=== PATIENT | female | born 1965 | race American Indian/Alaskan Native ===

== ENCOUNTER 2017-05-09 07:09 | Day surgery (SDC) | payer BC ==
[2017-05-09] MEDS ORDERED: NACL 0.9% 500 ML 500 ML IV SCH ×2 (08:00→09:35)
[2017-05-09 08:09] LABS: Basophils % (Auto) 0.5 % (0.0-1.8); Eosinophils % (Auto) 2.5 % (0.0-4.3); Hemoglobin 10.3 gm/dl (10.1-14.3); Mean Corpuscular HGB Conc 32 % (30-34); Mean Corpuscular Volume 77 fl (79-97); Platelet Count 270 K/mm3 (140-440); Red Blood Count 4.19 M/mm3 (3.65-5.03); Red Cell Distribution Width 14.5 % (13.2-15.2); White Blood Count 6.7 K/mm3 (4.5-11.0)
[2017-05-09 08:12] LABS: Mean Corpuscular Hemoglobin 25 pg (28-32)
[2017-05-09 08:19] LABS: INR 0.96 (0.87-1.13)
[2017-05-09 08:23] LABS: BUN/Creatinine Ratio 17.39; Calcium 8.7 mg/dL (8.4-10.2); Chloride 101.5 mmol/L (98-107); Potassium 4.1 mmol/L (3.6-5.0)
[2017-05-09] MEDS ORDERED: HEPARIN/NS 5000 UNIT/500ML(CATH LAB) 1,000 ML IR ONE (12:44)
[2017-05-09] MEDS ORDERED: VERSED ONE (12:45)
[2017-05-09] MEDS ORDERED: NITROGLYCERIN SYRINGE 0 ML ONE (12:45)
[2017-05-09] MEDS ORDERED: XYLOCAINE 2% INFILTRATI ONE (12:45)
[2017-05-09] MEDS ORDERED: HEPARIN 10,000 UNITS/10 ML ONE (12:45)
[2017-05-09] MEDS ORDERED: SUBLIMAZE ONE (12:45)
--- NOTE | 2017-05-09 13:55 | Discharge Summary ---
Short Stay Discharge Plan Activity: advance as tolerated Weight Bearing Status: Partial Weight Bearing Diet: low fat, low cholesterol, low salt, diabetic Wound: keep clean and dry Special Instructions: no heavy lifting (3 days) Follow up with: SVEN MONTOYA MD [Primary Care Provider] - 7 Days FELIPE CRUZ MD [Staff Physician] - 7 Days
[2017-05-09] MEDS ORDERED: NACL 0.9% 1000 ML 1,000 ML IV SCH (14:00)
[2017-05-09] MEDS ORDERED: ULTRAM PO PRN (14:08)
--- NOTE | 2017-05-09 14:49 | Cardiac Catherization Report ---
REASON FOR PROCEDURE: The patient is a 51-year-old woman with hypertension and diabetes who presented for preoperative cardiac assessment for routine colonoscopy. Further evaluation demonstrated a deterioration in the left ventricular systolic function with a dilated cardiomyopathy, ejection fraction 20-25%. A Persantine thallium stress test was abnormal with a partially transient lateral wall defect consistent with moderate ischemia in that territory. A cardiac catheterization was recommended. Prior to the cardiac catheterization, additional risk assessment, the patient has chronic kidney disease with a creatinine of 1.9-2.3 at baseline, and consented to the cardiac catheterization procedure after being fully informed of a high risk of contrast nephropathy. Plan for the procedure is to use Visipaque, and minimal contrast load just for defining the coronary anatomy. DESCRIPTION OF PROCEDURE: The patient was prepped and draped in a sterile fashion after informed consent. The right femoral artery was entered using the Seldinger technique followed by placement of a 6-Yoruba sheath. Selective left and right coronary angiography was performed using #4 right and left Courtney catheters. Following coronary angiography, the catheters were removed, sheath removed, and hemostasis achieved using an Angio-Seal device. The patient was returned to the postprocedure unit in stable condition. There were no complications. Total contrast used for the procedure was 20-24 mL. CORONARY ANGIOGRAPHY: The left main coronary artery was free of significant disease. The left anterior descending artery contained an eccentric, 75-80% stenosis of its mid segment, before a large mid diagonal branch. This mid LAD stenosis was best seen in the OTERO caudal projection. The circumflex system was a large system that contained a long segment of diffuse atherosclerosis in its proximal segment, beginning near its ostium. There was an up to 75-80% stenosis within this diseased segment. The right coronary artery was dominant. This vessel contained two sequential 75-80% stenoses of the mid segment. Left ventricular angiography was not performed, as reported above, she has a severe dilated cardiomyopathy with ejection fraction of 20-25% on recent echocardiogram. Total contrast used for the procedure was 20-24 mL. CONCLUSIONS: 1. Severe 3-vessel coronary artery disease. 2. Dilated cardiomyopathy, ejection fraction 20-25% was reported on echocardiogram. RECOMMENDATIONS: Multivessel disease, underlying cardiomyopathy, in a diabetic patient, the patient will benefit from multivessel revascularization with coronary artery bypass. JOB# [id number] CARMEN/NTS
[2017-05-09] MEDS ORDERED: APRESOLINE PO ONE (15:55)
[2017-05-09 19:39] VITALS: BP 167/89
== END 2017-05-09 19:50 | disposition home or self-care (01) ==
LOC: OPU 07:09
PROVIDERS: ATTEND Internal Medicine Cardiovascular Disease
DX: I25.10 Atherosclerotic heart disease of native coronary artery without angina pectoris (principal); E11.9 Type 2 diabetes mellitus without complications; I11.0 Hypertensive heart disease with heart failure; I50.9 Heart failure, unspecified; E78.5 Hyperlipidemia, unspecified; Z79.899 Other long term (current) drug therapy; Z98.890 Other specified postprocedural states; Z79.01 Long term (current) use of anticoagulants; Z79.4 Long term (current) use of insulin; Z96.41 Presence of insulin pump (external) (internal); Z82.49 Family history of ischemic heart disease and other diseases of the circulatory system; Z86.73 Personal history of transient ischemic attack (TIA), and cerebral infarction without residual deficits; Z83.49 Family history of other endocrine, nutritional and metabolic diseases; Z83.3 Family history of diabetes mellitus
CPT/HCPCS: 36415; 80048; 82962; 85025; 85610; 85730; 93005; 93010; 93458; C1760; C1894; J1644; J2250; J3010; J7040; Q9967

== ENCOUNTER 2017-10-05 06:36 | Day surgery (SDC) | payer BC ==
[~2017-10-05 06:36] MED LIST: ANCEF/STERILE WATER 2 GM/20 ML 2 GM/20 ML SYRINGE IV NR; NACL 0.9% 1000 ML 1,000 ML IV SCH
--- NOTE | 2017-10-05 07:42 | Anesthesia Consultation ---
Anesthesia Consult and Med Hx Date of service: 10/05/17 - Airway Anesthetic Teeth Evaluation: Good ROM Head & Neck: Adequate Mental/Hyoid Distance: Adequate Mallampati Class: Class II Intubation Access Assessment: Probably Good - Pulmonary Exam CTA: Yes - Cardiac Exam Cardiac Exam: RRR - Pre-Operative Health Status ASA Pre-Surgery Classification: ASA4 Proposed Anesthetic Plan: General - Pulmonary Hx Asthma: No COPD: No Hx Pneumonia: No - Cardiovascular System Hx Hypertension: Yes Hx Coronary Artery Disease: Yes (4 vessel CABG may 2017) Hx Heart Attack/AMI: Yes (2014) Hx Angina: Yes - Central Nervous System CVA: Yes (2007) Hx Psychiatric Problems: No - Endocrine Hx End Stage Renal Disease: No Hx Hypothyroidism: Yes - Other Systems Hx Cancer: No
--- NOTE | 2017-10-05 07:42 | Anesthesia Day of Surgery ---
Anesthesia Day of Surgery - Day of Surgery Patient Examined: Yes Patient H&P Reviewed: Yes Patient is NPO: Yes Beta Blockers: Yes
[2017-10-05] MEDS ORDERED: XYLOCAINE MPF 2% ONE (07:44)
[2017-10-05] MEDS ORDERED: DIPRIVAN 10 MG/ML IV ONE ×2 (07:44)
[2017-10-05] MEDS ORDERED: SUBLIMAZE ONE (07:44)
[2017-10-05] MEDS ORDERED: DILAUDID ONE (07:45)
[2017-10-05] MEDS ORDERED: AMIDATE IV ONE (07:45)
[2017-10-05 07:53] LABS: Calcium 8.6 mg/dL (8.4-10.2); Chloride 103.4 mmol/L (98-107); INR 0.97 (0.87-1.13); Potassium 3.8 mmol/L (3.6-5.0)
[2017-10-05 07:57] LABS: Basophils % (Auto) 0.9 % (0.0-1.8); Eosinophils % (Auto) 1.9 % (0.0-4.3); Hematocrit 28.8 % (30.3-42.9); Hemoglobin 9.2 gm/dl (10.1-14.3); Mean Corpuscular HGB Conc 32 % (30-34); Mean Corpuscular Hemoglobin 25 pg (28-32); Mean Corpuscular Volume 78 fl (79-97); Platelet Count 313 K/mm3 (140-440); Red Blood Count 3.72 M/mm3 (3.65-5.03); Red Cell Distribution Width 15.8 % (13.2-15.2); White Blood Count 6.5 K/mm3 (4.5-11.0)
[2017-10-05] MEDS ORDERED: HEPARIN/NS 5000 UNIT/500ML(CATH LAB) 1,000 ML IR ONE (08:18)
[2017-10-05] MEDS ORDERED: XYLOCAINE 2% INFILTRATI ONE (08:18)
[2017-10-05] MEDS ORDERED: ANCEF/STERILE WATER 2 GM/20 ML 2 GM/20 ML SYRINGE IV ONE (08:18)
[2017-10-05] MEDS ORDERED: NACL 0.9% 1000 ML 1,000 ML IV SCH (09:00)
[2017-10-05] MEDS: HEPARIN 10,000 UNITS/10 ML ONE ×3 (09:47→11:15)
[2017-10-05] MEDS ORDERED: NACL 0.9% 100 ML ONE (09:58)
[2017-10-05] MEDS ORDERED: ZOFRAN ONE ×2 (10:00→16:25)
[2017-10-05] MEDS ORDERED: NEO SYNEPHRINE/NS Syringe(OR USE) IV ONE (10:00)
[2017-10-05] MEDS ORDERED: DECADRON ONE (10:00)
[2017-10-05] MEDS ORDERED: NACL 0.9% 1000 ML 1,000 ML ONE (10:08)
[2017-10-05] MEDS ORDERED: HEPARIN/NS 5000 UNIT/500ML(CATH LAB) 500 ML IR ONE (11:34)
[2017-10-05] MEDS ORDERED: NORMODYNE IV ONE ×2 (12:02→14:00)
--- NOTE | 2017-10-05 12:28 | Post Anesthesia Evaluation ---
- Post Anesthesia Evaluation Patient Participated: Yes Airway Patent: Yes Stable Respiratory Function: Yes Nausea/Vomiting: No Temp > 96.8F: Yes Pain Manageable: Yes Adequeate Hydration: Yes Anesthesia Complications: No Block Receding Appropriately: Not Applicable Patient on Ventilator: No
[2017-10-05] MEDS: APRESOLINE IV PRN ×2 (12:31→13:00)
[2017-10-05] MEDS: DILAUDID IV PRN ×4 (12:40→13:45)
--- NOTE | 2017-10-05 12:55 | Short Stay Summary ---
Short Stay Documentation Date of service: 10/05/17 Narrative H&P: 52-year-old female with past medical history of coronary artery disease status post recent coronary artery bypass grafting for three-vessel disease in a patient with severe diabetes who presents with critical limb ischemia of the right leg with a nonhealing plantar ulcer and an LUCIA of 0.3. She also has very short distance left lower extremity claudication of the left lower extremity with LUCIA of 0.5. - History Principal diagnosis: critical limb ischemia H&P: obtained from office - Allergies and Medications Current Medications: Allergies glyburide [From Micronase] Allergy (Severe, Verified 05/09/17 08:11) Swelling of tongue,face Home Medications Medication Instructions Recorded Confirmed Last Taken Type Clopidogrel Bisulfate [Plavix] 75 mg PO DAILY 08/15/15 10/05/17 10/05/17 History Levothyroxine [Synthroid] 300 mcg PO QAM 08/15/15 10/05/17 10/04/17 History Carvedilol [Coreg] 25 mg PO BID #60 tablet 08/20/15 10/05/17 10/04/17 Rx Simvastatin [Zocor TAB] 40 mg PO QHS #30 tablet 08/20/15 10/05/17 10/04/17 Rx Aspirin EC [Aspirin Enteric Coated 4 mg PO QDAY 05/09/17 10/05/17 10/04/17 History TAB] Hydralazine HCl [Apresoline TAB] 50 mg PO Q8HR 08/30/17 10/05/17 10/05/17 History Furosemide [Lasix TAB] 80 mg PO BID 10/05/17 10/05/17 10/04/17 History Active Medications Hydralazine HCl (Apresoline) 10 mg IV Q30MIN PRN PRN Reason: Hypertension Stop: 10/05/17 23:59 Last Admin: 10/05/17 12:31 Dose: 10 mg Hydromorphone HCl (Dilaudid) 0.5 mg IV Q10MIN PRN PRN Reason: Pain , Severe (7-10) Stop: 10/05/17 16:00 Last Admin: 10/05/17 12:40 Dose: 0.5 mg Cefazolin Sodium (Ancef/Sterile Water 2 Gm/20 Ml) 2 gm in 20 mls @ 80 mls/hr IV PREOP NR PRN Reason: Protocol Stop: 10/05/17 21:00 Last Admin: 10/05/17 09:10 Dose: 20 mls Sodium Chloride (Nacl 0.9% 1000 Ml) 1,000 mls @ 42 mls/hr IV DIRECT PARISH Last Admin: 10/05/17 08:31 Dose: 42 mls/hr Sodium Chloride (Nacl 0.9% 1000 Ml) 1,000 mls @ 100 mls/hr IV DIRECT PARISH - Physical exam General appearance: no acute distress Lungs: Normal air movement Gastrointestinal: normal Extremities: normal temperature, normal color, abnormal (nonhealing ulcer of the right plantar midfoot) - Brief post op/procedure progress note Date of procedure: 10/05/17 Pre-op diagnosis: Right critical limb ischemia Post-op diagnosis: same Procedure: Revascularization of the right lower extremity Anesthesia: MAC Surgeon: NEIL BOWENS Estimated blood loss: minimal Condition: stable - Hospital course Hospital course: Patient tolerated the procedure well. No immediate postprocedure complication. - Disposition Condition at discharge: Stable Disposition: [id number]-01 TO HOME OR SELFCARE - Discharge Diagnoses (1) Critical ischemia of lower extremity Status: Acute Short Stay Discharge Plan Activity: advance as tolerated Weight Bearing Status: Weight Bear as Tolerated Diet: renal Wound: keep clean and dry, other (followup with Dr. Bowens and wound care) Follow up with: SVEN MONTOYA MD [Primary Care Provider] - 7 Days
--- NOTE | 2017-10-05 13:14 | Operative Report ---
Operative Report Operative Report: EXAM: 1. Ultrasound-guided access of the left common femoral artery 2. CO2 angiography of the left lower extremity (no clinical change for angiography , already performed 1 week prior) 3. Selection of the abdominal aorta with CO2 angiography of the abdominal aorta (no clinical change for angiography, already performed 1 week prior) 4. Selection of the right external iliac artery with CO2 angiography of the right lower extremity (no clinical change for angiography, already performed 1 week prior) 5. Selection of the right popliteal artery with CO2 angiography of the right lower extremity (no clinical change for angiography, already performed 1 week prior) 6. Jet stream 2.4-3.4 atherectomy of the right superficial femoral artery, and popliteal artery 7. Angioplasty of the right popliteal artery and superficial femoral artery with a 3.5-4 mm angioplasty balloon 8. Angioplasty of the right popliteal artery with a 4 mm x 100 mm LUTONIX drug coated balloon 9. Angioplasty of the right superficial femoral artery with 5 mm x 100 mm LUTONIX drug coated balloon (x 3) and 6 mm x 100 mm LUTONIX drug coated balloon 10. Selection of the anterior tibial artery with angiography (third order selection) (no clinical change for angiography, already performed 1 week prior) 11. Closure of the left common femoral artery with a 6 Bahamian Pro-glide device DATE: 10/05/17 FOOD AND BEVERAGE MANAGER: NEIL BOWENS MD INDICATION: Critical limb ischemia of the right lower extremity with nonhealing plantar ulcer and LUCIA of 0.3 MEDICATIONS: Please see nursing report for full details. DEVICES: Jet stream 2.4-3.4 atherectomy device 3.5-4 mm x 210 mm nanocross angioplasty balloon 4 mm x 100 mm LUTONIX drug coated balloon (pass through CPT code required) 5 mm x 100 mm LUTONIX drug coated balloon (x 3) (pass through CPT code required) 6 mm x 100 mm LUTONIX drug coated balloon (pass through CPT code required) CONTRAST: 12 mL of nonionic contrast ; CO2 contrast PROCEDURE: The risks, benefits, and alternatives were discussed with the patient; written informed consent was obtained. The patient was brought to the room and an LMA was placed by anesthesia the patient was anesthetized by anesthesia. The groins were prepped and draped in a sterile fashion. The left common femoral artery was evaluated under ultrasound and was patent. Under direct ultrasound guidance, the left common femoral artery was accessed with a 21-gauge micro-puncture needle. 0.018 inch wire was passed into the aorta. Needle was exchanged for transitional dilator. Wire was exchanged for 0.035 inch Martinez wire. Transitional dilator was exchanged for a 5 Bahamian sheath. CO2 angiography was performed demonstrating an appropriate puncture, above the bifurcation and below the inferior epigastric artery. The left common femoral artery, external iliac artery, proximal superficial femoral artery, and profunda femoral artery are patent. The abdominal aorta was selected with the Omni flush catheter and CO2 injection was performed. The infrarenal abdominal aorta was patent. The common iliac arteries had 20% narrowing bilaterally. The right external iliac artery was patent. The bilateral internal iliac arteries were patent. The right external iliac artery was selected and CO2 injection is performed. The right common femoral artery, profunda femoral artery, and proximalmost superficial femoral artery were patent. After the first few centimeters of the superficial femoral artery, the superficial femoral artery became severely atherosclerotic with multifocal areas of 99% narrowing throughout the superficial femoral artery. The popliteal artery, [id number], had a 99% narrowing. There is a 99% narrowing at the midportion of the popliteal artery. There is a 99% narrowing in the below-knee popliteal artery. There is no direct arterial outflow into the foot with occlusion of the anterior tibial artery throughout its course, posterior tibial artery throughout its course, and tibial peroneal trunk. The proximal peroneal artery was occluded. The midportion of the peroneal artery had severe atherosclerotic disease within it, but was visible with CO2. Sheath was exchanged for a 6 Bahamian 45 cm sheath positioned in the right common femoral artery. Catheter was used to cross the superficial femoral artery lesion to the above-knee popliteal artery. 2 mm contrast injection was performed which demonstrated that the 99% narrowing in the above-knee popliteal artery appeared to have an associated small thrombus associated with it. I then exchanges sheath for a 7 Bahamian 45 cm sheath positioned in the right superficial femoral artery. Angled catheter was used to engage the distal popliteal stump. V 18 wires were used to probe the stump, but I could not cannulate the tibioperoneal trunk. I was able to cannulate the anterior tibial artery. I was able to cross the anterior tibial artery occlusion and past wire into the dorsalis pedis. Unfortunately, I could not pass a catheter over the wire. This was attempted with the Jyoti and with the Navicross catheter. I could only pass a catheter to the midportion of the anterior tibial artery. I then removed Katheryn wire and used a Throughway wire. I then use the 2.4 3.4 jet stream device and performed atherectomy and slow pace throughout the superficial femoral artery multiple times, and then repeatedly performed atherectomy at the area with associated thrombus. I then performed atherectomy down to the mid popliteal artery. 3.5 x 4 mm angioplasty balloon was then used to perform angioplasty from the mid popliteal artery to the SFA origin. Afterwards, 4 mm drug coated balloon was used to perform angioplasty of the popliteal artery, 5 mm drug coated balloon was used to perform angioplasty of part of proximal, and the entire mid and distal superficial femoral artery, and 6 mm drug coated balloon was used to perform angioplasty of the proximal superficial femoral artery. Three-minute inflations were performed. I then used a few injections with 2 mL of contrast to evaluate the results which demonstrated no residual narrowing of the superficial femoral artery, a [id number] mild dissection at the start of the popliteal artery at Jose's canal, no residual narrowing at the midportion of the popliteal artery, but a 99% narrowing of the below-knee popliteal artery which was missed with angioplasty. 3.5-4 mm angioplasty was then used to perform angioplasty of the below-knee popliteal artery for 3 minutes. Digital subtraction angiography demonstrated prompt flow through the entirety of the popliteal artery. I then attempted to cross the anterior tibial artery with the 0.014 inch Trailblazer catheter but was unsuccessful. Gentle angiography was performed confirming position within the anterior tibial artery. Given that I are very used 12 mL of contrast in this patient with chronic renal insufficiency, and that further intervention would require me exchanging sheaths for a 90 cm [place] destination which would result in loss of wire access, and I decided to end the procedure at this time. I would reevaluate the patient in clinic in 1 week, and likely reintervene and open her anterior tibial artery at that time. She now had an abundance of collaterals at the popliteal artery and distal superficial femoral artery which provided flow into her foot without narrowing of the underlying [place] popliteal artery and superficial femoral artery. There is still no direct tibial outflow. All wires catheters and sheaths were retracted into the left external iliac artery. Martinez wire was passed into the abdominal aorta. Sheath was removed and exchanged for 6 Bahamian Pro-glide which was deployed achieving excellent hemostasis. Surgical glue applied to the dermatomy. Patient tolerated the procedure well. No immediate post procedural complication. The patient was transported to PACU without further issue. Evaluated patient in PACU, and her right foot rest pain had resolved. FINDINGS: Please see procedure note above IMPRESSION: 1. Successful atherectomy and angioplasty of the right superficial femoral artery with good technical result. 2. Successful selection (third order) of the right anterior tibial artery, but I was unable to pass a catheter over the wire due to sheath position. 3. Successful closure of the left common femoral artery arteriotomy with a Pro- glide device.
[2017-10-05] MEDS ORDERED: CATAPRES PO ONE ×2 (14:28→15:00)
[2017-10-05] MEDS ORDERED: CATAPRES ONE (14:30)
[2017-10-05] MEDS ORDERED: APRESOLINE ONE (15:35)
[2017-10-05] MEDS ORDERED: APRESOLINE IV ONE (16:00)
[2017-10-05 16:59] VITALS: BP 181/86
[2017-10-05] MEDS ORDERED: ZOFRAN IV ONE (17:00)
--- NOTE | 2017-10-06 07:23 | Vascular Lab Report ---
MISCELLANEOUS VESSEL IDENTIFICATION: COMMENTS ON THE SCAN: The left common femoral artery was identified and under real-time ultrasound guidance was cannulated. IMPRESSION: Successful ultrasound guided arterial cannulation.
== END 2017-10-05 16:55 | disposition home or self-care (01) ==
LOC: CATHLABREC 06:36
PROVIDERS: ATTEND Radiology Diagnostic Radiology
DX: I70.291 Other atherosclerosis of native arteries of extremities, right leg (principal); I99.8 Other disorder of circulatory system; L97.519 Non-pressure chronic ulcer of other part of right foot with unspecified severity; E11.22 Type 2 diabetes mellitus with diabetic chronic kidney disease; I12.0 Hypertensive chronic kidney disease with stage 5 chronic kidney disease or end stage renal disease; N18.9 Chronic kidney disease, unspecified; I25.10 Atherosclerotic heart disease of native coronary artery without angina pectoris; E78.5 Hyperlipidemia, unspecified; E03.9 Hypothyroidism, unspecified; I25.2 Old myocardial infarction; E66.9 Obesity, unspecified; Z68.34 Body mass index [BMI] 34.0-34.9, adult; Z88.8 Allergy status to other drugs, medicaments and biological substances; Z79.899 Other long term (current) drug therapy; Z86.73 Personal history of transient ischemic attack (TIA), and cerebral infarction without residual deficits; Z95.1 Presence of aortocoronary bypass graft
CPT/HCPCS: 36415; 37224; 37225; 76937; 80048; 82962; 85025; 85610; 85730; 96374; 96375; C1724; C1725; C1760; C1769; C1887; C2623; J0360; J0690; J1100; J1170; J1644; J2370; J2405; J2704; J3010; J7030; Q9967

== ENCOUNTER 2017-11-23 06:32 | Day surgery (SDC) | payer BC ==
[2017-11-23 07:22] LABS: Basophils # (Auto) 0.1 K/mm3 (0.0-0.1); Basophils % (Auto) 0.9 % (0.0-1.8); Eosinophils # (Auto) 0.5 K/mm3 (0.0-0.4); Eosinophils % (Auto) 7.2 % (0.0-4.3); Hematocrit 31.4 % (30.3-42.9); Hemoglobin 9.7 gm/dl (10.1-14.3); Lymphocytes # (Auto) 2.3 K/mm3 (1.2-5.4); Lymphocytes % (Auto) 31.9 % (13.4-35.0); Mean Corpuscular HGB Conc 31 % (30-34); Mean Corpuscular Volume 78 fl (79-97); Monocytes # (Auto) 0.8 K/mm3 (0.0-0.8); Monocytes % (Auto) 11.4 % (0.0-7.3); Platelet Count 355 K/mm3 (140-440); Red Blood Count 4.04 M/mm3 (3.65-5.03)
[2017-11-23 07:27] LABS: Mean Corpuscular Hemoglobin 24 pg (28-32)
[2017-11-23 07:32] LABS: INR 0.93 (0.87-1.13)
[2017-11-23 07:33] LABS: Partial Thromboplastin Time 32.4 Sec. (24.2-36.6)
[2017-11-23 07:47] LABS: Calcium 8.9 mg/dL (8.4-10.2)
[2017-11-23] MEDS ORDERED: D50W (25GM) Syringe IV ONE (08:08)
[2017-11-23] MEDS ORDERED: D50W (25GM) Syringe IV PRN (08:09)
[2017-11-23] MEDS ORDERED: HEPARIN/NS 5000 UNIT/500ML(CATH LAB) 1,000 ML IR ONE (09:09)
[2017-11-23] MEDS ORDERED: XYLOCAINE 2% INFILTRATI ONE (09:10)
[2017-11-23] MEDS: VERSED ONE ×8 (09:17→11:48)
[2017-11-23] MEDS: SUBLIMAZE ONE ×8 (09:17→11:48)
[2017-11-23] MEDS: APRESOLINE ONE ×2 (09:26→09:34)
[2017-11-23] MEDS ORDERED: VERSED ONE (09:32)
[2017-11-23] MEDS ORDERED: SUBLIMAZE ONE (09:33)
[2017-11-23] MEDS: HEPARIN 10,000 UNITS/10 ML ONE ×3 (09:34→11:00)
[2017-11-23] MEDS ORDERED: APRESOLINE ONE (09:45)
[2017-11-23] MEDS ORDERED: LOPRESSOR IV ONE ×5 (09:46→11:50)
[2017-11-23] MEDS ORDERED: TRIDIL DRIP 50MG/250ML 50 MG/250 ML BOTTLE ONE (10:02)
[2017-11-23] MEDS ORDERED: CALAN ONE (10:02)
[2017-11-23] MEDS ORDERED: NACL 0.9% 1000 ML 1,000 ML ONE (10:03)
[2017-11-23] MEDS ORDERED: HEPARIN/NS 5000 UNIT/500ML(CATH LAB) 500 ML IR ONE (11:46)
--- NOTE | 2017-11-23 12:22 | Short Stay Summary ---
Short Stay Documentation Date of service: 11/23/17 Narrative H&P: 52-year-old female with coronary artery disease status post coronary artery bypass grafting 6 months ago, and recent laparoscopic cholecystectomy with significant peripheral vascular disease and right lower extremity rest pain who presents for revascularization. - History H&P: obtained from office - Allergies and Medications Current Medications: Allergies glyburide [From Micronase] Allergy (Severe, Verified 10/10/17 13:17) Swelling of tongue,face Home Medications Medication Instructions Recorded Confirmed Last Taken Type Clopidogrel Bisulfate [Plavix] 75 mg PO DAILY 08/15/15 11/23/17 11/22/17 History Carvedilol [Coreg] 25 mg PO BID #60 tablet 08/20/15 11/23/17 11/23/17 05:00 Rx Aspirin EC [Aspirin Enteric Coated 4 tab PO DAILY 05/09/17 11/23/17 11/22/17 History TAB] Hydralazine HCl [Apresoline TAB] 50 mg PO QID 08/30/17 11/23/17 11/23/17 05:00 History Ferrous Gluconate 324 mg PO DAILY 10/05/17 11/23/17 11/20/17 History Furosemide [Lasix TAB] 80 mg PO QDAY 10/05/17 11/23/17 11/21/17 History HYDROcodone/APAP 7.5-325 [[place] 1 each PO Q6HR PRN 10/10/17 11/23/17 11/22/17 History 7.5-325 mg TAB] Levothyroxine Sodium [Synthroid] 300 mcg PO 5XW 10/10/17 11/23/17 11/22/17 History Simvastatin [Zocor] 10 mg PO HS 10/10/17 11/23/17 11/22/17 History Active Medications Dextrose (D50w (25gm) Syringe) 50 ml IV PRN PRN PRN Reason: Hypoglycemia Last Admin: 11/23/17 08:10 Dose: 25 ml Cefazolin Sodium (Ancef/Sterile Water 2 Gm/20 Ml) 2 gm in 20 mls @ 80 mls/hr IV PREOP NR PRN Reason: Protocol Stop: 11/23/17 23:59 Last Admin: 11/23/17 09:29 Dose: 20 mls Sodium Chloride (Nacl 0.9% 1000 Ml) 1,000 mls @ 42 mls/hr IV DIRECT PARISH Last Admin: 11/23/17 07:30 Dose: 42 mls/hr - Physical exam General appearance: mild distress (right foot pain and calf pain) Lungs: Normal air movement Gastrointestinal: normal Extremities: normal temperature, normal color, abnormal (decreased pulses) - Brief post op/procedure progress note Date of procedure: 11/23/17 Pre-op diagnosis: Right lower extremity rest pain Post-op diagnosis: same Procedure: 1. Ultrasound-guided access of the left common femoral artery 2. Selection of the abdominal aorta with CO2 aortography 3. Selection of the right external iliac artery with CO2 angiography 4. Selection of the right superficial femoral artery and popliteal artery with CO2 angiography 5. Selection of the popliteal artery with angiography 6. Selection of the anterior tibial artery with angiography 7. 1.25 solid CSI atherectomy of the right popliteal artery and anterior tibial artery 8. Angioplasty of the right anterior tibial artery with a 3 mm angioplasty balloon 9. Angioplasty of the proximal anterior tibial artery and distal popliteal artery with a 3.5 mm angioplasty below 10. Angioplasty of the mid popliteal artery to the mid superficial femoral artery with a 5 mm angioplasty balloon 11. Angioplasty of the distal popliteal artery with a 4 mm drug-coated LUTONIX angioplasty balloon 12. Angioplasty of the mid popliteal artery and distal superficial femoral artery with a 5 mm drug-coated LUTONIX angioplasty balloon 13. Angioplasty of the mid and proximal superficial femoral artery with a 6 mm drug-coated LUTONIX angioplasty balloon (x 2) 14. Repeat angioplasty of the anterior tibial artery and popliteal artery with a 3 mm angioplasty balloon and 3.5 mm angioplasty balloon 15. Angiography of the left lower extremity 16. Closure of the left common femoral artery with a 6 Bhutanese Proglide Anesthesia: local (w/ conscious sedation) Findings: 18 mL contrast used Surgeon: NEIL BOWENS Estimated blood loss: minimal Condition: stable - Hospital course Hospital course: Will be ready for discharge in 2 hrs. - Disposition Condition at discharge: Stable Disposition: DC-01 TO HOME OR SELFCARE - Discharge Diagnoses (1) Rest pain of right lower extremity concurrent with and due to atherosclerosis of bypass graft Status: Acute (2) PAD (peripheral artery disease) Status: Chronic Short Stay Discharge Plan Activity: advance as tolerated Weight Bearing Status: Weight Bear as Tolerated Diet: other (cardiac) Wound: keep clean and dry Follow up with: SVEN MONTOYA MD [Primary Care Provider] - 7 Days
--- NOTE | 2017-11-23 12:23 | Operative Report ---
Operative Report Operative Report: EXAM: 1. Ultrasound-guided access of the left common femoral artery 2. Selection of the abdominal aorta with CO2 aortography 3. Selection of the right external iliac artery with CO2 angiography 4. Selection of the right superficial femoral artery and popliteal artery with CO2 angiography 5. Selection of the popliteal artery with angiography 6. Selection of the anterior tibial artery with angiography 7. 1.25 solid CSI atherectomy of the right popliteal artery and anterior tibial artery 8. Angioplasty of the right anterior tibial artery with a 3 mm angioplasty balloon 9. Angioplasty of the proximal anterior tibial artery and distal popliteal artery with a 3.5 mm angioplasty below 10. Angioplasty of the mid popliteal artery to the mid superficial femoral artery with a 5 mm angioplasty balloon 11. Angioplasty of the distal popliteal artery with a 4 mm drug-coated LUTONIX angioplasty balloon 12. Angioplasty of the mid popliteal artery and distal superficial femoral artery with a 5 mm drug-coated LUTONIX angioplasty balloon 13. Angioplasty of the mid and proximal superficial femoral artery with a 6 mm drug-coated LUTONIX angioplasty balloon (x 2) 14. Repeat angioplasty of the anterior tibial artery and popliteal artery with a 3 mm angioplasty balloon and 3.5 mm angioplasty balloon 15. Angiography of the left lower extremity 16. Closure of the left common femoral artery with a 6 [place] Proglide DATE: 11/23/17 TRUST ADVISOR: NEIL BOWENS MD INDICATION: Critical limb ischemia of the right lower extremity with rest pain and a nonhealing ulcer. MEDICATIONS: Please see nursing report for full details. DEVICES: 3 mm angioplasty balloon 3.5 mm angioplasty balloon 5 mm angioplasty balloon 4 mm drug-coated LUTONIX balloon (pass through code required) 5 mm drug-coated LUTONIX balloon (pass through code required) 6 mm drug-coated LUTONIX balloon (x2) (pass through code required) 1.25 solid CSI atherectomy device CONTRAST: 18 mL of nonionic contrast. PROCEDURE: The risks, benefits, and alternatives were discussed with the patient; written informed consent was obtained. The patient was prepped and draped in sterile fashion and her groins were prepped and draped in a sterile fashion. The left common femoral artery was evaluated under ultrasound was patent. Under direct ultrasound guidance, a 21-gauge micropuncture needle was used to access the left common femoral artery. 0.018 inch wire was passed into the aorta. Needle was exchanged for transitional dilator. Wire was exchanged for a 0.035 inch wire. Transitional dilator was exchanged for 5 [place] sheath. Catheters used to select the abdominal aorta and CO2 angiography was performed demonstrating no significant abdominal aortic narrowing with patency of the common iliac arteries and external iliac arteries. The internal iliac arteries were also patent. The right external iliac artery was selected and CO2 angiography was performed and ensuring patency of the right common femoral artery, proximal superficial femoral artery, and profunda femoral artery. The right superficial femoral artery was selected. CO2 angiography demonstrated 20% residual narrowing within the midportion of the superficial femoral artery. The distal superficial femoral artery was selected. There is diffuse 20-30% narrowing of the distal superficial femoral artery. There was a non-hemodynamic limiting dissection in the above-knee popliteal artery. The midportion of the popliteal artery had 70-80% narrowing, which extended into the distal popliteal artery. The distal popliteal artery was selected and digital subtraction angiography was performed demonstrating numerous collaterals extending into the infrapopliteal vasculature, but the only reconstituted vessels that could be seen was the peroneal artery was reconstituted approximately 10 cm below the popliteal artery. The posterior tibial and anterior tibial artery were not visualized. 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 Runoff could not be visualized because I did not want to waste my contrast trying to evaluate the distal runoff as the patient had an elevated creatinine and I wanted to minimize contrast usage. Patient was heparinized. Sheath was exchanged for a 6 [place] 65 cm [place] destination positioned in the right distal superficial femoral artery. Using a V 18 and angled catheter, the anterior tibial artery chronic total occlusion was crossed. 0.018 inch Trailblazer was passed into the dorsalis pedis. Digital subtraction angiography confirmed position within the foot. Wire was exchanged for a Viper Wire. 1.25 solid CSI atherectomy device was then advanced over the wire and use to perform atherectomy of the popliteal artery, and anterior tibial artery throughout its course. Afterwards, 3 mm angioplasty balloon was used to perform angioplasty along the anterior tibial artery throughout its course. The proximal anterior tibial artery extending into the popliteal artery was then dilated with a 3.5 mm angioplasty balloon. The popliteal artery at its midportion to the distal to mid superficial femoral artery was dilated with a 5 mm angioplasty balloon. Afterwards, a 4 mm drug-coated angioplasty balloon was used to perform angioplasty of the popliteal artery. Then a 5 mm drug-coated angioplasty balloon was used to perform angioplasty from the mid popliteal artery to the proximal superficial femoral artery. Then 2 drug coated 6 mm angioplasty balloons were used to perform angioplasty in the distal to mid superficial femoral artery. Digital subtraction angiography was performed demonstrating no residual narrowing of the mid and distal superficial femoral artery. The small nonflow limiting dissection in the [id number] popliteal artery was much less prominent, and not flow-limiting. There is a nonflow limiting dissection in the proximal anterior tibial artery. There were small nonflow limiting dissections within the midportion of the anterior tibial artery and within the distal anterior tibial artery. 3.5 mm angioplasty balloon was used to perform angioplasty for 5 minutes at the proximal anterior tibial artery extending into the popliteal artery. 3 mm angioplasty balloon was then used to perform angioplasty at 4-5 minute durations from the distal anterior tibial artery throughout its course into the popliteal artery. Digital subtraction angiography was performed demonstrating only minimal residual dissections of the proximal anterior tibial artery, and distal anterior tibial artery after prolonged angioplasty. There is now prompt flow into the foot. All wires, sheaths, and catheters were retracted into the left external iliac artery. 6 [place] Perclose device was used to close the arteriotomy achieving near immediate hemostasis. The patient had a palpable right dorsalis pedis pulse at the conclusion of the procedure and was out of rest pain. Patient tolerated the procedure well. No immediate postprocedural complication. FINDINGS: Please see procedure note above. IMPRESSION: 1. Successful atherectomy and angioplasty of the right popliteal artery. 2. Successful angioplasty of the right mid and distal superficial femoral artery. 3. Successful atherectomy and angioplasty of the right anterior tibial artery.
[2017-11-23] MEDS ORDERED: APRESOLINE IV PRN (12:24)
[2017-11-23] MEDS ORDERED: LOPRESSOR IV PRN (12:24)
[2017-11-23 14:49] VITALS: BP 190/72
== END 2017-11-23 14:30 | disposition home or self-care (01) ==
LOC: CATHLABREC 06:32
PROVIDERS: ATTEND Radiology Diagnostic Radiology
DX: I70.235 Atherosclerosis of native arteries of right leg with ulceration of other part of foot (principal); I70.213 Atherosclerosis of native arteries of extremities with intermittent claudication, bilateral legs; I25.10 Atherosclerotic heart disease of native coronary artery without angina pectoris; E11.51 Type 2 diabetes mellitus with diabetic peripheral angiopathy without gangrene; E03.9 Hypothyroidism, unspecified; E78.5 Hyperlipidemia, unspecified; E66.9 Obesity, unspecified; Z68.34 Body mass index [BMI] 34.0-34.9, adult; Z95.1 Presence of aortocoronary bypass graft; Z90.49 Acquired absence of other specified parts of digestive tract; Z79.82 Long term (current) use of aspirin; Z79.899 Other long term (current) drug therapy; Z79.01 Long term (current) use of anticoagulants
CPT/HCPCS: 36415; 37225; 37229; 75625; 75716; 76937; 80048; 82962; 85025; 85610; 85730; 96374; 99156; 99157; C1724; C1725; C1760; C1769; C1887; C1894; C2623; J0360; J1644; J2250; J3010; J7030; Q9967

== ENCOUNTER 2017-12-28 06:49 | Day surgery (SDC) | payer BC ==
[2017-12-28 08:25] LABS: Basophils % (Auto) 0.6 % (0.0-1.8); Eosinophils # (Auto) 0.2 K/mm3 (0.0-0.4); Eosinophils % (Auto) 4.3 % (0.0-4.3); Hematocrit 31.5 % (30.3-42.9); Hemoglobin 10.2 gm/dl (10.1-14.3); Lymphocytes # (Auto) 2.1 K/mm3 (1.2-5.4); Lymphocytes % (Auto) 41.5 % (13.4-35.0); Mean Corpuscular HGB Conc 33 % (30-34); Mean Corpuscular Volume 78 fl (79-97); Monocytes # (Auto) 0.5 K/mm3 (0.0-0.8); Monocytes % (Auto) 10.9 % (0.0-7.3); Platelet Count 250 K/mm3 (140-440); Red Blood Count 4.04 M/mm3 (3.65-5.03); Red Cell Distribution Width 15.2 % (13.2-15.2)
[2017-12-28 08:27] LABS: Mean Corpuscular Hemoglobin 25 pg (28-32)
[2017-12-28 08:35] LABS: INR 0.97 (0.87-1.13)
[2017-12-28 08:36] LABS: Partial Thromboplastin Time 28.7 Sec. (24.2-36.6)
[2017-12-28 08:43] LABS: Alanine Aminotransferase 12 units/L (7-56); Albumin 3.6 g/dL (3.9-5); BUN/Creatinine Ratio 14; Blood Urea Nitrogen 33 mg/dL (7-17); Calcium 8.5 mg/dL (8.4-10.2); Hemolysis Index 3
[2017-12-28 08:46] LABS: Bilirubin,Direct < 0.2 mg/dL (0-0.2)
[2017-12-28] MEDS ORDERED: ECOTRIN PO NR (08:54)
[2017-12-28] MEDS ORDERED: HEPARIN/NS 5000 UNIT/500ML(CATH LAB) 1,000 ML IR ONE (09:49)
[2017-12-28] MEDS ORDERED: XYLOCAINE 2% INFILTRATI ONE (09:50)
[2017-12-28] MEDS ORDERED: PLAVIX PO SCH (10:00)
[2017-12-28] MEDS ORDERED: ANCEF/STERILE WATER 2 GM/20 ML 2 GM/20 ML SYRINGE IV ONE (10:12)
[2017-12-28] MEDS: VERSED ONE ×8 (10:16→11:56)
[2017-12-28] MEDS: SUBLIMAZE ONE ×8 (10:16→11:56)
[2017-12-28] MEDS ORDERED: APRESOLINE ONE (10:23)
[2017-12-28] MEDS ORDERED: TRIDIL DRIP 50MG/250ML 50 MG/250 ML BOTTLE ONE (11:01)
[2017-12-28] MEDS ORDERED: NACL 0.9% 1000 ML 1,000 ML ONE (11:01)
[2017-12-28] MEDS ORDERED: CALAN ONE (11:02)
[2017-12-28] MEDS: HEPARIN 10,000 UNITS/10 ML ONE ×3 (11:15→12:00)
[2017-12-28] MEDS ORDERED: VERSED ONE (12:05)
[2017-12-28] MEDS ORDERED: SUBLIMAZE ONE (12:06)
--- NOTE | 2017-12-28 12:53 | Short Stay Summary ---
Short Stay Documentation Date of service: 12/28/17 Narrative H&P: 52 year old with right CLI status post revasc with healed ulcer and palpable pulse with left CLI (rest pain). - History Principal diagnosis: Critical limb ischemia H&P: obtained from office - Allergies and Medications Current Medications: Allergies glyburide [From Micronase] Allergy (Severe, Verified 10/10/17 13:17) Swelling of tongue,face VEGA Inhibitors Allergy (Verified 12/28/17 08:24) Shortness of Breath nifedipine Allergy (Verified 12/28/17 08:23) Vomiting Home Medications Medication Instructions Recorded Confirmed Last Taken Type Clopidogrel Bisulfate [Plavix] 75 mg PO DAILY 08/15/15 12/28/17 12/27/17 19:00 History Carvedilol [Coreg] 25 mg PO BID #60 tablet 08/20/15 12/28/17 12/28/17 06:00 Rx 25mg Aspirin EC [Aspirin Enteric Coated 4 tab PO DAILY 05/09/17 12/28/17 12/27/17 19: 00 History TAB] Hydralazine HCl [Apresoline TAB] 50 mg PO QID 08/30/17 12/28/17 12/28/17 06:00 History 50mg Ferrous Gluconate 324 mg PO DAILY 10/05/17 12/28/17 12/26/17 History 324mg Furosemide [Lasix TAB] 80 mg PO QDAY 10/05/17 12/28/17 12/27/17 History 80mg Levothyroxine Sodium [Synthroid] 300 mcg PO 5XW 10/10/17 12/28/17 12/28/17 06: 00 History 300mcg Simvastatin [Zocor] 10 mg PO HS 10/10/17 12/28/17 12/27/17 History 10mg Insulin Lispro [Humalog] 1.1 units SQ Q60MIN 12/28/17 12/28/17 12/28/17 06:00 History Vit D3-Vit K/Berberine/Hops 1 tab PO QWEEK 12/28/17 12/28/17 12/23/17 History [Ostera Tablet] 1 tab oxyCODONE /ACETAMINOPHEN [Percocet 1 tab PO Q6H PRN 12/28/17 12/28/17 12/26/17 History 5/325 mg] 1 tab Active Medications Clopidogrel Bisulfate (Plavix) 75 mg PO QDAY COUNT INCLUDES THE [facility] Last Admin: 12/28/17 09:03 Dose: 75 mg Cefazolin Sodium (Ancef/Sterile Water 2 Gm/20 Ml) 2 gm in 20 mls @ 80 mls/hr IV PREOP NR PRN Reason: Protocol Stop: 12/28/17 23:59 Sodium Chloride (Nacl 0.9% 1000 Ml) 1,000 mls @ 42 mls/hr IV DIRECT COUNT INCLUDES THE [facility] Last Admin: 12/28/17 09:05 Dose: 42 mls/hr - Physical exam General appearance: no acute distress Lungs: Normal air movement - Brief post op/procedure progress note Date of procedure: 12/28/17 Pre-op diagnosis: Left CLI Post-op diagnosis: same Procedure: Revasc the LLE Anesthesia: local (w/ conscious sedation) Surgeon: NEIL BOWENS Estimated blood loss: minimal Condition: stable - Hospital course Hospital course: Tolerated procedure well. Ready for discharge in 3 hrs. - Disposition Condition at discharge: Stable Disposition: [id number] TO HOME OR SELFCARE Short Stay Discharge Plan Activity: advance as tolerated Weight Bearing Status: Weight Bear as Tolerated Diet: diabetic Follow up with: SVEN MONTOYA MD [Primary Care Provider] - 7 Days
--- NOTE | 2017-12-28 13:03 | Operative Report ---
Operative Report Operative Report: EXAM: 1. Ultrasound-guided access of the right common femoral artery 2. Carbon dioxide angiography of the right lower extremity 3. Carbon dioxide angiography of the abdominal aorta with selection of the abdominal aorta 4. Carbon dioxide angiography of the left lower extremity (clinical change, rest pain from severe claudication) with selection of the left external iliac artery 5. Carbon dioxide angiography of the left lower extremity with selection of the left superficial femoral artery and popliteal artery 6. Contrast angiography left lower extremity with selection of the tibioperoneal trunk and posterior tibial artery 7. 1.5 solids CSI atherectomy of the left superficial femoral artery, popliteal artery, tibioperoneal trunk, and posterior tibial artery 8. Angioplasty of the left posterior tibial artery and tibioperoneal trunk with a 2-2.5 mm x 210 mm angioplasty balloon 9. Angioplasty of the popliteal artery and superficial femoral artery with a 5 mm x 250 mm angioplasty balloon 10. Angioplasty of the left popliteal artery with a 5 mm x 150 mm INPACT DRUG COATED BALLOON 11. Angioplasty of the left superficial femoral artery with a 6 mm x 150 mm x 2 INPACT DRUG COATED BALLOON 11. Angioplasty of the left superficial femoral artery with a 6 mm x 120 mm INPACT DRUG COATED BALLOON 12. Repeat angioplasty of the left posterior tibial artery and tibioperoneal trunk with a 2-2.5 mm x 210 mm angioplasty balloon DATE: 12/28/17 CONSULTING SALES EXECUTIVE: NEIL BOWENS MD INDICATION: Critical limb ischemia of the left lower extremity with rest pain ; patient has no veins available for bypass secondary to harvesting for coronary artery bypass grafting MEDICATIONS: Please see nursing report for full details. DEVICES: 1.5 CSI atherectomy device 2-2.5 mm x 210 mm hansel cross angioplasty balloon 5 mm x 250 mm [place] extreme angioplastic 5 mm x 150 mm INPACT drug-coated angioplasty balloon 6 mm x 150 mm INPACT drug-coated angioplasty balloon (x 2) 6 mm x 120 mm INPACT drug-coated angioplasty balloon CONTRAST: 20 mL nonionic contrast PROCEDURE: The risks, benefits, and alternatives were discussed with the patient; written informed consent was obtained. The right common femoral artery was assessed with ultrasound and was patent. Under direct ultrasound guidance, the right common femoral artery was accessed with a 21-gauge micropuncture needle. 0.018 inch wire was passed into the aorta. Needle was exchanged for transitional dilator. Wire was exchanged for 0.035 inch wire. Transitional dilator was exchanged for a 5 [place] sheath. CO2 angiography was performed to the right sheath demonstrating an appropriate puncture, above the bifurcation and below the inferior epigastric artery. The right external iliac artery, common femoral artery, proximal superficial femoral artery, and proximal profunda femoral artery were patent. The abdominal aorta was selected and CO2 angiography was performed. The abdominal aorta, bilateral common iliac arteries, bilateral external iliac arteries, and bilateral internal iliac arteries were patent. The left external iliac artery was selected and CO2 angiography was performed. Left external iliac artery, common femoral artery, and profunda femoral artery were patent. There is an ostial 50% narrowing of the left superficial femoral artery. The left superficial femoral artery was selected and CO2 angiography was performed. The left proximal superficial femoral artery had a moderate length 60% narrowing, with superimposed tandem 99% narrowings. The mid superficial femoral artery had multifocal 50% narrowings. The junction between the popliteal artery and distal superficial femoral artery had a 99% narrowing. The [id number] and mid knee popliteal artery had 2 focal occlusions with reconstitution immediately afterwards. Most of the flow to the lower extremity extended through the mid popliteal artery into a robust set of collaterals. The below the knee popliteal artery was 30-40% narrowed and the tibioperoneal trunk was essentially occluded. The anterior tibial artery is occluded from ostium to the ankle where there is reconstitution of the dorsalis pedis. The peroneal artery was occluded from ostium to ankle. The posterior tibial artery was occluded from ostium to mid calf. At mid calf, the posterior tibial artery communicated through the communicating arteries to the dorsalis pedis. The plantar arteries were occluded. The patient was heparinized. Sheath was exchanged for a 7 [place] 45 cm [place] destination positioned in the left superficial femoral artery. Using a series of catheters and wires, posterior tibial artery was selected. Angiography was performed confirming position and demonstrating communication through the communicating arteries to the dorsalis pedis. Viper wire was passed to the posterior tibial artery. 1.5 mm solid CSI atherectomy device was then used to perform atherectomy from the superficial femoral artery, through the popliteal artery, the tibioperoneal trunk, and into the posterior tibial artery. 2-2.5 mm angioplasty balloon was used to perform angioplasty from the posterior tibial artery through the tibioperoneal trunk. 5 mm angioplasty balloon is used perform angioplasty through the popliteal artery and superficial femoral artery. 5 mm x 150 mm drug-coated balloon was then used to perform angioplasty to the popliteal artery. 6 mm x 150 mm drug-coated balloons 2 and 6 mm x 120 mm drug- coated balloons were used to perform angioplasty throughout the entire extent of the superficial femoral artery. Digital subtraction angiography demonstrated no residual narrowing within the superficial femoral artery. There is a focal 30% narrowing in the mid popliteal artery. The rest of the above the above the knee popliteal artery was patent. The below the knee popliteal artery was essentially unchanged. Most of the flow to the lower extremity extended through the mid popliteal artery into a robust set of collaterals. There is sluggish flow through the tibioperoneal trunk and the posterior tibial artery. Vertebral catheter with [employer]Kuldip device was used to perform angiography demonstrating that the mid posterior tibial artery had not been completely treated and there was a occlusion there. 2-2.5 mm angioplasty balloon was used perform angioplasty from the posterior tibial artery through the tibioperoneal trunk. Repeat angiography demonstrated runoff through the posterior tibial artery which then communicated through the communicating arteries at the ankle to the dorsalis pedis. There is some [id number] mild dissections proximally. The tibioperoneal trunk had a mild 30-40% narrowing proximally. After reviewing the images, I determined the intervention was complete. All wires, catheters, and sheaths were retracted to the right external iliac artery. Sheath was exchanged for a 7 [place] standard sheath. Mynx device was then deployed achieving near immediate hemostasis. Patient tolerated the procedure well. No immediate postprocedure complication. FINDINGS: Please see procedure note above IMPRESSION: 1. Successful atherectomy and angioplasty of the left posterior tibial artery and tibioperoneal trunk. 2. Successful atherectomy and angioplasty of the left superficial femoral artery and popliteal artery. 3. Successful angiography of the bilateral lower extremities and abdominal aorta in a patient with clinical change (left lower extremity critical limb ischemia from severe claudication).
[2017-12-28] MEDS ORDERED: PERCOCET 5/325 PO ONE (16:00)
[2017-12-28 18:10] VITALS: BP 150/70
== END 2017-12-28 18:59 | disposition home or self-care (01) ==
LOC: CATHLABREC 06:49
PROVIDERS: ATTEND Radiology Diagnostic Radiology
DX: I70.223 Atherosclerosis of native arteries of extremities with rest pain, bilateral legs (principal); M62.269 Nontraumatic ischemic infarction of muscle, unspecified lower leg; I87.2 Venous insufficiency (chronic) (peripheral); E03.9 Hypothyroidism, unspecified; E78.5 Hyperlipidemia, unspecified; E66.9 Obesity, unspecified; I10 Essential (primary) hypertension; Z88.8 Allergy status to other drugs, medicaments and biological substances; Z98.890 Other specified postprocedural states; Z79.4 Long term (current) use of insulin; Z79.82 Long term (current) use of aspirin; Z68.34 Body mass index [BMI] 34.0-34.9, adult
CPT/HCPCS: 36415; 37225; 37229; 75625; 75716; 80048; 80074; 82962; 85025; 85610; 85730; 99156; 99157; C1724; C1725; C1750; C1760; C1769; C1887; C2623; J0360; J0690; J1644; J2250; J3010; J7030; Q9967

== ENCOUNTER 2019-08-30 11:11 | Inpatient (IN) | payer BC, MEDICAID ==
--- NOTE | 2019-08-30 11:21 | Event Note ---
ED Screening Note ED Screening Note: cough x 2 weeks no fever chest tightness hurts to breathe hypertensive in triage PMHx HTN- carvideolol, hydralazine, amlodipine dilated cardiomyopathy This initial assessment/diagnostic orders/clinical plan/treatment(s) is/are subject to change based on patients health status, clinical progression and re- assessment by fellow clinical providers in the ED. Further treatment and workup at subsequent clinical providers discretion. Patient/guardian urged not to elope from the ED as their condition may be serious if not clinically assessed and managed. Initial orders include: CP protocol
[2019-08-30] MEDS ORDERED: ADENOSINE 6 MG/2 ML INJ ONE (11:27)
[2019-08-30 12:23] LABS: Basophils # (Auto) 0.1 K/mm3 (0.0-0.1); Basophils % (Auto) 0.8 % (0.0-1.8); Eosinophils # (Auto) 0.5 K/mm3 (0.0-0.4); Eosinophils % (Auto) 6.6 % (0.0-4.3); Hematocrit 34.7 % (30.3-42.9); Hemoglobin 11.2 gm/dl (10.1-14.3); Lymphocytes # (Auto) 2.1 K/mm3 (1.2-5.4); Lymphocytes % (Auto) 28.9 % (13.4-35.0); Mean Corpuscular HGB Conc 32 % (30-34); Mean Corpuscular Volume 79 fl (79-97); Monocytes # (Auto) 0.8 K/mm3 (0.0-0.8); Monocytes % (Auto) 10.9 % (0.0-7.3); Platelet Count 343 K/mm3 (140-440); Red Blood Count 4.39 M/mm3 (3.65-5.03); Red Cell Distribution Width 14.2 % (13.2-15.2)
--- NOTE | 2019-08-30 12:28 | XRay Report ---
. CHEST 2 VIEWS INDICATION: cough. COMPARISON: FINDINGS: Support devices: None. Heart: Previous CABG changes are noted. Heart size is at the upper limits of normal. Single lead pace maker device is in position. Lungs/pleura: No acute air space or interstitial disease. No pneumothorax. Additional findings: None. IMPRESSION: No acute findings. Signer Name: Elmo Shi Jr, MD Signed: 08/30/2019 12:24 PM Workstation Name: [id number]
--- NOTE | 2019-08-30 12:39 | Emergency Department Report ---
ED Chest Pain HPI - General Chief Complaint: Chest Pain Stated Complaint: CHESTPAIN/COUGH/DR ALTHEA HADDAD Time Seen by Provider: 08/30/19 11:19 Source: patient Mode of arrival: Wheelchair Limitations: No Limitations - History of Present Illness Initial Comments: 54-year-old obese -[place] female with past medical history insulin- dependent diabetes, end-stage renal disease with a reported 16% function, hypothyroidism, CABG on 06/15/2017, CHF with ejection fraction of 25% confirmed on cardiac cath on May 2017, CVA, hypertension, myocardial infarction 2015 is currently under the care of Dr. Batres presents to the emergency department complaining of a two-week history of cough and chest congestion with mucus. Duction and development coryza. She went to her primary care provider this morning and Dr. Althea Haddad in efforts to have a cough and chest discomfort evaluated. Her physician and instructed her to come to the emergency department to be further evaluated for her shortness of breath. Pain Location: substernal, left chest Pain Radiation: none Severity: mild, moderate Consistency: constant Improves With: nothing Worsens With: nothing Other Symptoms: cough Treatments Prior to Arrival: none - Related Data Home Medications Medication Instructions Recorded Confirmed Last Taken Clopidogrel Bisulfate [Plavix] 75 mg PO DAILY 08/15/15 09/10/19 3 Days Ago ~08/29/19 Hydralazine HCl [Apresoline TAB] 50 mg PO QID 08/30/17 09/10/19 3 Days Ago ~08/29/19 Ferrous Gluconate [Ferrous 324 mg PO DAILY 10/05/17 09/10/19 3 Days Ago Gluconate 324 MG] ~08/29/19 Furosemide [Lasix TAB] 80 mg PO QDAY 10/05/17 09/10/19 3 Days Ago ~08/29/19 Levothyroxine Sodium [Synthroid] 300 mcg PO 5XW 10/10/17 09/10/19 3 Days Ago ~08/29/19 Simvastatin [Zocor] 10 mg PO HS 10/10/17 09/10/19 3 Days Ago ~08/29/19 Lispro Insulin [HumaLOG] 1.1 units SQ Q60MIN 12/28/17 09/10/19 3 Days Ago ~08/29/19 Vit D3-Vit K/Berberine/Hops 1 tab PO QWEEK 12/28/17 09/10/19 3 Days Ago [Ostera Tablet] ~08/29/19 Previous Rx's Medication Instructions Recorded Last Taken Type Carvedilol [Coreg] 25 mg PO BID #60 tablet 08/20/15 3 Days Ago Rx ~08/29/19 Aspirin 325 mg PO QDAY #30 tablet 09/06/19 Unknown Rx Polyethylene Glycol 3350 [Miralax 17 gm PO BID #30 packet 09/06/19 Unknown Rx 3350] oxyCODONE /ACETAMINOPHEN [Percocet 1 tab PO Q6H PRN #10 09/06/19 Unknown Rx 5/325 mg] Pantoprazole [Protonix TAB] 40 mg PO QDAY #30 tablet 09/14/19 Unknown Rx Allergies Allergy/AdvReac Type Severity Reaction Status Date / Time glyburide [From Micronase] Allergy Severe Swelling Verified 10/10/17 13:17 of tongue,face VEGA Inhibitors Allergy Shortness Verified 12/28/17 08:24 of Breath nifedipine Allergy Vomiting Verified 12/28/17 08:23 Heart Score - HEART Score History: Moderately suspicious EKG: Non-specific Age: 45-65 Risk factors: > 3 risk factors or hx of atherosclerotic disease Troponin: < normal limit HEART Score: 5 ED Review of Systems ROS: Stated complaint: CHESTPAIN/COUGH/DR ALTHEA HADDAD Other details as noted in HPI Comment: All other systems reviewed and negative ED Past Medical Hx - Past Medical History Previous Medical History?: Yes Hx Hypertension: Yes Hx CVA: Yes (2007) Hx Heart Attack/AMI: Yes (2014) Hx Congestive Heart Failure: Yes (EF 20-25% on cardiac cath May 2017) Hx Diabetes: Yes (IDDM, Insulin pump) Hx GERD: Yes Hx Renal Disease: Yes Hx Asthma: No Hx COPD: No Additional medical history: neuropathy. hypothyroid - Surgical History Past Surgical History?: Yes Hx Open Heart Surgery: Yes (CABG 06/15/2017) Hx Cholecystectomy: Yes (10/16/2017) Additional Surgical History: x1. vascular surgery - Social History Smoking Status: Never Smoker Substance Use Type: None - Medications Home Medications: Home Medications Medication Instructions Recorded Confirmed Last Taken Type Clopidogrel Bisulfate [Plavix] 75 mg PO DAILY 08/15/15 09/10/19 3 Days Ago History ~08/29/19 Carvedilol [Coreg] 25 mg PO BID #60 tablet 08/20/15 09/10/19 3 Days Ago Rx ~08/29/19 Hydralazine HCl [Apresoline TAB] 50 mg PO QID 08/30/17 09/10/19 3 Days Ago History ~08/29/19 Ferrous Gluconate [Ferrous 324 mg PO DAILY 10/05/17 09/10/19 3 Days Ago History Gluconate 324 MG] ~08/29/19 Furosemide [Lasix TAB] 80 mg PO QDAY 10/05/17 09/10/19 3 Days Ago History ~08/29/19 Levothyroxine Sodium [Synthroid] 300 mcg PO 5XW 10/10/17 09/10/19 3 Days Ago History ~08/29/19 Simvastatin [Zocor] 10 mg PO HS 10/10/17 09/10/19 3 Days Ago History ~08/29/19 Lispro Insulin [HumaLOG] 1.1 units SQ Q60MIN 12/28/17 09/10/19 3 Days Ago History ~08/29/19 Vit D3-Vit K/Berberine/Hops 1 tab PO QWEEK 12/28/17 09/10/19 3 Days Ago History [Ostera Tablet] ~08/29/19 Aspirin 325 mg PO QDAY #30 tablet 09/06/19 09/10/19 Unknown Rx Polyethylene Glycol 3350 [Miralax 17 gm PO BID #30 packet 09/06/19 09/10/19 Unknown Rx 3350] oxyCODONE /ACETAMINOPHEN [Percocet 1 tab PO Q6H PRN #10 09/06/19 09/10/19 Unknown Rx 5/325 mg] Pantoprazole [Protonix TAB] 40 mg PO QDAY #30 tablet 09/14/19 Unknown Rx ED Physical Exam - General Limitations: No Limitations General appearance: alert, in no apparent distress - Head Head exam: Present: atraumatic, normocephalic - Eye Eye exam: Present: normal appearance, PERRL, EOMI Pupils: Present: normal accommodation - ENT ENT exam: Present: mucous membranes moist, TM's normal bilaterally - Neck Neck exam: Present: normal inspection, full ROM - Respiratory Respiratory exam: Present: normal lung sounds bilaterally. Absent: respiratory distress, wheezes, rales, rhonchi, chest wall tenderness, accessory muscle use - Cardiovascular Cardiovascular Exam: Present: regular rate, normal rhythm. Absent: systolic murmur, diastolic murmur, rubs, gallop - GI/Abdominal GI/Abdominal exam: Present: soft, normal bowel sounds - Extremities Exam Extremities exam: Present: normal inspection, pedal edema (nonpitting edema. There is an erythematous maculopapular splotchy rash to her lower extremities as well.) - Back Exam Back exam: Present: normal inspection - Neurological Exam Neurological exam: Present: alert, oriented X3, CN II-XII intact, normal gait - Psychiatric Psychiatric exam: Present: normal affect, normal mood - Skin Skin exam: Present: warm, dry, intact, normal color. Absent: rash ED Course Vital Signs 08/30/19 08/30/19 08/30/19 11:19 11:55 12:00 Temperature 98.5 F Pulse Rate 83 81 75 Respiratory 16 15 17 Rate Blood Pressure 233/114 Blood Pressure [Right] O2 Sat by Pulse 100 96 Oximetry 08/30/19 08/30/19 08/30/19 12:06 12:10 12:20 Temperature Pulse Rate 65 74 71 Respiratory 18 10 L 12 Rate Blood Pressure 197/93 197/93 Blood Pressure 197/93 [Right] O2 Sat by Pulse 99 97 97 Oximetry 08/30/19 08/30/19 08/30/19 12:30 12:40 12:50 Temperature Pulse Rate 72 71 70 Respiratory 21 19 17 Rate Blood Pressure 197/93 197/93 197/93 Blood Pressure [Right] O2 Sat by Pulse 99 99 97 Oximetry 08/30/19 08/30/19 08/30/19 13:00 13:05 13:06 Temperature Pulse Rate 69 80 Respiratory 15 17 Rate Blood Pressure 197/93 192/70 Blood Pressure [Right] O2 Sat by Pulse 98 100 Oximetry 08/30/19 08/30/19 08/30/19 13:10 13:20 13:30 Temperature Pulse Rate 69 70 70 Respiratory 14 16 18 Rate Blood Pressure 192/93 192/93 192/93 Blood Pressure [Right] O2 Sat by Pulse 98 97 96 Oximetry 08/30/19 08/30/19 08/30/19 13:40 13:50 13:52 Temperature Pulse Rate 71 72 68 Respiratory 20 13 17 Rate Blood Pressure 192/93 192/93 Blood Pressure 192/93 [Right] O2 Sat by Pulse 100 98 100 Oximetry 08/30/19 08/30/19 08/30/19 14:00 14:02 14:10 Temperature Pulse Rate 67 70 73 Respiratory 19 17 10 L Rate Blood Pressure 192/93 184/94 Blood Pressure 184/94 [Right] O2 Sat by Pulse 98 100 100 Oximetry 08/30/19 08/30/19 08/30/19 14:20 14:30 14:40 Temperature Pulse Rate 68 67 67 Respiratory 16 15 17 Rate Blood Pressure 184/94 184/94 184/94 Blood Pressure [Right] O2 Sat by Pulse 97 98 98 Oximetry 08/30/19 08/30/19 08/30/19 14:50 15:00 15:10 Temperature Pulse Rate 67 68 66 Respiratory 17 15 21 Rate Blood Pressure 184/94 184/94 169/83 Blood Pressure [Right] O2 Sat by Pulse 94 100 99 Oximetry 08/30/19 08/30/19 08/30/19 15:20 15:30 15:40 Temperature Pulse Rate 65 65 68 Respiratory 10 L 16 14 Rate Blood Pressure 169/83 169/83 169/83 Blood Pressure [Right] O2 Sat by Pulse 100 98 95 Oximetry 08/30/19 08/30/19 15:50 16:00 Temperature Pulse Rate 66 65 Respiratory 18 14 Rate Blood Pressure 169/83 169/83 Blood Pressure [Right] O2 Sat by Pulse 96 97 Oximetry ED Medical Decision Making - Lab Data Result diagrams: 09/02/19 07:54 09/06/19 08:54 - EKG Data When compared to previous EKG there are: no significant change (no changes when compared to 10/10/2017) Interpretation: normal EKG, nonspecific ST-T wave nel Critical care attestation.: If time is entered above; I have spent that time in minutes in the direct care of this critically ill patient, excluding procedure time. ED Disposition Clinical Impression: Chest pain, ESRD (end stage renal disease) on dialysis Disposition: OP ADMIT IP TO THIS HOSP Is pt being admited?: Yes Does the pt Need Aspirin: No Condition: Stable
[2019-08-30 12:52] LABS: Albumin 4.1 g/dL (3.9-5); Calcium 9.2 mg/dL (8.4-10.2)
[2019-08-30] MEDS ORDERED: cloNIDine 0.2 MG TAB PO STA (12:53)
[2019-08-30 13:25] LABS: Chol/HDL Ratio 4.86 %
[2019-08-30] MEDS ORDERED: NITROGLYCERIN 0.4 MG TAB SUBL SL PRN (14:40)
[2019-08-30] MEDS ORDERED: ALBUTEROL 2.5 MG/3 ML NEBU IH PRN (14:40)
[2019-08-30] MEDS ORDERED: ACETAMINOPHEN 325 MG TAB PO PRN (14:40)
[2019-08-30] MEDS ORDERED: ASPIRIN 81 MG TAB CHEW PO STA (14:42)
[2019-08-30] MEDS ORDERED: HYDROcodone/HOMATROPINE 5-1.5MG /5 ML ORAL LIQD UNIT DOSE PO PRN (14:45)
[2019-08-30] MEDS ORDERED: DEXTROSE 50% IN WATER (25GM) 50 ML SYRINGE IV PRN (14:45)
[2019-08-30] MEDS ORDERED: LEVOTHYROXINE SODIUM 300 MCG PO SCH (14:45)
--- NOTE | 2019-08-30 14:46 | History and Physical Report ---
History of Present Illness Chief complaint: My chest hurts, and im coughing History of present illness: 54 YO Female with Obesity Hypoventilation, CAD S/P CABG on DAPT, Hypthyroidism, Systolic CHF(EF 20%), CVA, [place], GERD, DM complicated by Neuropathy, PVD. Pt states that she has experienced nasal congestion and nonproductive cough over the past 2 weeks, Pt also reports pain in her chest over the past 2 days with persistent symptoms over the same time frame. Pt states that her pain is 6-7/10, Substernal, localized to the left chest, nonradiating, not worsened with exertion, not relieved with rest. Pt acknowledges shortness of breath, decreased exercise tolerance. Pt was seen and evaluated by her PCP and instructed to seek further care. Pt transported to [facility] via private vehicle. Pt seen and evaluated in ED and found to have symptoms consistent with stable angina as well as CHF Decompensation, DUANE. Pt admitted to telemetry and initiated on CHF protocol. Cardiology consulted in ED, Nephrology consulted in ED. Pt denies fever, chills, palpitations, NVD, Trauma, Falls, Prolonged travel, unilateral leg swelling, calf pain, hemoptysis, Individual/Family history of DVT/PE/Bleeding/Blood Clotting disorders. Prior admission on 10/10/17 reviewed. All listed medication reconciled at time of admission. Past History Past Medical History: acute [place], CAD, diabetes, GERD, heart failure, hypertension, PVD Past Surgical History: cholecystectomy, CABG, , Other (vascular surgery) Social history: single. denies: smoking, alcohol abuse, prescription drug abuse Family history: diabetes, hypertension Medications and Allergies Allergies Allergy/AdvReac Type Severity Reaction Status Date / Time glyburide [From Micronase] Allergy Severe Swelling Verified 10/10/17 13:17 of tongue,face VEGA Inhibitors Allergy Shortness Verified 12/28/17 08:24 of Breath nifedipine Allergy Vomiting Verified 12/28/17 08:23 Home Medications Medication Instructions Recorded Confirmed Last Taken Type Clopidogrel Bisulfate [Plavix] 75 mg PO DAILY 08/15/15 12/28/17 12/27/17 19:00 History Carvedilol [Coreg] 25 mg PO BID #60 tablet 08/20/15 12/28/17 12/28/17 06:00 Rx 25 mg Aspirin EC [Halfprin EC] 4 tab PO DAILY 05/09/17 12/28/17 12/27/17 19:00 History Hydralazine HCl [Apresoline TAB] 50 mg PO QID 08/30/17 12/28/17 12/28/17 06:00 History 50 mg Ferrous Gluconate [Ferrous 324 mg PO DAILY 10/05/17 12/28/17 12/26/17 History Gluconate 324 MG] 324 mg Furosemide [Lasix TAB] 80 mg PO QDAY 10/05/17 12/28/17 12/27/17 History 80 mg Levothyroxine Sodium [Synthroid] 300 mcg PO 5XW 10/10/17 12/28/17 12/28/17 06:00 History 300 mcg Simvastatin [Zocor] 10 mg PO HS 10/10/17 12/28/17 12/27/17 History 10 mg Lispro Insulin [Humalog] 1.1 units SQ Q60MIN 12/28/17 12/28/17 12/28/17 06:00 History Oxycodone HCl/Acetaminophen 1 each PO Q6HR PRN #30 tablet 12/28/17 Unknown Rx [Percocet 7.5/325 mg] Vit D3-Vit K/Berberine/Hops 1 tab PO QWEEK 12/28/17 12/28/17 12/23/17 History [Ostera Tablet] 1 tab oxyCODONE /ACETAMINOPHEN [Percocet 1 tab PO Q6H PRN 12/28/17 12/28/17 12/26/17 History 5/325 mg] 1 tab Active Meds: Active Medications Acetaminophen (Tylenol) 650 mg PO Q4H PRN PRN Reason: Pain MILD(1-3)/Fever >100.5/VIGIL Albuterol (Proventil) 2.5 mg IH Q4HRT PRN PRN Reason: Shortness Of Breath Aspirin (Baby Aspirin) 324 mg PO ONCE STA Stop: 08/30/19 14:43 Aspirin (Halfprin Ec) mg PO DAILY [facility] Carvedilol (Coreg) 25 mg PO BID [facility] Clopidogrel Bisulfate (Plavix) 75 mg PO DAILY [facility] Dextrose (D50w (25gm) Syringe) 50 ml IV PRN PRN PRN Reason: Hypoglycemia Famotidine (Pepcid) 10 mg PO BID [facility] Ferrous Gluconate (Fergon) 324 mg PO DAILY [facility] Hydrocodone Bit/Homatropine Methylb (Hydromet) 10 ml PO Q6H PRN PRN Reason: Cough Insulin Human Lispro (Humalog) 0 unit SUB-Q Q6HR [facility]; Protocol Miscellaneous Medication (Hydralazine Hcl [Apresoline Tab]) 50 mg PO QID [facility] Miscellaneous Medication (Levothyroxine Sodium [Synthroid]) 300 mcg PO 5XW [facility] Miscellaneous Medication (Simvastatin [Zocor]) 10 mg PO HS [facility] Miscellaneous Medication (Vit D3-Vit K/Berberine/Hops [Ostera Tablet]) 1 tab PO QWEEK [facility] Morphine Sulfate (Morphine) 2 mg IV Q4H PRN PRN Reason: Pain, Moderate (4-6) Nitroglycerin (Nitrostat) 0.4 mg SL .Q5MIN PRN PRN Reason: Chest Pain Ondansetron HCl (Zofran) 4 mg IV Q8H PRN PRN Reason: Nausea And Vomiting Oxycodone/Acetaminophen (Percocet 5/325) 1 tab PO Q6H PRN PRN Reason: PAIN Sodium Chloride (Sodium Chloride Flush Syringe 10 Ml) 10 ml IV BID [facility] Sodium Chloride (Sodium Chloride Flush Syringe 10 Ml) 10 ml IV PRN PRN PRN Reason: LINE FLUSH Sodium Chloride (Sodium Chloride Flush Syringe 10 Ml) 10 ml IV PRN PRN PRN Reason: LINE FLUSH Review of Systems Constitutional: no weight loss, no weight gain, no fever, no chills Ears, nose, mouth and throat: no ear pain, no ear discharge, no decreased hearing, no nose pain Breasts: no change in shape, no swelling, no mass Cardiovascular: chest pain, shortness of breath, decreased exercise tolerance, no orthopnea, no palpitations, no rapid/irregular heart beat, no edema, no syncope Respiratory: cough, cough with sputum, shortness of breath, congestion, no hemoptysis, no pain on inspiration Gastrointestinal: no abdominal pain, no nausea, no vomiting, no diarrhea, no constipation Genitourinary Female: no pelvic pain, no flank pain, no menorrhagia, no dysuria, no urinary frequency, no urgency Rectal: no pain, no incontinence, no bleeding Musculoskeletal: no neck pain, no shooting arm pain, no arm numbness/tingling, no low back pain, no shooting leg pain Integumentary: no rash, no pruritis, no redness, no sores, no wounds Neurological: no head injury, no transient paralysis, no paralysis, no weakness, no parathesias, no numbness, no seizures, no syncope Psychiatric: no anxiety, no memory loss, no change in sleep habits, no sleep disturbances, no insomnia, no hypersomnia, no change in appetite, no change in libido Endocrine: no cold intolerance, no heat intolerance, no excessive thirst, no polydipsia Hematologic/Lymphatic: no easy bruising, no easy bleeding, no lymphadenopathy, no lymphedema Allergic/Immunologic: no urticaria, no allergic rhinitis, no wheezing Exam - Constitutional Vitals: Temp Pulse Resp BP Pulse Ox 98.5 F 70 17 184/94 100 08/30/19 11:19 08/30/19 14:02 08/30/19 14:02 08/30/19 14:02 08/30/19 14:02 General appearance: Present: mild distress, obese - EENT Eyes: Present: PERRL ENT: hearing intact, clear oral mucosa - Neck Neck: Present: supple, normal ROM - Respiratory Respiratory effort: normal Respiratory: bilateral: CTA - Cardiovascular Heart Sounds: Present: S1 & S2. Absent: rub, click - Extremities Extremities: pulses symmetrical, No edema Peripheral Pulses: within normal limits - Abdominal General gastrointestinal: Present: soft, non-tender, non-distended, normal bowel sounds Female genitourinary: Present: normal - Integumentary Integumentary: Present: clear, warm, dry - Musculoskeletal Musculoskeletal: gait normal, strength equal bilaterally - Psychiatric Psychiatric: appropriate mood/affect, intact judgment & insight - Neurologic Neurologic: CNII-XII intact, moves all extremities Results - Labs CBC & Chem 7: 08/30/19 11:55 08/30/19 11:55 Labs: Abnormal lab results 08/30/19 08/30/19 Range/Units 11:55 11:55 MCH 25 L (28-32) pg Jack % (Auto) 10.9 H (0.0-7.3) % Eos % (Auto) 6.6 H (0.0-4.3) % Eos # 0.5 H (0.0-0.4) K/mm3 BUN 39 H (7-17) mg/dL Creatinine 3.0 H (0.7-1.2) mg/dL Glucose 190 H (65-100) mg/dL Troponin T 0.034 H (0.00-0.029) ng/mL NT-Pro-B Natriuret Pep 3288 H (0-900) pg/mL Triglycerides 185 H (2-149) mg/dL Cholesterol 282 H (50-199) mg/dL LDL Cholesterol Direct 208 H (50-130) mg/dL Assessment and Plan - Patient Problems (1) CHF (congestive heart failure) Current Visit: No Status: Acute Qualifiers: Qualified Code(s): I50.23 - Acute on chronic systolic (congestive) heart failure Plan to address problem: Admit to telemetry, thyroid panel, magnesium level, strict I/O, daily weight, bnp, supplemental oxygen, echo, cardiology consulted in ED. (2) Angina at rest Current Visit: Yes Status: Acute Plan to address problem: Admit to telemetry, serial cardiac enzymes, ekg, telemetry, supportive care, cardiology consulted in ED. (3) CAD (coronary artery disease) Current Visit: Yes Status: Acute Qualifiers: Associated angina: with stable angina Plan to address problem: Statin therapy, risk factor reduction, lipid panel, (4) Obesity hypoventilation syndrome Current Visit: Yes Status: Acute Plan to address problem: supplemental oxygen, nebulizer therapy, NIPPV as clinically indicated, pulse oximetry (5) HLD (hyperlipidemia) Current Visit: Yes Status: Acute Qualifiers: Hyperlipidemia type: mixed hyperlipidemia Qualified Code(s): E78.2 - Mixed hyperlipidemia Plan to address problem: statin therapy, lipid panel (6) Acute kidney injury (nontraumatic) Current Visit: No Status: Acute Plan to address problem: Nephrology consulted in ED, IVF resuscitation therapy as tolerated. (7) Hypothyroidism (acquired) Current Visit: No Status: Chronic Plan to address problem: Supportive care, thyroid panel, synthroid therapy (8) DVT prophylaxis Current Visit: Yes Status: Acute Plan to address problem: SCD to BLE while in bed, prophylactic heparin
[2019-08-30] MEDS ORDERED: MORPHINE 2 MG/1 ML INJ ONE (15:20)
[2019-08-30] MEDS ORDERED: ONDANSETRON 4 MG/2 ML INJ ONE (15:20)
[2019-08-30] MEDS: MORPHINE 2 MG/1 ML INJ IV PRN ×2 (15:48→19:17)
[2019-08-30] MEDS: ONDANSETRON 4 MG/2 ML INJ IV PRN (15:49)
[2019-08-30 16:37] LABS: Free T4 (Free Thyroxine) 1.23 ng/dL (0.76-1.46)
[2019-08-30] MEDS ORDERED: ASPIRIN 325 MG TAB ONE (17:54)
[2019-08-30] MEDS ORDERED: HYDRALAZINE HCL 50 MG PO SCH (18:00)
[2019-08-30] MEDS: hydrALAZINE 25 MG TAB PO SCH ×2 (19:17→21:59)
[2019-08-30] MEDS: FUROSEMIDE 40 MG/4 ML INJ IV SCH (19:18)
[2019-08-30] MEDS: INSULIN LISPRO 100 UNIT/ML SUB-Q SCH ×2 (19:19→23:51)
[2019-08-30] MEDS: PRAVASTATIN 20 MG TAB PO SCH (21:59)
[2019-08-30] MEDS: FAMOTIDINE 10 MG TAB PO SCH (21:59)
[2019-08-30] MEDS ORDERED: SIMVASTATIN 10 MG PO SCH (22:00)
[2019-08-30] MEDS: carvediloL 25 MG TAB PO SCH (22:00)
[2019-08-30] MEDS: HEPARIN 5,000 UNIT/1 ML VIAL SUB-Q SCH (22:00)
[2019-08-30] MEDS: oxyCODONE /ACETAMINOPHEN 5-325MG TAB PO PRN (23:51)
[2019-08-31] MEDS: LEVOTHYROXINE 150 MCG TAB PO SCH (07:00)
[2019-08-31] MEDS: FUROSEMIDE 40 MG/4 ML INJ IV SCH (07:01)
[2019-08-31] MEDS: INSULIN LISPRO 100 UNIT/ML SUB-Q SCH ×2 (07:05→21:28)
[2019-08-31] MEDS: MORPHINE 2 MG/1 ML INJ IV PRN ×3 (08:02→21:40)
--- NOTE | 2019-08-31 09:34 | Progress Note ---
Assessment and Plan Assessment and plan: Acute on chronic systolic heart failure exacerbation. Cardiology consultation pending. Follow-up echocardiogram. Continue diuresis with IV Lasix and afterload reduction with hydralazine. Coronary artery disease. Ischemic evaluation per cardiology. Continue Coreg, aspirin and Plavix. OHS/WERNER. Hyperlipidemia. Continue statin therapy. Acute on CKD. Patient appears to have baseline creatinine approximately 2.3. Nephrology consulted. Hypothyroidism. Continue Synthroid. History Interval history: No new issues overnight. Hospitalist Physical - Constitutional Vitals: Temp Pulse Resp BP Pulse Ox 98.2 F 68 20 168/90 97 08/31/19 08:24 08/31/19 09:05 08/31/19 08:24 08/31/19 08:24 08/31/19 08:24 General appearance: Present: no acute distress, obese - EENT Eyes: Present: PERRL, EOM intact ENT: hearing intact, clear oral mucosa, dentition normal - Neck Neck: Present: supple, normal ROM - Respiratory Respiratory effort: normal Respiratory: bilateral: CTA - Cardiovascular Rhythm: regular Heart Sounds: Present: S1 & S2. Absent: gallop, rub - Extremities Extremities: no ischemia, No edema, Full ROM - Abdominal General gastrointestinal: soft, non-tender, non-distended, normal bowel sounds - Integumentary Integumentary: Present: clear, warm, dry - Neurologic Neurologic: CNII-XII intact, moves all extremities Results - Labs CBC & Chem 7: 08/30/19 11:55 08/30/19 11:55 Labs: Laboratory Last Values WBC 7.4 K/mm3 (4.5-11.0) 08/30/19 11:55 RBC 4.39 M/mm3 (3.65-5.03) 08/30/19 11:55 Hgb 11.2 gm/dl (10.1-14.3) 08/30/19 11:55 Hct 34.7 % (30.3-42.9) 08/30/19 11:55 MCV 79 fl (79-97) 08/30/19 11:55 MCH 25 pg (28-32) L 08/30/19 11:55 MCHC 32 % (30-34) 08/30/19 11:55 RDW 14.2 % (13.2-15.2) 08/30/19 11:55 Plt Count 343 K/mm3 (140-440) 08/30/19 11:55 Lymph % (Auto) 28.9 % (13.4-35.0) 08/30/19 11:55 [place] % (Auto) 10.9 % (0.0-7.3) H 08/30/19 11:55 Eos % (Auto) 6.6 % (0.0-4.3) H 08/30/19 11:55 Baso % (Auto) 0.8 % (0.0-1.8) 08/30/19 11:55 Lymph # 2.1 K/mm3 (1.2-5.4) 08/30/19 11:55 [place] # 0.8 K/mm3 (0.0-0.8) 08/30/19 11:55 Eos # 0.5 K/mm3 (0.0-0.4) H 08/30/19 11:55 Baso # 0.1 K/mm3 (0.0-0.1) 08/30/19 11:55 Seg Neutrophils % 52.8 % (40.0-70.0) 08/30/19 11:55 Seg Neutrophils # 3.9 K/mm3 (1.8-7.7) 08/30/19 11:55 Sodium 141 mmol/L (137-145) 08/30/19 11:55 Potassium 4.3 mmol/L (3.6-5.0) 08/30/19 11:55 Chloride 102.4 mmol/L (98-107) 08/30/19 11:55 Carbon Dioxide 22 mmol/L (22-30) 08/30/19 11:55 Anion Gap 21 mmol/L 08/30/19 11:55 BUN 39 mg/dL (7-17) H 08/30/19 11:55 Creatinine 3.0 mg/dL (0.7-1.2) H 08/30/19 11:55 Estimated GFR 20 ml/min 08/30/19 11:55 BUN/Creatinine Ratio 13 % 08/30/19 11:55 Glucose 190 mg/dL (65-100) H 08/30/19 11:55 POC Glucose 181 (70-105) H 08/31/19 07:12 Calcium 9.2 mg/dL (8.4-10.2) 08/30/19 11:55 Magnesium 1.90 mg/dL (1.7-2.3) 08/30/19 15:43 Total Bilirubin 0.20 mg/dL (0.1-1.2) 08/30/19 11:55 AST 10 units/L (5-40) 08/30/19 11:55 ALT 8 units/L (7-56) 08/30/19 11:55 Alkaline Phosphatase 74 units/L (35-129) 08/30/19 11:55 Troponin T 0.034 ng/mL (0.00-0.029) H 08/30/19 20:17 NT-Pro-B Natriuret Pep 3288 pg/mL (0-900) H 08/30/19 11:55 Total Protein 8.1 g/dL (6.3-8.2) 08/30/19 11:55 Albumin 4.1 g/dL (3.9-5) 08/30/19 11:55 Albumin/Globulin Ratio 1.0 % 08/30/19 11:55 Triglycerides 185 mg/dL (2-149) H 08/30/19 11:55 Cholesterol 282 mg/dL (50-199) H 08/30/19 11:55 LDL Cholesterol Direct 208 mg/dL (50-130) H 08/30/19 11:55 HDL Cholesterol 58 mg/dL (40-59) 08/30/19 11:55 Cholesterol/HDL Ratio 4.86 % 08/30/19 11:55 TSH 8.890 mlU/mL (0.270-4.200) H 08/30/19 15:43 Free T4 1.23 ng/dL (0.76-1.46) 08/30/19 15:43 Active Medications - Current Medications Current Medications: Generic Name Dose Route Start Last Admin Trade Name Freq PRN Reason Stop Dose Admin Acetaminophen 650 mg 08/30/19 14:40 Tylenol PO Q4H PRN Pain MILD(1-3)/Fever >100.5/VIGIL Albuterol 2.5 mg 08/30/19 14:40 Proventil IH Q4HRT PRN Shortness Of Breath Aspirin 81 mg 08/31/19 10:00 Halfprin Ec PO DAILY [facility] Carvedilol 25 mg 08/30/19 22:00 08/30/19 22:00 Coreg PO 25 mg BID [facility] Administration Clopidogrel Bisulfate 75 mg 08/31/19 10:00 Plavix PO DAILY [facility] Dextrose 50 ml 08/30/19 14:45 D50w (25gm) Syringe IV PRN PRN Hypoglycemia Famotidine 10 mg 08/30/19 22:00 08/30/19 21:59 Pepcid PO 10 mg BID [facility] Administration Ferrous Gluconate 324 mg 08/31/19 10:00 Fergon PO DAILY [facility] Furosemide 40 mg 08/30/19 18:00 08/31/19 07:01 Lasix IV 40 mg 0600,1800 [facility] Administration Heparin Sodium (Porcine) 5,000 unit 08/30/19 22:00 08/30/19 22:00 Heparin SUB-Q 5,000 unit Q12HR [facility] Administration Hydralazine HCl 25 mg 08/30/19 18:00 08/30/19 21:59 Apresoline PO 25 mg QID [facility] Administration Hydrocodone Bit/Homatropine Methylb 5 ml 08/30/19 14:45 08/30/19 19:18 Hydromet PO 5 ml Q6H PRN Administration Cough Insulin Human Lispro 0 unit 08/30/19 18:00 08/31/19 07:05 Humalog SUB-Q Not Given Q6HR [facility] Protocol Levothyroxine Sodium 300 mcg 08/31/19 06:00 08/31/19 07:00 Synthroid PO 300 mcg DAILY@0600 [facility] Administration Miscellaneous Medication 1 tab 09/06/19 10:00 Vit D3-Vit K/Berberine/Hops [Ostera Tablet] PO QWEEK [facility] Morphine Sulfate 2 mg 08/30/19 14:40 08/31/19 08:02 Morphine IV 2 mg Q4H PRN Administration Pain, Moderate (4-6) Nitroglycerin 0.4 mg 08/30/19 14:40 Nitrostat SL .Q5MIN PRN Chest Pain Ondansetron HCl 4 mg 08/30/19 14:40 08/30/19 15:49 Zofran IV 4 mg Q8H PRN Administration Nausea And Vomiting Oxycodone/Acetaminophen 1 tab 08/30/19 14:43 08/30/19 23:51 Percocet 5/325 PO 1 tab Q6H PRN Administration PAIN Pneumococcal Polyvalent Vaccine 0.5 ml 09/03/19 12:00 Pneumovax 23 IM 09/03/19 12:01 .ONCE ONE Pravastatin Sodium 20 mg 08/30/19 22:00 08/30/19 21:59 Pravachol PO 20 mg QHS [facility] Administration Sodium Chloride 10 ml 08/30/19 22:00 08/30/19 22:00 Sodium Chloride Flush Syringe 10 Ml IV 10 ml BID [facility] Administration Sodium Chloride 10 ml 08/30/19 14:40 Sodium Chloride Flush Syringe 10 Ml IV PRN PRN LINE FLUSH Sodium Chloride 10 ml 08/30/19 14:42 Sodium Chloride Flush Syringe 10 Ml IV PRN PRN LINE FLUSH
--- NOTE | 2019-08-31 10:30 | Consultation ---
History of Present Illness - Reason for Consult Consult date: 08/31/19 acute renal failure, chronic renal failure - History of Present Illness This is a 54 y/o F with PMH of CAD s/p CABG on DAPT, systolic CHF (EF 20%), MA, CKD Stage 4, CVA, DM Type 2 with neuropathy, hypothyroidism, and obesity hypoventilation syndrome who presented to [facility] with c/o chest pain, shortness of breath, nonproductive cough, fatigue, nausea, and generalized weakness. Cardiology consulted. This pt is followed by our nephrology practice as an outpatient. Pt states she last saw us in the office last month and most recent GFR was 19, had lasix adjusted to 40 mg po every other day. On admission, SCr level was 3.0. CXR showed no acute findings. Pt started on IV lasix. We were consulted to evaluate this pt who has abnormal renal function. Pt seen in bed, no acute distress, family at bedside Past History Past Medical History: acute MA, CAD, diabetes, GERD, heart failure, hypertension, PVD Past Surgical History: cholecystectomy, CABG, , Other (vascular surgery) Social history: single. denies: smoking, alcohol abuse, prescription drug abuse Family history: diabetes, hypertension Medications and Allergies Allergies Allergy/AdvReac Type Severity Reaction Status Date / Time glyburide [From Micronase] Allergy Severe Swelling Verified 10/10/17 13:17 of tongue,face VEGA Inhibitors Allergy Shortness Verified 12/28/17 08:24 of Breath nifedipine Allergy Vomiting Verified 12/28/17 08:23 Home Medications Medication Instructions Recorded Confirmed Last Taken Type Clopidogrel Bisulfate [Plavix] 75 mg PO DAILY 08/15/15 12/28/17 12/27/17 19:00 History Carvedilol [Coreg] 25 mg PO BID #60 tablet 08/20/15 12/28/17 12/28/17 06:00 Rx 25 mg Aspirin EC [Halfprin EC] 4 tab PO DAILY 05/09/17 12/28/17 12/27/17 19:00 History Hydralazine HCl [Apresoline TAB] 50 mg PO QID 08/30/17 12/28/17 12/28/17 06:00 History 50 mg Ferrous Gluconate [Ferrous 324 mg PO DAILY 10/05/17 12/28/17 12/26/17 History Gluconate 324 MG] 324 mg Furosemide [Lasix TAB] 80 mg PO QDAY 10/05/17 12/28/17 12/27/17 History 80 mg Levothyroxine Sodium [Synthroid] 300 mcg PO 5XW 10/10/17 12/28/17 12/28/17 06:00 History 300 mcg Simvastatin [Zocor] 10 mg PO HS 10/10/17 12/28/17 12/27/17 History 10 mg Lispro Insulin [Humalog] 1.1 units SQ Q60MIN 12/28/17 12/28/17 12/28/17 06:00 History Oxycodone HCl/Acetaminophen 1 each PO Q6HR PRN #30 tablet 12/28/17 Unknown Rx [Percocet 7.5/325 mg] Vit D3-Vit K/Berberine/Hops 1 tab PO QWEEK 12/28/17 12/28/17 12/23/17 History [Ostera Tablet] 1 tab oxyCODONE /ACETAMINOPHEN [Percocet 1 tab PO Q6H PRN 12/28/17 12/28/17 12/26/17 History 5/325 mg] 1 tab Active Meds: Active Medications Acetaminophen (Tylenol) 650 mg PO Q4H PRN PRN Reason: Pain MILD(1-3)/Fever >100.5/VIGIL Albuterol (Proventil) 2.5 mg IH Q4HRT PRN PRN Reason: Shortness Of Breath Aspirin (Halfprin Ec) 81 mg PO DAILY [facility] Carvedilol (Coreg) 25 mg PO BID [facility] Last Admin: 08/30/19 22:00 Dose: 25 mg Documented by: Clopidogrel Bisulfate (Plavix) 75 mg PO DAILY [facility] Dextrose (D50w (25gm) Syringe) 50 ml IV PRN PRN PRN Reason: Hypoglycemia Famotidine (Pepcid) 10 mg PO BID [facility] Last Admin: 08/30/19 21:59 Dose: 10 mg Documented by: Ferrous Gluconate (Fergon) 324 mg PO DAILY [facility] Furosemide (Lasix) 40 mg IV 0600,1800 [facility] Last Admin: 08/31/19 07:01 Dose: 40 mg Documented by: Heparin Sodium (Porcine) (Heparin) 5,000 unit SUB-Q Q12HR [facility] Last Admin: 08/30/19 22:00 Dose: 5,000 unit Documented by: Hydralazine HCl (Apresoline) 25 mg PO QID [facility] Last Admin: 08/30/19 21:59 Dose: 25 mg Documented by: Hydrocodone Bit/Homatropine Methylb (Hydromet) 5 ml PO Q6H PRN PRN Reason: Cough Last Admin: 08/30/19 19:18 Dose: 5 ml Documented by: Insulin Human Lispro (Humalog) 0 unit SUB-Q Q6HR [facility]; Protocol Last Admin: 08/31/19 07:05 Dose: Not Given Documented by: Levothyroxine Sodium (Synthroid) 300 mcg PO DAILY@0600 [facility] Last Admin: 08/31/19 07:00 Dose: 300 mcg Documented by: Miscellaneous Medication (Vit D3-Vit K/Berberine/Hops [Ostera Tablet]) 1 tab PO QWEEK [facility] Morphine Sulfate (Morphine) 2 mg IV Q4H PRN PRN Reason: Pain, Moderate (4-6) Last Admin: 08/31/19 08:02 Dose: 2 mg Documented by: Nitroglycerin (Nitrostat) 0.4 mg SL .Q5MIN PRN PRN Reason: Chest Pain Ondansetron HCl (Zofran) 4 mg IV Q8H PRN PRN Reason: Nausea And Vomiting Last Admin: 08/30/19 15:49 Dose: 4 mg Documented by: Oxycodone/Acetaminophen (Percocet 5/325) 1 tab PO Q6H PRN PRN Reason: PAIN Last Admin: 08/30/19 23:51 Dose: 1 tab Documented by: Pneumococcal Polyvalent Vaccine (Pneumovax 23) 0.5 ml IM .ONCE ONE Stop: 09/03/19 12:01 Pravastatin Sodium (Pravachol) 20 mg PO QHS [facility] Last Admin: 08/30/19 21:59 Dose: 20 mg Documented by: Sodium Chloride (Sodium Chloride Flush Syringe 10 Ml) 10 ml IV BID [facility] Last Admin: 08/30/19 22:00 Dose: 10 ml Documented by: Sodium Chloride (Sodium Chloride Flush Syringe 10 Ml) 10 ml IV PRN PRN PRN Reason: LINE FLUSH Sodium Chloride (Sodium Chloride Flush Syringe 10 Ml) 10 ml IV PRN PRN PRN Reason: LINE FLUSH Review of Systems Constitutional: fatigue, weakness, no fever Ears, nose, mouth and throat: nasal congestion Cardiovascular: chest pain, shortness of breath, dyspnea on exertion Respiratory: cough, shortness of breath, dyspnea on exertion, congestion Gastrointestinal: no abdominal pain, no vomiting, no diarrhea, no constipation, no melena Integumentary: no wounds Neurological: weakness Exam - Vital Signs Vital signs: Vital Signs Temp Pulse Resp BP Pulse Ox 98.5 F 83 16 233/114 100 08/30/19 11:19 08/30/19 11:19 08/30/19 11:19 08/30/19 11:19 08/30/19 11:19 - General Appearance General appearance: other (awake) EENT: ATNC Neck: Present: neck supple Respiratory: Decreased Breath Sounds Heart: regular, S1S2 (left upper chest pacemaker noted) Gastrointestinal: Present: normoactive bowel sounds. Absent: tenderness Integumentary: warm and dry Neurologic: alert and oriented x3 Musculoskeletal: Present: other (trace edema to BLE) Psychiatric: mood/affect appropriate, cooperative Results - Lab Results 08/30/19 11:55 08/30/19 11:55 Most recent lab results Calcium 9.2 mg/dL (8.4-10.2) 08/30/19 11:55 Magnesium 1.90 mg/dL (1.7-2.3) 08/30/19 15:43 Assessment and Plan Chronic Kidney Disease Stage 4, possibly DUANE on CKD, r/o obstruction Acute on chronic systolic CHF Chest Pain Obesity hypoventilation syndrome DM Type 2 on insulin Essential HTN GERD CAD s/p CABG Plan: - Labs pending today - Pt reports being seen in our nephrology office last month and her most recent GFR was 19. On admission, SCr level was 3.0 with GFR 20, possibly around baseline renal function - Currently on lasix 40 mg IV BID - Obtain urine lytes/protein - Obtain Renal US - CXR showed no acute findings - Renally dose meds - Strict intake and output - He Catheter: No - Renal plan d/w Dr Nelson
[2019-08-31 11:46] LABS: Hematocrit 34.4 % (30.3-42.9); Hemoglobin 11.1 gm/dl (10.1-14.3); Mean Corpuscular HGB Conc 32 % (30-34); Mean Corpuscular Volume 80 fl (79-97); Platelet Count 358 K/mm3 (140-440); Red Blood Count 4.33 M/mm3 (3.65-5.03); Red Cell Distribution Width 14.4 % (13.2-15.2)
[2019-08-31] MEDS: ONDANSETRON 4 MG/2 ML INJ IV PRN (11:47)
[2019-08-31 11:58] LABS: Calcium 9.3 mg/dL (8.4-10.2)
--- NOTE | 2019-08-31 11:58 | Consultation ---
History of Present Illness Consult date: 08/31/19 Consult reason: congestive heart failure History of present illness: Impression Pt admitted with symptoms of volume overload h/o CABG, ischemic CMP EF 20% AICD CKD stage 4 by renal Type 2 DM Obesity/Hypoventaltion syndrome HTN Plan diuresis per renal recommendation nonspecific trop elevation, doubt ACS, observe for now cont medical therapy will follow, no acute intervention at this time. Past History Past Medical History: acute [place], CAD, diabetes, GERD, heart failure, hypert ension, PVD Past Surgical History: cholecystectomy, CABG, , Other (vascular surgery) Social history: single. denies: smoking, alcohol abuse, prescription drug abuse Family history: diabetes, hypertension Medications and Allergies Allergies Allergy/AdvReac Type Severity Reaction Status Date / Time glyburide [From Micronase] Allergy Severe Swelling Verified 10/10/17 13:17 of tongue,face VEGA Inhibitors Allergy Shortness Verified 12/28/17 08:24 of Breath nifedipine Allergy Vomiting Verified 12/28/17 08:23 Home Medications Medication Instructions Recorded Confirmed Last Taken Type Clopidogrel Bisulfate [Plavix] 75 mg PO DAILY 08/15/15 12/28/17 12/27/17 19:00 History Carvedilol [Coreg] 25 mg PO BID #60 tablet 08/20/15 12/28/17 12/28/17 06:00 Rx 25 mg Aspirin EC [Halfprin EC] 4 tab PO DAILY 05/09/17 12/28/17 12/27/17 19:00 History Hydralazine HCl [Apresoline TAB] 50 mg PO QID 08/30/17 12/28/17 12/28/17 06:00 History 50 mg Ferrous Gluconate [Ferrous 324 mg PO DAILY 10/05/17 12/28/17 12/26/17 History Gluconate 324 MG] 324 mg Furosemide [Lasix TAB] 80 mg PO QDAY 10/05/17 12/28/17 12/27/17 History 80 mg Levothyroxine Sodium [Synthroid] 300 mcg PO 5XW 10/10/17 12/28/17 12/28/17 06:00 History 300 mcg Simvastatin [Zocor] 10 mg PO HS 10/10/17 12/28/17 12/27/17 History 10 mg Lispro Insulin [Humalog] 1.1 units SQ Q60MIN 0212/28/17 12/28/17 06:00 History Oxycodone HCl/Acetaminophen 1 each PO Q6HR PRN #30 tablet 12/28/17 Unknown Rx [Percocet 7.5/325 mg] Vit D3-Vit K/Berberine/Hops 1 tab PO QWEEK 12/28/17 12/28/17 12/23/17 History [Ostera Tablet] 1 tab oxyCODONE /ACETAMINOPHEN [Percocet 1 tab PO Q6H PRN 12/28/17 12/28/17 12/26/17 History 5/325 mg] 1 tab Active Meds: Active Medications Acetaminophen (Tylenol) 650 mg PO Q4H PRN PRN Reason: Pain MILD(1-3)/Fever >100.5/VIGIL Albuterol (Proventil) 2.5 mg IH Q4HRT PRN PRN Reason: Shortness Of Breath Aspirin (Halfprin Ec) 81 mg PO DAILY [facility] Carvedilol (Coreg) 25 mg PO BID [facility] Last Admin: 08/30/19 22:00 Dose: 25 mg Documented by: Clopidogrel Bisulfate (Plavix) 75 mg PO DAILY [facility] Dextrose (D50w (25gm) Syringe) 50 ml IV PRN PRN PRN Reason: Hypoglycemia Famotidine (Pepcid) 10 mg PO BID [facility] Last Admin: 08/30/19 21:59 Dose: 10 mg Documented by: Ferrous Gluconate (Fergon) 324 mg PO DAILY [facility] Furosemide (Lasix) 40 mg IV 0600,1800 [facility] Last Admin: 08/31/19 07:01 Dose: 40 mg Documented by: Heparin Sodium (Porcine) (Heparin) 5,000 unit SUB-Q Q12HR [facility] Last Admin: 08/30/19 22:00 Dose: 5,000 unit Documented by: Hydralazine HCl (Apresoline) 25 mg PO QID [facility] Last Admin: 08/30/19 21:59 Dose: 25 mg Documented by: Hydrocodone Bit/Homatropine Methylb (Hydromet) 5 ml PO Q6H PRN PRN Reason: Cough Last Admin: 08/30/19 19:18 Dose: 5 ml Documented by: Insulin Human Lispro (Humalog) 0 unit SUB-Q Q6HR [facility]; Protocol Last Admin: 08/31/19 07:05 Dose: Not Given Documented by: Levothyroxine Sodium (Synthroid) 300 mcg PO DAILY@0600 [facility] Last Admin: 08/31/19 07:00 Dose: 300 mcg Documented by: Miscellaneous Medication (Vit D3-Vit K/Berberine/Hops [Ostera Tablet]) 1 tab PO QWEEK [facility] Morphine Sulfate (Morphine) 2 mg IV Q4H PRN PRN Reason: Pain, Moderate (4-6) Last Admin: 08/31/19 11:48 Dose: 2 mg Documented by: Nitroglycerin (Nitrostat) 0.4 mg SL .Q5MIN PRN PRN Reason: Chest Pain Ondansetron HCl (Zofran) 4 mg IV Q8H PRN PRN Reason: Nausea And Vomiting Last Admin: 08/31/19 11:47 Dose: 4 mg Documented by: Oxycodone/Acetaminophen (Percocet 5/325) 1 tab PO Q6H PRN PRN Reason: PAIN Last Admin: 08/30/19 23:51 Dose: 1 tab Documented by: Pneumococcal Polyvalent Vaccine (Pneumovax 23) 0.5 ml IM .ONCE ONE Stop: 09/03/19 12:01 Pravastatin Sodium (Pravachol) 20 mg PO QHS [facility] Last Admin: 08/30/19 21:59 Dose: 20 mg Documented by: Sodium Chloride (Sodium Chloride Flush Syringe 10 Ml) 10 ml IV BID [facility] Last Admin: 08/30/19 22:00 Dose: 10 ml Documented by: Sodium Chloride (Sodium Chloride Flush Syringe 10 Ml) 10 ml IV PRN PRN PRN Reason: LINE FLUSH Sodium Chloride (Sodium Chloride Flush Syringe 10 Ml) 10 ml IV PRN PRN PRN Reason: LINE FLUSH Physical Examination Vital Signs Temp Pulse Resp BP Pulse Ox 98.5 F 83 16 233/114 100 08/30/19 11:19 08/30/19 11:19 08/30/19 11:19 08/30/19 11:19 08/30/19 11:19 General appearance: no acute distress HEENT: Positive: PERRL, EOMI Neck: Positive: neck supple Cardiac: Positive: Reg Rate and Rhythm, S1/S2 Lungs: Positive: clear to auscultation Neuro: Positive: Grossly Intact Abdomen: Positive: Soft Results 08/31/19 11:21 08/30/19 11:55 Cardiac Enzymes 08/30/19 Range/Units 11:55 AST 10 (5-40) units/L Lipids 08/30/19 Range/Units 11:55 Triglycerides 185 H (2-149) mg/dL Cholesterol 282 H (50-199) mg/dL HDL Cholesterol 58 (40-59) mg/dL Cholesterol/HDL Ratio 4.86 % CBC 08/30/19 08/31/19 Range/Units 11:55 11:21 WBC 7.4 7.0 (4.5-11.0) K/mm3 RBC 4.39 4.33 (3.65-5.03) M/mm3 Hgb 11.2 11.1 (10.1-14.3) gm/dl Hct 34.7 34.4 (30.3-42.9) % Plt Count 343 358 (140-440) K/mm3 Lymph # 2.1 (1.2-5.4) K/mm3 Trigg # 0.8 (0.0-0.8) K/mm3 Eos # 0.5 H (0.0-0.4) K/mm3 Baso # 0.1 (0.0-0.1) K/mm3 Comprehensive Metabolic Panel 08/30/19 Range/Units 11:55 Sodium 141 (137-145) mmol/L Potassium 4.3 (3.6-5.0) mmol/L Chloride 102.4 (98-107) mmol/L Carbon Dioxide 22 (22-30) mmol/L BUN 39 H (7-17) mg/dL Creatinine 3.0 H (0.7-1.2) mg/dL Glucose 190 H (65-100) mg/dL Calcium 9.2 (8.4-10.2) mg/dL AST 10 (5-40) units/L ALT 8 (7-56) units/L Alkaline Phosphatase 74 (35-129) units/L Total Protein 8.1 (6.3-8.2) g/dL Albumin 4.1 (3.9-5) g/dL
[2019-08-31] MEDS: HEPARIN 5,000 UNIT/1 ML VIAL SUB-Q SCH ×2 (15:20→21:16)
--- NOTE | 2019-08-31 19:17 | Ultrasound Report ---
ULTRASOUND RENAL INDICATION: DUANE. COMPARISON: No relevant prior imaging study available. FINDINGS: RIGHT KIDNEY: Size: 8.8 cm. Echogenicity: Normal. Cortical thickness: 1.3 cm. Hydronephrosis: None. Cyst or mass: None. Stones: None. LEFT KIDNEY: Size: 9.4 cm. Echogenicity: Normal. Cortical thickness: 1.2 cm. Hydronephrosis: None. Cyst or mass: None. Stones: None. Urinary Bladder: No significant abnormality. Free Fluid: None. Additional Findings: None. IMPRESSION 1. No acute sonographic abnormality of the kidneys. Signer Name: Talon Carreno MD Signed: 08/31/2019 7:13 PM Workstation Name: [id number]
[2019-08-31] MEDS: hydrALAZINE 25 MG TAB PO SCH (21:16)
[2019-08-31] MEDS: PRAVASTATIN 20 MG TAB PO SCH (21:16)
[2019-08-31] MEDS: carvediloL 25 MG TAB PO SCH (21:16)
[2019-08-31] MEDS: FAMOTIDINE 10 MG TAB PO SCH (21:17)
[2019-08-31] MEDS: FERROUS GLUCONATE 324 MG TAB PO SCH (21:17)
[2019-08-31] MEDS: CLOPIDOGREL 75 MG TAB PO SCH (21:18)
[2019-08-31] MEDS: ASPIRIN EC 81 MG TAB PO SCH (21:18)
[2019-09-01 05:03] LABS: Chloride, Urine 68.9 mmolL (110-250); Mucus,Urine FEW /HPF
[2019-09-01 05:27] LABS: Creatinine,Urine 140.4 mg/dL (0.1-20.0)
[2019-09-01] MEDS: FUROSEMIDE 40 MG/4 ML INJ IV SCH ×3 (05:57→18:07)
[2019-09-01] MEDS: MORPHINE 2 MG/1 ML INJ IV PRN (05:57)
[2019-09-01] MEDS: LEVOTHYROXINE 150 MCG TAB PO SCH (05:57)
[2019-09-01] MEDS: hydrALAZINE 25 MG TAB PO SCH ×6 (07:03→22:08)
[2019-09-01] MEDS: FAMOTIDINE 10 MG TAB PO SCH ×3 (07:03→22:08)
[2019-09-01] MEDS: carvediloL 25 MG TAB PO SCH ×3 (07:04→22:09)
[2019-09-01 07:52] LABS: Basophils % (Auto) 0.6 % (0.0-1.8); Eosinophils # (Auto) 0.4 K/mm3 (0.0-0.4); Eosinophils % (Auto) 6.3 % (0.0-4.3); Hematocrit 32.5 % (30.3-42.9); Hemoglobin 10.5 gm/dl (10.1-14.3); Lymphocytes # (Auto) 2.2 K/mm3 (1.2-5.4); Lymphocytes % (Auto) 32.6 % (13.4-35.0); Mean Corpuscular HGB Conc 32 % (30-34); Mean Corpuscular Volume 79 fl (79-97); Monocytes # (Auto) 0.7 K/mm3 (0.0-0.8); Monocytes % (Auto) 9.9 % (0.0-7.3); Platelet Count 321 K/mm3 (140-440); Red Blood Count 4.11 M/mm3 (3.65-5.03); Red Cell Distribution Width 14.3 % (13.2-15.2)
[2019-09-01] MEDS: INSULIN LISPRO 100 UNIT/ML SUB-Q SCH ×5 (08:30→22:09)
[2019-09-01] MEDS: CLOPIDOGREL 75 MG TAB PO SCH (09:49)
[2019-09-01] MEDS: ASPIRIN EC 81 MG TAB PO SCH (09:50)
[2019-09-01] MEDS: HEPARIN 5,000 UNIT/1 ML VIAL SUB-Q SCH ×2 (09:50→22:09)
--- NOTE | 2019-09-01 10:10 | Progress Note ---
Assessment and Plan Assessment and plan: Acute on chronic systolic heart failure exacerbation. Continue diuresis per nephrology recommendation. Patient with ischemic cardiomyopathy EF 20%. Coronary artery disease. Cardiology recommends conservative management and continued medical therapy. No acute intervention at this time. Continue Coreg, aspirin and Plavix. Hypertension. Continue antihypertensive medications. Diabetes mellitus type 2. Continue Accu-Cheks and sliding scale insulin. OHS/WERNER. Hyperlipidemia. Continue statin therapy. Acute on CKD IV. Patient appears to have baseline creatinine approximately 2.3. Nephrology following. Follow-up urine electrolytes/protein and renal ultrasound. Strict I&O's. Hypothyroidism. Continue Synthroid. History Interval history: No new issues overnight. Hospitalist Physical - Constitutional Vitals: Temp Pulse Resp BP Pulse Ox 98.6 F 69 18 150/78 100 09/01/19 08:01 09/01/19 08:01 09/01/19 08:01 09/01/19 08:01 09/01/19 08:01 General appearance: Present: no acute distress - EENT Eyes: Present: PERRL, EOM intact ENT: hearing intact, clear oral mucosa, dentition normal - Neck Neck: Present: supple, normal ROM - Respiratory Respiratory effort: normal Respiratory: bilateral: CTA - Cardiovascular Rhythm: regular Heart Sounds: Present: S1 & S2. Absent: gallop, rub - Extremities Extremities: no ischemia, No edema, Full ROM - Abdominal General gastrointestinal: soft, non-tender, non-distended, normal bowel sounds - Integumentary Integumentary: Present: clear, warm, dry - Neurologic Neurologic: CNII-XII intact, moves all extremities Results - Labs CBC & Chem 7: 09/01/19 07:42 09/01/19 07:42 Labs: Laboratory Last Values WBC 6.8 K/mm3 (4.5-11.0) 09/01/19 07:42 RBC 4.11 M/mm3 (3.65-5.03) 09/01/19 07:42 Hgb 10.5 gm/dl (10.1-14.3) 09/01/19 07:42 Hct 32.5 % (30.3-42.9) 09/01/19 07:42 MCV 79 fl (79-97) 09/01/19 07:42 MCH 25 pg (28-32) L 09/01/19 07:42 MCHC 32 % (30-34) 09/01/19 07:42 RDW 14.3 % (13.2-15.2) 09/01/19 07:42 Plt Count 321 K/mm3 (140-440) 09/01/19 07:42 Lymph % (Auto) 32.6 % (13.4-35.0) 09/01/19 07:42 [place] % (Auto) 9.9 % (0.0-7.3) H 09/01/19 07:42 Eos % (Auto) 6.3 % (0.0-4.3) H 09/01/19 07:42 Baso % (Auto) 0.6 % (0.0-1.8) 09/01/19 07:42 Lymph # 2.2 K/mm3 (1.2-5.4) 09/01/19 07:42 [place] # 0.7 K/mm3 (0.0-0.8) 09/01/19 07:42 Eos # 0.4 K/mm3 (0.0-0.4) 09/01/19 07:42 Baso # 0.0 K/mm3 (0.0-0.1) 09/01/19 07:42 Seg Neutrophils % 50.6 % (40.0-70.0) 09/01/19 07:42 Seg Neutrophils # 3.4 K/mm3 (1.8-7.7) 09/01/19 07:42 Sodium 139 mmol/L (137-145) 09/01/19 07:42 Potassium 4.8 mmol/L (3.6-5.0) 09/01/19 07:42 Chloride 100.7 mmol/L (98-107) 09/01/19 07:42 Carbon Dioxide 23 mmol/L (22-30) 09/01/19 07:42 Anion Gap 20 mmol/L 09/01/19 07:42 BUN 45 mg/dL (7-17) H 09/01/19 07:42 Creatinine 3.7 mg/dL (0.7-1.2) H 09/01/19 07:42 Estimated GFR 16 ml/min 09/01/19 07:42 BUN/Creatinine Ratio 12 % 09/01/19 07:42 Glucose 160 mg/dL (65-100) H 09/01/19 07:42 POC Glucose 156 (70-105) H 09/01/19 08:07 Calcium 9.0 mg/dL (8.4-10.2) 09/01/19 07:42 Magnesium 1.90 mg/dL (1.7-2.3) 08/30/19 15:43 Total Bilirubin 0.20 mg/dL (0.1-1.2) 08/30/19 11:55 AST 10 units/L (5-40) 08/30/19 11:55 ALT 8 units/L (7-56) 08/30/19 11:55 Alkaline Phosphatase 74 units/L (35-129) 08/30/19 11:55 Troponin T 0.034 ng/mL (0.00-0.029) H 08/30/19 20:17 NT-Pro-B Natriuret Pep 3288 pg/mL (0-900) H 08/30/19 11:55 Total Protein 8.1 g/dL (6.3-8.2) 08/30/19 11:55 Albumin 4.1 g/dL (3.9-5) 08/30/19 11:55 Albumin/Globulin Ratio 1.0 % 08/30/19 11:55 Triglycerides 185 mg/dL (2-149) H 08/30/19 11:55 Cholesterol 282 mg/dL (50-199) H 08/30/19 11:55 LDL Cholesterol Direct 208 mg/dL (50-130) H 08/30/19 11:55 HDL Cholesterol 58 mg/dL (40-59) 08/30/19 11:55 Cholesterol/HDL Ratio 4.86 % 08/30/19 11:55 TSH 8.890 mlU/mL (0.270-4.200) H 08/30/19 15:43 Free T4 1.23 ng/dL (0.76-1.46) 08/30/19 15:43 Urine WBC (Auto) 2.0 /HPF (0.0-6.0) 08/31/19 04:00 Urine RBC (Auto) 3.0 /HPF (0.0-6.0) 08/31/19 04:00 U Epithel Cells (Auto) 1.0 /HPF (0-13.0) 08/31/19 04:00 Urine Mucus Few /HPF 08/31/19 04:00 Urine Creatinine 140.4 mg/dL (0.1-20.0) H 08/31/19 04:00 Urine Microalbumin 115.7 mg/dL (0.1-34.0) H 08/31/19 04:00 Microalb/Creat Ratio 824.0 ug/mg 08/31/19 04:00 Urine Sodium 71 mmol/L 08/31/19 04:00 Urine Chloride 68.9 mmolL (110-250) L 08/31/19 04:00 Urine Urea Nitrogen 472 08/31/19 04:00 Urine Total Protein 172 mg/dL (5-11.8) H 08/31/19 04:00 Active Medications - Current Medications Current Medications: Generic Name Dose Route Start Last Admin Trade Name Freq PRN Reason Stop Dose Admin Acetaminophen 650 mg 08/30/19 14:40 Tylenol PO Q4H PRN Pain MILD(1-3)/Fever >100.5/VIGIL Albuterol 2.5 mg 08/30/19 14:40 Proventil IH Q4HRT PRN Shortness Of Breath Aspirin 81 mg 08/31/19 10:00 09/01/19 09:50 Halfprin Ec PO 81 mg DAILY [facility] Administration Carvedilol 25 mg 08/30/19 22:00 09/01/19 09:50 Coreg PO 25 mg BID [facility] Administration Clopidogrel Bisulfate 75 mg 08/31/19 10:00 09/01/19 09:49 Plavix PO 75 mg DAILY [facility] Administration Dextrose 50 ml 08/30/19 14:45 D50w (25gm) Syringe IV PRN PRN Hypoglycemia Famotidine 10 mg 08/30/19 22:00 09/01/19 09:49 Pepcid PO 10 mg BID [facility] Administration Ferrous Gluconate 324 mg 08/31/19 10:00 08/31/19 21:17 Fergon PO 324 mg DAILY [facility] Administration Furosemide 40 mg 08/30/19 18:00 09/01/19 07:03 Lasix IV Not Given 0600,1800 [facility] Heparin Sodium (Porcine) 5,000 unit 08/30/19 22:00 09/01/19 09:50 Heparin SUB-Q 5,000 unit Q12HR [facility] Administration Hydralazine HCl 25 mg 08/30/19 18:00 09/01/19 09:50 Apresoline PO 25 mg QID [facility] Administration Hydrocodone Bit/Homatropine Methylb 5 ml 08/30/19 14:45 08/30/19 19:18 Hydromet PO 5 ml Q6H PRN Administration Cough Insulin Human Lispro 0 unit 08/31/19 22:00 09/01/19 08:30 Humalog SUB-Q 2 unit ACHS [facility] Administration Protocol Levothyroxine Sodium 300 mcg 08/31/19 06:00 09/01/19 05:57 Synthroid PO 300 mcg DAILY@0600 [facility] Administration Miscellaneous Medication 1 tab 09/06/19 10:00 Vit D3-Vit K/Berberine/Hops [Ostera Tablet] PO QWEEK [facility] Morphine Sulfate 2 mg 08/30/19 14:40 09/01/19 05:57 Morphine IV 2 mg Q4H PRN Administration Pain, Moderate (4-6) Nitroglycerin 0.4 mg 08/30/19 14:40 Nitrostat SL .Q5MIN PRN Chest Pain Ondansetron HCl 4 mg 08/30/19 14:40 08/31/19 11:47 Zofran IV 4 mg Q8H PRN Administration Nausea And Vomiting Oxycodone/Acetaminophen 1 tab 08/30/19 14:43 08/30/19 23:51 Percocet 5/325 PO 1 tab Q6H PRN Administration PAIN Pneumococcal Polyvalent Vaccine 0.5 ml 09/03/19 12:00 Pneumovax 23 IM 09/03/19 12:01 .ONCE ONE Pravastatin Sodium 20 mg 08/30/19 22:00 08/31/19 21:16 Pravachol PO 20 mg QHS [facility] Administration Sodium Chloride 10 ml 08/30/19 22:00 09/01/19 07:03 Sodium Chloride Flush Syringe 10 Ml IV Not Given BID [facility] Sodium Chloride 10 ml 08/30/19 14:40 Sodium Chloride Flush Syringe 10 Ml IV PRN PRN LINE FLUSH Sodium Chloride 10 ml 08/30/19 14:42 Sodium Chloride Flush Syringe 10 Ml IV PRN PRN LINE FLUSH
[2019-09-01] MEDS: FERROUS GLUCONATE 324 MG TAB PO SCH (10:23)
--- NOTE | 2019-09-01 14:23 | Progress Note ---
Assessment and Plan DUANE possibly prerenal, cardiorenal syndrome, on underlying CKD Stage 4, no obstruction Acute on chronic systolic CHF (EF 20%) Chest Pain Obesity hypoventilation syndrome DM Type 2 on insulin Essential HTN GERD CAD s/p CABG Plan: - Renal function reviewed, SCr level increased to 3.7 today, yesterday's SCr level was 3.2 - Pt reports being seen in our nephrology office last month and her most recent GFR was 19. On admission, SCr level was 3.0 with GFR 20 - Worsening renal function possibly due to IV Lasix, may need to adjust lasix tomorrow if renal function continues to worsen - Currently on lasix 40 mg IV BID - Renal US showed no hydronephrosis - CXR showed no acute findings - Cardiology on board, EF 20%, f/u recs - Renally dose meds - Strict intake and output - He Catheter: No - Intake= 1240 ml Output= 400 ml ( Net= 840 ml) -> Pt states she urinated twice yesterday before getting toilet hat to measure urine so yesterday's UOP was higher than recorded 400 ml - Discussed with pt about continuing to save urine for staff to measure - Renal plan d/w Dr Nelson Subjective Date of service: 09/01/19 Interval history: Pt seen in bed, states she still has chest pain and shortness of breath, but both are less compared to yesterday, no acute distress, no family at bedside Objective - Vital Signs Vital signs: Vital Signs - 12hr 09/01/19 09/01/19 09/01/19 03:49 07:38 08:01 Temperature 98.2 F 98.6 F Pulse Rate 72 69 Respiratory 18 24 18 Rate Blood Pressure 176/94 150/78 O2 Sat by Pulse 99 100 Oximetry 09/01/19 09/01/19 09/01/19 10:00 11:26 11:34 Temperature 98.0 F Pulse Rate 71 72 Respiratory 18 Rate Blood Pressure 165/92 O2 Sat by Pulse 100 100 Oximetry - General Appearance General appearance: other (awake) EENT: ATNC Neck: no JVD Respiratory: Present: Decreased Breath Sounds Cardiology: regular, S1S2 Gastrointestinal: normoactive bowel sounds, no tenderness Integumentary: warm and dry Neurologic: alert and oriented x3 Musculoskeletal: other (trace edema to BLE) Psychiatric: mood/affect appropriate, cooperative - Lab 09/01/19 07:42 09/01/19 07:42 Most recent lab results Calcium 9.0 mg/dL (8.4-10.2) 09/01/19 07:42 Magnesium 1.90 mg/dL (1.7-2.3) 08/30/19 15:43 Urine Creatinine 140.4 mg/dL (0.1-20.0) H 08/31/19 04:00 Urine Sodium 71 mmol/L 08/31/19 04:00 Urine Total Protein 172 mg/dL (5-11.8) H 08/31/19 04:00 Medications & Allergies - Medications Allergies/Adverse Reactions: Allergies glyburide [From Micronase] Allergy (Severe, Verified 10/10/17 13:17) Swelling of tongue,face VEGA Inhibitors Allergy (Verified 12/28/17 08:24) Shortness of Breath nifedipine Allergy (Verified 12/28/17 08:23) Vomiting Home Medications: Home Medications Medication Instructions Recorded Confirmed Last Taken Type Clopidogrel Bisulfate [Plavix] 75 mg PO DAILY 08/15/15 09/01/19 3 Days Ago History ~08/29/19 Carvedilol [Coreg] 25 mg PO BID #60 tablet 08/20/15 09/01/19 3 Days Ago Rx ~08/29/19 Aspirin EC [Halfprin EC] 4 tab PO DAILY 05/09/17 09/01/19 3 Days Ago History ~08/29/19 Hydralazine HCl [Apresoline TAB] 50 mg PO QID 08/30/17 09/01/19 3 Days Ago History ~08/29/19 Ferrous Gluconate [Ferrous 324 mg PO DAILY 10/05/17 09/01/19 3 Days Ago History Gluconate 324 MG] ~08/29/19 Furosemide [Lasix TAB] 80 mg PO QDAY 10/05/17 09/01/19 3 Days Ago History ~08/29/19 Levothyroxine Sodium [Synthroid] 300 mcg PO 5XW 10/10/17 09/01/19 3 Days Ago History ~08/29/19 Simvastatin [Zocor] 10 mg PO HS 10/10/17 09/01/19 3 Days Ago History ~08/29/19 Lispro Insulin [Humalog] 1.1 units SQ Q60MIN 12/28/17 09/01/19 3 Days Ago History ~08/29/19 Oxycodone HCl/Acetaminophen 1 each PO Q6HR PRN #30 tablet 12/28/17 09/01/19 3 Days Ago Rx [Percocet 7.5/325 mg] ~08/29/19 Vit D3-Vit K/Berberine/Hops 1 tab PO QWEEK 12/28/17 09/01/19 3 Days Ago History [Ostera Tablet] ~08/29/19 oxyCODONE /ACETAMINOPHEN [Percocet 1 tab PO Q6H PRN 12/28/17 09/01/19 3 Days Ago History 5/325 mg] ~08/29/19 Active Medications: Generic Name Dose Route Start Last Admin Trade Name Freq PRN Reason Stop Dose Admin Acetaminophen 650 mg 08/30/19 14:40 Tylenol PO Q4H PRN Pain MILD(1-3)/Fever >100.5/VIGIL Albuterol 2.5 mg 08/30/19 14:40 Proventil IH Q4HRT PRN Shortness Of Breath Aspirin 81 mg 08/31/19 10:00 09/01/19 09:50 Halfprin Ec PO 81 mg DAILY [facility] Administration Carvedilol 25 mg 08/30/19 22:00 09/01/19 09:50 Coreg PO 25 mg BID [facility] Administration Clopidogrel Bisulfate 75 mg 08/31/19 10:00 09/01/19 09:49 Plavix PO 75 mg DAILY [facility] Administration Dextrose 50 ml 08/30/19 14:45 D50w (25gm) Syringe IV PRN PRN Hypoglycemia Famotidine 10 mg 08/30/19 22:00 09/01/19 09:49 Pepcid PO 10 mg BID [facility] Administration Ferrous Gluconate 324 mg 08/31/19 10:00 09/01/19 10:23 Fergon PO Not Given DAILY [facility] Furosemide 40 mg 08/30/19 18:00 09/01/19 07:03 Lasix IV Not Given 0600,1800 [facility] Heparin Sodium (Porcine) 5,000 unit 08/30/19 22:00 09/01/19 09:50 Heparin SUB-Q 5,000 unit Q12HR [facility] Administration Hydralazine HCl 25 mg 08/30/19 18:00 09/01/19 13:16 Apresoline PO 25 mg QID [facility] Administration Hydrocodone Bit/Homatropine Methylb 5 ml 08/30/19 14:45 08/30/19 19:18 Hydromet PO 5 ml Q6H PRN Administration Cough Insulin Human Lispro 0 unit 08/31/19 22:00 09/01/19 12:50 Humalog SUB-Q Not Given ACHS [facility] Protocol Levothyroxine Sodium 300 mcg 08/31/19 06:00 09/01/19 05:57 Synthroid PO 300 mcg DAILY@0600 [facility] Administration Miscellaneous Medication 1 tab 09/06/19 10:00 Vit D3-Vit K/Berberine/Hops [Ostera Tablet] PO QWEEK [facility] Morphine Sulfate 2 mg 08/30/19 14:40 09/01/19 05:57 Morphine IV 2 mg Q4H PRN Administration Pain, Moderate (4-6) Nitroglycerin 0.4 mg 08/30/19 14:40 Nitrostat SL .Q5MIN PRN Chest Pain Ondansetron HCl 4 mg 08/30/19 14:40 08/31/19 11:47 Zofran IV 4 mg Q8H PRN Administration Nausea And Vomiting Oxycodone/Acetaminophen 1 tab 08/30/19 14:43 08/30/19 23:51 Percocet 5/325 PO 1 tab Q6H PRN Administration PAIN Pneumococcal Polyvalent Vaccine 0.5 ml 09/03/19 12:00 Pneumovax 23 IM 09/03/19 12:01 .ONCE ONE Pravastatin Sodium 20 mg 08/30/19 22:00 08/31/19 21:16 Pravachol PO 20 mg QHS [facility] Administration Sodium Chloride 10 ml 08/30/19 22:00 09/01/19 10:23 Sodium Chloride Flush Syringe 10 Ml IV Not Given BID [facility] Sodium Chloride 10 ml 08/30/19 14:40 Sodium Chloride Flush Syringe 10 Ml IV PRN PRN LINE FLUSH Sodium Chloride 10 ml 08/30/19 14:42 Sodium Chloride Flush Syringe 10 Ml IV PRN PRN LINE FLUSH
--- NOTE | 2019-09-01 15:39 | Progress Note ---
Subjective Date of service: 09/01/19 Interval history: Impression CV stable, volume overload symptoms better h/o CABG, ischemic CMP EF 20% AICD CKD stage 4 by renal Type 2 DM Obesity/Hypoventaltion syndrome HTN Plan diuresis per renal recommendation nonspecific trop elevation, doubt ACS, observe for now cont medical therapy will follow, no acute intervention at this time. Objective Vital Signs Temp Pulse Resp BP Pulse Ox 09/01/19 11:34 98.0 F 72 18 165/92 100 09/01/19 11:26 71 09/01/19 10:00 100 09/01/19 08:01 98.6 F 69 18 150/78 100 09/01/19 07:38 24 09/01/19 03:49 98.2 F 72 18 176/94 99 09/01/19 00:17 98.3 F 09/01/19 00:10 70 20 154/81 100 08/31/19 21:28 100 08/31/19 21:16 71 154/91 08/31/19 20:19 70 08/31/19 19:52 98.1 F 08/31/19 19:51 71 18 154/91 100 08/31/19 17:13 98.2 F 72 20 170/87 100 - Physical Examination General: No Apparent Distress HEENT: Positive: PERRL, EOMI Neck: Positive: neck supple Cardiac: Positive: Reg Rate and Rhythm, S1/S2 Lungs: Positive: clear to auscultation Neuro: Positive: Grossly Intact Abdomen: Positive: Soft - Labs and Meds CBC 09/01/19 Range/Units 07:42 WBC 6.8 (4.5-11.0) K/mm3 RBC 4.11 (3.65-5.03) M/mm3 Hgb 10.5 (10.1-14.3) gm/dl Hct 32.5 (30.3-42.9) % Plt Count 321 (140-440) K/mm3 Lymph # 2.2 (1.2-5.4) K/mm3 [place] # 0.7 (0.0-0.8) K/mm3 Eos # 0.4 (0.0-0.4) K/mm3 Baso # 0.0 (0.0-0.1) K/mm3 Comprehensive Metabolic Panel 09/01/19 Range/Units 07:42 Sodium 139 (137-145) mmol/L Potassium 4.8 (3.6-5.0) mmol/L Chloride 100.7 (98-107) mmol/L Carbon Dioxide 23 (22-30) mmol/L BUN 45 H (7-17) mg/dL Creatinine 3.7 H (0.7-1.2) mg/dL Glucose 160 H (65-100) mg/dL Calcium 9.0 (8.4-10.2) mg/dL
[2019-09-01] MEDS: oxyCODONE /ACETAMINOPHEN 5-325MG TAB PO PRN ×2 (16:09→22:08)
[2019-09-01] MEDS: ONDANSETRON 4 MG/2 ML INJ IV PRN (22:02)
[2019-09-01] MEDS: PRAVASTATIN 20 MG TAB PO SCH (22:08)
[2019-09-01] MEDS: DOCUSATE SODIUM 100 MG CAP PO SCH (22:08)
[2019-09-02] MEDS: LEVOTHYROXINE 150 MCG TAB PO SCH (06:38)
[2019-09-02] MEDS: FUROSEMIDE 40 MG/4 ML INJ IV SCH (06:38)
[2019-09-02] MEDS: MORPHINE 2 MG/1 ML INJ IV PRN ×2 (06:44→15:48)
[2019-09-02] MEDS: INSULIN LISPRO 100 UNIT/ML SUB-Q SCH ×3 (08:25→18:15)
[2019-09-02 08:31] LABS: Basophils % (Auto) 0.5 % (0.0-1.8); Eosinophils # (Auto) 0.4 K/mm3 (0.0-0.4); Eosinophils % (Auto) 6.1 % (0.0-4.3); Hematocrit 34.5 % (30.3-42.9); Hemoglobin 11.1 gm/dl (10.1-14.3); Lymphocytes # (Auto) 1.8 K/mm3 (1.2-5.4); Lymphocytes % (Auto) 29.6 % (13.4-35.0); Mean Corpuscular HGB Conc 32 % (30-34); Mean Corpuscular Volume 79 fl (79-97); Monocytes # (Auto) 0.6 K/mm3 (0.0-0.8); Monocytes % (Auto) 10.4 % (0.0-7.3); Platelet Count 337 K/mm3 (140-440); Red Blood Count 4.36 M/mm3 (3.65-5.03); Red Cell Distribution Width 14.3 % (13.2-15.2)
--- NOTE | 2019-09-02 08:56 | Progress Note ---
Assessment and Plan DUANE possibly prerenal, cardiorenal syndrome, on underlying CKD Stage 4, no obstruction Acute on chronic systolic CHF (EF 20%) Chest Pain Obesity hypoventilation syndrome DM Type 2 on insulin Essential HTN GERD CAD s/p CABG Plan: - Cr contt o rise, will decrease lasix to 40 mg ocne a day - will check 24 hours creatinine clearance - may needs to be started on HD in the near future - Renal US showed no hydronephrosis - CXR showed no acute findings - Cardiology on board, EF 20%, f/u recs - Renally dose meds - Strict intake and output - He Catheter: No - Discussed with pt about continuing to save urine for staff to measure Jayden Villafana MD [phone] Subjective Date of service: 09/02/19 Principal diagnosis: chronic kidney disease Interval history: cont to have some SOB Objective - Vital Signs Vital signs: Vital Signs - 12hr 09/01/19 09/01/19 09/01/19 22:08 22:09 22:16 Temperature Pulse Rate 71 71 Respiratory 18 Rate Respiratory 18 Rate [Bilateral Leg] Blood Pressure 177/77 177/77 O2 Sat by Pulse Oximetry 09/01/19 09/01/19 09/01/19 23:08 23:39 23:40 Temperature 98.5 F 98.4 F Pulse Rate 74 73 Respiratory 18 18 18 Rate Respiratory Rate [Bilateral Leg] Blood Pressure 180/84 175/86 O2 Sat by Pulse 98 98 Oximetry 09/02/19 09/02/19 09/02/19 03:41 06:44 07:14 Temperature 98.5 F Pulse Rate 78 Respiratory 18 18 18 Rate Respiratory Rate [Bilateral Leg] Blood Pressure 154/95 O2 Sat by Pulse 100 Oximetry 09/02/19 09/02/19 08:03 08:15 Temperature 98.5 F Pulse Rate 69 Respiratory 20 Rate Respiratory Rate [Bilateral Leg] Blood Pressure 150/72 O2 Sat by Pulse 96 100 Oximetry - General Appearance General appearance: well-developed, well-nourished EENT: ATNC, PERRL, mucous membranes moist Neck: no JVD, no carotid bruit Respiratory: Present: Clear to Ascultation Cardiology: regular, S1S2 Gastrointestinal: normoactive bowel sounds, no tenderness, no distended Integumentary: no rash, warm and dry Neurologic: no focal deficit, no asterixis, alert and oriented x3 Musculoskeletal: other (no edema in BLE) Psychiatric: mood/affect appropriate, cooperative - Lab 09/02/19 07:54 09/02/19 07:54 Most recent lab results Calcium 9.0 mg/dL (8.4-10.2) 09/01/19 07:42 Magnesium 1.90 mg/dL (1.7-2.3) 08/30/19 15:43 Urine Creatinine 140.4 mg/dL (0.1-20.0) H 08/31/19 04:00 Urine Sodium 71 mmol/L 08/31/19 04:00 Urine Total Protein 172 mg/dL (5-11.8) H 08/31/19 04:00 Medications & Allergies - Medications Allergies/Adverse Reactions: Allergies glyburide [From Micronase] Allergy (Severe, Verified 10/10/17 13:17) Swelling of tongue,face VEGA Inhibitors Allergy (Verified 12/28/17 08:24) Shortness of Breath nifedipine Allergy (Verified 12/28/17 08:23) Vomiting Home Medications: Home Medications Medication Instructions Recorded Confirmed Last Taken Type Clopidogrel Bisulfate [Plavix] 75 mg PO DAILY 08/15/15 09/01/19 3 Days Ago History ~08/29/19 Carvedilol [Coreg] 25 mg PO BID #60 tablet 08/20/15 09/01/19 3 Days Ago Rx ~08/29/19 Aspirin EC [Halfprin EC] 4 tab PO DAILY 05/09/17 09/01/19 3 Days Ago History ~08/29/19 Hydralazine HCl [Apresoline TAB] 50 mg PO QID 08/30/17 09/01/19 3 Days Ago History ~08/29/19 Ferrous Gluconate [Ferrous 324 mg PO DAILY 10/05/17 09/01/19 3 Days Ago History Gluconate 324 MG] ~08/29/19 Furosemide [Lasix TAB] 80 mg PO QDAY 10/05/17 09/01/19 3 Days Ago History ~08/29/19 Levothyroxine Sodium [Synthroid] 300 mcg PO 5XW 10/10/17 09/01/19 3 Days Ago History ~08/29/19 Simvastatin [Zocor] 10 mg PO HS 10/10/17 09/01/19 3 Days Ago History ~08/29/19 Lispro Insulin [Humalog] 1.1 units SQ Q60MIN 12/28/17 09/01/19 3 Days Ago History ~08/29/19 Oxycodone HCl/Acetaminophen 1 each PO Q6HR PRN #30 tablet 12/28/17 09/01/19 3 Days Ago Rx [Percocet 7.5/325 mg] ~08/29/19 Vit D3-Vit K/Berberine/Hops 1 tab PO QWEEK 12/28/17 09/01/19 3 Days Ago History [Ostera Tablet] ~08/29/19 oxyCODONE /ACETAMINOPHEN [Percocet 1 tab PO Q6H PRN 12/28/17 09/01/19 3 Days Ago History 5/325 mg] ~08/29/19 Active Medications: Generic Name Dose Route Start Last Admin Trade Name Freq PRN Reason Stop Dose Admin Acetaminophen 650 mg 08/30/19 14:40 Tylenol PO Q4H PRN Pain MILD(1-3)/Fever >100.5/VIGIL Albuterol 2.5 mg 08/30/19 14:40 Proventil IH Q4HRT PRN Shortness Of Breath Aspirin 81 mg 08/31/19 10:00 09/01/19 09:50 Halfprin Ec PO 81 mg DAILY [facility] Administration Carvedilol 25 mg 08/30/19 22:00 09/01/19 22:09 Coreg PO 25 mg BID [facility] Administration Clopidogrel Bisulfate 75 mg 08/31/19 10:00 09/01/19 09:49 Plavix PO 75 mg DAILY [facility] Administration Dextrose 50 ml 08/30/19 14:45 D50w (25gm) Syringe IV PRN PRN Hypoglycemia Docusate Sodium 100 mg 09/01/19 22:00 09/01/19 22:08 Colace PO 100 mg BID [facility] Administration Famotidine 10 mg 08/30/19 22:00 09/01/19 22:08 Pepcid PO 10 mg BID [facility] Administration Ferrous Gluconate 324 mg 08/31/19 10:00 09/01/19 10:23 Fergon PO Not Given DAILY [facility] Furosemide 40 mg 08/30/19 18:00 09/02/19 06:38 Lasix IV 40 mg 0600,1800 [facility] Administration Heparin Sodium (Porcine) 5,000 unit 08/30/19 22:00 09/01/19 22:09 Heparin SUB-Q 5,000 unit Q12HR [facility] Administration Hydralazine HCl 25 mg 08/30/19 18:00 09/01/19 22:08 Apresoline PO 25 mg QID [facility] Administration Hydrocodone Bit/Homatropine Methylb 5 ml 08/30/19 14:45 08/30/19 19:18 Hydromet PO 5 ml Q6H PRN Administration Cough Insulin Human Lispro 0 unit 08/31/19 22:00 09/02/19 08:25 Humalog SUB-Q 2 unit ACHS [facility] Administration Protocol Levothyroxine Sodium 300 mcg 08/31/19 06:00 09/02/19 06:38 Synthroid PO 300 mcg DAILY@0600 [facility] Administration Miscellaneous Medication 1 tab 09/06/19 10:00 Vit D3-Vit K/Berberine/Hops [Ostera Tablet] PO QWEEK [facility] Morphine Sulfate 2 mg 08/30/19 14:40 09/02/19 06:44 Morphine IV 2 mg Q4H PRN Administration Pain, Moderate (4-6) Nitroglycerin 0.4 mg 08/30/19 14:40 Nitrostat SL .Q5MIN PRN Chest Pain Ondansetron HCl 4 mg 08/30/19 14:40 09/01/19 22:02 Zofran IV 4 mg Q8H PRN Administration Nausea And Vomiting Oxycodone/Acetaminophen 1 tab 08/30/19 14:43 09/01/19 22:08 Percocet 5/325 PO 1 tab Q6H PRN Administration PAIN Pneumococcal Polyvalent Vaccine 0.5 ml 09/03/19 12:00 Pneumovax 23 IM 09/03/19 12:01 .ONCE ONE Pravastatin Sodium 20 mg 08/30/19 22:00 09/01/19 22:08 Pravachol PO 20 mg QHS [facility] Administration Sodium Chloride 10 ml 08/30/19 22:00 09/01/19 22:05 Sodium Chloride Flush Syringe 10 Ml IV 10 ml BID [facility] Administration Sodium Chloride 10 ml 08/30/19 14:40 Sodium Chloride Flush Syringe 10 Ml IV PRN PRN LINE FLUSH Sodium Chloride 10 ml 08/30/19 14:42 Sodium Chloride Flush Syringe 10 Ml IV PRN PRN LINE FLUSH
[2019-09-02 10:22] LABS: Calcium 8.9 mg/dL (8.4-10.2)
[2019-09-02] MEDS: CLOPIDOGREL 75 MG TAB PO SCH (10:58)
[2019-09-02] MEDS: hydrALAZINE 25 MG TAB PO SCH ×3 (10:59→21:41)
[2019-09-02] MEDS: FERROUS GLUCONATE 324 MG TAB PO SCH (10:59)
[2019-09-02] MEDS: DOCUSATE SODIUM 100 MG CAP PO SCH ×2 (11:00→21:40)
[2019-09-02] MEDS: carvediloL 25 MG TAB PO SCH ×2 (11:00→21:41)
[2019-09-02] MEDS: ASPIRIN EC 81 MG TAB PO SCH (11:01)
[2019-09-02] MEDS: FAMOTIDINE 10 MG TAB PO SCH ×2 (11:01→21:40)
[2019-09-02] MEDS: HEPARIN 5,000 UNIT/1 ML VIAL SUB-Q SCH ×2 (11:04→21:43)
[2019-09-02] MEDS: oxyCODONE /ACETAMINOPHEN 5-325MG TAB PO PRN ×2 (11:05→18:14)
--- NOTE | 2019-09-02 11:57 | Progress Note ---
Assessment and Plan Assessment and plan: Acute on chronic systolic heart failure exacerbation. Continue diuresis per nephrology recommendation. Patient with ischemic cardiomyopathy EF 20%. Coronary artery disease. Cardiology recommends conservative management and continued medical therapy. No acute intervention at this time. Continue Coreg, aspirin and Plavix. Hypertension. Continue antihypertensive medications. Diabetes mellitus type 2. Continue Accu-Cheks and sliding scale insulin. OHS/WERNER. Hyperlipidemia. Continue statin therapy. Acute on CKD IV. Patient appears to have baseline creatinine approximately 2.3. Nephrology following. Follow-up urine electrolytes/protein and renal ultrasound. Strict I&O's. Hypothyroidism. Continue Synthroid. History Interval history: No new issues overnight. Hospitalist Physical - Constitutional Vitals: Temp Pulse Resp BP Pulse Ox 98.5 F 69 16 150/72 100 09/02/19 08:15 09/02/19 11:00 09/02/19 11:05 09/02/19 11:00 09/02/19 08:15 General appearance: Present: no acute distress - EENT Eyes: Present: PERRL, EOM intact ENT: hearing intact, clear oral mucosa, dentition normal - Neck Neck: Present: supple, normal ROM - Respiratory Respiratory effort: normal Respiratory: bilateral: CTA - Cardiovascular Rhythm: regular Heart Sounds: Present: S1 & S2. Absent: gallop, rub - Extremities Extremities: no ischemia, No edema, Full ROM - Abdominal General gastrointestinal: soft, non-tender, non-distended, normal bowel sounds - Integumentary Integumentary: Present: clear, warm, dry - Neurologic Neurologic: CNII-XII intact, moves all extremities Results - Labs CBC & Chem 7: 09/02/19 07:54 09/02/19 07:54 Labs: Laboratory Last Values WBC 6.0 K/mm3 (4.5-11.0) 09/02/19 07:54 RBC 4.36 M/mm3 (3.65-5.03) 09/02/19 07:54 Hgb 11.1 gm/dl (10.1-14.3) 09/02/19 07:54 Hct 34.5 % (30.3-42.9) 09/02/19 07:54 MCV 79 fl (79-97) 09/02/19 07:54 MCH 25 pg (28-32) L 09/02/19 07:54 MCHC 32 % (30-34) 09/02/19 07:54 RDW 14.3 % (13.2-15.2) 09/02/19 07:54 Plt Count 337 K/mm3 (140-440) 09/02/19 07:54 Lymph % (Auto) 29.6 % (13.4-35.0) 09/02/19 07:54 Josephine % (Auto) 10.4 % (0.0-7.3) H 09/02/19 07:54 Eos % (Auto) 6.1 % (0.0-4.3) H 09/02/19 07:54 Baso % (Auto) 0.5 % (0.0-1.8) 09/02/19 07:54 Lymph # 1.8 K/mm3 (1.2-5.4) 09/02/19 07:54 Josephine # 0.6 K/mm3 (0.0-0.8) 09/02/19 07:54 Eos # 0.4 K/mm3 (0.0-0.4) 09/02/19 07:54 Baso # 0.0 K/mm3 (0.0-0.1) 09/02/19 07:54 Seg Neutrophils % 53.4 % (40.0-70.0) 09/02/19 07:54 Seg Neutrophils # 3.2 K/mm3 (1.8-7.7) 09/02/19 07:54 Sodium 139 mmol/L (137-145) 09/02/19 07:54 Potassium 5.1 mmol/L (3.6-5.0) H 09/02/19 07:54 Chloride 99.7 mmol/L (98-107) 09/02/19 07:54 Carbon Dioxide 23 mmol/L (22-30) 09/02/19 07:54 Anion Gap 21 mmol/L 09/02/19 07:54 BUN 49 mg/dL (7-17) H 09/02/19 07:54 Creatinine 4.0 mg/dL (0.7-1.2) H 09/02/19 07:54 Estimated GFR 14 ml/min 09/02/19 07:54 BUN/Creatinine Ratio 12 % 09/02/19 07:54 Glucose 182 mg/dL (65-100) H 09/02/19 07:54 POC Glucose 193 (70-105) H 09/02/19 08:19 Calcium 8.9 mg/dL (8.4-10.2) 09/02/19 07:54 Magnesium 1.90 mg/dL (1.7-2.3) 08/30/19 15:43 Total Bilirubin 0.20 mg/dL (0.1-1.2) 08/30/19 11:55 AST 10 units/L (5-40) 08/30/19 11:55 ALT 8 units/L (7-56) 08/30/19 11:55 Alkaline Phosphatase 74 units/L (35-129) 08/30/19 11:55 Troponin T 0.034 ng/mL (0.00-0.029) H 08/30/19 20:17 NT-Pro-B Natriuret Pep 3288 pg/mL (0-900) H 08/30/19 11:55 Total Protein 8.1 g/dL (6.3-8.2) 08/30/19 11:55 Albumin 4.1 g/dL (3.9-5) 08/30/19 11:55 Albumin/Globulin Ratio 1.0 % 08/30/19 11:55 Triglycerides 185 mg/dL (2-149) H 08/30/19 11:55 Cholesterol 282 mg/dL (50-199) H 08/30/19 11:55 LDL Cholesterol Direct 208 mg/dL (50-130) H 08/30/19 11:55 HDL Cholesterol 58 mg/dL (40-59) 08/30/19 11:55 Cholesterol/HDL Ratio 4.86 % 08/30/19 11:55 TSH 8.890 mlU/mL (0.270-4.200) H 08/30/19 15:43 Free T4 1.23 ng/dL (0.76-1.46) 08/30/19 15:43 Urine WBC (Auto) 2.0 /HPF (0.0-6.0) 08/31/19 04:00 Urine RBC (Auto) 3.0 /HPF (0.0-6.0) 08/31/19 04:00 U Epithel Cells (Auto) 1.0 /HPF (0-13.0) 08/31/19 04:00 Urine Mucus Few /HPF 08/31/19 04:00 Urine Creatinine 140.4 mg/dL (0.1-20.0) H 08/31/19 04:00 Urine Microalbumin 115.7 mg/dL (0.1-34.0) H 08/31/19 04:00 Microalb/Creat Ratio 824.0 ug/mg 08/31/19 04:00 Urine Sodium 71 mmol/L 08/31/19 04:00 Urine Chloride 68.9 mmolL (110-250) L 08/31/19 04:00 Urine Urea Nitrogen 472 08/31/19 04:00 Urine Total Protein 172 mg/dL (5-11.8) H 08/31/19 04:00 Active Medications - Current Medications Current Medications: Generic Name Dose Route Start Last Admin Trade Name Freq PRN Reason Stop Dose Admin Acetaminophen 650 mg 08/30/19 14:40 Tylenol PO Q4H PRN Pain MILD(1-3)/Fever >100.5/VIGIL Albuterol 2.5 mg 08/30/19 14:40 Proventil IH Q4HRT PRN Shortness Of Breath Aspirin 81 mg 08/31/19 10:00 09/02/19 11:01 Halfprin Ec PO 81 mg DAILY [facility] Administration Carvedilol 25 mg 08/30/19 22:00 09/02/19 11:00 Coreg PO 25 mg BID [facility] Administration Clopidogrel Bisulfate 75 mg 08/31/19 10:00 09/02/19 10:58 Plavix PO 75 mg DAILY [facility] Administration Dextrose 50 ml 08/30/19 14:45 D50w (25gm) Syringe IV PRN PRN Hypoglycemia Docusate Sodium 100 mg 09/01/19 22:00 09/02/19 11:00 Colace PO 100 mg BID [facility] Administration Famotidine 10 mg 08/30/19 22:00 09/02/19 11:01 Pepcid PO 10 mg BID [facility] Administration Ferrous Gluconate 324 mg 08/31/19 10:00 09/02/19 10:59 Fergon PO 324 mg DAILY [facility] Administration Furosemide 40 mg 08/30/19 18:00 09/02/19 06:38 Lasix IV 40 mg 0600,1800 [facility] Administration Heparin Sodium (Porcine) 5,000 unit 08/30/19 22:00 09/02/19 11:04 Heparin SUB-Q 5,000 unit Q12HR [facility] Administration Hydralazine HCl 25 mg 08/30/19 18:00 09/02/19 10:59 Apresoline PO 25 mg QID [facility] Administration Hydrocodone Bit/Homatropine Methylb 5 ml 08/30/19 14:45 08/30/19 19:18 Hydromet PO 5 ml Q6H PRN Administration Cough Insulin Human Lispro 0 unit 08/31/19 22:00 09/02/19 08:25 Humalog SUB-Q 2 unit ACHS [facility] Administration Protocol Levothyroxine Sodium 300 mcg 08/31/19 06:00 09/02/19 06:38 Synthroid PO 300 mcg DAILY@0600 [facility] Administration Miscellaneous Medication 1 tab 09/06/19 10:00 Vit D3-Vit K/Berberine/Hops [Ostera Tablet] PO QWEEK [facility] Morphine Sulfate 2 mg 08/30/19 14:40 09/02/19 06:44 Morphine IV 2 mg Q4H PRN Administration Pain, Moderate (4-6) Nitroglycerin 0.4 mg 08/30/19 14:40 Nitrostat SL .Q5MIN PRN Chest Pain Ondansetron HCl 4 mg 08/30/19 14:40 09/01/19 22:02 Zofran IV 4 mg Q8H PRN Administration Nausea And Vomiting Oxycodone/Acetaminophen 1 tab 08/30/19 14:43 09/02/19 11:05 Percocet 5/325 PO 1 tab Q6H PRN Administration PAIN Pneumococcal Polyvalent Vaccine 0.5 ml 09/03/19 12:00 Pneumovax 23 IM 09/03/19 12:01 .ONCE ONE Pravastatin Sodium 20 mg 08/30/19 22:00 09/01/19 22:08 Pravachol PO 20 mg QHS [facility] Administration Sodium Chloride 10 ml 08/30/19 22:00 09/01/19 22:05 Sodium Chloride Flush Syringe 10 Ml IV 10 ml BID [facility] Administration Sodium Chloride 10 ml 08/30/19 14:40 Sodium Chloride Flush Syringe 10 Ml IV PRN PRN LINE FLUSH Sodium Chloride 10 ml 08/30/19 14:42 Sodium Chloride Flush Syringe 10 Ml IV PRN PRN LINE FLUSH
--- NOTE | 2019-09-02 17:05 | Progress Note ---
Assessment and Plan - Patient Problems (1) Ischemic dilated cardiomyopathy Current Visit: Yes Status: Acute Plan to address problem: Medical therapy for dilated cardiomyopathy and chronic systolic left ventricular dysfunction. Cardiac status is asymptomatic. Subjective Date of service: 09/02/19 Principal diagnosis: chronic kidney disease Interval history: Patient is comfortable, looks and feels better, no new cardiac complaints. Objective Vital Signs Temp Pulse Resp Resp BP Pulse Ox 09/02/19 16:06 98.2 F 75 18 185/96 100 09/02/19 15:48 16 09/02/19 12:14 99.4 F 76 18 169/86 99 09/02/19 11:05 16 09/02/19 11:00 69 150/72 09/02/19 10:00 74 99 09/02/19 08:15 98.5 F 69 20 150/72 100 09/02/19 08:03 96 09/02/19 07:14 18 09/02/19 06:44 18 09/02/19 03:41 98.5 F 78 18 154/95 100 09/01/19 23:40 98.4 F 73 18 175/86 98 09/01/19 23:39 98.5 F 74 18 180/84 98 09/01/19 23:08 18 09/01/19 22:16 18 09/01/19 22:09 71 177/77 09/01/19 22:08 71 18 177/77 09/01/19 20:49 98.7 F 71 18 171/77 98 09/01/19 20:17 18 98 09/01/19 19:58 100 09/01/19 19:32 76 - Physical Examination General: No Apparent Distress HEENT: Positive: PERRL, EOMI Neck: Positive: neck supple Cardiac: Positive: Reg Rate and Rhythm Lungs: Positive: Decreased Breath Sounds Neuro: Positive: Grossly Intact Abdomen: Positive: Soft Skin: Positive: Clear Extremities: Absent: edema - Labs and Meds CBC 09/02/19 Range/Units 07:54 WBC 6.0 (4.5-11.0) K/mm3 RBC 4.36 (3.65-5.03) M/mm3 Hgb 11.1 (10.1-14.3) gm/dl Hct 34.5 (30.3-42.9) % Plt Count 337 (140-440) K/mm3 Lymph # 1.8 (1.2-5.4) K/mm3 Giles # 0.6 (0.0-0.8) K/mm3 Eos # 0.4 (0.0-0.4) K/mm3 Baso # 0.0 (0.0-0.1) K/mm3 Comprehensive Metabolic Panel 09/02/19 Range/Units 07:54 Sodium 139 (137-145) mmol/L Potassium 5.1 H (3.6-5.0) mmol/L Chloride 99.7 (98-107) mmol/L Carbon Dioxide 23 (22-30) mmol/L BUN 49 H (7-17) mg/dL Creatinine 4.0 H (0.7-1.2) mg/dL Glucose 182 H (65-100) mg/dL Calcium 8.9 (8.4-10.2) mg/dL
[2019-09-02] MEDS: PRAVASTATIN 20 MG TAB PO SCH (21:40)
[2019-09-03] MEDS: hydrALAZINE 25 MG TAB PO SCH ×5 (01:27→21:37)
[2019-09-03] MEDS: INSULIN LISPRO 100 UNIT/ML SUB-Q SCH ×5 (01:27→21:39)
[2019-09-03] MEDS: FUROSEMIDE 40 MG/4 ML INJ IV SCH (05:06)
[2019-09-03] MEDS: LEVOTHYROXINE 150 MCG TAB PO SCH (05:06)
[2019-09-03] MEDS: DOCUSATE SODIUM 100 MG CAP PO SCH ×2 (09:29→21:37)
[2019-09-03] MEDS: HEPARIN 5,000 UNIT/1 ML VIAL SUB-Q SCH ×2 (09:29→21:39)
[2019-09-03] MEDS: FERROUS GLUCONATE 324 MG TAB PO SCH (09:29)
[2019-09-03] MEDS: carvediloL 25 MG TAB PO SCH ×2 (09:30→21:36)
[2019-09-03] MEDS: CLOPIDOGREL 75 MG TAB PO SCH (09:30)
[2019-09-03] MEDS: FAMOTIDINE 10 MG TAB PO SCH ×2 (09:31→21:36)
[2019-09-03] MEDS: ASPIRIN EC 81 MG TAB PO SCH (09:33)
[2019-09-03] MEDS: oxyCODONE /ACETAMINOPHEN 5-325MG TAB PO PRN ×2 (09:33→17:41)
--- NOTE | 2019-09-03 10:11 | Progress Note ---
Assessment and Plan DUANE possibly prerenal, cardiorenal syndrome, on underlying CKD Stage 4, no obstruction Acute on chronic systolic CHF (EF 20%) Chest Pain Obesity hypoventilation syndrome DM Type 2 on insulin Essential HTN GERD CAD s/p CABG Plan: - Cr cont to rise - 24 hours creatinine clearance is pending, may needs to be started on HD during this hospitalization - Renal US showed no hydronephrosis - CXR showed no acute findings - Cardiology on board, EF 20%, f/u recs - Renally dose meds - Strict intake and output - He Catheter: No - Discussed with pt about continuing to save urine for staff to measure Jayden Villafana MD [phone] Subjective Date of service: 09/03/19 Principal diagnosis: chronic kidney disease Interval history: remains to feel with some nausea this AM Objective - Vital Signs Vital signs: Vital Signs - 12hr 09/02/19 09/03/19 09/03/19 23:58 00:10 04:27 Temperature 98.6 F 98.6 F Pulse Rate 70 77 77 Respiratory 20 18 Rate Blood Pressure 163/88 165/88 O2 Sat by Pulse 99 99 Oximetry 09/03/19 09/03/19 09/03/19 05:35 06:15 08:06 Temperature 98.2 F Pulse Rate 70 67 Respiratory 19 Rate Blood Pressure 139/63 O2 Sat by Pulse 96 100 Oximetry 09/03/19 09/03/19 09:30 09:36 Temperature Pulse Rate 67 Respiratory Rate Blood Pressure 139/63 O2 Sat by Pulse 100 Oximetry - General Appearance General appearance: well-developed, well-nourished, appears stated age EENT: ATNC, PERRL, mucous membranes moist Neck: no JVD, no carotid bruit Respiratory: Present: Clear to Ascultation Cardiology: regular, S1S2 Gastrointestinal: normoactive bowel sounds, no tenderness, no distended Integumentary: no rash, warm and dry Neurologic: no focal deficit, no asterixis, alert and oriented x3 Musculoskeletal: other (no edema in BLE) Psychiatric: cooperative - Lab 09/02/19 07:54 09/03/19 05:19 Most recent lab results Calcium 9.0 mg/dL (8.4-10.2) 09/03/19 05:19 Phosphorus 5.40 mg/dL (2.5-4.5) H 09/03/19 05:19 Magnesium 1.90 mg/dL (1.7-2.3) 08/30/19 15:43 Urine Creatinine 140.4 mg/dL (0.1-20.0) H 08/31/19 04:00 Urine Sodium 71 mmol/L 08/31/19 04:00 Urine Total Protein 172 mg/dL (5-11.8) H 08/31/19 04:00 Medications & Allergies - Medications Allergies/Adverse Reactions: Allergies glyburide [From Micronase] Allergy (Severe, Verified 10/10/17 13:17) Swelling of tongue,face VEGA Inhibitors Allergy (Verified 12/28/17 08:24) Shortness of Breath nifedipine Allergy (Verified 12/28/17 08:23) Vomiting Home Medications: Home Medications Medication Instructions Recorded Confirmed Last Taken Type Clopidogrel Bisulfate [Plavix] 75 mg PO DAILY 08/15/15 09/01/19 3 Days Ago Histo ry ~08/29/19 Carvedilol [Coreg] 25 mg PO BID #60 tablet 08/20/15 09/01/19 3 Days Ago Rx ~08/29/19 Aspirin EC [Halfprin EC] 4 tab PO DAILY 05/09/17 09/01/19 3 Days Ago History ~08/29/19 Hydralazine HCl [Apresoline TAB] 50 mg PO QID 08/30/17 09/01/19 3 Days Ago History ~08/29/19 Ferrous Gluconate [Ferrous 324 mg PO DAILY 10/05/17 09/01/19 3 Days Ago History Gluconate 324 MG] ~08/29/19 Furosemide [Lasix TAB] 80 mg PO QDAY 10/05/17 09/01/19 3 Days Ago History ~08/29/19 Levothyroxine Sodium [Synthroid] 300 mcg PO 5XW 10/10/17 09/01/19 3 Days Ago History ~08/29/19 Simvastatin [Zocor] 10 mg PO HS 10/10/17 09/01/19 3 Days Ago History ~08/29/19 Lispro Insulin [Humalog] 1.1 units SQ Q60MIN 12/28/17 09/01/19 3 Days Ago History ~08/29/19 Oxycodone HCl/Acetaminophen 1 each PO Q6HR PRN #30 tablet 12/28/17 09/01/19 3 Days Ago Rx [Percocet 7.5/325 mg] ~08/29/19 Vit D3-Vit K/Berberine/Hops 1 tab PO QWEEK 12/28/17 09/01/19 3 Days Ago History [Ostera Tablet] ~08/29/19 oxyCODONE /ACETAMINOPHEN [Percocet 1 tab PO Q6H PRN 12/28/17 09/01/19 3 Days Ago History 5/325 mg] ~08/29/19 Active Medications: Generic Name Dose Route Start Last Admin Trade Name Freq PRN Reason Stop Dose Admin Acetaminophen 650 mg 08/30/19 14:40 Tylenol PO Q4H PRN Pain MILD(1-3)/Fever >100.5/VIGIL Albuterol 2.5 mg 08/30/19 14:40 Proventil IH Q4HRT PRN Shortness Of Breath Aspirin 81 mg 08/31/19 10:00 09/03/19 09:33 Halfprin Ec PO Not Given DAILY [facility] Carvedilol 25 mg 08/30/19 22:00 09/03/19 09:30 Coreg PO 25 mg BID [facility] Administration Clopidogrel Bisulfate 75 mg 08/31/19 10:00 09/03/19 09:30 Plavix PO 75 mg DAILY [facility] Administration Dextrose 50 ml 08/30/19 14:45 D50w (25gm) Syringe IV PRN PRN Hypoglycemia Docusate Sodium 100 mg 09/01/19 22:00 09/03/19 09:29 Colace PO 100 mg BID [facility] Administration Famotidine 10 mg 08/30/19 22:00 09/03/19 09:31 Pepcid PO 10 mg BID [facility] Administration Ferrous Gluconate 324 mg 08/31/19 10:00 09/03/19 09:29 Fergon PO 324 mg DAILY [facility] Administration Furosemide 40 mg 09/03/19 06:00 09/03/19 05:06 Lasix IV 40 mg DAILY@0600 [facility] Administration Heparin Sodium (Porcine) 5,000 unit 08/30/19 22:00 09/03/19 09:29 Heparin SUB-Q 5,000 unit Q12HR [facility] Administration Hydralazine HCl 25 mg 08/30/19 18:00 09/03/19 09:30 Apresoline PO 25 mg QID [facility] Administration Hydrocodone Bit/Homatropine Methylb 5 ml 08/30/19 14:45 08/30/19 19:18 Hydromet PO 5 ml Q6H PRN Administration Cough Insulin Human Lispro 0 unit 08/31/19 22:00 09/03/19 09:29 Humalog SUB-Q 2 unit ACHS [facility] Administration Protocol Levothyroxine Sodium 300 mcg 08/31/19 06:00 09/03/19 05:06 Synthroid PO 300 mcg DAILY@0600 [facility] Administration Miscellaneous Medication 1 tab 09/06/19 10:00 Vit D3-Vit K/Berberine/Hops [Ostera Tablet] PO QWEEK [facility] Morphine Sulfate 2 mg 08/30/19 14:40 09/02/19 15:48 Morphine IV 2 mg Q4H PRN Administration Pain, Moderate (4-6) Nitroglycerin 0.4 mg 08/30/19 14:40 Nitrostat SL .Q5MIN PRN Chest Pain Ondansetron HCl 4 mg 08/30/19 14:40 09/01/19 22:02 Zofran IV 4 mg Q8H PRN Administration Nausea And Vomiting Oxycodone/Acetaminophen 1 tab 08/30/19 14:43 09/03/19 09:33 Percocet 5/325 PO 1 tab Q6H PRN Administration PAIN Pneumococcal Polyvalent Vaccine 0.5 ml 09/03/19 12:00 Pneumovax 23 IM 09/03/19 12:01 .ONCE ONE Pravastatin Sodium 20 mg 08/30/19 22:00 09/02/19 21:40 Pravachol PO 20 mg QHS [facility] Administration Sodium Chloride 10 ml 08/30/19 22:00 09/03/19 09:31 Sodium Chloride Flush Syringe 10 Ml IV 10 ml BID [facility] Administration Sodium Chloride 10 ml 08/30/19 14:40 Sodium Chloride Flush Syringe 10 Ml IV PRN PRN LINE FLUSH Sodium Chloride 10 ml 08/30/19 14:42 Sodium Chloride Flush Syringe 10 Ml IV PRN PRN LINE FLUSH
[2019-09-03] MEDS ORDERED: PNEUMOCOCCAL 23 Valent 0.5 ML VIAL IM ONE (12:00)
[2019-09-03] MEDS ORDERED: FLU VACC QUAD 2019-20 (3 YR UP)/PF 60 MCG/0.5 ML SYRINGE IM ONE (12:00)
--- NOTE | 2019-09-03 12:01 | Progress Note ---
Assessment and Plan Chronic kidney disease -per nephrology History of CAD with 3v CABG in 2017 History of Ischemic CMP, EF 20% Presence of AICD Type 2 DM Obesity HTN Continue medical therapy for ischemic cardiomyopathy and coronary artery disease. Subjective Date of service: 09/03/19 Principal diagnosis: chronic kidney disease Interval history: Patient is resting in bed comfortably. Objective Vital Signs Temp Pulse Resp BP Pulse Ox 09/03/19 09:36 100 09/03/19 09:30 67 139/63 09/03/19 08:06 98.2 F 67 19 139/63 100 09/03/19 06:15 96 09/03/19 05:35 70 09/03/19 04:27 98.6 F 77 18 165/88 99 09/03/19 00:10 77 09/02/19 23:58 98.6 F 70 20 163/88 99 09/02/19 22:00 68 09/02/19 21:41 164/69 09/02/19 19:55 98.5 F 68 18 164/69 99 09/02/19 18:14 20 09/02/19 16:06 98.2 F 75 18 185/96 100 09/02/19 15:48 16 09/02/19 12:14 99.4 F 76 18 169/86 99 - Physical Examination General: No Apparent Distress HEENT: Positive: PERRL, EOMI Neck: Positive: neck supple Lungs: Positive: Decreased Breath Sounds Neuro: Positive: Grossly Intact Abdomen: Positive: Soft Extremities: Absent: edema - Labs and Meds Comprehensive Metabolic Panel 09/03/19 Range/Units 05:19 Sodium 137 (137-145) mmol/L Potassium 4.3 (3.6-5.0) mmol/L Chloride 99.4 (98-107) mmol/L Carbon Dioxide 25 (22-30) mmol/L BUN 50 H (7-17) mg/dL Creatinine 4.2 H (0.7-1.2) mg/dL Glucose 181 H (65-100) mg/dL Calcium 9.0 (8.4-10.2) mg/dL
[2019-09-03] MEDS: ONDANSETRON 4 MG/2 ML INJ IV PRN ×2 (14:08→21:43)
--- NOTE | 2019-09-03 15:31 | Progress Note ---
Assessment and Plan Assessment and plan: Acute on chronic systolic heart failure exacerbation. Continue diuresis per nephrology recommendation, patient will be started on hemodialysis. Patient with ischemic cardiomyopathy EF 20%. Coronary artery disease. Cardiology recommends conservative management and continued medical therapy. No acute intervention at this time. Continue Coreg, aspirin and Plavix. Hypertension. Continue antihypertensive medications. Diabetes mellitus type 2. Continue Accu-Cheks and sliding scale insulin. OHS/WERNER. Hyperlipidemia. Continue statin therapy. Acute on CKD IV; patient's creatinine is getting worse and nephrology is going to start on HD. Hypothyroidism. Continue Synthroid. DVT prophylaxis.; On heparin History Interval history: Patient was seen and evaluated this morning Patient said she felt nauseated She has some shortness of breath Hospitalist Physical - Physical exam Narrative exam: Not in cardiopulmonary distress. The patient is obese. Vital signs as documented. Head exam is unremarkable. No scleral icterus . Neck is without jugular venous distension, thyromegaly, or carotid bruits. Lungs are clear to auscultation. Cardiac exam reveals regular rate and Rhythm. Abdominal exam reveals normal bowel sounds, no masses, no organomegaly and no aortic enlargement. Extremities are nonedematous and both femoral and pedal pulses are normal. CLINICAL MENTAL HEALTH COUNSELOR: Alert and oriented 3. No focal weakness. - Constitutional Vitals: Temp Pulse Resp BP Pulse Ox 98.5 F 70 18 151/81 100 09/03/19 12:27 09/03/19 14:07 09/03/19 12:27 09/03/19 14:07 09/03/19 12:27 General appearance: Present: no acute distress Results - Labs CBC & Chem 7: 09/02/19 07:54 09/03/19 05:19 Labs: Laboratory Last Values WBC 6.0 K/mm3 (4.5-11.0) 09/02/19 07:54 RBC 4.36 M/mm3 (3.65-5.03) 09/02/19 07:54 Hgb 11.1 gm/dl (10.1-14.3) 09/02/19 07:54 Hct 34.5 % (30.3-42.9) 09/02/19 07:54 MCV 79 fl (79-97) 09/02/19 07:54 MCH 25 pg (28-32) L 09/02/19 07:54 MCHC 32 % (30-34) 09/02/19 07:54 RDW 14.3 % (13.2-15.2) 09/02/19 07:54 Plt Count 337 K/mm3 (140-440) 09/02/19 07:54 Lymph % (Auto) 29.6 % (13.4-35.0) 09/02/19 07:54 Coffee % (Auto) 10.4 % (0.0-7.3) H 09/02/19 07:54 Eos % (Auto) 6.1 % (0.0-4.3) H 09/02/19 07:54 Baso % (Auto) 0.5 % (0.0-1.8) 09/02/19 07:54 Lymph # 1.8 K/mm3 (1.2-5.4) 09/02/19 07:54 Coffee # 0.6 K/mm3 (0.0-0.8) 09/02/19 07:54 Eos # 0.4 K/mm3 (0.0-0.4) 09/02/19 07:54 Baso # 0.0 K/mm3 (0.0-0.1) 09/02/19 07:54 Seg Neutrophils % 53.4 % (40.0-70.0) 09/02/19 07:54 Seg Neutrophils # 3.2 K/mm3 (1.8-7.7) 09/02/19 07:54 Sodium 137 mmol/L (137-145) 09/03/19 05:19 Potassium 4.3 mmol/L (3.6-5.0) 09/03/19 05:19 Chloride 99.4 mmol/L (98-107) 09/03/19 05:19 Carbon Dioxide 25 mmol/L (22-30) 09/03/19 05:19 Anion Gap 17 mmol/L 09/03/19 05:19 BUN 50 mg/dL (7-17) H 09/03/19 05:19 Creatinine 4.2 mg/dL (0.7-1.2) H 09/03/19 05:19 Estimated GFR 13 ml/min 09/03/19 05:19 BUN/Creatinine Ratio 12 % 09/03/19 05:19 Glucose 181 mg/dL (65-100) H 09/03/19 05:19 POC Glucose 188 (70-105) H 09/03/19 11:54 Calcium 9.0 mg/dL (8.4-10.2) 09/03/19 05:19 Phosphorus 5.40 mg/dL (2.5-4.5) H 09/03/19 05:19 Magnesium 1.90 mg/dL (1.7-2.3) 08/30/19 15:43 Total Bilirubin 0.20 mg/dL (0.1-1.2) 08/30/19 11:55 AST 10 units/L (5-40) 08/30/19 11:55 ALT 8 units/L (7-56) 08/30/19 11:55 Alkaline Phosphatase 74 units/L (35-129) 08/30/19 11:55 Troponin T 0.034 ng/mL (0.00-0.029) H 08/30/19 20:17 NT-Pro-B Natriuret Pep 3288 pg/mL (0-900) H 08/30/19 11:55 Total Protein 8.1 g/dL (6.3-8.2) 08/30/19 11:55 Albumin 4.1 g/dL (3.9-5) 08/30/19 11:55 Albumin/Globulin Ratio 1.0 % 08/30/19 11:55 Triglycerides 185 mg/dL (2-149) H 08/30/19 11:55 Cholesterol 282 mg/dL (50-199) H 08/30/19 11:55 LDL Cholesterol Direct 208 mg/dL (50-130) H 08/30/19 11:55 HDL Cholesterol 58 mg/dL (40-59) 08/30/19 11:55 Cholesterol/HDL Ratio 4.86 % 08/30/19 11:55 TSH 8.890 mlU/mL (0.270-4.200) H 08/30/19 15:43 Free T4 1.23 ng/dL (0.76-1.46) 08/30/19 15:43 Urine WBC (Auto) 2.0 /HPF (0.0-6.0) 08/31/19 04:00 Urine RBC (Auto) 3.0 /HPF (0.0-6.0) 08/31/19 04:00 U Epithel Cells (Auto) 1.0 /HPF (0-13.0) 08/31/19 04:00 Urine Mucus Few /HPF 08/31/19 04:00 Urine Creatinine 140.4 mg/dL (0.1-20.0) H 08/31/19 04:00 Urine Microalbumin 115.7 mg/dL (0.1-34.0) H 08/31/19 04:00 Microalb/Creat Ratio 824.0 ug/mg 08/31/19 04:00 Urine Sodium 71 mmol/L 08/31/19 04:00 Urine Chloride 68.9 mmolL (110-250) L 08/31/19 04:00 Urine Urea Nitrogen 472 08/31/19 04:00 Urine Total Protein 172 mg/dL (5-11.8) H 08/31/19 04:00 Active Medications - Current Medications Current Medications: Generic Name Dose Route Start Last Admin Trade Name Freq PRN Reason Stop Dose Admin Acetaminophen 650 mg 08/30/19 14:40 09/03/19 14:08 Tylenol PO 650 mg Q4H PRN Administration Pain MILD(1-3)/Fever >100.5/VIGIL Albuterol 2.5 mg 08/30/19 14:40 Proventil IH Q4HRT PRN Shortness Of Breath Aspirin 81 mg 08/31/19 10:00 09/03/19 09:33 Halfprin Ec PO Not Given DAILY PARSIH Carvedilol 25 mg 08/30/19 22:00 09/03/19 09:30 Coreg PO 25 mg BID PARISH Administration Clopidogrel Bisulfate 75 mg 08/31/19 10:00 09/03/19 09:30 Plavix PO 75 mg DAILY PARISH Administration Dextrose 50 ml 08/30/19 14:45 D50w (25gm) Syringe IV PRN PRN Hypoglycemia Docusate Sodium 100 mg 09/01/19 22:00 09/03/19 09:29 Colace PO 100 mg BID PARISH Administration Famotidine 10 mg 08/30/19 22:00 09/03/19 09:31 Pepcid PO 10 mg BID PARISH Administration Ferrous Gluconate 324 mg 08/31/19 10:00 09/03/19 09:29 Fergon PO 324 mg DAILY PARISH Administration Furosemide 40 mg 09/03/19 06:00 09/03/19 05:06 Lasix IV 40 mg DAILY@0600 PARISH Administration Heparin Sodium (Porcine) 5,000 unit 08/30/19 22:00 09/03/19 09:29 Heparin SUB-Q 5,000 unit Q12HR PARISH Administration Hydralazine HCl 25 mg 08/30/19 18:00 09/03/19 14:07 Apresoline PO 25 mg QID PARISH Administration Hydrocodone Bit/Homatropine Methylb 5 ml 08/30/19 14:45 08/30/19 19:18 Hydromet PO 5 ml Q6H PRN Administration Cough Insulin Human Lispro 0 unit 08/31/19 22:00 09/03/19 13:56 Humalog SUB-Q Not Given ACHS [facility] Protocol Levothyroxine Sodium 300 mcg 08/31/19 06:00 09/03/19 05:06 Synthroid PO 300 mcg DAILY@0600 PARISH Administration Miscellaneous Medication 1 tab 09/06/19 10:00 Vit D3-Vit K/Berberine/Hops [Ostera Tablet] PO QWEEK PARISH Morphine Sulfate 2 mg 08/30/19 14:40 09/02/19 15:48 Morphine IV 2 mg Q4H PRN Administration Pain, Moderate (4-6) Nitroglycerin 0.4 mg 08/30/19 14:40 Nitrostat SL .Q5MIN PRN Chest Pain Ondansetron HCl 4 mg 08/30/19 14:40 09/03/19 14:08 Zofran IV 4 mg Q8H PRN Administration Nausea And Vomiting Oxycodone/Acetaminophen 1 tab 08/30/19 14:43 09/03/19 09:33 Percocet 5/325 PO 1 tab Q6H PRN Administration PAIN Pravastatin Sodium 20 mg 08/30/19 22:00 09/02/19 21:40 Pravachol PO 20 mg QHS PARISH Administration Sodium Chloride 10 ml 08/30/19 22:00 09/03/19 09:31 Sodium Chloride Flush Syringe 10 Ml IV 10 ml BID PARISH Administration Sodium Chloride 10 ml 08/30/19 14:40 Sodium Chloride Flush Syringe 10 Ml IV PRN PRN LINE FLUSH Sodium Chloride 10 ml 08/30/19 14:42 Sodium Chloride Flush Syringe 10 Ml IV PRN PRN LINE FLUSH
[2019-09-03 17:20] LABS: Creatinine,Urine 101.6 mg/dL (0.1-20.0)
[2019-09-03 17:23] LABS: Creatinine 24 Hour,Urine 1.1 (0.8-2.8)
[2019-09-03] MEDS: PRAVASTATIN 20 MG TAB PO SCH (21:36)
[2019-09-04] MEDS: LEVOTHYROXINE 150 MCG TAB PO SCH (05:15)
[2019-09-04] MEDS: FUROSEMIDE 40 MG/4 ML INJ IV SCH (05:15)
[2019-09-04 06:30] LABS: Calcium 8.7 mg/dL (8.4-10.2)
[2019-09-04] MEDS: FERROUS GLUCONATE 324 MG TAB PO SCH (09:37)
[2019-09-04] MEDS: hydrALAZINE 25 MG TAB PO SCH ×4 (09:37→22:25)
[2019-09-04] MEDS: ASPIRIN EC 81 MG TAB PO SCH (09:37)
[2019-09-04] MEDS: CLOPIDOGREL 75 MG TAB PO SCH (09:37)
[2019-09-04] MEDS: FAMOTIDINE 10 MG TAB PO SCH ×2 (09:37→22:24)
[2019-09-04] MEDS: DOCUSATE SODIUM 100 MG CAP PO SCH ×2 (09:37→22:24)
[2019-09-04] MEDS: ONDANSETRON 4 MG/2 ML INJ IV PRN ×2 (09:38→22:24)
[2019-09-04] MEDS: INSULIN LISPRO 100 UNIT/ML SUB-Q SCH ×4 (09:38→22:26)
[2019-09-04] MEDS: carvediloL 25 MG TAB PO SCH ×2 (09:38→22:24)
[2019-09-04] MEDS: HEPARIN 5,000 UNIT/1 ML VIAL SUB-Q SCH ×2 (09:38→22:25)
--- NOTE | 2019-09-04 11:01 | Progress Note ---
<RIMA NICK - Last Filed: 09/04/19 11:02> Assessment and Plan Chronic kidney disease -per nephrology History of CAD with 3v CABG in 2017 History of Ischemic CMP, EF 20% Presence of AICD Type 2 DM Obesity HTN Continue medical therapy for ischemic cardiomyopathy and coronary artery disease. Subjective Date of service: 09/04/19 Principal diagnosis: chronic kidney disease Interval history: Patient is resting in bed comfortably. No distress noted. Creatinine continues to rise, today 4.4. Family member at bedside. Objective Vital Signs Temp Pulse Resp BP BP Pulse Ox 09/04/19 10:00 100 09/04/19 09:38 75 150/82 09/04/19 09:37 75 150/82 09/04/19 08:10 98.5 F 75 18 158/82 99 09/04/19 06:30 99 09/04/19 03:54 98.5 F 78 18 172/90 98 09/04/19 03:00 74 09/03/19 23:19 98.7 F 74 18 164/82 98 09/03/19 20:00 98.3 F 78 18 185/75 99 09/03/19 17:42 151/81 09/03/19 14:07 70 151/81 09/03/19 12:27 98.5 F 70 18 151/81 100 - Physical Examination General: No Apparent Distress HEENT: Positive: PERRL Neck: Positive: neck supple Cardiac: Positive: Reg Rate and Rhythm Lungs: Positive: Decreased Breath Sounds Neuro: Positive: Grossly Intact Abdomen: Positive: Soft Extremities: Absent: edema - Labs and Meds Comprehensive Metabolic Panel 09/04/19 Range/Units 04:30 Sodium 136 L (137-145) mmol/L Potassium 4.1 (3.6-5.0) mmol/L Chloride 99.7 (98-107) mmol/L Carbon Dioxide 22 (22-30) mmol/L BUN 51 H (7-17) mg/dL Creatinine 4.4 H (0.7-1.2) mg/dL Glucose 148 H (65-100) mg/dL Calcium 8.7 (8.4-10.2) mg/dL <NILO GONZALES - Last Filed: 09/04/19 20:45> Assessment and Plan I have seen and evaluated the patient and agree with the assessment and plan. The patient has a history of Chronic kidney disease, CAD with 3v CABG in 2017, Ischemic CMP, EF 20%, AICD, Type 2 DM, and HTN. Recommend continue goal directed medical therapy for treatment of ischemic cardiomyopathy and coronary artery disease. Objective Vital Signs Temp Pulse Pulse Resp BP Pulse Ox 09/04/19 19:50 192/95 09/04/19 19:41 98.8 F 77 18 192/95 98 09/04/19 16:58 99.2 F 77 16 155/65 98 09/04/19 12:15 98.4 F 66 18 140/64 100 09/04/19 10:00 75 100 09/04/19 09:38 75 150/82 09/04/19 09:37 75 150/82 09/04/19 08:10 98.5 F 75 18 158/82 99 09/04/19 06:30 99 09/04/19 03:54 98.5 F 78 18 172/90 98 09/04/19 03:00 74 09/03/19 23:19 98.7 F 74 18 164/82 98 - Labs and Meds Comprehensive Metabolic Panel 09/04/19 Range/Units 04:30 Sodium 136 L (137-145) mmol/L Potassium 4.1 (3.6-5.0) mmol/L Chloride 99.7 (98-107) mmol/L Carbon Dioxide 22 (22-30) mmol/L BUN 51 H (7-17) mg/dL Creatinine 4.4 H (0.7-1.2) mg/dL Glucose 148 H (65-100) mg/dL Calcium 8.7 (8.4-10.2) mg/dL
--- NOTE | 2019-09-04 12:43 | Progress Note ---
Assessment and Plan DUANE possibly prerenal, cardiorenal syndrome, on underlying CKD Stage 4, no obstruction Acute on chronic systolic CHF (EF 20%) Chest Pain Obesity hypoventilation syndrome DM Type 2 on insulin Essential HTN GERD CAD s/p CABG Plan: - Renal labs reviewed. Serum creatinine 4.4 today, yesterday's was 4.2, GFR 13 ml/min - No improvement in renal function. Discussed hemodialysis with patient who is agreeable\ - Will consult vascular for perm-cath placement - Will consult case management for placement to [facility] - 24 hours creatinine clearance is pending - Renal US showed no hydronephrosis - CXR showed no acute findings - Cardiology on board, EF 20% - Renally dose meds - Strict intake and output - He Catheter: No Subjective Date of service: 09/04/19 Principal diagnosis: chronic kidney disease Interval history: Patient seen lying in bed. Daughter at bedside. Objective - Vital Signs Vital signs: Vital Signs - 12hr 09/04/19 09/04/19 09/04/19 03:00 03:54 06:30 Temperature 98.5 F Pulse Rate 74 78 Respiratory 18 Rate Blood Pressure 172/90 O2 Sat by Pulse 98 99 Oximetry 09/04/19 09/04/19 09/04/19 08:10 09:37 09:38 Temperature 98.5 F Pulse Rate 75 75 75 Respiratory 18 Rate Blood Pressure 158/82 150/82 150/82 O2 Sat by Pulse 99 Oximetry 09/04/19 09/04/19 10:00 12:15 Temperature 98.4 F Pulse Rate 66 Respiratory 18 Rate Blood Pressure 140/64 O2 Sat by Pulse 100 100 Oximetry - General Appearance General appearance: well-developed, appears stated age, fatigue EENT: ATNC, PERRL, hearing intact, vision intact Neck: no JVD, supple Respiratory: Present: Decreased Breath Sounds Cardiology: regular, S1S2 Gastrointestinal: normoactive bowel sounds Integumentary: warm and dry Neurologic: alert and oriented x3 Musculoskeletal: other (No edema) - Lab 09/02/19 07:54 09/04/19 04:30 Most recent lab results Calcium 8.7 mg/dL (8.4-10.2) 09/04/19 04:30 Phosphorus 5.50 mg/dL (2.5-4.5) H 09/04/19 04:30 Magnesium 1.90 mg/dL (1.7-2.3) 08/30/19 15:43 Urine Creatinine 101.6 mg/dL (0.1-20.0) H 09/03/19 11:57 Urine Sodium 71 mmol/L 08/31/19 04:00 Urine Total Protein 172 mg/dL (5-11.8) H 08/31/19 04:00 Medications & Allergies - Medications Allergies/Adverse Reactions: Allergies glyburide [From Micronase] Allergy (Severe, Verified 10/10/17 13:17) Swelling of tongue,face VEGA Inhibitors Allergy (Verified 12/28/17 08:24) Shortness of Breath nifedipine Allergy (Verified 12/28/17 08:23) Vomiting Home Medications: Home Medications Medication Instructions Recorded Confirmed Last Taken Type Clopidogrel Bisulfate [Plavix] 75 mg PO DAILY 08/15/15 09/01/19 3 Days Ago Hi story ~08/29/19 Carvedilol [Coreg] 25 mg PO BID #60 tablet 08/20/15 09/01/19 3 Days Ago Rx ~08/29/19 Aspirin EC [Halfprin EC] 4 tab PO DAILY 05/09/17 09/01/19 3 Days Ago History ~08/29/19 Hydralazine HCl [Apresoline TAB] 50 mg PO QID 08/30/17 09/01/19 3 Days Ago History ~08/29/19 Ferrous Gluconate [Ferrous 324 mg PO DAILY 10/05/17 09/01/19 3 Days Ago History Gluconate 324 MG] ~08/29/19 Furosemide [Lasix TAB] 80 mg PO QDAY 10/05/17 09/01/19 3 Days Ago History ~08/29/19 Levothyroxine Sodium [Synthroid] 300 mcg PO 5XW 10/10/17 09/01/19 3 Days Ago His tory ~08/29/19 Simvastatin [Zocor] 10 mg PO HS 10/10/17 09/01/19 3 Days Ago History ~08/29/19 Lispro Insulin [Humalog] 1.1 units SQ Q60MIN 12/28/17 09/01/19 3 Days Ago History ~08/29/19 Oxycodone HCl/Acetaminophen 1 each PO Q6HR PRN #30 tablet 12/28/17 09/01/19 3 Days Ago Rx [Percocet 7.5/325 mg] ~08/29/19 Vit D3-Vit K/Berberine/Hops 1 tab PO QWEEK 12/28/17 09/01/19 3 Days Ago History [Ostera Tablet] ~08/29/19 oxyCODONE /ACETAMINOPHEN [Percocet 1 tab PO Q6H PRN 12/28/17 09/01/19 3 Days Ago History 5/325 mg] ~08/29/19 Active Medications: Generic Name Dose Route Start Last Admin Trade Name Freq PRN Reason Stop Dose Admin Acetaminophen 650 mg 08/30/19 14:40 09/03/19 14:08 Tylenol PO 650 mg Q4H PRN Administration Pain MILD(1-3)/Fever >100.5/VIGIL Albuterol 2.5 mg 08/30/19 14:40 Proventil IH Q4HRT PRN Shortness Of Breath Aspirin 81 mg 08/31/19 10:00 09/04/19 09:37 Halfprin Ec PO 81 mg DAILY [facility] Administration Carvedilol 25 mg 08/30/19 22:00 09/04/19 09:38 Coreg PO 25 mg BID [facility] Administration Clopidogrel Bisulfate 75 mg 08/31/19 10:00 09/04/19 09:37 Plavix PO 75 mg DAILY [facility] Administration Dextrose 50 ml 08/30/19 14:45 D50w (25gm) Syringe IV PRN PRN Hypoglycemia Docusate Sodium 100 mg 09/01/19 22:00 09/04/19 09:37 Colace PO 100 mg BID [facility] Administration Famotidine 10 mg 08/30/19 22:00 09/04/19 09:37 Pepcid PO 10 mg BID [facility] Administration Ferrous Gluconate 324 mg 08/31/19 10:00 09/04/19 09:37 Fergon PO 324 mg DAILY [facility] Administration Furosemide 40 mg 09/03/19 06:00 09/04/19 05:15 Lasix IV 40 mg DAILY@0600 [facility] Administration Heparin Sodium (Porcine) 5,000 unit 08/30/19 22:00 09/04/19 09:38 Heparin SUB-Q 5,000 unit Q12HR [facility] Administration Hydralazine HCl 25 mg 08/30/19 18:00 09/04/19 09:37 Apresoline PO 25 mg QID [facility] Administration Hydrocodone Bit/Homatropine Methylb 5 ml 10/04/19 14:45 08/30/19 19:18 Hydromet PO 5 ml Q6H PRN Administration Cough Insulin Human Lispro 0 unit 08/31/19 22:00 09/04/19 09:38 Humalog SUB-Q 2 unit ACHS [facility] Administration Protocol Levothyroxine Sodium 300 mcg 08/31/19 06:00 09/04/19 05:15 Synthroid PO 300 mcg DAILY@0600 [facility] Administration Miscellaneous Medication 1 tab 09/06/19 10:00 Vit D3-Vit K/Berberine/Hops [Ostera Tablet] PO QWEEK [facility] Morphine Sulfate 2 mg 08/30/19 14:40 09/02/19 15:48 Morphine IV 2 mg Q4H PRN Administration Pain, Moderate (4-6) Nitroglycerin 0.4 mg 08/30/19 14:40 Nitrostat SL .Q5MIN PRN Chest Pain Ondansetron HCl 4 mg 08/30/19 14:40 09/04/19 09:38 Zofran IV 4 mg Q8H PRN Administration Nausea And Vomiting Oxycodone/Acetaminophen 1 tab 08/30/19 14:43 09/03/19 17:41 Percocet 5/325 PO 1 tab Q6H PRN Administration PAIN Pravastatin Sodium 20 mg 08/30/19 22:00 09/03/19 21:36 Pravachol PO 20 mg QHS [facility] Administration Sodium Chloride 10 ml 08/30/19 22:00 09/04/19 09:39 Sodium Chloride Flush Syringe 10 Ml IV 10 ml BID [facility] Administration Sodium Chloride 10 ml 08/30/19 14:40 Sodium Chloride Flush Syringe 10 Ml IV PRN PRN LINE FLUSH
--- NOTE | 2019-09-04 13:09 | Progress Note ---
Assessment and Plan Assessment and plan: Acute on chronic systolic heart failure exacerbation. Continue diuresis per nephrology recommendation, patient will be started on hemodialysis. Patient with ischemic cardiomyopathy EF 20%. Coronary artery disease. Cardiology recommends conservative management and continued medical therapy. No acute intervention at this time. Continue Coreg, aspirin and Plavix. Hypertension. Continue antihypertensive medications. Diabetes mellitus type 2. Continue Accu-Cheks and sliding scale insulin. OHS/WERNER. Hyperlipidemia. Continue statin therapy. Acute on CKD IV; patient's creatinine is getting worse and nephrology is going to start on HD. IR consulted for permcath placement. Hypothyroidism. Continue Synthroid. DVT prophylaxis.; On heparin History Interval history: Patient was seen and evaluated this morning Patient said she felt nauseated She has some shortness of breath Hospitalist Physical - Physical exam Narrative exam: Not in cardiopulmonary distress. The patient is obese. Vital signs as documented. Head exam is unremarkable. No scleral icterus . Neck is without jugular venous distension, thyromegaly, or carotid bruits. Lungs are clear to auscultation. Cardiac exam reveals regular rate and Rhythm. Abdominal exam reveals normal bowel sounds, no masses, no organomegaly and no aortic enlargement. Extremities are nonedematous and both femoral and pedal pulses are normal. 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 No focal weakness. - Constitutional Vitals: Temp Pulse Resp BP Pulse Ox 98.4 F 66 18 140/64 100 09/04/19 12:15 09/04/19 12:15 09/04/19 12:15 09/04/19 12:15 09/04/19 12:15 General appearance: Present: no acute distress Results - Labs CBC & Chem 7: 09/02/19 07:54 09/04/19 04:30 Labs: Laboratory Last Values WBC 6.0 K/mm3 (4.5-11.0) 09/02/19 07:54 RBC 4.36 M/mm3 (3.65-5.03) 09/02/19 07:54 Hgb 11.1 gm/dl (10.1-14.3) 09/02/19 07:54 Hct 34.5 % (30.3-42.9) 09/02/19 07:54 MCV 79 fl (79-97) 09/02/19 07:54 MCH 25 pg (28-32) L 09/02/19 07:54 MCHC 32 % (30-34) 09/02/19 07:54 RDW 14.3 % (13.2-15.2) 09/02/19 07:54 Plt Count 337 K/mm3 (140-440) 09/02/19 07:54 Lymph % (Auto) 29.6 % (13.4-35.0) 09/02/19 07:54 [place] % (Auto) 10.4 % (0.0-7.3) H 09/02/19 07:54 Eos % (Auto) 6.1 % (0.0-4.3) H 09/02/19 07:54 Baso % (Auto) 0.5 % (0.0-1.8) 09/02/19 07:54 Lymph # 1.8 K/mm3 (1.2-5.4) 09/02/19 07:54 [place] # 0.6 K/mm3 (0.0-0.8) 09/02/19 07:54 Eos # 0.4 K/mm3 (0.0-0.4) 09/02/19 07:54 Baso # 0.0 K/mm3 (0.0-0.1) 09/02/19 07:54 Seg Neutrophils % 53.4 % (40.0-70.0) 09/02/19 07:54 Seg Neutrophils # 3.2 K/mm3 (1.8-7.7) 09/02/19 07:54 Sodium 136 mmol/L (137-145) L 09/04/19 04:30 Potassium 4.1 mmol/L (3.6-5.0) 09/04/19 04:30 Chloride 99.7 mmol/L (98-107) 09/04/19 04:30 Carbon Dioxide 22 mmol/L (22-30) 09/04/19 04:30 Anion Gap 18 mmol/L 09/04/19 04:30 BUN 51 mg/dL (7-17) H 09/04/19 04:30 Creatinine 4.4 mg/dL (0.7-1.2) H 09/04/19 04:30 Estimated GFR 13 ml/min 09/04/19 04:30 BUN/Creatinine Ratio 12 % 09/04/19 04:30 Glucose 148 mg/dL (65-100) H 09/04/19 04:30 POC Glucose 114 (70-105) H 09/04/19 12:13 Calcium 8.7 mg/dL (8.4-10.2) 09/04/19 04:30 Phosphorus 5.50 mg/dL (2.5-4.5) H 09/04/19 04:30 Magnesium 1.90 mg/dL (1.7-2.3) 08/30/19 15:43 Total Bilirubin 0.20 mg/dL (0.1-1.2) 08/30/19 11:55 AST 10 units/L (5-40) 08/30/19 11:55 ALT 8 units/L (7-56) 08/30/19 11:55 Alkaline Phosphatase 74 units/L (35-129) 08/30/19 11:55 Troponin T 0.034 ng/mL (0.00-0.029) H 08/30/19 20:17 NT-Pro-B Natriuret Pep 3288 pg/mL (0-900) H 08/30/19 11:55 Total Protein 8.1 g/dL (6.3-8.2) 08/30/19 11:55 Albumin 4.1 g/dL (3.9-5) 08/30/19 11:55 Albumin/Globulin Ratio 1.0 % 08/30/19 11:55 Triglycerides 185 mg/dL (2-149) H 08/30/19 11:55 Cholesterol 282 mg/dL (50-199) H 08/30/19 11:55 LDL Cholesterol Direct 208 mg/dL (50-130) H 08/30/19 11:55 HDL Cholesterol 58 mg/dL (40-59) 08/30/19 11:55 Cholesterol/HDL Ratio 4.86 % 08/30/19 11:55 TSH 8.890 mlU/mL (0.270-4.200) H 08/30/19 15:43 Free T4 1.23 ng/dL (0.76-1.46) 08/30/19 15:43 Urine WBC (Auto) 2.0 /HPF (0.0-6.0) 08/31/19 04:00 Urine RBC (Auto) 3.0 /HPF (0.0-6.0) 08/31/19 04:00 U Epithel Cells (Auto) 1.0 /HPF (0-13.0) 08/31/19 04:00 Urine Mucus Few /HPF 08/31/19 04:00 Urine Total Volume 1040 ml 09/03/19 11:57 Urine Creatinine 101.6 mg/dL (0.1-20.0) H 09/03/19 11:57 Ur Creatinine 24 Hour 1.1 (0.8-2.8) 09/03/19 11:57 Urine Microalbumin 115.7 mg/dL (0.1-34.0) H 08/31/19 04:00 Microalb/Creat Ratio 824.0 ug/mg 08/31/19 04:00 Urine Sodium 71 mmol/L 08/31/19 04:00 Urine Chloride 68.9 mmolL (110-250) L 08/31/19 04:00 Urine Urea Nitrogen 472 08/31/19 04:00 Urine Total Protein 172 mg/dL (5-11.8) H 08/31/19 04:00 Active Medications - Current Medications Current Medications: Generic Name Dose Route Start Last Admin Trade Name Freq PRN Reason Stop Dose Admin Acetaminophen 650 mg 08/30/19 14:40 09/03/19 14:08 Tylenol PO 650 mg Q4H PRN Administration Pain MILD(1-3)/Fever >100.5/VIGIL Albuterol 2.5 mg 08/30/19 14:40 Proventil IH Q4HRT PRN Shortness Of Breath Aspirin 81 mg 08/31/19 10:00 09/04/19 09:37 Halfprin Ec PO 81 mg DAILY [facility] Administration Carvedilol 25 mg 08/30/19 22:00 09/04/19 09:38 Coreg PO 25 mg BID [facility] Administration Clopidogrel Bisulfate 75 mg 08/31/19 10:00 09/04/19 09:37 Plavix PO 75 mg DAILY [facility] Administration Dextrose 50 ml 08/30/19 14:45 D50w (25gm) Syringe IV PRN PRN Hypoglycemia Docusate Sodium 100 mg 09/01/19 22:00 09/04/19 09:37 Colace PO 100 mg BID [facility] Administration Famotidine 10 mg 08/30/19 22:00 09/04/19 09:37 Pepcid PO 10 mg BID [facility] Administration Ferrous Gluconate 324 mg 08/31/19 10:00 09/04/19 09:37 Fergon PO 324 mg DAILY [facility] Administration Furosemide 40 mg 09/03/19 06:00 09/04/19 05:15 Lasix IV 40 mg DAILY@0600 [facility] Administration Heparin Sodium (Porcine) 5,000 unit 08/30/19 22:00 09/04/19 09:38 Heparin SUB-Q 5,000 unit Q12HR [facility] Administration Hydralazine HCl 25 mg 08/30/19 18:00 09/04/19 09:37 Apresoline PO 25 mg QID [facility] Administration Hydrocodone Bit/Homatropine Methylb 5 ml 08/30/19 14:45 08/30/19 19:18 Hydromet PO 5 ml Q6H PRN Administration Cough Insulin Human Lispro 0 unit 08/31/19 22:00 09/04/19 09:38 Humalog SUB-Q 2 unit ACHS [facility] Administration Protocol Levothyroxine Sodium 300 mcg 08/31/19 06:00 09/04/19 05:15 Synthroid PO 300 mcg DAILY@0600 [facility] Administration Miscellaneous Medication 1 tab 09/06/19 10:00 Vit D3-Vit K/Berberine/Hops [Ostera Tablet] PO QWEEK [facility] Morphine Sulfate 2 mg 08/30/19 14:40 09/02/19 15:48 Morphine IV 2 mg Q4H PRN Administration Pain, Moderate (4-6) Nitroglycerin 0.4 mg 08/30/19 14:40 Nitrostat SL .Q5MIN PRN Chest Pain Ondansetron HCl 4 mg 08/30/19 14:40 09/04/19 09:38 Zofran IV 4 mg Q8H PRN Administration Nausea And Vomiting Oxycodone/Acetaminophen 1 tab 08/30/19 14:43 09/03/19 17:41 Percocet 5/325 PO 1 tab Q6H PRN Administration PAIN Pravastatin Sodium 20 mg 08/30/19 22:00 09/03/19 21:36 Pravachol PO 20 mg QHS [facility] Administration Sodium Chloride 10 ml 08/30/19 22:00 09/04/19 09:39 Sodium Chloride Flush Syringe 10 Ml IV 10 ml BID [facility] Administration Sodium Chloride 10 ml 08/30/19 14:40 Sodium Chloride Flush Syringe 10 Ml IV PRN PRN LINE FLUSH
[2019-09-04 16:41] LABS: Hepatitis B Surface Antigen Non-Reactive (Negative); Hepatitis C Virus Antibody Non-Reactive (NonReactive)
--- NOTE | 2019-09-04 17:00 | Consultation ---
Past History Past Medical History: acute [place], CAD, diabetes, GERD, heart failure, hypertension, PVD Past Surgical History: cholecystectomy, CABG, , Other (vascular surgery) Social history: single. denies: smoking, alcohol abuse, prescription drug abuse Family history: diabetes, hypertension Medications and Allergies Allergies Allergy/AdvReac Type Severity Reaction Status Date / Time glyburide [From Micronase] Allergy Severe Swelling Verified 10/10/17 13:17 of tongue,face VEGA Inhibitors Allergy Shortness Verified 12/28/17 08:24 of Breath nifedipine Allergy Vomiting Verified 12/28/17 08:23 Home Medications Medication Instructions Recorded Confirmed Last Taken Type Clopidogrel Bisulfate [Plavix] 75 mg PO DAILY 08/15/15 09/01/19 3 Days Ago History ~08/29/19 Carvedilol [Coreg] 25 mg PO BID #60 tablet 08/20/15 09/01/19 3 Days Ago Rx ~08/29/19 Aspirin EC [Halfprin EC] 4 tab PO DAILY 05/09/17 09/01/19 3 Days Ago History ~08/29/19 Hydralazine HCl [Apresoline TAB] 50 mg PO QID 08/30/17 09/01/19 3 Days Ago History ~08/29/19 Ferrous Gluconate [Ferrous 324 mg PO DAILY 10/05/17 09/01/19 3 Days Ago History Gluconate 324 MG] ~08/29/19 Furosemide [Lasix TAB] 80 mg PO QDAY 10/05/17 09/01/19 3 Days Ago History ~08/29/19 Levothyroxine Sodium [Synthroid] 300 mcg PO 5XW 10/10/17 09/01/19 3 Days Ago History ~08/29/19 Simvastatin [Zocor] 10 mg PO HS 10/10/17 09/01/19 3 Days Ago History ~08/29/19 Lispro Insulin [Humalog] 1.1 units SQ Q60MIN 12/28/17 09/01/19 3 Days Ago History ~08/29/19 Oxycodone HCl/Acetaminophen 1 each PO Q6HR PRN #30 tablet 12/28/17 09/01/19 3 Days Ago Rx [Percocet 7.5/325 mg] ~08/29/19 Vit D3-Vit K/Berberine/Hops 1 tab PO QWEEK 12/28/17 09/01/19 3 Days Ago History [Ostera Tablet] ~08/29/19 oxyCODONE /ACETAMINOPHEN [Percocet 1 tab PO Q6H PRN 12/28/17 09/01/19 3 Days Ago History 5/325 mg] ~08/29/19 Active Meds: Active Medications Acetaminophen (Tylenol) 650 mg PO Q4H PRN PRN Reason: Pain MILD(1-3)/Fever >100.5/VIGIL Last Admin: 09/03/19 14:08 Dose: 650 mg Documented by: Albuterol (Proventil) 2.5 mg IH Q4HRT PRN PRN Reason: Shortness Of Breath Aspirin (Halfprin Ec) 81 mg PO DAILY [facility] Last Admin: 09/04/19 09:37 Dose: 81 mg Documented by: Carvedilol (Coreg) 25 mg PO BID [facility] Last Admin: 09/04/19 09:38 Dose: 25 mg Documented by: Clopidogrel Bisulfate (Plavix) 75 mg PO DAILY [facility] Last Admin: 09/04/19 09:37 Dose: 75 mg Documented by: Dextrose (D50w (25gm) Syringe) 50 ml IV PRN PRN PRN Reason: Hypoglycemia Docusate Sodium (Colace) 100 mg PO BID [facility] Last Admin: 09/04/19 09:37 Dose: 100 mg Documented by: Famotidine (Pepcid) 10 mg PO BID [facility] Last Admin: 09/04/19 09:37 Dose: 10 mg Documented by: Ferrous Gluconate (Fergon) 324 mg PO DAILY [facility] Last Admin: 09/04/19 09:37 Dose: 324 mg Documented by: Furosemide (Lasix) 40 mg IV DAILY@0600 [facility] Last Admin: 09/04/19 05:15 Dose: 40 mg Documented by: Heparin Sodium (Porcine) (Heparin) 5,000 unit SUB-Q Q12HR [facility] Last Admin: 09/04/19 09:38 Dose: 5,000 unit Documented by: Hydralazine HCl (Apresoline) 25 mg PO QID [facility] Last Admin: 09/04/19 16:02 Dose: Not Given Documented by: Hydrocodone Bit/Homatropine Methylb (Hydromet) 5 ml PO Q6H PRN PRN Reason: Cough Last Admin: 08/30/19 19:18 Dose: 5 ml Documented by: Insulin Human Lispro (Humalog) 0 unit SUB-Q ACHS [facility]; Protocol Last Admin: 09/04/19 15:12 Dose: Not Given Documented by: Levothyroxine Sodium (Synthroid) 300 mcg PO DAILY@0600 [facility] Last Admin: 09/04/19 05:15 Dose: 300 mcg Documented by: Miscellaneous Medication (Vit D3-Vit K/Berberine/Hops [Ostera Tablet]) 1 tab PO QWEEK [facility] Morphine Sulfate (Morphine) 2 mg IV Q4H PRN PRN Reason: Pain, Moderate (4-6) Last Admin: 09/02/19 15:48 Dose: 2 mg Documented by: Nitroglycerin (Nitrostat) 0.4 mg SL .Q5MIN PRN PRN Reason: Chest Pain Ondansetron HCl (Zofran) 4 mg IV Q8H PRN PRN Reason: Nausea And Vomiting Last Admin: 09/04/19 09:38 Dose: 4 mg Documented by: Oxycodone/Acetaminophen (Percocet 5/325) 1 tab PO Q6H PRN PRN Reason: PAIN Last Admin: 09/03/19 17:41 Dose: 1 tab Documented by: Pravastatin Sodium (Pravachol) 20 mg PO QHS [facility] Last Admin: 09/03/19 21:36 Dose: 20 mg Documented by: Sodium Chloride (Sodium Chloride Flush Syringe 10 Ml) 10 ml IV BID [facility] Last Admin: 09/04/19 09:39 Dose: 10 ml Documented by: Sodium Chloride (Sodium Chloride Flush Syringe 10 Ml) 10 ml IV PRN PRN PRN Reason: LINE FLUSH Exam - Constitutional Vitals: Temp Pulse Resp BP Pulse Ox 98.4 F 66 18 140/64 100 09/04/19 12:15 09/04/19 12:15 09/04/19 12:15 09/04/19 12:15 09/04/19 12:15 Results - Labs CBC & Chem 7: 09/02/19 07:54 09/04/19 04:30 Labs: Abnormal lab results 09/03/19 09/03/19 09/04/19 Range/Units 11:57 20:39 04:30 Sodium 136 L (137-145) mmol/L BUN 51 H (7-17) mg/dL Creatinine 4.4 H (0.7-1.2) mg/dL Glucose 148 H (65-100) mg/dL POC Glucose 174 H (70-105) Phosphorus 5.50 H (2.5-4.5) mg/dL Urine Creatinine 101.6 H (0.1-20.0) mg/dL 09/04/19 09/04/19 Range/Units 08:13 12:13 Sodium (137-145) mmol/L BUN (7-17) mg/dL Creatinine (0.7-1.2) mg/dL Glucose (65-100) mg/dL POC Glucose 186 H 114 H (70-105) Phosphorus (2.5-4.5) mg/dL Urine Creatinine (0.1-20.0) mg/dL
[2019-09-04] MEDS: PRAVASTATIN 20 MG TAB PO SCH (22:25)
[2019-09-05 06:18] LABS: Calcium 8.8 mg/dL (8.4-10.2)
[2019-09-05] MEDS: LEVOTHYROXINE 150 MCG TAB PO SCH (06:19)
[2019-09-05] MEDS: FUROSEMIDE 40 MG/4 ML INJ IV SCH (06:19)
[2019-09-05] MEDS ORDERED: SODIUM CHLORIDE 0.9% 500 ML 500 ML ONE (08:07)
[2019-09-05] MEDS ORDERED: fentaNYL 100 MCG/2 ML INJ ONE (08:17)
[2019-09-05] MEDS ORDERED: HEPARIN/NS 5000 UNIT/500ML 500 ML IR ONE (08:18)
[2019-09-05] MEDS ORDERED: SODIUM CHLORIDE 0.9% 250ML 0 ML ONE (08:18)
[2019-09-05] MEDS: MIDAZOLAM 2 MG/2 ML INJ ONE ×2 (08:58→09:04)
[2019-09-05] MEDS: LIDOCAINE 1%/EPINEPHRINE 1:100,000 VIAL (20 ML) INFILTRATI ONE ×3 (09:00→09:05)
[2019-09-05] MEDS ORDERED: SODIUM CHLORIDE 0.9% 500 ML 500 ML IV SCH (09:00)
[2019-09-05] MEDS: HEPARIN 10,000 UNITS/10 ML VIAL ONE ×3 (09:06→09:08)
--- NOTE | 2019-09-05 09:19 | Operative Report ---
Operative Report Operative Report: Exam: Ultrasound and fluoroscopic guided placement of tunneled hemodialysis catheter Clinical indication: Patient with a history of end-stage renal disease requiring long-term dialysis access Date: 09/05/2019 Procedure: Following an explanation of the risks, benefits and alternatives; written informed consent was obtained. The patient was brought to the angiographic suite and placed in supine position on the examination table. The patient has an AICD in her left chest wall extending to the venous system on the left. Ultrasound evaluation of her right neck demonstrated an occluded right internal jugular vein. The right external jugular vein is patent. The patient's right neck and chest wall were prepped and draped in usual sterile fashion. 1% lidocaine was used for anesthesia. Under ultrasound guidance, the right external jugular vein was cannulated with a 7 cm 18-gauge needle. A 0.035 guidewire was advanced centrally under fluoroscopy. The needle was removed. A 4 Georgian vertebral catheter was then advanced over the guidewire indicative of the guidewire and catheter advanced into the IVC under fluoroscopy for anchoring and to document intravenous positioning. The vertebral catheter was removed. An appropriate catheter exit site was chosen along the lateral right chest wall. 1% lidocaine was used for anesthesia at the catheter exit site and along the tunnel tract. A 23 cm Glidepath tunneled hemodialysis catheter was then tunneled antegrade from the catheter exit site to the venotomy site. Following serial dilation over the guidewire under fluoroscopy, a 16 Georgian sheath was advanced over the guidewire under fluoroscopy. The guidewire trocar were removed. The catheter was inserted to the peel-away sheath in the peel- away sheath removed. The tip was positioned in the proximal right atrium. Both ports flushed and aspirated easily and more than locked with appropriate volumes of heparin. The venotomy was closed using 3-0 Vicryl suture and Dermabond. 3-0 Vicryl suture and Dermabond were also used to approximate the catheter exit site. Sterile dressings were then applied. The patient tolerated the procedure well. There were no immediate post procedure complications. Conscious sedation was performed under the guidance of radiologic nursing. Continuous cardiopulmonary monitoring was utilized. Impression: Ultrasound and fluoroscopic guided placement of tunneled hemodialysis catheter via the right external jugular vein.
--- NOTE | 2019-09-05 09:55 | Consultation ---
History of Present Illness - Reason for Consult Consult date: 09/05/19 end-stage renal disease - History of Present Illness Patient with a history of end-stage renal disease who has not yet initiated hemodialysis. Patient has previously had a three-vessel CABG and also a left AICD. Past History Past Medical History: acute [place], CAD, diabetes, ESRD, GERD, heart failure, hypertension, PVD Past Surgical History: cholecystectomy, CABG, , Other (vascular surgery) Social history: single. denies: smoking, alcohol abuse, prescription drug abuse Family history: diabetes, hypertension Medications and Allergies Allergies Allergy/AdvReac Type Severity Reaction Status Date / Time glyburide [From Micronase] Allergy Severe Swelling Verified 10/10/17 13:17 of tongue,face VEGA Inhibitors Allergy Shortness Verified 12/28/17 08:24 of Breath nifedipine Allergy Vomiting Verified 12/28/17 08:23 Home Medications Medication Instructions Recorded Confirmed Last Taken Type Clopidogrel Bisulfate [Plavix] 75 mg PO DAILY 08/15/15 09/01/19 3 Days Ago History ~08/29/19 Carvedilol [Coreg] 25 mg PO BID #60 tablet 08/20/15 09/01/19 3 Days Ago Rx ~08/29/19 Aspirin EC [Halfprin EC] 4 tab PO DAILY 05/09/17 09/01/19 3 Days Ago History ~08/29/19 Hydralazine HCl [Apresoline TAB] 50 mg PO QID 08/30/17 09/01/19 3 Days Ago History ~08/29/19 Ferrous Gluconate [Ferrous 324 mg PO DAILY 10/05/17 09/01/19 3 Days Ago History Gluconate 324 MG] ~08/29/19 Furosemide [Lasix TAB] 80 mg PO QDAY 10/05/17 09/01/19 3 Days Ago History ~08/29/19 Levothyroxine Sodium [Synthroid] 300 mcg PO 5XW 10/10/17 09/01/19 3 Days Ago History ~08/29/19 Simvastatin [Zocor] 10 mg PO HS 10/10/17 09/01/19 3 Days Ago History ~08/29/19 Lispro Insulin [Humalog] 1.1 units SQ Q60MIN 12/28/17 09/01/19 3 Days Ago History ~08/29/19 Oxycodone HCl/Acetaminophen 1 each PO Q6HR PRN #30 tablet 12/28/17 09/01/19 3 Days Ago Rx [Percocet 7.5/325 mg] ~08/29/19 Vit D3-Vit K/Berberine/Hops 1 tab PO QWEEK 12/28/17 09/01/19 3 Days Ago History [Ostera Tablet] ~08/29/19 oxyCODONE /ACETAMINOPHEN [Percocet 1 tab PO Q6H PRN 12/28/17 09/01/19 3 Days Ago History 5/325 mg] ~08/29/19 Active Meds: Active Medications Acetaminophen (Tylenol) 650 mg PO Q4H PRN PRN Reason: Pain MILD(1-3)/Fever >100.5/VIGIL Last Admin: 09/03/19 14:08 Dose: 650 mg Documented by: Albuterol (Proventil) 2.5 mg IH Q4HRT PRN PRN Reason: Shortness Of Breath Aspirin (Halfprin Ec) 81 mg PO DAILY [facility] Last Admin: 09/04/19 09:37 Dose: 81 mg Documented by: Carvedilol (Coreg) 25 mg PO BID [facility] Last Admin: 09/04/19 22:24 Dose: 25 mg Documented by: Clopidogrel Bisulfate (Plavix) 75 mg PO DAILY [facility] Last Admin: 09/04/19 09:37 Dose: 75 mg Documented by: Dextrose (D50w (25gm) Syringe) 50 ml IV PRN PRN PRN Reason: Hypoglycemia Docusate Sodium (Colace) 100 mg PO BID [facility] Last Admin: 09/04/19 22:24 Dose: 100 mg Documented by: Famotidine (Pepcid) 10 mg PO BID [facility] Last Admin: 09/04/19 22:24 Dose: 10 mg Documented by: Ferrous Gluconate (Fergon) 324 mg PO DAILY [facility] Last Admin: 09/04/19 09:37 Dose: 324 mg Documented by: Furosemide (Lasix) 40 mg IV DAILY@0600 [facility] Last Admin: 09/05/19 06:19 Dose: 40 mg Documented by: Heparin Sodium (Porcine) (Heparin) 5,000 unit SUB-Q Q12HR [facility] Last Admin: 09/04/19 22:25 Dose: 5,000 unit Documented by: Hydralazine HCl (Apresoline) 25 mg PO QID [facility] Last Admin: 09/04/19 22:25 Dose: 25 mg Documented by: Hydrocodone Bit/Homatropine Methylb (Hydromet) 5 ml PO Q6H PRN PRN Reason: Cough Last Admin: 08/30/19 19:18 Dose: 5 ml Documented by: Sodium Chloride (Nacl 0.9% 500 Ml) 500 mls @ 50 mls/hr IV DIRECT [facility] Insulin Human Lispro (Humalog) 0 unit SUB-Q ACHS [facility]; Protocol Last Admin: 09/04/19 22:26 Dose: Not Given Documented by: Levothyroxine Sodium (Synthroid) 300 mcg PO DAILY@0600 [facility] Last Admin: 09/05/19 06:19 Dose: 300 mcg Documented by: Miscellaneous Medication (Vit D3-Vit K/Berberine/Hops [Ostera Tablet]) 1 tab PO QWEEK [facility] Morphine Sulfate (Morphine) 2 mg IV Q4H PRN PRN Reason: Pain, Moderate (4-6) Last Admin: 09/02/19 15:48 Dose: 2 mg Documented by: Nitroglycerin (Nitrostat) 0.4 mg SL .Q5MIN PRN PRN Reason: Chest Pain Ondansetron HCl (Zofran) 4 mg IV Q8H PRN PRN Reason: Nausea And Vomiting Last Admin: 09/04/19 22:24 Dose: 4 mg Documented by: Oxycodone/Acetaminophen (Percocet 5/325) 1 tab PO Q6H PRN PRN Reason: PAIN Last Admin: 09/03/19 17:41 Dose: 1 tab Documented by: Pravastatin Sodium (Pravachol) 20 mg PO QHS [facility] Last Admin: 09/04/19 22:25 Dose: 20 mg Documented by: Sodium Chloride (Sodium Chloride Flush Syringe 10 Ml) 10 ml IV BID [facility] Last Admin: 09/04/19 22:25 Dose: 10 ml Documented by: Sodium Chloride (Sodium Chloride Flush Syringe 10 Ml) 10 ml IV PRN PRN PRN Reason: LINE FLUSH Review of Systems All systems: negative Exam - Constitutional Vitals: Temp Pulse Resp BP Pulse Ox 98.4 F 83 19 169/89 96 09/05/19 03:41 09/05/19 03:41 09/05/19 03:41 09/05/19 03:41 09/05/19 08:46 General appearance: Present: no acute distress - EENT Eyes: Present: EOM intact ENT: hearing intact - Neck Neck: Present: supple, normal ROM - Respiratory Respiratory effort: normal - Extremities Extremities: no ischemia, Full ROM - Abdominal General gastrointestinal: Present: deferred Female genitourinary: Present: deferred - Rectal Rectal Exam: deferred - Psychiatric Psychiatric: appropriate mood/affect, cooperative Results - Labs CBC & Chem 7: 09/02/19 07:54 09/05/19 04:55 Labs: Abnormal lab results 09/04/19 09/04/19 09/04/19 Range/Units 12:13 17:06 20:48 BUN (7-17) mg/dL Creatinine (0.7-1.2) mg/dL Glucose (65-100) mg/dL POC Glucose 114 H 233 H 150 H (70-105) 09/05/19 09/05/19 Range/Units 04:55 08:18 BUN 52 H (7-17) mg/dL Creatinine 4.5 H (0.7-1.2) mg/dL Glucose 175 H (65-100) mg/dL POC Glucose 184 H (70-105) Assessment and Plan Patient will be brought to the laboratory administrative director today for placement of a tunneled hemodialysis catheter.
[2019-09-05] MEDS ORDERED: SODIUM CHLORIDE*PRIMING MACHINE ONLY FOR DIALYSIS MC ONE (11:22)
--- NOTE | 2019-09-05 13:03 | Progress Note ---
Assessment and Plan Chronic kidney disease -per nephrology History of CAD with 3v CABG in 2017 History of Ischemic CMP, EF 20% Presence of AICD Type 2 DM Obesity HTN Continue medical therapy for ischemic cardiomyopathy and coronary artery disease. Subjective Date of service: 09/05/19 Principal diagnosis: chronic kidney disease Interval history: For perma-cath placement today with plans to initiate dialysis. No cardiac complaints. Objective Vital Signs Temp Pulse Resp BP Pulse Ox 09/05/19 11:00 75 174/95 09/05/19 10:45 77 180/94 09/05/19 10:30 77 176/95 09/05/19 10:15 75 180/86 09/05/19 10:00 93 H 194/98 09/05/19 09:50 98.3 F 76 18 190/97 09/05/19 08:46 96 09/05/19 03:41 98.4 F 83 19 169/89 96 09/04/19 23:25 98.2 F 79 18 136/66 96 09/04/19 22:25 75 167/79 09/04/19 22:24 75 167/79 09/04/19 22:14 70 98 09/04/19 22:00 77 09/04/19 19:50 192/95 09/04/19 19:41 98.8 F 77 18 192/95 98 09/04/19 16:58 99.2 F 77 16 155/65 98 - Physical Examination General: No Apparent Distress HEENT: Positive: PERRL Neck: Positive: neck supple Cardiac: Positive: Reg Rate and Rhythm Lungs: Positive: Decreased Breath Sounds Neuro: Positive: Grossly Intact Abdomen: Positive: Soft Extremities: Absent: edema - Labs and Meds Comprehensive Metabolic Panel 09/05/19 Range/Units 04:55 Sodium 139 (137-145) mmol/L Potassium 4.2 (3.6-5.0) mmol/L Chloride 101.5 (98-107) mmol/L Carbon Dioxide 23 (22-30) mmol/L BUN 52 H (7-17) mg/dL Creatinine 4.5 H (0.7-1.2) mg/dL Glucose 175 H (65-100) mg/dL Calcium 8.8 (8.4-10.2) mg/dL
--- NOTE | 2019-09-05 13:16 | Progress Note ---
Assessment and Plan DUANE possibly prerenal, cardiorenal syndrome, on underlying CKD Stage 4, no obstruction Acute on chronic systolic CHF (EF 20%) Chest Pain Obesity hypoventilation syndrome DM Type 2 on insulin Essential HTN GERD CAD s/p CABG Plan: - s/p permcath placeemnt and first HD today - HD again tomorrow - Will consult case management for placement to [facility] - Renal US showed no hydronephrosis - CXR showed no acute findings - Cardiology on board, EF 20% - Renally dose meds - Strict intake and output - He Catheter: No Jayden Villafana MD [phone] Subjective Date of service: 09/05/19 Principal diagnosis: chronic kidney disease Interval history: s/p catheter placement and dialysis, tolerated well Objective - Vital Signs Vital signs: Vital Signs - 12hr 09/05/19 09/05/19 09/05/19 03:41 08:46 09:50 Temperature 98.4 F 98.3 F Pulse Rate 83 76 Respiratory 19 18 Rate Blood Pressure 169/89 190/97 O2 Sat by Pulse 96 96 Oximetry 09/05/19 09/05/19 09/05/19 10:00 10:15 10:30 Temperature Pulse Rate 93 H 75 77 Respiratory Rate Blood Pressure 194/98 180/86 176/95 O2 Sat by Pulse Oximetry 09/05/19 09/05/19 10:45 11:00 Temperature Pulse Rate 77 75 Respiratory Rate Blood Pressure 180/94 174/95 O2 Sat by Pulse Oximetry - General Appearance General appearance: well-developed, well-nourished EENT: ATNC, PERRL, mucous membranes moist Neck: no JVD, no carotid bruit Respiratory: Present: Clear to Ascultation. Absent: Rales, Ronchi Cardiology: regular, S1S2 Gastrointestinal: normoactive bowel sounds Integumentary: no rash, warm and dry Neurologic: no focal deficit, no asterixis, alert and oriented x3 Musculoskeletal: other (trace pitting edema in BLE) Psychiatric: mood/affect appropriate, cooperative - Lab 09/02/19 07:54 09/05/19 04:55 Most recent lab results Calcium 8.8 mg/dL (8.4-10.2) 09/05/19 04:55 Phosphorus 4.50 mg/dL (2.5-4.5) 09/05/19 04:55 Magnesium 1.90 mg/dL (1.7-2.3) 08/30/19 15:43 Urine Creatinine 101.6 mg/dL (0.1-20.0) H 09/03/19 11:57 Urine Sodium 71 mmol/L 08/31/19 04:00 Urine Total Protein 172 mg/dL (5-11.8) H 08/31/19 04:00 Medications & Allergies - Medications Allergies/Adverse Reactions: Allergies glyburide [From Micronase] Allergy (Severe, Verified 10/10/17 13:17) Swelling of tongue,face VEGA Inhibitors Allergy (Verified 12/28/17 08:24) Shortness of Breath nifedipine Allergy (Verified 12/28/17 08:23) Vomiting Home Medications: Home Medications Medication Instructions Recorded Confirmed Last Taken Type Clopidogrel Bisulfate [Plavix] 75 mg PO DAILY 08/15/15 09/01/19 3 Days Ago History ~08/29/19 Carvedilol [Coreg] 25 mg PO BID #60 tablet 08/20/15 09/01/19 3 Days Ago Rx ~08/29/19 Aspirin EC [Halfprin EC] 4 tab PO DAILY 05/09/17 09/01/19 3 Days Ago History ~08/29/19 Hydralazine HCl [Apresoline TAB] 50 mg PO QID 08/30/17 09/01/19 3 Days Ago History ~08/29/19 Ferrous Gluconate [Ferrous 324 mg PO DAILY 10/05/17 09/01/19 3 Days Ago History Gluconate 324 MG] ~08/29/19 Furosemide [Lasix TAB] 80 mg PO QDAY 10/05/17 09/01/19 3 Days Ago History ~08/29/19 Levothyroxine Sodium [Synthroid] 300 mcg PO 5XW 10/10/17 09/01/19 3 Days Ago History ~08/29/19 Simvastatin [Zocor] 10 mg PO HS 10/10/17 09/01/19 3 Days Ago History ~08/29/19 Lispro Insulin [Humalog] 1.1 units SQ Q60MIN 12/28/17 09/01/19 3 Days Ago History ~08/29/19 Oxycodone HCl/Acetaminophen 1 each PO Q6HR PRN #30 tablet 12/28/17 09/01/19 3 Days Ago Rx [Percocet 7.5/325 mg] ~08/29/19 Vit D3-Vit K/Berberine/Hops 1 tab PO QWEEK 12/28/17 09/01/19 3 Days Ago History [Ostera Tablet] ~08/29/19 oxyCODONE /ACETAMINOPHEN [Percocet 1 tab PO Q6H PRN 12/28/17 09/01/19 3 Days Ago History 5/325 mg] ~08/29/19 Active Medications: Generic Name Dose Route Start Last Admin Trade Name Freq PRN Reason Stop Dose Admin Acetaminophen 650 mg 08/30/19 14:40 09/03/19 14:08 Tylenol PO 650 mg Q4H PRN Administration Pain MILD(1-3)/Fever >100.5/VIGIL Albuterol 2.5 mg 08/30/19 14:40 Proventil IH Q4HRT PRN Shortness Of Breath Aspirin 81 mg 08/31/19 10:00 09/04/19 09:37 Halfprin Ec PO 81 mg DAILY [facility] Administration Carvedilol 25 mg 08/30/19 22:00 09/04/19 22:24 Coreg PO 25 mg BID [facility] Administration Clopidogrel Bisulfate 75 mg 08/31/19 10:00 09/04/19 09:37 Plavix PO 75 mg DAILY [facility] Administration Dextrose 50 ml 08/30/19 14:45 D50w (25gm) Syringe IV PRN PRN Hypoglycemia Docusate Sodium 100 mg 09/01/19 22:00 09/04/19 22:24 Colace PO 100 mg BID [facility] Administration Famotidine 10 mg 08/30/19 22:00 09/04/19 22:24 Pepcid PO 10 mg BID [facility] Administration Ferrous Gluconate 324 mg 08/31/19 10:00 09/04/19 09:37 Fergon PO 324 mg DAILY [facility] Administration Furosemide 40 mg 09/03/19 06:00 09/05/19 06:19 Lasix IV 40 mg DAILY@0600 [facility] Administration Heparin Sodium (Porcine) 5,000 unit 08/30/19 22:00 09/04/19 22:25 Heparin SUB-Q 5,000 unit Q12HR [facility] Administration Hydralazine HCl 25 mg 08/30/19 18:00 09/04/19 22:25 Apresoline PO 25 mg QID [facility] Administration Hydrocodone Bit/Homatropine Methylb 5 ml 08/30/19 14:45 08/30/19 19:18 Hydromet PO 5 ml Q6H PRN Administration Cough Sodium Chloride 500 mls @ 50 mls/hr 09/05/19 09:00 Nacl 0.9% 500 Ml IV DIRECT [facility] Insulin Human Lispro 0 unit 08/31/19 22:00 09/04/19 22:26 Humalog SUB-Q Not Given ACHS [facility] Protocol Levothyroxine Sodium 300 mcg 08/31/19 06:00 09/05/19 06:19 Synthroid PO 300 mcg DAILY@0600 [facility] Administration Morphine Sulfate 2 mg 08/30/19 14:40 09/02/19 15:48 Morphine IV 2 mg Q4H PRN Administration Pain, Moderate (4-6) Nitroglycerin 0.4 mg 08/30/19 14:40 Nitrostat SL .Q5MIN PRN Chest Pain Ondansetron HCl 4 mg 08/30/19 14:40 09/04/19 22:24 Zofran IV 4 mg Q8H PRN Administration Nausea And Vomiting Oxycodone/Acetaminophen 1 tab 08/30/19 14:43 09/03/19 17:41 Percocet 5/325 PO 1 tab Q6H PRN Administration PAIN Pravastatin Sodium 20 mg 08/30/19 22:00 09/04/19 22:25 Pravachol PO 20 mg QHS [facility] Administration Sodium Chloride 10 ml 08/30/19 22:00 09/04/19 22:25 Sodium Chloride Flush Syringe 10 Ml IV 10 ml BID [facility] Administration Sodium Chloride 10 ml 08/30/19 14:40 Sodium Chloride Flush Syringe 10 Ml IV PRN PRN LINE FLUSH
[2019-09-05] MEDS: INSULIN LISPRO 100 UNIT/ML SUB-Q SCH ×3 (13:18→22:46)
[2019-09-05] MEDS: hydrALAZINE 25 MG TAB PO SCH ×4 (13:18→22:38)
[2019-09-05] MEDS: FERROUS GLUCONATE 324 MG TAB PO SCH (13:20)
[2019-09-05] MEDS: DOCUSATE SODIUM 100 MG CAP PO SCH ×2 (13:20→22:40)
[2019-09-05] MEDS: carvediloL 25 MG TAB PO SCH ×2 (13:20→22:40)
[2019-09-05] MEDS: ASPIRIN EC 81 MG TAB PO SCH (13:21)
[2019-09-05] MEDS: HEPARIN 5,000 UNIT/1 ML VIAL SUB-Q SCH ×2 (13:21→22:41)
[2019-09-05] MEDS: CLOPIDOGREL 75 MG TAB PO SCH (13:24)
[2019-09-05] MEDS: FAMOTIDINE 10 MG TAB PO SCH ×2 (13:24→22:38)
--- NOTE | 2019-09-05 14:25 | Progress Note ---
Assessment and Plan Assessment and plan: Acute on chronic systolic heart failure exacerbation; patient started on hemodialysis 09/05/19. Patient with ischemic cardiomyopathy EF 20%. Coronary artery disease. Cardiology recommends conservative management and continued medical therapy. No acute intervention at this time. Continue Coreg, aspirin and Plavix. Hypertension. Continue antihypertensive medications. Diabetes mellitus type 2. Continue Accu-Cheks and sliding scale insulin. OHS/WERNER. Hyperlipidemia. Continue statin therapy. Acute on CKD IV; patient has uncontrolled this morning and get dialysis Hypothyroidism. Continue Synthroid. DVT prophylaxis.; On heparin Disposition; discharge once O/P dialysis is arranged. History Interval history: Patient was seen and evaluated this morning No acute events overnight Hospitalist Physical - Physical exam Narrative exam: Not in cardiopulmonary distress. The patient is obese. Vital signs as documented. Head exam is unremarkable. No scleral icterus . Neck is without jugular venous distension, thyromegaly, or carotid bruits. Lungs are clear to auscultation. Cardiac exam reveals regular rate and Rhythm. Abdominal exam reveals normal bowel sounds, no masses, no organomegaly and no aortic enlargement. Extremities are nonedematous and both femoral and pedal pulses are normal. INSPECTING SUPERVISOR: Alert and oriented 3. No focal weakness. - Constitutional Vitals: Temp Pulse Resp BP Pulse Ox 98.3 F 79 18 178/86 96 09/05/19 09:50 09/05/19 13:20 09/05/19 09:50 09/05/19 13:20 09/05/19 08:46 General appearance: Present: no acute distress Results - Labs CBC & Chem 7: 09/02/19 07:54 09/05/19 04:55 Labs: Laboratory Last Values WBC 6.0 K/mm3 (4.5-11.0) 09/02/19 07:54 RBC 4.36 M/mm3 (3.65-5.03) 09/02/19 07:54 Hgb 11.1 gm/dl (10.1-14.3) 09/02/19 07:54 Hct 34.5 % (30.3-42.9) 09/02/19 07:54 MCV 79 fl (79-97) 09/02/19 07:54 MCH 25 pg (28-32) L 09/02/19 07:54 MCHC 32 % (30-34) 09/02/19 07:54 RDW 14.3 % (13.2-15.2) 09/02/19 07:54 Plt Count 337 K/mm3 (140-440) 09/02/19 07:54 Lymph % (Auto) 29.6 % (13.4-35.0) 09/02/19 07:54 Nye % (Auto) 10.4 % (0.0-7.3) H 09/02/19 07:54 Eos % (Auto) 6.1 % (0.0-4.3) H 09/02/19 07:54 Baso % (Auto) 0.5 % (0.0-1.8) 09/02/19 07:54 Lymph # 1.8 K/mm3 (1.2-5.4) 09/02/19 07:54 Nye # 0.6 K/mm3 (0.0-0.8) 09/02/19 07:54 Eos # 0.4 K/mm3 (0.0-0.4) 09/02/19 07:54 Baso # 0.0 K/mm3 (0.0-0.1) 09/02/19 07:54 Seg Neutrophils % 53.4 % (40.0-70.0) 09/02/19 07:54 Seg Neutrophils # 3.2 K/mm3 (1.8-7.7) 09/02/19 07:54 Sodium 139 mmol/L (137-145) 09/05/19 04:55 Potassium 4.2 mmol/L (3.6-5.0) 09/05/19 04:55 Chloride 101.5 mmol/L (98-107) 09/05/19 04:55 Carbon Dioxide 23 mmol/L (22-30) 09/05/19 04:55 Anion Gap 19 mmol/L 09/05/19 04:55 BUN 52 mg/dL (7-17) H 09/05/19 04:55 Creatinine 4.5 mg/dL (0.7-1.2) H 09/05/19 04:55 Estimated GFR 12 ml/min 09/05/19 04:55 BUN/Creatinine Ratio 12 % 09/05/19 04:55 Glucose 175 mg/dL (65-100) H 09/05/19 04:55 POC Glucose 184 (70-105) H 09/05/19 08:18 Calcium 8.8 mg/dL (8.4-10.2) 09/05/19 04:55 Phosphorus 4.50 mg/dL (2.5-4.5) 09/05/19 04:55 Magnesium 1.90 mg/dL (1.7-2.3) 08/30/19 15:43 Total Bilirubin 0.20 mg/dL (0.1-1.2) 08/30/19 11:55 AST 10 units/L (5-40) 08/30/19 11:55 ALT 8 units/L (7-56) 08/30/19 11:55 Alkaline Phosphatase 74 units/L (35-129) 08/30/19 11:55 Troponin T 0.034 ng/mL (0.00-0.029) H 08/30/19 20:17 NT-Pro-B Natriuret Pep 3288 pg/mL (0-900) H 08/30/19 11:55 Total Protein 8.1 g/dL (6.3-8.2) 08/30/19 11:55 Albumin 4.1 g/dL (3.9-5) 08/30/19 11:55 Albumin/Globulin Ratio 1.0 % 08/30/19 11:55 Triglycerides 185 mg/dL (2-149) H 08/30/19 11:55 Cholesterol 282 mg/dL (50-199) H 08/30/19 11:55 LDL Cholesterol Direct 208 mg/dL (50-130) H 08/30/19 11:55 HDL Cholesterol 58 mg/dL (40-59) 08/30/19 11:55 Cholesterol/HDL Ratio 4.86 % 08/30/19 11:55 TSH 8.890 mlU/mL (0.270-4.200) H 08/30/19 15:43 Free T4 1.23 ng/dL (0.76-1.46) 08/30/19 15:43 Urine WBC (Auto) 2.0 /HPF (0.0-6.0) 08/31/19 04:00 Urine RBC (Auto) 3.0 /HPF (0.0-6.0) 08/31/19 04:00 U Epithel Cells (Auto) 1.0 /HPF (0-13.0) 08/31/19 04:00 Urine Mucus Few /HPF 08/31/19 04:00 Urine Total Volume 1040 ml 09/03/19 11:57 Urine Creatinine 101.6 mg/dL (0.1-20.0) H 09/03/19 11:57 Ur Creatinine 24 Hour 1.1 (0.8-2.8) 09/03/19 11:57 Urine Microalbumin 115.7 mg/dL (0.1-34.0) H 08/31/19 04:00 Microalb/Creat Ratio 824.0 ug/mg 08/31/19 04:00 Urine Sodium 71 mmol/L 08/31/19 04:00 Urine Chloride 68.9 mmolL (110-250) L 08/31/19 04:00 Urine Urea Nitrogen 472 08/31/19 04:00 Urine Total Protein 172 mg/dL (5-11.8) H 08/31/19 04:00 Hepatitis A IgM Ab Non-reactive (NonReactive) 09/04/19 15:51 Hep Bs Antigen Non-reactive (Negative) 09/04/19 15:51 Hep B Core IgM Ab Non-reactive (NonReactive) 09/04/19 15:51 Hepatitis C Antibody Non-reactive (NonReactive) 09/04/19 15:51 Active Medications - Current Medications Current Medications: Generic Name Dose Route Start Last Admin Trade Name Freq PRN Reason Stop Dose Admin Acetaminophen 650 mg 08/30/19 14:40 09/03/19 14:08 Tylenol PO 650 mg Q4H PRN Administration Pain MILD(1-3)/Fever >100.5/VIGIL Albuterol 2.5 mg 08/30/19 14:40 Proventil IH Q4HRT PRN Shortness Of Breath Aspirin 81 mg 08/31/19 10:00 09/05/19 13:21 Halfprin Ec PO Not Given DAILY [facility] Carvedilol 25 mg 08/30/19 22:00 09/05/19 13:20 Coreg PO 25 mg BID [facility] Administration Clopidogrel Bisulfate 75 mg 08/31/19 10:00 09/05/19 13:24 Plavix PO 75 mg DAILY [facility] Administration Dextrose 50 ml 08/30/19 14:45 D50w (25gm) Syringe IV PRN PRN Hypoglycemia Docusate Sodium 100 mg 09/01/19 22:00 09/05/19 13:20 Colace PO 100 mg BID [facility] Administration Famotidine 10 mg 08/30/19 22:00 09/05/19 13:24 Pepcid PO 10 mg BID [facility] Administration Ferrous Gluconate 324 mg 08/31/19 10:00 09/05/19 13:20 Fergon PO 324 mg DAILY [facility] Administration Furosemide 40 mg 09/03/19 06:00 09/05/19 06:19 Lasix IV 40 mg DAILY@0600 [facility] Administration Heparin Sodium (Porcine) 5,000 unit 08/30/19 22:00 09/05/19 13:21 Heparin SUB-Q Not Given Q12HR [facility] Hydralazine HCl 25 mg 08/30/19 18:00 09/05/19 13:20 Apresoline PO 25 mg QID [facility] Administration Hydrocodone Bit/Homatropine Methylb 5 ml 08/30/19 14:45 08/30/19 19:18 Hydromet PO 5 ml Q6H PRN Administration Cough Sodium Chloride 500 mls @ 50 mls/hr 09/05/19 09:00 Nacl 0.9% 500 Ml IV DIRECT [facility] Insulin Human Lispro 0 unit 08/31/19 22:00 09/05/19 13:18 Humalog SUB-Q Not Given ACHS [facility] Protocol Levothyroxine Sodium 300 mcg 08/31/19 06:00 09/05/19 06:19 Synthroid PO 300 mcg DAILY@0600 [facility] Administration Morphine Sulfate 2 mg 08/30/19 14:40 09/02/19 15:48 Morphine IV 2 mg Q4H PRN Administration Pain, Moderate (4-6) Nitroglycerin 0.4 mg 08/30/19 14:40 Nitrostat SL .Q5MIN PRN Chest Pain Ondansetron HCl 4 mg 08/30/19 14:40 09/04/19 22:24 Zofran IV 4 mg Q8H PRN Administration Nausea And Vomiting Oxycodone/Acetaminophen 1 tab 08/30/19 14:43 09/03/19 17:41 Percocet 5/325 PO 1 tab Q6H PRN Administration PAIN Pravastatin Sodium 20 mg 08/30/19 22:00 09/04/19 22:25 Pravachol PO 20 mg QHS [facility] Administration Sodium Chloride 10 ml 08/30/19 22:00 09/05/19 13:22 Sodium Chloride Flush Syringe 10 Ml IV 10 ml BID [place] Administration Sodium Chloride 10 ml 08/30/19 14:40 Sodium Chloride Flush Syringe 10 Ml IV PRN PRN LINE FLUSH
[2019-09-05] MEDS: MORPHINE 2 MG/1 ML INJ IV PRN (15:37)
[2019-09-05] MEDS: PRAVASTATIN 20 MG TAB PO SCH (22:40)
[2019-09-05] MEDS: oxyCODONE /ACETAMINOPHEN 5-325MG TAB PO PRN (22:50)
[2019-09-05] MEDS ORDERED: POLYETHYLENE GLYCOL 3350 17 GM POWDER PO PRN (23:50)
[2019-09-06] MEDS ORDERED: FLEET ENEMA PR ONE (03:02)
[2019-09-06] MEDS: LEVOTHYROXINE 150 MCG TAB PO SCH (05:34)
[2019-09-06] MEDS: FUROSEMIDE 40 MG/4 ML INJ IV SCH (05:35)
[2019-09-06] MEDS: INSULIN LISPRO 100 UNIT/ML SUB-Q SCH ×2 (08:00→12:51)
[2019-09-06 09:38] LABS: Calcium 9.1 mg/dL (8.4-10.2)
--- NOTE | 2019-09-06 09:59 | Progress Note ---
Assessment and Plan Chronic kidney disease -per nephrology initiated on dialysis History of CAD with 3v CABG in 2017 History of Ischemic CMP, EF 20% Presence of AICD Type 2 DM Obesity HTN Continue medical therapy for ischemic cardiomyopathy and coronary artery disease. Subjective Date of service: 09/06/19 Principal diagnosis: chronic kidney disease Interval history: Patient has no cardiac complaints. No events on telemetry. Objective Vital Signs Temp Pulse Pulse Resp Resp BP Pulse Ox 09/06/19 09:04 98 09/06/19 07:28 98.4 F 18 168/91 09/06/19 04:49 98.3 F 79 16 168/80 98 09/06/19 00:11 98.9 F 83 16 146/79 99 09/05/19 22:50 18 09/05/19 22:40 75 154/86 09/05/19 22:38 75 154/86 09/05/19 22:00 18 09/05/19 20:32 98 09/05/19 20:11 98.2 F 75 16 154/86 99 09/05/19 19:51 80 09/05/19 18:22 78 161/78 09/05/19 17:27 98.7 F 76 14 180/87 100 09/05/19 16:07 16 09/05/19 15:42 166/82 09/05/19 15:37 16 09/05/19 13:20 79 178/86 09/05/19 13:19 80 175/86 100 09/05/19 12:15 98.2 F 75 18 180/92 09/05/19 12:00 75 183/92 09/05/19 11:45 76 192/90 09/05/19 11:30 75 159/92 09/05/19 11:15 78 182/98 09/05/19 11:00 75 174/95 09/05/19 10:45 77 180/94 09/05/19 10:30 77 176/95 09/05/19 10:15 75 180/86 09/05/19 10:00 93 H 79 194/98 - Physical Examination General: No Apparent Distress HEENT: Positive: PERRL Neck: Positive: neck supple Cardiac: Positive: Reg Rate and Rhythm Lungs: Positive: Decreased Breath Sounds Neuro: Positive: Grossly Intact Extremities: Absent: edema - Labs and Meds Comprehensive Metabolic Panel 09/06/19 Range/Units 08:54 Sodium 140 (137-145) mmol/L Potassium 4.4 (3.6-5.0) mmol/L Chloride 97.5 L (98-107) mmol/L Carbon Dioxide 25 (22-30) mmol/L BUN 40 H (7-17) mg/dL Creatinine 4.6 H (0.7-1.2) mg/dL Glucose 201 H (65-100) mg/dL Calcium 9.1 (8.4-10.2) mg/dL
[2019-09-06] MEDS: DOCUSATE SODIUM 100 MG CAP PO SCH (10:00)
[2019-09-06] MEDS: FAMOTIDINE 10 MG TAB PO SCH (10:00)
[2019-09-06] MEDS ORDERED: HOPS PO SCH (10:00)
[2019-09-06] MEDS: ASPIRIN EC 81 MG TAB PO SCH (10:00)
[2019-09-06] MEDS: CLOPIDOGREL 75 MG TAB PO SCH (10:00)
[2019-09-06] MEDS ORDERED: BERBERINE PO SCH (10:00)
[2019-09-06] MEDS ORDERED: VIT D3 VIT K PO SCH (10:00)
[2019-09-06] MEDS: FERROUS GLUCONATE 324 MG TAB PO SCH (10:01)
[2019-09-06] MEDS: hydrALAZINE 25 MG TAB PO SCH ×2 (10:05→14:24)
[2019-09-06] MEDS: carvediloL 25 MG TAB PO SCH (10:05)
[2019-09-06] MEDS: HEPARIN 5,000 UNIT/1 ML VIAL SUB-Q SCH (10:06)
[2019-09-06] MEDS: MORPHINE 2 MG/1 ML INJ IV PRN (10:15)
[2019-09-06] MEDS: ONDANSETRON 4 MG/2 ML INJ IV PRN (10:31)
--- NOTE | 2019-09-06 11:15 | Progress Note ---
Assessment and Plan DUANE possibly prerenal, cardiorenal syndrome, on underlying CKD Stage 4, no obstruction Acute on chronic systolic CHF (EF 20%) Chest Pain Obesity hypoventilation syndrome DM Type 2 on insulin Essential HTN GERD CAD s/p CABG Plan: - s/p permcath placeemnt and first HD 09/05/19 - HD again today - Will consult case management for placement to [facility], ok to be discharged from renal standpoint after dialysis placeemnt - Renal US showed no hydronephrosis - CXR showed no acute findings - Cardiology on board, EF 20% - Renally dose meds - Strict intake and output - He Catheter: No Jayden Villafana MD [phone] Subjective Date of service: 09/06/19 Principal diagnosis: chronic kidney disease Interval history: in dialysis this AM Objective - Vital Signs Vital signs: Vital Signs - 12hr 09/06/19 09/06/19 09/06/19 00:11 04:49 07:28 Temperature 98.9 F 98.3 F 98.4 F Pulse Rate 83 79 Respiratory 16 16 18 Rate Blood Pressure 146/79 168/80 168/91 O2 Sat by Pulse 99 98 Oximetry 09/06/19 09/06/19 09/06/19 09:04 10:05 10:15 Temperature Pulse Rate 84 Respiratory 16 Rate Blood Pressure 174/74 O2 Sat by Pulse 98 Oximetry - Lab 09/02/19 07:54 09/06/19 08:54 Most recent lab results Calcium 9.1 mg/dL (8.4-10.2) 09/06/19 08:54 Phosphorus 4.30 mg/dL (2.5-4.5) 09/06/19 08:54 Magnesium 1.90 mg/dL (1.7-2.3) 08/30/19 15:43 Urine Creatinine 101.6 mg/dL (0.1-20.0) H 09/03/19 11:57 Urine Sodium 71 mmol/L 08/31/19 04:00 Urine Total Protein 172 mg/dL (5-11.8) H 08/31/19 04:00 Medications & Allergies - Medications Allergies/Adverse Reactions: Allergies glyburide [From Micronase] Allergy (Severe, Verified 10/10/17 13:17) Swelling of tongue,face VEGA Inhibitors Allergy (Verified 02/01/18 08:24) Shortness of Breath nifedipine Allergy (Verified 12/28/17 08:23) Vomiting Home Medications: Home Medications Medication Instructions Recorded Confirmed Last Taken Type Clopidogrel Bisulfate [Plavix] 75 mg PO DAILY 08/15/15 09/01/19 3 Days Ago History ~08/29/19 Carvedilol [Coreg] 25 mg PO BID #60 tablet 08/20/15 09/01/19 3 Days Ago Rx ~08/29/19 Aspirin EC [Halfprin EC] 4 tab PO DAILY 05/09/17 09/01/19 3 Days Ago History ~08/29/19 Hydralazine HCl [Apresoline TAB] 50 mg PO QID 08/30/17 09/01/19 3 Days Ago History ~08/29/19 Ferrous Gluconate [Ferrous 324 mg PO DAILY 10/05/17 09/01/19 3 Days Ago History Gluconate 324 MG] ~08/29/19 Furosemide [Lasix TAB] 80 mg PO QDAY 10/05/17 09/01/19 3 Days Ago History ~08/29/19 Levothyroxine Sodium [Synthroid] 300 mcg PO 5XW 10/10/17 09/01/19 3 Days Ago History ~08/29/19 Simvastatin [Zocor] 10 mg PO HS 10/10/17 09/01/19 3 Days Ago History ~08/29/19 Lispro Insulin [Humalog] 1.1 units SQ Q60MIN 12/28/17 09/01/19 3 Days Ago History ~08/29/19 Oxycodone HCl/Acetaminophen 1 each PO Q6HR PRN #30 tablet 12/28/17 09/01/19 3 Days Ago Rx [Percocet 7.5/325 mg] ~08/29/19 Vit D3-Vit K/Berberine/Hops 1 tab PO QWEEK 12/28/17 09/01/19 3 Days Ago History [Ostera Tablet] ~08/29/19 oxyCODONE /ACETAMINOPHEN [Percocet 1 tab PO Q6H PRN 12/28/17 09/01/19 3 Days Ago History 5/325 mg] ~08/29/19 Active Medications: Generic Name Dose Route Start Last Admin Trade Name Freq PRN Reason Stop Dose Admin Acetaminophen 650 mg 08/30/19 14:40 09/03/19 14:08 Tylenol PO 650 mg Q4H PRN Administration Pain MILD(1-3)/Fever >100.5/VIGIL Albuterol 2.5 mg 08/30/19 14:40 Proventil IH Q4HRT PRN Shortness Of Breath Aspirin 81 mg 08/31/19 10:00 09/06/19 10:00 Halfprin Ec PO 81 mg DAILY PARISH Administration Bisacodyl 10 mg 09/06/19 10:00 Dulcolax [place] QDAY PARISH Carvedilol 25 mg 08/30/19 22:00 09/06/19 10:05 Coreg PO 25 mg BID PARISH Administration Clopidogrel Bisulfate 75 mg 08/31/19 10:00 09/06/19 10:00 Plavix PO 75 mg DAILY PARISH Administration Dextrose 50 ml 08/30/19 14:45 D50w (25gm) Syringe IV PRN PRN Hypoglycemia Docusate Sodium 100 mg 09/01/19 22:00 09/06/19 10:00 Colace PO 100 mg BID PARISH Administration Famotidine 10 mg 08/30/19 22:00 09/06/19 10:00 Pepcid PO 10 mg BID PARISH Administration Ferrous Gluconate 324 mg 08/31/19 10:00 09/06/19 10:01 Fergon PO 324 mg DAILY PARISH Administration Furosemide 40 mg 09/03/19 06:00 09/06/19 05:35 Lasix IV 40 mg DAILY@0600 PARISH Administration Heparin Sodium (Porcine) 5,000 unit 08/30/19 22:00 09/06/19 10:06 Heparin SUB-Q 5,000 unit Q12HR PARISH Administration Hydralazine HCl 25 mg 08/30/19 18:00 09/06/19 10:05 Apresoline PO 25 mg QID PARISH Administration Hydrocodone Bit/Homatropine Methylb 5 ml 08/30/19 14:45 08/30/19 19:18 Hydromet PO 5 ml Q6H PRN Administration Cough Sodium Chloride 500 mls @ 50 mls/hr 09/05/19 09:00 Nacl 0.9% 500 Ml IV DIRECT PARISH Insulin Human Lispro 0 unit 08/31/19 22:00 09/06/19 08:00 Humalog SUB-Q 3 unit ACHS PARISH Administration Protocol Levothyroxine Sodium 300 mcg 08/31/19 06:00 09/06/19 05:34 Synthroid PO 300 mcg DAILY@0600 PARISH Administration Morphine Sulfate 2 mg 08/30/19 14:40 09/06/19 10:15 Morphine IV 2 mg Q4H PRN Administration Pain, Moderate (4-6) Nitroglycerin 0.4 mg 08/30/19 14:40 Nitrostat SL .Q5MIN PRN Chest Pain Ondansetron HCl 4 mg 08/30/19 14:40 09/06/19 10:31 Zofran IV 4 mg Q8H PRN Administration Nausea And Vomiting Oxycodone/Acetaminophen 1 tab 08/30/19 14:43 09/05/19 22:50 Percocet 5/325 PO 1 tab Q6H PRN Administration PAIN Polyethylene Glycol 17 gm 09/05/19 23:50 09/06/19 00:49 Miralax 3350 PO 17 gm QDAY PRN Administration Constipation Pravastatin Sodium 20 mg 08/30/19 22:00 09/05/19 22:40 Pravachol PO 20 mg QHS PARISH Administration Sodium Chloride 10 ml 08/30/19 22:00 09/06/19 10:06 Sodium Chloride Flush Syringe 10 Ml IV 10 ml BID PARISH Administration Sodium Chloride 10 ml 08/30/19 14:40 Sodium Chloride Flush Syringe 10 Ml IV PRN PRN LINE FLUSH
--- NOTE | 2019-09-06 13:34 | Progress Note ---
Assessment and Plan Assessment and plan: Acute on chronic systolic heart failure exacerbation; patient started on hemodialysis 09/05/19. Patient with ischemic cardiomyopathy EF 20%. Coronary artery disease. Cardiology recommends conservative management and continued medical therapy. No acute intervention at this time. Continue Coreg, aspirin and Plavix. Hypertension. Continue antihypertensive medications. Diabetes mellitus type 2. Continue Accu-Cheks and sliding scale insulin. OHS/WERNER. Hyperlipidemia. Continue statin therapy. Acute on CKD IV; patient has uncontrolled this morning and get dialysis Hypothyroidism. Continue Synthroid. Constipation; patient was on MiraLAX and didn't help, I added Dulcolax suppository. DVT prophylaxis.; On heparin Disposition; discharge once O/P dialysis is arranged. Per nephrology. History Interval history: Patient was seen and evaluated this morning Patient's complaining constipation Hospitalist Physical - Physical exam Narrative exam: Not in cardiopulmonary distress. The patient is obese. Vital signs as documented. Head exam is unremarkable. No scleral icterus . Neck is without jugular venous distension, thyromegaly, or carotid bruits. Lungs are clear to auscultation. Cardiac exam reveals regular rate and Rhythm. Abdominal exam reveals normal bowel sounds, no masses, no organomegaly and no aortic enlargement. Extremities are nonedematous and both femoral and pedal pulses are normal. EDITOR CONTINUITY AND SCRIPT: Alert and oriented 3. No focal weakness. - Constitutional Vitals: Temp Pulse Resp BP Pulse Ox 98.4 F 84 16 174/74 98 09/06/19 07:28 09/06/19 10:05 09/06/19 10:15 09/06/19 10:05 09/06/19 09:04 General appearance: Present: no acute distress Results - Labs CBC & Chem 7: 09/02/19 07:54 09/06/19 08:54 Labs: Laboratory Last Values WBC 6.0 K/mm3 (4.5-11.0) 09/02/19 07:54 RBC 4.36 M/mm3 (3.65-5.03) 09/02/19 07:54 Hgb 11.1 gm/dl (10.1-14.3) 09/02/19 07:54 Hct 34.5 % (30.3-42.9) 09/02/19 07:54 MCV 79 fl (79-97) 09/02/19 07:54 MCH 25 pg (28-32) L 09/02/19 07:54 MCHC 32 % (30-34) 09/02/19 07:54 RDW 14.3 % (13.2-15.2) 09/02/19 07:54 Plt Count 337 K/mm3 (140-440) 09/02/19 07:54 Lymph % (Auto) 29.6 % (13.4-35.0) 09/02/19 07:54 [place] % (Auto) 10.4 % (0.0-7.3) H 09/02/19 07:54 Eos % (Auto) 6.1 % (0.0-4.3) H 09/02/19 07:54 Baso % (Auto) 0.5 % (0.0-1.8) 09/02/19 07:54 Lymph # 1.8 K/mm3 (1.2-5.4) 09/02/19 07:54 [place] # 0.6 K/mm3 (0.0-0.8) 09/02/19 07:54 Eos # 0.4 K/mm3 (0.0-0.4) 09/02/19 07:54 Baso # 0.0 K/mm3 (0.0-0.1) 09/02/19 07:54 Seg Neutrophils % 53.4 % (40.0-70.0) 09/02/19 07:54 Seg Neutrophils # 3.2 K/mm3 (1.8-7.7) 09/02/19 07:54 Sodium 140 mmol/L (137-145) 09/06/19 08:54 Potassium 4.4 mmol/L (3.6-5.0) 09/06/19 08:54 Chloride 97.5 mmol/L (98-107) L 09/06/19 08:54 Carbon Dioxide 25 mmol/L (22-30) 09/06/19 08:54 Anion Gap 22 mmol/L 09/06/19 08:54 BUN 40 mg/dL (7-17) H 09/06/19 08:54 Creatinine 4.6 mg/dL (0.7-1.2) H 09/06/19 08:54 Estimated GFR 12 ml/min 09/06/19 08:54 BUN/Creatinine Ratio 9 % 09/06/19 08:54 Glucose 201 mg/dL (65-100) H 09/06/19 08:54 POC Glucose 223 (70-105) H 09/06/19 07:34 Calcium 9.1 mg/dL (8.4-10.2) 09/06/19 08:54 Phosphorus 4.30 mg/dL (2.5-4.5) 09/06/19 08:54 Magnesium 1.90 mg/dL (1.7-2.3) 08/30/19 15:43 Total Bilirubin 0.20 mg/dL (0.1-1.2) 08/30/19 11:55 AST 10 units/L (5-40) 08/30/19 11:55 ALT 8 units/L (7-56) 08/30/19 11:55 Alkaline Phosphatase 74 units/L (35-129) 08/30/19 11:55 Troponin T 0.034 ng/mL (0.00-0.029) H 08/30/19 20:17 NT-Pro-B Natriuret Pep 3288 pg/mL (0-900) H 08/30/19 11:55 Total Protein 8.1 g/dL (6.3-8.2) 08/30/19 11:55 Albumin 4.1 g/dL (3.9-5) 08/30/19 11:55 Albumin/Globulin Ratio 1.0 % 08/30/19 11:55 Triglycerides 185 mg/dL (2-149) H 08/30/19 11:55 Cholesterol 282 mg/dL (50-199) H 08/30/19 11:55 LDL Cholesterol Direct 208 mg/dL (50-130) H 08/30/19 11:55 HDL Cholesterol 58 mg/dL (40-59) 08/30/19 11:55 Cholesterol/HDL Ratio 4.86 % 08/30/19 11:55 TSH 8.890 mlU/mL (0.270-4.200) H 08/30/19 15:43 Free T4 1.23 ng/dL (0.76-1.46) 08/30/19 15:43 Urine WBC (Auto) 2.0 /HPF (0.0-6.0) 08/31/19 04:00 Urine RBC (Auto) 3.0 /HPF (0.0-6.0) 08/31/19 04:00 U Epithel Cells (Auto) 1.0 /HPF (0-13.0) 08/31/19 04:00 Urine Mucus Few /HPF 08/31/19 04:00 Urine Total Volume 1040 ml 09/03/19 11:57 Urine Creatinine 101.6 mg/dL (0.1-20.0) H 09/03/19 11:57 Ur Creatinine 24 Hour 1.1 (0.8-2.8) 09/03/19 11:57 Urine Microalbumin 115.7 mg/dL (0.1-34.0) H 08/31/19 04:00 Microalb/Creat Ratio 824.0 ug/mg 08/31/19 04:00 Urine Sodium 71 mmol/L 08/31/19 04:00 Urine Chloride 68.9 mmolL (110-250) L 08/31/19 04:00 Urine Urea Nitrogen 472 08/31/19 04:00 Urine Total Protein 172 mg/dL (5-11.8) H 08/31/19 04:00 Hepatitis A IgM Ab Non-reactive (NonReactive) 09/04/19 15:51 Hep Bs Antigen Non-reactive (Negative) 09/04/19 15:51 Hep B Core IgM Ab Non-reactive (NonReactive) 09/04/19 15:51 Hepatitis C Antibody Non-reactive (NonReactive) 09/04/19 15:51 Active Medications - Current Medications Current Medications: Generic Name Dose Route Start Last Admin Trade Name Freq PRN Reason Stop Dose Admin Acetaminophen 650 mg 08/30/19 14:40 09/03/19 14:08 Tylenol PO 650 mg Q4H PRN Administration Pain MILD(1-3)/Fever >100.5/VIGIL Albuterol 2.5 mg 08/30/19 14:40 Proventil IH Q4HRT PRN Shortness Of Breath Aspirin 81 mg 08/31/19 10:00 09/06/19 10:00 Halfprin Ec PO 81 mg DAILY PARISH Administration Bisacodyl 10 mg 09/06/19 10:00 Dulcolax [place] QDAY PARISH Carvedilol 25 mg 08/30/19 22:00 09/06/19 10:05 Coreg PO 25 mg BID PARISH Administration Clopidogrel Bisulfate 75 mg 08/31/19 10:00 09/06/19 10:00 Plavix PO 75 mg DAILY PARISH Administration Dextrose 50 ml 08/30/19 14:45 D50w (25gm) Syringe IV PRN PRN Hypoglycemia Docusate Sodium 100 mg 09/01/19 22:00 09/06/19 10:00 Colace PO 100 mg BID PARISH Administration Famotidine 10 mg 08/30/19 22:00 09/06/19 10:00 Pepcid PO 10 mg BID [facility] Administration Ferrous Gluconate 324 mg 08/31/19 10:00 09/06/19 10:01 Fergon PO 324 mg DAILY PARISH Administration Furosemide 40 mg 09/03/19 06:00 09/06/19 05:35 Lasix IV 40 mg DAILY@0600 [facility] Administration Heparin Sodium (Porcine) 5,000 unit 08/30/19 22:00 09/06/19 10:06 Heparin SUB-Q 5,000 unit Q12HR PARISH Administration Hydralazine HCl 25 mg 08/30/19 18:00 09/06/19 10:05 Apresoline PO 25 mg QID [facility] Administration Hydrocodone Bit/Homatropine Methylb 5 ml 08/30/19 14:45 08/30/19 19:18 Hydromet PO 5 ml Q6H PRN Administration Cough Sodium Chloride 500 mls @ 50 mls/hr 09/05/19 09:00 Nacl 0.9% 500 Ml IV DIRECT [facility] Insulin Human Lispro 0 unit 08/31/19 22:00 09/06/19 12:51 Humalog SUB-Q Not Given ACHS [facility] Protocol Levothyroxine Sodium 300 mcg 08/31/19 06:00 09/06/19 05:34 Synthroid PO 300 mcg DAILY@0600 [facility] Administration Morphine Sulfate 2 mg 08/30/19 14:40 09/06/19 10:15 Morphine IV 2 mg Q4H PRN Administration Pain, Moderate (4-6) Nitroglycerin 0.4 mg 08/30/19 14:40 Nitrostat SL .Q5MIN PRN Chest Pain Ondansetron HCl 4 mg 08/30/19 14:40 09/06/19 10:31 Zofran IV 4 mg Q8H PRN Administration Nausea And Vomiting Oxycodone/Acetaminophen 1 tab 08/30/19 14:43 09/05/19 22:50 Percocet 5/325 PO 1 tab Q6H PRN Administration PAIN Polyethylene Glycol 17 gm 09/05/19 23:50 09/06/19 00:49 Miralax 3350 PO 17 gm QDAY PRN Administration Constipation Pravastatin Sodium 20 mg 08/30/19 22:00 09/05/19 22:40 Pravachol PO 20 mg QHS PARISH Administration Sodium Chloride 10 ml 08/30/19 22:00 09/06/19 10:06 Sodium Chloride Flush Syringe 10 Ml IV 10 ml BID PARISH Administration Sodium Chloride 10 ml 08/30/19 14:40 Sodium Chloride Flush Syringe 10 Ml IV PRN PRN LINE FLUSH Nutrition/Malnutrition Assess - Dietary Evaluation Nutrition/Malnutrition Findings: Nutrition Notes Start: 09/06/19 10:32 Freq: Status: Active Protocol: Document 09/06/19 10:32 AP (Rec: 09/06/19 11:39 AP [id number]) Co-Sign 09/06/19 10:32 LM Nutrition Notes Need for Assessment generated from: LOS,Education Initial or Follow up Assessment Current Diagnosis CKD (stage V CKD),Coronary Artery Disease,Diabetes, Hypertension,Heart Failure Other Pertinent Diagnosis Hypothyroidism, AMI, on HD Current Diet Cardiac/Renal Labs/Tests Bun 52 Creatinine BG Pertinent Medications Dulcolax Colace Miralax Percocet NaCL 0.9% Height 5 ft 7 in Weight 110.4 kg Thompson Body Weight (kg) 61.36 BMI 38.1 Intake Prior to Admission Fair Weight Status Obese Subjective/Other Information Pt was in room with her daughter, Maritza. Pt states she started HD yesterday and asked if I was there to discuss her new renal diet. Explained to pt the RD at her dialysis facility would go more in depth regarding her diet and amounts of K, Phos, Na, CL, fluid she should consume. Focused on sodium, provided CKD tips for stage 5 kidney disease. Showed pt on handout to refrain from adding sodium to food and limit cooking with sodium, to watch her portions when making her plate as a general healthful eating technique, and to limit her sodium to <500mg per meal, encouraged nutrition label reading. Pt exhausted. Encouraged pt to eat her meals instay as they were regulated for her diet needs. Pt refused ONS. Burn Absent Trauma Absent Current % PO Negligible Minimum of two criteria No #2 Nutrition Diagnosis Inadequate oral intake Etiology Chronic illness As Evidenced by Signs and Symptoms Pt states poor PO intakes UTILITY OPERATOR YARN and instay. Pt consumed 0% of bfast tray. #1 Nutrition Diagnosis Food and nutrition-related knowledge deficit Etiology Pt began HD yesterday, unsure of renal diet needs/ restrictions. As Evidenced by Signs and Symptoms Pt needed education on renal diet. Is patient on ventilator? No Is Patient Ambulatory and/or Out of Bed No REE-(Overgaard-St. Jeor-confined to bed) 2093.712 Kcal/Kg value to use for calculation 15 Approximate Energy Requirements Using 1656 kcal/Kg Calculation Used for Recommendations Kcal/kg Additional Notes PRO needs 100-110g/day (1.2g/ kg/AdBW) Fluids: urine output + 1000ml Nutrition Intervention Change Diet Order: Continue Renal/Cardiac diet Teaching Recipient Patient,Family Learning Readiness Fair Teaching Methods Discussion,Handout Response to Teaching Verbalize understanding Education Handouts Provided 5 Tips for HD pt Barriers to Learning No Barriers RD phone number provided Yes Patient aware of follow up options Yes Goal #1 Pt consume >80% of kcal/PRO needs. Goal #2 Pt continue readiness to learn about her new renal diet. Anticipated Discharge Needs: Renal/Cardiac diet Follow-Up By: 09/09/19 Additional Comments F/U for PO intakes, further renal diet education if needed .
--- NOTE | 2019-09-06 14:19 | Discharge Summary ---
Providers - Providers Date of Admission: 08/30/19 14:40 Date of discharge: 09/06/19 Attending physician: ATUL HOUSTON MD 08/30/19 Consult to Cardiac Rehabilitation [CONS] Routine Reason For Exam: Phase I 08/30/19 14:42 Consult to Cardiology [CONS] Routine Consulting Provider: FELIPE CRUZ Reason For Exam: chf 08/30/19 15:13 Consult to Physician [CONS] Routine Comment: Consulting Provider: KEATON PERSON Physician Instructions: Reason For Exam: DUANE 09/04/19 12:48 Consult to Case Management [CONS] Routine Services Needed at Discharge: Other Notified:: Case management Comment:: Outpatient HD placement to [facility] Consult to Physician [CONS] Routine Comment: Consulting Provider: NEIL BOWENS Physician Instructions: Reason For Exam: Perm-cath placement Primary care physician: SVEN MONTOYA Hospitalization Reason for admission: acute on chronic renal failure on dialysis, Acute on chronic systolic CHF Condition: Stable Procedures: Permcath Hospital course: 54 YO Female with Obesity Hypoventilation, CAD S/P CABG on DAPT, CKD stage 4, Hypothyroidism, Systolic CHF(EF 20%), CVA, AL, GERD, DM complicated by Neuropathy, PVD. Pt states that she has experienced nasal congestion and nonproductive cough over the past 2 weeks, Pt also reports pain in her chest over the past 2 days with persistent symptoms over the same time frame. Pt states that her pain is 6-7/10, Substernal, localized to the left chest, nonradiating, not worsened with exertion, not relieved with rest. Pt acknowledges shortness of breath, decreased exercise tolerance. Pt was seen and evaluated by her PCP and instructed to seek further care. Pt transported to [facility] via private vehicle. Pt seen and evaluated in ED and found to have symptoms consistent with stable angina as well as CHF Decompensation, DUANE. Pt admitted to telemetry and initiated on CHF protocol. Cardiology consulted in ED, Nephrology consulted in ED. Pt denies fever, chills, palpitations, NVD, Trauma, Falls, Prolonged travel, unilateral leg swelling, calf pain, hemoptysis, Individual/Family history of DVT/PE/Bleeding/Blood Clotting disorders. Prior admission on 10/10/17 reviewed. All listed medication reconciled at time of admission. Patient was admitted to the floor and she was started treatment for acute on chronic systolic CHD, acute on chronic renal failure. Cardiology evaluated the patient and said no further w/u needed at this time, diuresis per nephrology. Nephrology was consulted and her CKD worsened and patient started on HD, atient's symptoms get better and discharged home. O/P HD chair arranged. Patient was hemodynamically stable at the time of discharge. Patient's questions and concerns were addressed at the bedside. Disposition: DC-01 TO HOME OR SELFCARE Time spent for discharge: 32 minutes - Discharge Diagnoses (1) ESRD (end stage renal disease) on dialysis Status: Acute (2) HLD (hyperlipidemia) Status: Acute Qualifiers: Hyperlipidemia type: mixed hyperlipidemia Qualified Code(s): E78.2 - Mixed hyperlipidemia (3) Ischemic dilated cardiomyopathy Status: Acute (4) Obesity hypoventilation syndrome Status: Acute (5) Abdominal pain Status: Acute Core Measure Documentation - Palliative Care Palliative Care/ Comfort Measures: Not Applicable - Core Measures Any of the following diagnoses?: none Exam - Physical Exam Narrative exam: Not in cardiopulmonary distress. The patient is obese. Vital signs as documented. Head exam is unremarkable. No scleral icterus . Neck is without jugular venous distension, thyromegaly, or carotid bruits. Lungs are clear to auscultation. Cardiac exam reveals regular rate and Rhythm. Abdominal exam reveals normal bowel sounds, no masses, no organomegaly and no aortic enlargement. Extremities are nonedematous and both femoral and pedal pulses are normal. BAR FINISH OPERATOR: Alert and oriented 3. No focal weakness. - Constitutional Vitals: Temp Pulse Resp BP Pulse Ox 98.4 F 84 14 174/74 98 09/06/19 07:28 09/06/19 10:05 09/06/19 10:45 09/06/19 10:05 09/06/19 09:04 Plan Activity: no restrictions Weight Bearing Status: Full Weight Bearing Diet: low salt, renal Follow up with: PRIMARY CARE, [Referring] - 3-5 Days TOMÁS MANLEY MD [Staff Physician] - 14 Days (If no established PCP) Prescriptions: Aspirin 325 mg PO QDAY #30 tablet Bisacodyl [Dulcolax suppos] 10 mg [place] QDAY PRN #20 supp.rect PRN Reason: Constipation Polyethylene Glycol 3350 [Miralax 3350] 17 gm PO BID #30 packet oxyCODONE /ACETAMINOPHEN [Percocet 5/325 mg] 1 tab PO Q6H PRN #10 PRN Reason: Pain
[2019-09-06 14:25] VITALS: BP 119/54
== END 2019-09-06 18:01 | disposition home or self-care (01) | DRG 673 ==
LOC: ED 11:11 → 4A 14:40
PROVIDERS: ADMIT Internal Medicine; ATTEND Internal Medicine
PROC: 3E0234Z Introduction of Serum, Toxoid and Vaccine into Muscle, Percutaneous Approach (ICD-10-PCS; 2019-09-03)
PROC: 0JH63XZ Insertion of Tunneled Vascular Access Device into Chest Subcutaneous Tissue and Fascia, Percutaneous Approach (ICD-10-PCS; principal; 2019-09-05)
PROC: 02H633Z Insertion of Infusion Device into Right Atrium, Percutaneous Approach (ICD-10-PCS; 2019-09-05)
PROC: B5181ZA Fluoroscopy of Superior Vena Cava using Low Osmolar Contrast, Guidance (ICD-10-PCS; 2019-09-05)
PROC: B548ZZA Ultrasonography of Superior Vena Cava, Guidance (ICD-10-PCS; 2019-09-05)
PROC: 5A1D70Z Performance of Urinary Filtration, Intermittent, Less than 6 Hours Per Day (ICD-10-PCS; 2019-09-05)
PROC: 5A1D70Z Performance of Urinary Filtration, Intermittent, Less than 6 Hours Per Day (ICD-10-PCS; 2019-09-06)
DX: N17.0 Acute kidney failure with tubular necrosis (principal); I50.23 Acute on chronic systolic (congestive) heart failure; I13.2 Hypertensive heart and chronic kidney disease with heart failure and with stage 5 chronic kidney disease, or end stage renal disease; N18.6 End stage renal disease; I25.118 Atherosclerotic heart disease of native coronary artery with other forms of angina pectoris; I50.84 End stage heart failure; K21.9 Gastro-esophageal reflux disease without esophagitis; E11.22 Type 2 diabetes mellitus with diabetic chronic kidney disease; E78.2 Mixed hyperlipidemia; E11.40 Type 2 diabetes mellitus with diabetic neuropathy, unspecified; E03.9 Hypothyroidism, unspecified; I25.5 Ischemic cardiomyopathy; E66.2 Morbid (severe) obesity with alveolar hypoventilation; I50.22 Chronic systolic (congestive) heart failure; Z23 Encounter for immunization; Z95.810 Presence of automatic (implantable) cardiac defibrillator; Z95.1 Presence of aortocoronary bypass graft; Z86.73 Personal history of transient ischemic attack (TIA), and cerebral infarction without residual deficits; I25.2 Old myocardial infarction; Z82.49 Family history of ischemic heart disease and other diseases of the circulatory system; Z83.3 Family history of diabetes mellitus; Z90.49 Acquired absence of other specified parts of digestive tract; Z88.6 Allergy status to analgesic agent; Z88.8 Allergy status to other drugs, medicaments and biological substances; Z79.82 Long term (current) use of aspirin; Z79.899 Other long term (current) drug therapy; Z68.38 Body mass index [BMI] 38.0-38.9, adult; Z79.4 Long term (current) use of insulin
CPT/HCPCS: 36415; 36558; 71046; 76770; 77001; 80048; 80053; 80061; 80074; 81015; 82043; 82436; 82570; 82962; 83735; 83880; 84100; 84156; 84300; 84439; 84443; 84484; 84520; 85025; 85027; 90686; 90732; 93005; 93010; 93306; 94760; 96374; 96375; G0378; A9270-GY; C1750; C1769; J0153; J1644; J1815; J1940; J2250; J2270; J2405; J3010; J7030; J7040; J7050

== ENCOUNTER 2019-09-10 19:12 | Observation (INO) | payer MEDICAID ==
--- NOTE | 2019-09-10 19:37 | Emergency Department Report ---
Chief Complaint: Dyspnea/Respdistress Stated Complaint: SHIRA - HPI History of Present Illness: 54yo BF states that she has chest discomfort after having a dialysis treatment earlier today. - Exam Vital Signs: Vital Signs 09/10/19 19:29 Temperature 98.3 F Pulse Rate 86 Respiratory 18 Rate Blood Pressure 158/73 O2 Sat by Pulse 95 Oximetry MSE screening note: Focused history and physical exam performed. Due to findings the following was ordered: ED Disposition for MSE Condition: Stable
[2019-09-10 20:33] LABS: Basophils # (Auto) 0.1 K/mm3 (0.0-0.1); Basophils % (Auto) 0.8 % (0.0-1.8); Eosinophils # (Auto) 0.4 K/mm3 (0.0-0.4); Eosinophils % (Auto) 4.9 % (0.0-4.3); Hematocrit 31.9 % (30.3-42.9); Hemoglobin 10.2 gm/dl (10.1-14.3); Lymphocytes # (Auto) 1.9 K/mm3 (1.2-5.4); Mean Corpuscular HGB Conc 32 % (30-34); Mean Corpuscular Volume 80 fl (79-97); Monocytes % (Auto) 11.9 % (0.0-7.3); Platelet Count 243 K/mm3 (140-440); Red Cell Distribution Width 14.2 % (13.2-15.2)
[2019-09-10 20:48] LABS: Albumin 4.2 g/dL (3.9-5); Calcium 9.3 mg/dL (8.4-10.2)
[2019-09-10] MEDS ORDERED: MORPHINE 4 MG/1 ML INJ IV ONE (21:01)
[2019-09-10] MEDS ORDERED: ONDANSETRON 4 MG/2 ML INJ IV ONE (21:01)
--- NOTE | 2019-09-10 21:22 | XRay Report ---
CHEST 1 VIEW 09/10/2019 8:55 PM INDICATION / CLINICAL INFORMATION: sob, cp. COMPARISON: Chest x-ray 08/30/2019 FINDINGS: SUPPORT DEVICES: New right internal jugular dialysis catheter has tip in SVC. Left subclavian ICD laisha d again projects over right ventricle. HEART / MEDIASTINUM: Sternotomy, CABG and borderline cardiomegaly, unchanged. LUNGS / PLEURA: No significant pulmonary or pleural abnormality. No pneumothorax. ADDITIONAL FINDINGS: No significant additional findings. IMPRESSION: 1. No acute findings. Signer Name: Talon Carreno MD Signed: 09/10/2019 9:17 PM Workstation Name: [id number]
--- NOTE | 2019-09-10 21:49 | Emergency Department Report ---
ED Chest Pain HPI - General Chief Complaint: Dyspnea/Respdistress Stated Complaint: SHIRA Time Seen by Provider: 09/10/19 20:28 Source: patient, family Mode of arrival: Wheelchair Limitations: No Limitations - History of Present Illness Initial Comments: 54-year-old female with past medical history of CABG x 3, AICD, CHF with ischemic cardiomyopathy EF at 20-25%, diabetes, GERD, and recent initiation of dialysis presents to the hospital complaining of chest pain and shortness of breath that started after dialysis. Patient states she felt a little funny during dialysis with mild elevation of blood pressure to systolic in the 190s. Patient states afterwards she developed pressure to her head, chest, and shortness of breath that continued despite trying to rest and lay down at home. Patient states she also felt lightheaded like she was going to pass out although a little confused. Patient is primarily wheelchair bound with chronic generalized weakness which she states is unchanged. Patient recently admitted here August 30 until September 06. It is noted that she also has obesity hypoventilation. She also had chest pain during that admission was a bite would've by cardiology. She had worsening in renal function and had dialysis catheter placement and received 2 dialysis sessions prior to discharge. Severity scale (0 -10): 10 - Related Data Home Medications Medication Instructions Recorded Confirmed Last Taken Clopidogrel Bisulfate [Plavix] 75 mg PO DAILY 08/15/15 09/10/19 3 Days Ago ~08/29/19 Hydralazine HCl [Apresoline TAB] 50 mg PO QID 08/30/17 09/10/19 3 Days Ago ~08/29/19 Ferrous Gluconate [Ferrous 324 mg PO DAILY 10/05/17 09/10/19 3 Days Ago Gluconate 324 MG] ~08/29/19 Furosemide [Lasix TAB] 80 mg PO QDAY 10/05/17 09/10/19 3 Days Ago ~08/29/19 Levothyroxine Sodium [Synthroid] 300 mcg PO 5XW 10/10/17 09/10/19 3 Days Ago ~08/29/19 Simvastatin [Zocor] 10 mg PO HS 10/10/17 09/10/19 3 Days Ago ~08/29/19 Lispro Insulin [HumaLOG] 1.1 units SQ Q60MIN 12/28/17 09/10/19 3 Days Ago ~08/29/19 Vit D3-Vit K/Berberine/Hops 1 tab PO QWEEK 12/28/17 09/10/19 3 Days Ago [Ostera Tablet] ~08/29/19 Previous Rx's Medication Instructions Recorded Last Taken Type Carvedilol [Coreg] 25 mg PO BID #60 tablet 08/20/15 3 Days Ago Rx ~08/29/19 Aspirin 325 mg PO QDAY #30 tablet 09/06/19 Unknown Rx Polyethylene Glycol 3350 [Miralax 17 gm PO BID #30 packet 09/06/19 Unknown Rx 3350] oxyCODONE /ACETAMINOPHEN [Percocet 1 tab PO Q6H PRN #10 09/06/19 Unknown Rx 5/325 mg] Allergies Allergy/AdvReac Type Severity Reaction Status Date / Time glyburide [From Micronase] Allergy Severe Swelling Verified 10/10/17 13:17 of tongue,face VEGA Inhibitors Allergy Shortness Verified 12/28/17 08:24 of Breath nifedipine Allergy Vomiting Verified 12/28/17 08:23 Heart Score - HEART Score History: Slightly suspicious EKG: Non-specific Age: 45-65 Risk factors: > 3 risk factors or hx of atherosclerotic disease Troponin: 1-3x normal limit (chronic elevation, stable) HEART Score: 5 ED Review of Systems ROS: Stated complaint: SHIRA Other details as noted in HPI Comment: All other systems reviewed and negative ED Past Medical Hx - Past Medical History Hx Hypertension: Yes Hx CVA: Yes (2007) Hx Heart Attack/AMI: Yes (2014) Hx Congestive Heart Failure: Yes (EF 20-25% on cardiac cath May 2017) Hx Diabetes: Yes (IDDM, Insulin pump) Hx GERD: Yes Hx Renal Disease: Yes Hx Asthma: No Hx COPD: No Additional medical history: neuropathy. hypothyroid - Surgical History Past Surgical History?: Yes Hx Open Heart Surgery: Yes (CABG 06/15/2017) Hx Cholecystectomy: Yes (10/16/2017) Additional Surgical History: x1. vascular surgery - Social History Smoking Status: Never Smoker Substance Use Type: None - Medications Home Medications: Home Medications Medication Instructions Recorded Confirmed Last Taken Type Clopidogrel Bisulfate [Plavix] 75 mg PO DAILY 08/15/15 09/10/19 3 Days Ago History ~08/29/19 Carvedilol [Coreg] 25 mg PO BID #60 tablet 08/20/15 09/10/19 3 Days Ago Rx ~08/29/19 Hydralazine HCl [Apresoline TAB] 50 mg PO QID 08/30/17 09/10/19 3 Days Ago History ~08/29/19 Ferrous Gluconate [Ferrous 324 mg PO DAILY 10/05/17 09/10/19 3 Days Ago History Gluconate 324 MG] ~08/29/19 Furosemide [Lasix TAB] 80 mg PO QDAY 10/05/17 09/10/19 3 Days Ago History ~08/29/19 Levothyroxine Sodium [Synthroid] 300 mcg PO 5XW 10/10/17 09/10/19 3 Days Ago History ~08/29/19 Simvastatin [Zocor] 10 mg PO HS 10/10/17 09/10/19 3 Days Ago History ~08/29/19 Lispro Insulin [HumaLOG] 1.1 units SQ Q60MIN 12/28/17 09/10/19 3 Days Ago History ~08/29/19 Vit D3-Vit K/Berberine/Hops 1 tab PO QWEEK 12/28/17 09/10/19 3 Days Ago History [Ostera Tablet] ~08/29/19 Aspirin 325 mg PO QDAY #30 tablet 09/06/19 09/10/19 Unknown Rx Polyethylene Glycol 3350 [Miralax 17 gm PO BID #30 packet 09/06/19 09/10/19 Unknown Rx 3350] oxyCODONE /ACETAMINOPHEN [Percocet 1 tab PO Q6H PRN #10 09/06/19 09/10/19 Unknown Rx 5/325 mg] ED Physical Exam - General Limitations: No Limitations - Other Other exam information: Gen.: No acute distress Head: Atraumatic Eyes: Normal appearance ENT: Moist mucous membranes Neck: Normal appearance, no posterior midline tenderness, no meningismus Chest: Clear to auscultation bilaterally, reproducible sternal chest wall tenderness, sternotomy scar noted Cardiovascular: Regular rate and rhythm Abdomen: Normal appearance, soft, nontender, no rebound or guarding, normal bowel sounds Back: Normal appearance, nontender Extremity: Full range of motion, normal appearance Neuro: Alert oriented 3, speech clear, bilateral week handgrip and foot d orsiflexion which is chronic as per patient. Psychiatric: Appropriate Skin: No rash ED Course Vital Signs 10/15/19 10/15/19 10/15/19 19:27 19:29 20:12 Temperature 98.3 F 98.3 F Pulse Rate 85 86 83 Respiratory 18 18 13 Rate Blood Pressure 158/73 158/73 Blood Pressure 161/73 [Left] O2 Sat by Pulse 95 95 98 Oximetry 09/10/19 09/10/19 09/10/19 21:11 21:16 22:00 Temperature Pulse Rate 78 77 Respiratory 16 9 L 10 L Rate Blood Pressure 179/75 156/71 Blood Pressure [Left] O2 Sat by Pulse 95 94 Oximetry 09/10/19 09/10/19 09/10/19 22:16 22:30 22:46 Temperature Pulse Rate 75 76 76 Respiratory 12 15 14 Rate Blood Pressure 179/75 179/75 156/71 Blood Pressure [Left] O2 Sat by Pulse 91 98 97 Oximetry 09/10/19 09/11/19 23:50 03:19 Temperature 98.5 F Pulse Rate 77 76 Respiratory 16 11 L Rate Blood Pressure 156/71 Blood Pressure 170/90 [Left] O2 Sat by Pulse 96 97 Oximetry - Reevaluation(s) Reevaluation #1: 09/10/19 23:51 morphine has helped with some of the pain - Consultations Consultation #1: 09/10/19 21:57 case d/w dr Tripp will admit for eval after ed workup complete. ROD score - Rod Score Age > 65: (0) No Aspirin use within the Past 7 Days: (1) Yes 3 or more CAD Risk Factors: (1) Yes 2 or more Angina events in past 24 hrs: (1) Yes Known CAD with more than 50% Stenosis: (0) No Elevated Cardiac Markers: (1) Yes ST Deviation Greater than 0.5mm: (0) No RDO Score: 4 ED Medical Decision Making - Lab Data Result diagrams: 09/11/19 03:41 09/11/19 03:41 Lab Results 09/10/19 09/10/19 09/10/19 Range/Units 20:17 20:19 20:19 WBC 8.7 (4.5-11.0) K/mm3 RBC 4.00 (3.65-5.03) M/mm3 Hgb 10.2 (10.1-14.3) gm/dl Hct 31.9 (30.3-42.9) % MCV 80 (79-97) fl MCH 25 L (28-32) pg MCHC 32 (30-34) % RDW 14.2 (13.2-15.2) % Plt Count 243 (140-440) K/mm3 Lymph % (Auto) 22.0 (13.4-35.0) % [place] % (Auto) 11.9 H (0.0-7.3) % Eos % (Auto) 4.9 H (0.0-4.3) % Baso % (Auto) 0.8 (0.0-1.8) % Lymph # 1.9 (1.2-5.4) K/mm3 [place] # 1.0 H (0.0-0.8) K/mm3 Eos # 0.4 (0.0-0.4) K/mm3 Baso # 0.1 (0.0-0.1) K/mm3 Seg Neutrophils % 60.4 (40.0-70.0) % Seg Neutrophils # 5.3 (1.8-7.7) K/mm3 PT (12.2-14.9) Sec. INR (0.87-1.13) D-Dimer > 81170 H (0-234) ng/mlDDU Sodium 142 (137-145) mmol/L Potassium 3.5 L D (3.6-5.0) mmol/L Chloride 91.9 L (98-107) mmol/L Carbon Dioxide 36 H D (22-30) mmol/L Anion Gap 18 mmol/L BUN 23 H (7-17) mg/dL Creatinine 3.1 H (0.7-1.2) mg/dL Estimated GFR 19 ml/min BUN/Creatinine Ratio 7 % Glucose 268 H (65-100) mg/dL POC Glucose (70-105) Calcium 9.3 (8.4-10.2) mg/dL Total Bilirubin 0.40 (0.1-1.2) mg/dL AST 11 (5-40) units/L ALT 8 (7-56) units/L Alkaline Phosphatase 66 (35-129) units/L Troponin T (0.00-0.029) ng/mL NT-Pro-B Natriuret Pep (0-900) pg/mL Total Protein 8.3 H (6.3-8.2) g/dL Albumin 4.2 (3.9-5) g/dL Albumin/Globulin Ratio 1.0 % 09/10/19 09/10/19 09/10/19 Range/Units 20:40 20:40 20:40 WBC (4.5-11.0) K/mm3 RBC (3.65-5.03) M/mm3 Hgb (10.1-14.3) gm/dl Hct (30.3-42.9) % MCV (79-97) fl MCH (28-32) pg MCHC (30-34) % RDW (13.2-15.2) % Plt Count (140-440) K/mm3 Lymph % (Auto) (13.4-35.0) % [place] % (Auto) (0.0-7.3) % Eos % (Auto) (0.0-4.3) % Baso % (Auto) (0.0-1.8) % Lymph # (1.2-5.4) K/mm3 [place] # (0.0-0.8) K/mm3 Eos # (0.0-0.4) K/mm3 Baso # (0.0-0.1) K/mm3 Seg Neutrophils % (40.0-70.0) % Seg Neutrophils # (1.8-7.7) K/mm3 PT 12.9 (12.2-14.9) Sec. INR 1.00 (0.87-1.13) D-Dimer (0-234) ng/mlDDU Sodium (137-145) mmol/L Potassium (3.6-5.0) mmol/L Chloride (98-107) mmol/L Carbon Dioxide (22-30) mmol/L Anion Gap mmol/L BUN (7-17) mg/dL Creatinine (0.7-1.2) mg/dL Estimated GFR ml/min BUN/Creatinine Ratio % Glucose (65-100) mg/dL POC Glucose 281 H (70-105) Calcium (8.4-10.2) mg/dL Total Bilirubin (0.1-1.2) mg/dL AST (5-40) units/L ALT (7-56) units/L Alkaline Phosphatase (35-129) units/L Troponin T 0.071 H (0.00-0.029) ng/mL NT-Pro-B Natriuret Pep 2743 H (0-900) pg/mL Total Protein (6.3-8.2) g/dL Albumin (3.9-5) g/dL Albumin/Globulin Ratio % - EKG Data -: EKG Interpreted by Me EKG shows normal: sinus rhythm, ST-T waves (lvh, repol) Rate: normal - EKG Data When compared to previous EKG there are: no significant change - Radiology Data Radiology results: report reviewed CHEST 1 VIEW 09/10/2019 8:55 PM INDICATION / CLINICAL INFORMATION: sob, cp. COMPARISON: Chest x-ray 08/30/2019 FINDINGS: SUPPORT DEVICES: New right internal jugular dialysis catheter has tip in SVC. Left subclavian ICD lead again projects over right ventricle. HEART / MEDIASTINUM: Sternotomy, CABG and borderline cardiomegaly, unchanged. LUNGS / PLEURA: No significant pulmonary or pleural abnormality. No pneumothorax. ADDITIONAL FINDINGS: No significant additional findings. IMPRESSION: 1. No acute findings. - Medical Decision Making pt clinically reproducible chest wall pain signifcant risk factors elevated ddimer vq pending s/o to Dr Muniz to call hospitalist when result back Dr Haddad aware of pending admission after completion of ed workup - Differential Diagnosis pe, mi, unstable angina, msk pain Critical Care Time: No Critical care attestation.: If time is entered above; I have spent that time in minutes in the direct care of this critically ill patient, excluding procedure time. ED Disposition Clinical Impression: Chest pain, Elevated troponin, ESRD on dialysis, Elevated d-dimer Disposition: OP ADMIT IP TO THIS HOSP Is pt being admited?: Yes Condition: Stable Time of Disposition: 01:20
--- NOTE | 2019-09-11 01:06 | Nuclear Medicine Report ---
NM lung scan perf/vent INDICATION / CLINICAL INFORMATION: elevated dimer, cp, sob. TECHNIQUE: Dose / Agent / Route: 19.7mCi xenon-133 inhaled. 5.7mCi technetium 99m MAA IV COMPARISON: AP chest 09/10/2019 FINDINGS: There are no segmental or subsegmental perfusion defects. Ventilation imaging is normal. IMPRESSION: 1. Low probability for pulmonary embolism. Signer Name: Angelo Hamilton MD Signed: 09/11/2019 1:02 AM Workstation Name: [id number]
[2019-09-11] MEDS ORDERED: ACETAMINOPHEN 325 MG TAB PO PRN (01:25)
[2019-09-11] MEDS ORDERED: DEXTROSE 50% IN WATER (25GM) 50 ML SYRINGE IV PRN (01:25)
--- NOTE | 2019-09-11 01:30 | History and Physical Report ---
History of Present Illness Date of examination: 09/11/19 History of present illness: 54-year-old woman with a history of hypertension, diabetes complicated by neuropathy, CVA, coronary artery disease, peripheral vascular disease, hypothyroidism, CHF, GERD, end-stage renal disease, started on dialysis 6 days ago comes to the emergency room with complaints of shortness of chest pain started yesterday. Located in the epigastric area which she describes as a pressure, constant, intensity 6/10, and identify exacerbating factors.. Admits to nausea, vomiting, shortness of breath, palpitation no diaphoresis Review Of Systems: Constitutional: no weight loss, fever, chills Ears, eyes, nose, mouth and throat: no nasal congestion, no nasal discharge, no sinus pressure, blurry vision, diplopia Neck: No neck pain or rigidity. Cardiovascular: + palpitations, chest pain Respiratory: No cough Gastrointestinal: No hematochezia, abdominal pain Genitourinary : no dysuria, frequency , hematuria Musculoskeletal: no muscle ache , joint pain Integumentary: no rash, no pruritis Neurological: no parathesias, focal weakness Endocrine: no cold or heat intolerance, no polyuria or polydipsia Hematologic/Lymphatic: no easy bruising, no easy bleeding, no gland swelling Allergic/Immunologic: no urticaria, no angioedema. PAST MEDICAL HISTORY: hypertension, diabetes complicated by neuropathy, CVA, coronary artery disease, peripheral vascular disease, hypothyroidism, CHF, GERD, end-stage renal disease PAST SURGICAL HISTORY: CABG, cholecystectomy FAMILY HISTORY:hypertension, diabetes SOCIAL HISTORY: Denies tobacco, drugs, alcohol P Medications and Allergies Allergies Allergy/AdvReac Type Severity Reaction Status Date / Time glyburide [From Micronase] Allergy Severe Swelling Verified 10/10/17 13:17 of tongue,face VEGA Inhibitors Allergy Shortness Verified 12/28/17 08:24 of Breath nifedipine Allergy Vomiting Verified 12/28/17 08:23 Home Medications Medication Instructions Recorded Confirmed Last Taken Type Clopidogrel Bisulfate [Plavix] 75 mg PO DAILY 08/15/15 09/10/19 3 Days Ago History ~08/29/19 Carvedilol [Coreg] 25 mg PO BID #60 tablet 08/20/15 09/10/19 3 Days Ago Rx ~08/29/19 Hydralazine HCl [Apresoline TAB] 50 mg PO QID 08/30/17 09/10/19 3 Days Ago History ~08/29/19 Ferrous Gluconate [Ferrous 324 mg PO DAILY 10/05/17 09/10/19 3 Days Ago History Gluconate 324 MG] ~08/29/19 Furosemide [Lasix TAB] 80 mg PO QDAY 10/05/17 09/10/19 3 Days Ago History ~08/29/19 Levothyroxine Sodium [Synthroid] 300 mcg PO 5XW 10/10/17 09/10/19 3 Days Ago History ~08/29/19 Simvastatin [Zocor] 10 mg PO HS 10/10/17 09/10/19 3 Days Ago History ~08/29/19 Lispro Insulin [HumaLOG] 1.1 units SQ Q60MIN 12/28/17 09/10/19 3 Days Ago History ~08/29/19 Vit D3-Vit K/Berberine/Hops 1 tab PO QWEEK 12/28/17 09/10/19 3 Days Ago History [Ostera Tablet] ~08/29/19 Aspirin 325 mg PO QDAY #30 tablet 09/06/19 09/10/19 Unknown Rx Polyethylene Glycol 3350 [Miralax 17 gm PO BID #30 packet 09/06/19 09/10/19 Unknown Rx 3350] oxyCODONE /ACETAMINOPHEN [Percocet 1 tab PO Q6H PRN #10 09/06/19 09/10/19 Unknown Rx 5/325 mg] Pantoprazole [Protonix TAB] 40 mg PO QDAY #30 tablet 09/14/19 Unknown Rx Active Meds: Active Medications Acetaminophen (Tylenol) 650 mg PO Q4H PRN PRN Reason: Pain MILD(1-3)/Fever >100.5/VIGIL Dextrose (D50w (25gm) Syringe) 50 ml IV PRN PRN PRN Reason: Hypoglycemia Enoxaparin Sodium (Lovenox) 30 mg SUB-Q QDAY [place] Insulin Human Lispro (Humalog) 0 unit SUB-Q ACHS [place]; Protocol Morphine Sulfate (Morphine) 2 mg IV Q4H PRN PRN Reason: Pain, Moderate (4-6) Ondansetron HCl (Zofran) 4 mg IV Q8H PRN PRN Reason: Nausea And Vomiting Sodium Chloride (Sodium Chloride Flush Syringe 10 Ml) 10 ml IV BID [place] Sodium Chloride (Sodium Chloride Flush Syringe 10 Ml) 10 ml IV PRN PRN PRN Reason: LINE FLUSH Exam - Constitutional Vitals: Temp Pulse Resp BP Pulse Ox 98.3 F 76 14 156/71 97 09/10/19 19:29 09/10/19 22:46 09/10/19 22:46 09/10/19 22:46 09/10/19 22:46 Results - Labs CBC & Chem 7: 09/11/19 03:41 09/12/19 05:42 Labs: Abnormal lab results 09/10/19 09/10/19 09/10/19 Range/Units 20:17 20:19 20:19 MCH 25 L (28-32) pg [place] % (Auto) 11.9 H (0.0-7.3) % Eos % (Auto) 4.9 H (0.0-4.3) % [place] # 1.0 H (0.0-0.8) K/mm3 D-Dimer > 21069 H (0-234) ng/mlDDU Potassium 3.5 L D (3.6-5.0) mmol/L Chloride 91.9 L (98-107) mmol/L Carbon Dioxide 36 H D (22-30) mmol/L BUN 23 H (7-17) mg/dL Creatinine 3.1 H (0.7-1.2) mg/dL Glucose 268 H (65-100) mg/dL POC Glucose (70-105) Troponin T (0.00-0.029) ng/mL NT-Pro-B Natriuret Pep (0-900) pg/mL Total Protein 8.3 H (6.3-8.2) g/dL 09/10/19 09/10/19 09/11/19 Range/Units 20:40 20:40 00:28 MCH (28-32) pg [place] % (Auto) (0.0-7.3) % Eos % (Auto) (0.0-4.3) % [place] # (0.0-0.8) K/mm3 D-Dimer (0-234) ng/mlDDU Potassium (3.6-5.0) mmol/L Chloride (98-107) mmol/L Carbon Dioxide (22-30) mmol/L BUN (7-17) mg/dL Creatinine (0.7-1.2) mg/dL Glucose (65-100) mg/dL POC Glucose 281 H (70-105) Troponin T 0.071 H 0.076 H (0.00-0.029) ng/mL NT-Pro-B Natriuret Pep 2743 H (0-900) pg/mL Total Protein (6.3-8.2) g/dL Assessment and Plan Asessment Chest pain Coronary artery disease Hypertension Diabetes ESRD vascular disease Hypothyroidism History of CHF, stable GERD Plan Admit to medicine Check cardiac enzymes, consult cardiology Check fingersticks, start sliding scale DVT prophalaxis, IV morphine Continue appropriate outpatient medications Consult renal for dialysis
[2019-09-11] MEDS: ONDANSETRON 4 MG/2 ML INJ IV PRN ×3 (02:57→18:04)
[2019-09-11] MEDS: MORPHINE 2 MG/1 ML INJ IV PRN ×3 (03:07→18:04)
[2019-09-11 04:24] LABS: Basophils % (Auto) 0.7 % (0.0-1.8); Eosinophils # (Auto) 0.4 K/mm3 (0.0-0.4); Eosinophils % (Auto) 5.6 % (0.0-4.3); Hematocrit 29.5 % (30.3-42.9); Hemoglobin 9.3 gm/dl (10.1-14.3); Lymphocytes # (Auto) 2.3 K/mm3 (1.2-5.4); Lymphocytes % (Auto) 30.3 % (13.4-35.0); Mean Corpuscular HGB Conc 32 % (30-34); Mean Corpuscular Volume 80 fl (79-97); Monocytes % (Auto) 13.2 % (0.0-7.3); Platelet Count 230 K/mm3 (140-440); Red Cell Distribution Width 14.3 % (13.2-15.2)
[2019-09-11 04:26] LABS: Calcium 8.9 mg/dL (8.4-10.2); Creatine Kinase MB 1.3 ng/mL (0.0-4.0)
[2019-09-11 06:13] LABS: Chol/HDL Ratio 4.05 %
[2019-09-11 08:21] LABS: Creatine Kinase MB 1.3 ng/mL (0.0-4.0)
[2019-09-11] MEDS: INSULIN LISPRO 100 UNIT/ML SUB-Q SCH ×5 (08:50→22:57)
[2019-09-11] MEDS ORDERED: hydrALAZINE 20 MG/1 ML INJ IV PRN (09:00)
[2019-09-11] MEDS: ENOXAPARIN 30 MG/0.3 ML INJ SUB-Q SCH (09:17)
--- NOTE | 2019-09-11 11:29 | Consultation ---
History of Present Illness - Reason for Consult Consult date: 09/11/19 end stage renal disease - History of Present Illness This is a 54 year old female who presented to the hospital with a chief complaint of chest pain and shortness of breath. CXR done showed- no acute findings. Patient has history of new ESRD and was recently started on hemodialysis. Patient also has history of CABG x 3, AICD, CHF with ischemic cardiomyopathy EF at 20-25%, diabetes. Patient was recently discharged from this hospital on 09/06/19. Patient goes to [facility]. Last HD was yesterday. We are being consulted for management of this patient's ESRD. Past History Past Medical History: anemia, diabetes, dialysis, ESRD, heart failure, hypertension, renal failure. denies: atrial fib, arrhythmia Past Surgical History: CABG. denies: appendectomy, abd. aortic aneurysm repair, arthroscopy, valve replacement, cholecystectomy Social history: no significant social history Family history: no significant family history Medications and Allergies Allergies Allergy/AdvReac Type Severity Reaction Status Date / Time glyburide [From Micronase] Allergy Severe Swelling Verified 10/10/17 13:17 of tongue,face VEGA Inhibitors Allergy Shortness Verified 12/28/17 08:24 of Breath nifedipine Allergy Vomiting Verified 12/28/17 08:23 Home Medications Medication Instructions Recorded Confirmed Last Taken Type Clopidogrel Bisulfate [Plavix] 75 mg PO DAILY 08/15/15 09/10/19 3 Days Ago History ~08/29/19 Carvedilol [Coreg] 25 mg PO BID #60 tablet 08/20/15 09/10/19 3 Days Ago Rx ~08/29/19 Hydralazine HCl [Apresoline TAB] 50 mg PO QID 08/30/17 09/10/19 3 Days Ago Histo ry ~08/29/19 Ferrous Gluconate [Ferrous 324 mg PO DAILY 10/05/17 09/10/19 3 Days Ago History Gluconate 324 MG] ~08/29/19 Furosemide [Lasix TAB] 80 mg PO QDAY 10/05/17 09/10/19 3 Days Ago History ~08/29/19 Levothyroxine Sodium [Synthroid] 300 mcg PO 5XW 10/10/17 09/10/19 3 Days Ago History ~08/29/19 Simvastatin [Zocor] 10 mg PO HS 10/10/17 09/10/19 3 Days Ago History ~08/29/19 Lispro Insulin [HumaLOG] 1.1 units SQ Q60MIN 12/28/17 09/10/19 3 Days Ago History ~08/29/19 Vit D3-Vit K/Berberine/Hops 1 tab PO QWEEK 12/28/17 09/10/19 3 Days Ago History [Ostera Tablet] ~08/29/19 Aspirin 325 mg PO QDAY #30 tablet 09/06/19 09/10/19 Unknown Rx Polyethylene Glycol 3350 [Miralax 17 gm PO BID #30 packet 09/06/19 09/10/19 Unknown Rx 3350] oxyCODONE /ACETAMINOPHEN [Percocet 1 tab PO Q6H PRN #10 09/06/19 09/10/19 Unknown Rx 5/325 mg] Active Meds: Active Medications Acetaminophen (Tylenol) 650 mg PO Q4H PRN PRN Reason: Pain MILD(1-3)/Fever >100.5/VIGIL Dextrose (D50w (25gm) Syringe) 50 ml IV PRN PRN PRN Reason: Hypoglycemia Enoxaparin Sodium (Lovenox) 30 mg SUB-Q QDAY [facility] Last Admin: 09/11/19 09:17 Dose: 30 mg Documented by: Hydralazine HCl (Apresoline) 10 mg IV Q4H PRN PRN Reason: BP >160/100 Last Admin: 09/11/19 08:51 Dose: 10 mg Documented by: Insulin Human Lispro (Humalog) 0 unit SUB-[address] [facility]; Protocol Last Admin: 09/11/19 08:50 Dose: 3 unit Documented by: Morphine Sulfate (Morphine) 2 mg IV Q4H PRN PRN Reason: Pain, Moderate (4-6) Last Admin: 09/11/19 03:07 Dose: 2 mg Documented by: Ondansetron HCl (Zofran) 4 mg IV Q8H PRN PRN Reason: Nausea And Vomiting Last Admin: 09/11/19 08:51 Dose: 4 mg Documented by: Pneumococcal Polyvalent Vaccine (Pneumovax 23) 0.5 ml IM .ONCE ONE Stop: 09/11/19 12:01 Sodium Chloride (Sodium Chloride Flush Syringe 10 Ml) 10 ml IV BID [facility] Last Admin: 09/11/19 09:17 Dose: 10 ml Documented by: Sodium Chloride (Sodium Chloride Flush Syringe 10 Ml) 10 ml IV PRN PRN PRN Reason: LINE FLUSH Review of Systems Constitutional: fatigue, no weight loss, no weight gain, no fever, no chills, no sweats Ears, nose, mouth and throat: no ear pain, no ear discharge, no tinnitis, no nose pain, no nasal congestion Breasts: deferred Cardiovascular: chest pain, edema, shortness of breath, high blood pressure, leg edema Respiratory: shortness of breath, no cough, no cough with sputum, no excessive sputum, no hemoptysis Gastrointestinal: nausea, no abdominal pain, no vomiting, no diarrhea, no constipation, no change in bowel habits Musculoskeletal: other (Joint pain), no neck stiffness, no neck pain, no shooting arm pain, no arm numbness/tingling, no low back pain Integumentary: no rash, no pruritis, no redness, no sores, no wounds Neurological: no paralysis, no weakness, no parathesias, no numbness, no tingling, no seizures Psychiatric: no memory loss, no change in sleep habits, no sleep disturbances, no insomnia, no hypersomnia, no change in appetite Endocrine: no cold intolerance, no heat intolerance, no polyphagia, no excessive thirst, no polydipsia, no polyuria Exam - Vital Signs Vital signs: Vital Signs Temp Pulse Resp BP Pulse Ox 98.3 F 85 18 158/73 95 09/10/19 19:27 09/10/19 19:27 09/10/19 19:27 09/10/19 19:27 09/10/19 19:27 - General Appearance General appearance: well-developed, appears stated age, fatigue EENT: ATNC, PERRL, hearing intact, vision intact Neck: Present: neck supple, trachea midline Respiratory: Decreased Breath Sounds Heart: regular, S1S2 Gastrointestinal: Present: normoactive bowel sounds Integumentary: warm and dry Neurologic: alert and oriented x3 Musculoskeletal: Present: joint swelling Results - Lab Results 09/11/19 03:41 09/11/19 03:41 Most recent lab results Calcium 8.9 mg/dL (8.4-10.2) 09/11/19 03:41 Assessment and Plan Assessment: End Stage Renal Disease Acute on chronic systolic CHF (EF 20%) Chest Pain DM Type 2 on insulin Essential Hypertension Plan -Hemodialysis tomorrow for UF and clearance -Fluid restriction of 1 liter per day -Chest Pain- Cardiology consulted, planning on stress test tomorrow -Obtain daily weights -Monitor I/O's -Renal diet -Assess dialysis needs daily
[2019-09-11] MEDS ORDERED: PNEUMOCOCCAL 23 Valent 0.5 ML VIAL IM ONE (12:00)
[2019-09-11] MEDS ORDERED: FLU VACC QUAD 2019-20 (3 YR UP)/PF 60 MCG/0.5 ML SYRINGE IM ONE (12:00)
--- NOTE | 2019-09-11 12:04 | Consultation ---
<RIMA NICK - Last Filed: 09/11/19 12:12> History of Present Illness Consult date: 09/11/19 Consult reason: chest pain, shortness of breath History of present illness: Patient is a 54-year old with a history of kidney disease who was initiated on dialysis a week ago. Patient returns with complaints of shortness of breath and atypical chest pain, admitted for further evaluation. Patient has a cardiac history of ischemic cardiomyopathy, coronary artery disease status post 3 vessel bypass surgery in 2017 at [place]. She has an indwelling cardiac defibrillator. Cardiac enzymes measures a CK at 64 with a relative index of 2.0. Troponin of 0.076, likely in the setting of renal disease. 12 lead ECG is sinus rhythm, LVH with repolarization abnormalities. Past History Past Medical History: anemia, diabetes, dialysis, ESRD, heart failure, hypertension, renal failure. denies: atrial fib, arrhythmia Past Surgical History: CABG. denies: appendectomy, abd. aortic aneurysm repair, arthroscopy, valve replacement, cholecystectomy Social history: no significant social history Family history: no significant family history Medications and Allergies Allergies Allergy/AdvReac Type Severity Reaction Status Date / Time glyburide [From Micronase] Allergy Severe Swelling Verified 10/10/17 13:17 of tongue,face VEGA Inhibitors Allergy Shortness Verified 12/28/17 08:24 of Breath nifedipine Allergy Vomiting Verified 12/28/17 08:23 Home Medications Medication Instructions Recorded Confirmed Last Taken Type Clopidogrel Bisulfate [Plavix] 75 mg PO DAILY 08/15/15 09/10/19 3 Days Ago History ~08/29/19 Carvedilol [Coreg] 25 mg PO BID #60 tablet 08/20/15 09/10/19 3 Days Ago Rx ~08/29/19 Hydralazine HCl [Apresoline TAB] 50 mg PO QID 08/30/17 09/10/19 3 Days Ago History ~08/29/19 Ferrous Gluconate [Ferrous 324 mg PO DAILY 10/05/17 09/10/19 3 Days Ago History Gluconate 324 MG] ~08/29/19 Furosemide [Lasix TAB] 80 mg PO QDAY 10/05/17 09/10/19 3 Days Ago History ~08/29/19 Levothyroxine Sodium [Synthroid] 300 mcg PO 5XW 10/10/17 09/10/19 3 Days Ago History ~08/29/19 Simvastatin [Zocor] 10 mg PO HS 10/10/17 09/10/19 3 Days Ago History ~08/29/19 Lispro Insulin [HumaLOG] 1.1 units SQ Q60MIN 12/28/17 09/10/19 3 Days Ago History ~08/29/19 Vit D3-Vit K/Berberine/Hops 1 tab PO QWEEK 12/28/17 09/10/19 3 Days Ago History [Ostera Tablet] ~08/29/19 Aspirin 325 mg PO QDAY #30 tablet 09/06/19 09/10/19 Unknown Rx Polyethylene Glycol 3350 [Miralax 17 gm PO BID #30 packet 09/06/19 09/10/19 Unknown Rx 3350] oxyCODONE /ACETAMINOPHEN [Percocet 1 tab PO Q6H PRN #10 09/06/19 09/10/19 Unknown Rx 5/325 mg] Active Meds: Active Medications Acetaminophen (Tylenol) 650 mg PO Q4H PRN PRN Reason: Pain MILD(1-3)/Fever >100.5/VIGIL Dextrose (D50w (25gm) Syringe) 50 ml IV PRN PRN PRN Reason: Hypoglycemia Enoxaparin Sodium (Lovenox) 30 mg SUB-Q QDAY [facility] Last Admin: 09/11/19 09:17 Dose: 30 mg Documented by: Hydralazine HCl (Apresoline) 10 mg IV Q4H PRN PRN Reason: BP >160/100 Last Admin: 09/11/19 08:51 Dose: 10 mg Documented by: Insulin Human Lispro (Humalog) 0 unit SUB-Q [facility]; Protocol Last Admin: 09/11/19 08:50 Dose: 3 unit Documented by: Morphine Sulfate (Morphine) 2 mg IV Q4H PRN PRN Reason: Pain, Moderate (4-6) Last Admin: 09/11/19 03:07 Dose: 2 mg Documented by: Ondansetron HCl (Zofran) 4 mg IV Q8H PRN PRN Reason: Nausea And Vomiting Last Admin: 09/11/19 08:51 Dose: 4 mg Documented by: Pneumococcal Polyvalent Vaccine (Pneumovax 23) 0.5 ml IM .ONCE ONE Stop: 09/11/19 12:01 Sodium Chloride (Sodium Chloride Flush Syringe 10 Ml) 10 ml IV BID [facility] Last Admin: 09/11/19 09:17 Dose: 10 ml Documented by: Sodium Chloride (Sodium Chloride Flush Syringe 10 Ml) 10 ml IV PRN PRN PRN Reason: LINE FLUSH Physical Examination Vital Signs Temp Pulse Resp BP Pulse Ox 98.3 F 85 18 158/73 95 09/10/19 19:27 09/10/19 19:27 09/10/19 19:27 09/10/19 19:27 09/10/19 19:27 Results 09/11/19 03:41 09/11/19 03:41 Cardiac Enzymes 09/10/19 09/11/19 09/11/19 Range/Units 20: 03:41 07:42 AST 11 (5-40) units/L CK-MB (CK-2) 1.3 1.3 (0.0-4.0) ng/mL Coagulation 09/10/19 Range/Units 20:40 PT 12.9 (12.2-14.9) Sec. INR 1.00 (0.87-1.13) Lipids 09/10/19 Range/Units 20:40 Triglycerides 180 H (2-149) mg/dL Cholesterol 223 H (50-199) mg/dL HDL Cholesterol 55 (40-59) mg/dL Cholesterol/HDL Ratio 4.05 % CBC 09/10/19 09/11/19 Range/Units 20:19 03:41 WBC 8.7 7.5 (4.5-11.0) K/mm3 RBC 4.00 3.70 (3.65-5.03) M/mm3 Hgb 10.2 9.3 L (10.1-14.3) gm/dl Hct 31.9 29.5 L (30.3-42.9) % Plt Count 243 230 (140-440) K/mm3 Lymph # 1.9 2.3 (1.2-5.4) K/mm3 Holmes # 1.0 H 1.0 H (0.0-0.8) K/mm3 Eos # 0.4 0.4 (0.0-0.4) K/mm3 Baso # 0.1 0.0 (0.0-0.1) K/mm3 Comprehensive Metabolic Panel 09/10/19 09/11/19 Range/Units 20:19 03:41 Sodium 142 141 (137-145) mmol/L Potassium 3.5 L D 3.7 (3.6-5.0) mmol/L Chloride 91.9 L 92.4 L (98-107) mmol/L Carbon Dioxide 36 H D 35 H (22-30) mmol/L BUN 23 H 26 H (7-17) mg/dL Creatinine 3.1 H 3.6 H (0.7-1.2) mg/dL Glucose 268 H 192 H (65-100) mg/dL Calcium 9.3 8.9 (8.4-10.2) mg/dL AST 11 (5-40) units/L ALT 8 (7-56) units/L Alkaline Phosphatase 66 (35-129) units/L Total Protein 8.3 H (6.3-8.2) g/dL Albumin 4.2 (3.9-5) g/dL Assessment and Plan Shortness of breath Chest pain, atypical ESRD recently initiated on dialysis History of CAD with 3v CABG in 2017 History of Ischemic CMP, EF 20-25% by echo 08/30/19 Presence of AICD Type 2 DM Obesity HTN Resume medical therapy for ischemic cardiomyopathy and coronary artery disease. Persantine thallium stress test will be dome tomorrow. <NILO GONZALES - Last Filed: 09/11/19 17:28> Medications and Allergies Active Meds: Active Medications Acetaminophen (Tylenol) 650 mg PO Q4H PRN PRN Reason: Pain MILD(1-3)/Fever >100.5/VIGIL Dextrose (D50w (25gm) Syringe) 50 ml IV PRN PRN PRN Reason: Hypoglycemia Enoxaparin Sodium (Lovenox) 30 mg SUB-Q QDAY [facility] Last Admin: 09/11/19 09:17 Dose: 30 mg Documented by: Hydralazine HCl (Apresoline) 10 mg IV Q4H PRN PRN Reason: BP >160/100 Last Admin: 09/11/19 08:51 Dose: 10 mg Documented by: Insulin Human Lispro (Humalog) 0 unit SUB-Q [facility]; Protocol Last Admin: 09/11/19 12:48 Dose: 1 unit Documented by: Morphine Sulfate (Morphine) 2 mg IV Q4H PRN PRN Reason: Pain, Moderate (4-6) Last Admin: 09/11/19 12:47 Dose: 2 mg Documented by: Ondansetron HCl (Zofran) 4 mg IV Q8H PRN PRN Reason: Nausea And Vomiting Last Admin: 09/11/19 08:51 Dose: 4 mg Documented by: Sodium Chloride (Sodium Chloride Flush Syringe 10 Ml) 10 ml IV BID [facility] Last Admin: 09/11/19 09:17 Dose: 10 ml Documented by: Sodium Chloride (Sodium Chloride Flush Syringe 10 Ml) 10 ml IV PRN PRN PRN Reason: LINE FLUSH Physical Examination Vital Signs Temp Pulse Resp BP Pulse Ox 98.3 F 85 18 158/73 95 09/10/19 19:27 09/10/19 19:27 09/10/19 19:27 09/10/19 19:27 09/10/19 19:27 Results 09/11/19 03:41 09/11/19 03:41 Cardiac Enzymes 09/10/19 09/11/19 09/11/19 Range/Units 20:19 03:41 07:42 AST 11 (5-40) units/L CK-MB (CK-2) 1.3 1.3 (0.0-4.0) ng/mL Coagulation 09/10/19 Range/Units 20:40 PT 12.9 (12.2-14.9) Sec. INR 1.00 (0.87-1.13) Lipids 09/10/19 Range/Units 20:40 Triglycerides 180 H (2-149) mg/dL Cholesterol 223 H (50-199) mg/dL HDL Cholesterol 55 (40-59) mg/dL Cholesterol/HDL Ratio 4.05 % CBC 09/10/19 09/11/19 Range/Units 20:19 03:41 WBC 8.7 7.5 (4.5-11.0) K/mm3 RBC 4.00 3.70 (3.65-5.03) M/mm3 Hgb 10.2 9.3 L (10.1-14.3) gm/dl Hct 31.9 29.5 L (30.3-42.9) % Plt Count 243 230 (140-440) K/mm3 Lymph # 1.9 2.3 (1.2-5.4) K/mm3 Holmes # 1.0 H 1.0 H (0.0-0.8) K/mm3 Eos # 0.4 0.4 (0.0-0.4) K/mm3 Baso # 0.1 0.0 (0.0-0.1) K/mm3 Comprehensive Metabolic Panel 09/10/19 09/11/19 Range/Units 20:19 03:41 Sodium 142 141 (137-145) mmol/L Potassium 3.5 L D 3.7 (3.6-5.0) mmol/L Chloride 91.9 L 92.4 L (98-107) mmol/L Carbon Dioxide 36 H D 35 H (22-30) mmol/L BUN 23 H 26 H (7-17) mg/dL Creatinine 3.1 H 3.6 H (0.7-1.2) mg/dL Glucose 268 H 192 H (65-100) mg/dL Calcium 9.3 8.9 (8.4-10.2) mg/dL AST 11 (5-40) units/L ALT 8 (7-56) units/L Alkaline Phosphatase 66 (35-129) units/L Total Protein 8.3 H (6.3-8.2) g/dL Albumin 4.2 (3.9-5) g/dL Assessment and Plan I have seen and evaluated the patient and agree with the assessment and plan. The patient presents with a complaint of chest pain. The patient has a history of CAD s/p CABG, ischemic cardiomyopathy with EF 20-25%, AICD placement. Recommend continued medical therapy for coronary artery disease and ischemic cardiomyopathy. Plan for stress test tomorrow.
--- NOTE | 2019-09-11 13:51 | Progress Note ---
Assessment and Plan Assessment and plan: 54-year-old woman who presented to the hospital with chest discomfort after having dialysis. She states that she's been having spontaneous nausea and vomiting for over 3 months, she is able to eat and tolerate food most of the time was at times she just becomes nauseous and vomits and she has no explanation to why happens she denies any exacerbating factors or relieving factors. She does spontaneously vomits and usually feels fine afterwards. This time she states that she has not been tolerating by mouth the past day and has been vomiting continuously. Chest x-ray; no acute findings VQ scan low probability for PE Chest pain Cardiology input appreciated Dialysis for fluid management, stress test was canceled by cigarette seller as patient has just had a VQ scan, plan for stress test on Monday History of CAD with 3v CABG in 2017 Chronic systolic CHF, EF of 25%, status post ICD Optimize medications per cardiology, fluid management per dialysis History of Ischemic CMP, Epigastric pain/nausea vomiting gastric emptying study, GI consult, PPI -GI consult End-stage renal disease Continue dialysis per bag loader DVT prophylaxis; Lovenox renal dose History Interval history: Review of systems Constitutional: No fevers, no malaise, no joint pains CVS: Admits to atypical constant chest pain, no orthopnea, no dyspnea on exertion, no pedal edema GI: Admits to abdominal pain, she is now able to tolerate by mouth but has spontaneous episodes of vomiting. Respiratory: no wheezing, no coughing Hospitalist Physical - Physical exam Narrative exam: General.: Appears well, no distress, nontoxic HEENT: Moist mucous membranes, extraocular muscles intact, no lymphadenopathy Neck: supple Cardiac: S1-S2 heard Lungs: clear to auscultation bilaterally Abdomen: soft , mild epigastric tenderness Extremities: no edema clubbing or cyanosis Skin: no rash or lesions Neurologic: no gross focal deficits Psych: calm, and cooperative - Constitutional Vitals: Temp Pulse Resp BP Pulse Ox 98.7 F 73 16 178/87 100 09/11/19 08:11 09/11/19 08:51 09/11/19 08:11 09/11/19 08:51 09/11/19 09:35 Results - Labs CBC & Chem 7: 09/11/19 03:41 09/12/19 05:42 Labs: Laboratory Last Values WBC 7.5 K/mm3 (4.5-11.0) 09/11/19 03:41 RBC 3.70 M/mm3 (3.65-5.03) 09/11/19 03:41 Hgb 9.3 gm/dl (10.1-14.3) L 09/11/19 03:41 Hct 29.5 % (30.3-42.9) L 09/11/19 03:41 MCV 80 fl (79-97) 09/11/19 03:41 MCH 25 pg (28-32) L 09/11/19 03:41 MCHC 32 % (30-34) 09/11/19 03:41 RDW 14.3 % (13.2-15.2) 09/11/19 03:41 Plt Count 230 K/mm3 (140-440) 09/11/19 03:41 Lymph % (Auto) 30.3 % (13.4-35.0) 09/11/19 03:41 Mcdonald % (Auto) 13.2 % (0.0-7.3) H 09/11/19 03:41 Eos % (Auto) 5.6 % (0.0-4.3) H 09/11/19 03:41 Baso % (Auto) 0.7 % (0.0-1.8) 09/11/19 03:41 Lymph # 2.3 K/mm3 (1.2-5.4) 09/11/19 03:41 Mcdonald # 1.0 K/mm3 (0.0-0.8) H 09/11/19 03:41 Eos # 0.4 K/mm3 (0.0-0.4) 09/11/19 03:41 Baso # 0.0 K/mm3 (0.0-0.1) 09/11/19 03:41 Seg Neutrophils % 50.2 % (40.0-70.0) 09/11/19 03:41 Seg Neutrophils # 3.8 K/mm3 (1.8-7.7) 09/11/19 03:41 PT 12.9 Sec. (12.2-14.9) 09/10/19 20:40 INR 1.00 (0.87-1.13) 09/10/19 20:40 D-Dimer > 84862 ng/mlDDU (0-234) H 09/10/19 20:17 Sodium 141 mmol/L (137-145) 09/11/19 03:41 Potassium 3.7 mmol/L (3.6-5.0) 09/11/19 03:41 Chloride 92.4 mmol/L (98-107) L 09/11/19 03:41 Carbon Dioxide 35 mmol/L (22-30) H 09/11/19 03:41 Anion Gap 17 mmol/L 09/11/19 03:41 BUN 26 mg/dL (7-17) H 09/11/19 03:41 Creatinine 3.6 mg/dL (0.7-1.2) H 09/11/19 03:41 Estimated GFR 16 ml/min 09/11/19 03:41 BUN/Creatinine Ratio 7 % 09/11/19 03:41 Glucose 192 mg/dL (65-100) H 09/11/19 03:41 POC Glucose 165 (70-105) H 09/11/19 11:57 Calcium 8.9 mg/dL (8.4-10.2) 09/11/19 03:41 Total Bilirubin 0.40 mg/dL (0.1-1.2) 09/10/19 20:19 AST 11 units/L (5-40) 09/10/19 20:19 ALT 8 units/L (7-56) 09/10/19 20:19 Alkaline Phosphatase 66 units/L (35-129) 09/10/19 20:19 Total Creatine Kinase 66 units/L (30-135) 09/11/19 07:42 CK-MB (CK-2) 1.3 ng/mL (0.0-4.0) 09/11/19 07:42 CK-MB (CK-2) Rel Index 1.9 (0-4) 09/11/19 07:42 Troponin T 0.071 ng/mL (0.00-0.029) H 09/11/19 07:42 NT-Pro-B Natriuret Pep 2743 pg/mL (0-900) H 09/10/19 20:40 Total Protein 8.3 g/dL (6.3-8.2) H 09/10/19 20:19 Albumin 4.2 g/dL (3.9-5) 09/10/19 20:19 Albumin/Globulin Ratio 1.0 % 09/10/19 20:19 Triglycerides 180 mg/dL (2-149) H 09/10/19 20:40 Cholesterol 223 mg/dL (50-199) H 09/10/19 20:40 LDL Cholesterol Direct 138 mg/dL (50-130) H 09/10/19 20:40 HDL Cholesterol 55 mg/dL (40-59) 09/10/19 20:40 Cholesterol/HDL Ratio 4.05 % 09/10/19 20:40 Active Medications - Current Medications Current Medications: Generic Name Dose Route Start Last Admin Trade Name Freq PRN Reason Stop Dose Admin Acetaminophen 650 mg 09/11/19 01:25 Tylenol PO Q4H PRN Pain MILD(1-3)/Fever >100.5/VIGLI Dextrose 50 ml 09/11/19 01:25 D50w (25gm) Syringe IV PRN PRN Hypoglycemia Enoxaparin Sodium 30 mg 09/11/19 10:00 09/11/19 09:17 Lovenox SUB-Q 30 mg QDAY [facility] Administration Hydralazine HCl 10 mg 09/11/19 09:00 09/11/19 08:51 Apresoline IV 10 mg Q4H PRN Administration BP >160/100 Insulin Human Lispro 0 unit 09/11/19 07:30 09/11/19 12:48 Humalog SUB-Q 1 unit ACHS [facility] Administration Protocol Morphine Sulfate 2 mg 09/11/19 01:25 09/11/19 12:47 Morphine IV 2 mg Q4H PRN Administration Pain, Moderate (4-6) Ondansetron HCl 4 mg 09/11/19 01:25 09/11/19 08:51 Zofran IV 4 mg Q8H PRN Administration Nausea And Vomiting Sodium Chloride 10 ml 09/11/19 10:00 09/11/19 09:17 Sodium Chloride Flush Syringe 10 Ml IV 10 ml BID [facility] Administration Sodium Chloride 10 ml 09/11/19 01:25 Sodium Chloride Flush Syringe 10 Ml IV PRN PRN LINE FLUSH
[2019-09-11] MEDS ORDERED: SODIUM CHLORIDE 0.9% 100 ML IV PRN (17:45)
[2019-09-11 21:15] LABS: Hepatitis B Surface Antigen Non-Reactive (Negative); Hepatitis C Virus Antibody Non-Reactive (NonReactive)
[2019-09-11] MEDS ORDERED: SIMVASTATIN 10 MG PO SCH (22:00)
[2019-09-11] MEDS ORDERED: HYDRALAZINE HCL 50 MG PO SCH (22:00)
[2019-09-11] MEDS ORDERED: oxyCODONE /ACETAMINOPHEN 5-325MG TAB PO PRN (22:00)
[2019-09-11] MEDS ORDERED: LEVOTHYROXINE SODIUM 300 MCG PO SCH (22:00)
[2019-09-11] MEDS: carvediloL 25 MG TAB PO SCH (22:30)
[2019-09-11] MEDS: PRAVASTATIN 20 MG TAB PO SCH (22:30)
[2019-09-11] MEDS: hydrALAZINE 25 MG TAB PO SCH (22:30)
[2019-09-11] MEDS: POLYETHYLENE GLYCOL 3350 17 GM POWDER PO SCH (22:31)
[2019-09-11 23:53] LABS: Bacteria,Urine 1+ /HPF (Negative); Bilirubin,Urine NEG (Negative); Blood,Urine NEG (Negative); Color,Urine Yellow (Yellow); Mucus,Urine FEW /HPF
[2019-09-11 23:55] LABS: Protein,Urine >500 mg/dL (Negative)
[2019-09-12] MEDS: MORPHINE 2 MG/1 ML INJ IV PRN ×2 (05:20→21:23)
[2019-09-12] MEDS: LEVOTHYROXINE 150 MCG TAB PO SCH (05:21)
[2019-09-12 06:43] LABS: Calcium 9.4 mg/dL (8.4-10.2)
[2019-09-12] MEDS: INSULIN LISPRO 100 UNIT/ML SUB-Q SCH ×4 (09:14→21:23)
--- NOTE | 2019-09-12 09:47 | Progress Note ---
Assessment and Plan Shortness of breath Chest pain, atypical ESRD recently initiated on dialysis History of CAD with 3v CABG in 2017 History of Ischemic CMP, EF 20-25% by echo 08/30/19 Presence of AICD Type 2 DM Obesity HTN Recommendations: Dialysis for fluid management. Continue medical therapy for ischemic cardiomyopathy and coronary artery disease. Subjective Date of service: 09/12/19 Interval history: No interval changes. For dialysis today. Objective Vital Signs Temp Pulse Pulse Resp BP Pulse Ox 09/12/19 04:40 98.9 F 09/12/19 04:39 81 18 140/66 100 09/12/19 04:00 81 09/11/19 23:34 98.5 F 09/11/19 23:33 86 18 146/76 100 09/11/19 22:30 82 171/84 09/11/19 22:00 81 18 100 09/11/19 20:46 98.3 F 80 18 172/86 100 09/11/19 20:00 81 09/11/19 15:45 98.3 F 86 18 138/67 97 09/11/19 12:24 73 - Physical Examination General: No Apparent Distress HEENT: Positive: PERRL Neck: Positive: trachea midline Cardiac: Positive: Reg Rate and Rhythm Lungs: Positive: Decreased Breath Sounds Neuro: Positive: Grossly Intact Extremities: Absent: edema - Labs and Meds Comprehensive Metabolic Panel 09/12/19 Range/Units 05:42 Sodium 140 (137-145) mmol/L Potassium 3.8 (3.6-5.0) mmol/L Chloride 90.8 L (98-107) mmol/L Carbon Dioxide 34 H (22-30) mmol/L BUN 36 H (7-17) mg/dL Creatinine 4.6 H (0.7-1.2) mg/dL Glucose 203 H (65-100) mg/dL Calcium 9.4 (8.4-10.2) mg/dL
--- NOTE | 2019-09-12 12:51 | Progress Note ---
Assessment and Plan End Stage Renal Disease Acute on chronic systolic CHF (EF 20%) Chest Pain DM Type 2 on insulin Essential Hypertension Plan -Hemodialysis today for UF and clearance -Fluid restriction of 1 liter per day -Chest Pain- Cardiology consulted, planning on stress test tomorrow -Obtain daily weights -Monitor I/O's -Renal diet -Assess dialysis needs daily Jayden Villafana MD [phone] Subjective Date of service: 09/12/19 Interval history: in dialysis this AM Objective - Vital Signs Vital signs: Vital Signs - 12hr 09/12/19 09/12/19 09/12/19 04:00 04:39 04:40 Temperature 98.9 F Pulse Rate 81 81 Respiratory 18 Rate Blood Pressure 140/66 O2 Sat by Pulse 100 Oximetry 09/12/19 09/12/19 09/12/19 09:30 09:45 10:00 Temperature 98.9 F Pulse Rate 74 79 81 Respiratory 18 Rate Blood Pressure 171/96 139/68 112/52 O2 Sat by Pulse Oximetry 09/12/19 09/12/19 09/12/19 10:15 10:30 10:35 Temperature Pulse Rate 79 81 78 Respiratory Rate Blood Pressure 123/53 108/58 140/70 O2 Sat by Pulse Oximetry 09/12/19 09/12/19 10:45 11:00 Temperature Pulse Rate 75 76 Respiratory Rate Blood Pressure 124/71 121/62 O2 Sat by Pulse Oximetry - Lab 09/11/19 03:41 09/12/19 05:42 Most recent lab results Calcium 9.4 mg/dL (8.4-10.2) 09/12/19 05:42 Phosphorus 4.40 mg/dL (2.5-4.5) 09/12/19 05:42 Medications & Allergies - Medications Allergies/Adverse Reactions: Allergies glyburide [From Micronase] Allergy (Severe, Verified 10/10/17 13:17) Swelling of tongue,face VEGA Inhibitors Allergy (Verified 12/28/17 08:24) Shortness of Breath nifedipine Allergy (Verified 12/28/17 08:23) Vomiting Home Medications: Home Medications Medication Instructions Recorded Confirmed Last Taken Type Clopidogrel Bisulfate [Plavix] 75 mg PO DAILY 08/15/15 09/10/19 3 Days Ago History ~08/29/19 Carvedilol [Coreg] 25 mg PO BID #60 tablet 08/20/15 09/10/19 3 Days Ago Rx ~08/29/19 Hydralazine HCl [Apresoline TAB] 50 mg PO QID 08/30/17 09/10/19 3 Days Ago History ~08/29/19 Ferrous Gluconate [Ferrous 324 mg PO DAILY 10/05/17 09/10/19 3 Days Ago History Gluconate 324 MG] ~08/29/19 Furosemide [Lasix TAB] 80 mg PO QDAY 10/05/17 09/10/19 3 Days Ago History ~08/29/19 Levothyroxine Sodium [Synthroid] 300 mcg PO 5XW 10/10/17 09/10/19 3 Days Ago History ~08/29/19 Simvastatin [Zocor] 10 mg PO HS 10/10/17 09/10/19 3 Days Ago History ~08/29/19 Lispro Insulin [HumaLOG] 1.1 units SQ Q60MIN 12/28/17 09/10/19 3 Days Ago History ~08/29/19 Vit D3-Vit K/Berberine/Hops 1 tab PO QWEEK 12/28/17 09/10/19 3 Days Ago History [Ostera Tablet] ~08/29/19 Aspirin 325 mg PO QDAY #30 tablet 09/06/19 09/10/19 Unknown Rx Polyethylene Glycol 3350 [Miralax 17 gm PO BID #30 packet 09/06/19 09/10/19 Unknown Rx 3350] oxyCODONE /ACETAMINOPHEN [Percocet 1 tab PO Q6H PRN #10 09/06/19 09/10/19 Unknown Rx 5/325 mg] Active Medications: Generic Name Dose Route Start Last Admin Trade Name Freq PRN Reason Stop Dose Admin Acetaminophen 650 mg 09/11/19 01:25 Tylenol PO Q4H PRN Pain MILD(1-3)/Fever >100.5/VIGIL Aspirin 325 mg 09/12/19 10:00 Aspirin PO QDAY [facility] Carvedilol 25 mg 09/11/19 22:00 09/11/19 22:30 Coreg PO 25 mg BID [facility] Administration Clopidogrel Bisulfate 75 mg 09/12/19 10:00 Plavix PO DAILY [facility] Dextrose 50 ml 09/11/19 01:25 D50w (25gm) Syringe IV PRN PRN Hypoglycemia Enoxaparin Sodium 30 mg 09/11/19 10:00 09/11/19 09:17 Lovenox SUB-Q 30 mg QDAY [facility] Administration Ferrous Gluconate 324 mg 09/12/19 10:00 Fergon PO DAILY [facility] Furosemide 80 mg 09/12/19 10:00 Lasix PO QDAY [facility] Hydralazine HCl 10 mg 09/11/19 09:00 09/11/19 08:51 Apresoline IV 10 mg Q4H PRN Administration BP >160/100 Hydralazine HCl 50 mg 09/11/19 22:00 09/11/19 22:30 Apresoline PO 50 mg QID [facility] Administration Sodium Chloride 100 mls @ 999 mls/hr 09/11/19 17:45 Nacl 0.9% IV [place] PRN Hypotension Insulin Human Lispro 0 unit 09/11/19 22:00 09/12/19 09:14 Humalog SUB-Q Not Given ACHS [facility] Protocol Levothyroxine Sodium 300 mcg 09/12/19 06:00 09/12/19 05:21 Synthroid PO 300 mcg [id number] [facility] Administration Miscellaneous Medication 1 tab 09/18/19 10:00 Vit D3-Vit K/Berberine/Hops [Ostera Tablet] PO QWEEK [facility] Morphine Sulfate 2 mg 09/11/19 01:25 09/12/19 05:20 Morphine IV 2 mg Q4H PRN Administration Pain, Moderate (4-6) Ondansetron HCl 4 mg 09/11/19 01:25 09/11/19 18:04 Zofran IV 4 mg Q8H PRN Administration Nausea And Vomiting Oxycodone/Acetaminophen 1 tab 09/11/19 22:00 Percocet 5/325 PO Q6H PRN Pain, Moderate (4-6) Polyethylene Glycol 17 gm 09/11/19 22:00 09/11/19 22:31 Miralax 3350 PO Not Given BID [facility] Pravastatin Sodium 20 mg 09/11/19 22:00 09/11/19 22:30 Pravachol PO 20 mg QHS [facility] Administration Sodium Chloride 10 ml 09/11/19 10:00 09/11/19 22:32 Sodium Chloride Flush Syringe 10 Ml IV 10 ml BID [facility] Administration Sodium Chloride 10 ml 09/11/19 01:25 Sodium Chloride Flush Syringe 10 Ml IV PRN PRN LINE FLUSH
[2019-09-12] MEDS: hydrALAZINE 25 MG TAB PO SCH ×4 (13:18→21:22)
[2019-09-12] MEDS: carvediloL 25 MG TAB PO SCH ×2 (13:18→21:22)
[2019-09-12] MEDS: ONDANSETRON 4 MG/2 ML INJ IV PRN (13:30)
[2019-09-12] MEDS: ENOXAPARIN 30 MG/0.3 ML INJ SUB-Q SCH (13:31)
[2019-09-12] MEDS: FUROSEMIDE 40 MG TAB PO SCH (13:32)
[2019-09-12] MEDS: POLYETHYLENE GLYCOL 3350 17 GM POWDER PO SCH ×2 (13:32→21:22)
[2019-09-12] MEDS: CLOPIDOGREL 75 MG TAB PO SCH (13:33)
[2019-09-12] MEDS: FERROUS GLUCONATE 324 MG TAB PO SCH (13:33)
[2019-09-12] MEDS: ASPIRIN 325 MG TAB PO SCH (13:33)
[2019-09-12] MEDS ORDERED: METOCLOPRAMIDE 10 MG/2 ML INJ IV PRN (14:30)
[2019-09-12] MEDS ORDERED: ONDANSETRON 4 MG/2 ML INJ IV PRN (14:30)
[2019-09-12] MEDS ORDERED: SODIUM CHLORIDE*PRIMING MACHINE ONLY FOR DIALYSIS MC ONE (14:56)
--- NOTE | 2019-09-12 15:58 | Gastroenterology Consultation ---
History of Present Illness - Reason for Consult Consult date: 09/12/19 N/V Requesting physician: BASILIO MCGUIRE - History of Present Illness Patient is a 54 y/o female with PMH of HTN, hypothyroidism, PAD, CAD (s/p CABG 2016), CHF wiht ischemic cardiomyopathy (s/p AICD), DM, GERD, neuropathy, anemia and renal failure (recently started on dialysis last week) who presented to ED with c/o atypical CP and SOB after dialysis. Cardiology and nephrology following. GI has been consulted for N/V. This afternoon patient was resting in bed w/o acute distress. She reports intermittent N/V for the past few months that is usually postprandial. Also has associated substernal/epigastric discomfort. Denies fever, wt loss, dysphagia/odynophagia, signs of bleeding, or LGI symptoms. s/p cholecystectomy 2016. Takes daily ASA and Plavix. No hx of PUD or prior EGD. Past History Past Medical History: other (see HPI) Past Surgical History: cholecystectomy, CABG Social history: no significant social history Family history: no significant family history Medications and Allergies Allergies Allergy/AdvReac Type Severity Reaction Status Date / Time glyburide [From Micronase] Allergy Severe Swelling Verified 10/10/17 13:17 of tongue,face VEGA Inhibitors Allergy Shortness Verified 12/28/17 08:24 of Breath nifedipine Allergy Vomiting Verified 12/28/17 08:23 Home Medications Medication Instructions Recorded Confirmed Last Taken Type Clopidogrel Bisulfate [Plavix] 75 mg PO DAILY 08/15/15 09/10/19 3 Days Ago History ~08/29/19 Carvedilol [Coreg] 25 mg PO BID #60 tablet 08/20/15 09/10/19 3 Days Ago Rx ~08/29/19 Hydralazine HCl [Apresoline TAB] 50 mg PO QID 08/30/17 09/10/19 3 Days Ago History ~08/29/19 Ferrous Gluconate [Ferrous 324 mg PO DAILY 10/05/17 09/10/19 3 Days Ago History Gluconate 324 MG] ~08/29/19 Furosemide [Lasix TAB] 80 mg PO QDAY 10/05/17 09/10/19 3 Days Ago History ~08/29/19 Levothyroxine Sodium [Synthroid] 300 mcg PO 5XW 10/10/17 09/10/19 3 Days Ago History ~08/29/19 Simvastatin [Zocor] 10 mg PO HS 10/10/17 09/10/19 3 Days Ago History ~08/29/19 Lispro Insulin [HumaLOG] 1.1 units SQ Q60MIN 12/28/17 09/10/19 3 Days Ago History ~08/29/19 Vit D3-Vit K/[place]/Hops 1 tab PO QWEEK 12/28/17 09/10/19 3 Days Ago History [Ostera Tablet] ~08/29/19 Aspirin 325 mg PO QDAY #30 tablet 09/06/19 09/10/19 Unknown Rx Polyethylene Glycol 3350 [Miralax 17 gm PO BID #30 packet 09/06/19 09/10/19 Unknown Rx 3350] oxyCODONE /ACETAMINOPHEN [Percocet 1 tab PO Q6H PRN #10 09/06/19 09/10/19 Unknown Rx 5/325 mg] Active Meds: Active Medications Acetaminophen (Tylenol) 650 mg PO Q4H PRN PRN Reason: Pain MILD(1-3)/Fever >100.5/VIGIL Aspirin (Aspirin) 325 mg PO QDAY [facility] Last Admin: 09/12/19 13:33 Dose: 325 mg Documented by: Carvedilol (Coreg) 25 mg PO BID [facility] Last Admin: 09/12/19 13:18 Dose: Not Given Documented by: Clopidogrel Bisulfate (Plavix) 75 mg PO DAILY [facility] Last Admin: 09/12/19 13:33 Dose: 75 mg Documented by: Dextrose (D50w (25gm) Syringe) 50 ml IV PRN PRN PRN Reason: Hypoglycemia Enoxaparin Sodium (Lovenox) 30 mg SUB-Q QDAY [facility] Last Admin: 09/12/19 13:31 Dose: 30 mg Documented by: Ferrous Gluconate (Fergon) 324 mg PO DAILY [facility] Last Admin: 09/12/19 13:33 Dose: 324 mg Documented by: Furosemide (Lasix) 80 mg PO QDAY [facility] Last Admin: 09/12/19 13:32 Dose: 80 mg Documented by: Hydralazine HCl (Apresoline) 10 mg IV Q4H PRN PRN Reason: BP >160/100 Last Admin: 09/11/19 08:51 Dose: 10 mg Documented by: Hydralazine HCl (Apresoline) 50 mg PO QID [facility] Last Admin: 09/12/19 13:54 Dose: Not Given Documented by: Sodium Chloride (Nacl 0.9%) 100 mls @ 999 mls/hr IV [place] PRN PRN Reason: Hypotension Insulin Human Lispro (Humalog) 0 unit SUB-Q ACHS [facility]; Protocol Last Admin: 09/12/19 13:34 Dose: 3 unit Documented by: Levothyroxine Sodium (Synthroid) 300 mcg PO [id number] [facility] Last Admin: 09/12/19 05:21 Dose: 300 mcg Documented by: Metoclopramide HCl (Reglan) 10 mg IV Q6H PRN PRN Reason: Nausea And Vomiting Miscellaneous Medication (Vit D3-Vit K/[place]/Hops [Ostera Tablet]) 1 tab PO QWEEK [facility] Morphine Sulfate (Morphine) 2 mg IV Q4H PRN PRN Reason: Pain, Moderate (4-6) Last Admin: 09/12/19 05:20 Dose: 2 mg Documented by: Ondansetron HCl (Zofran) 4 mg IV Q4H PRN PRN Reason: Nausea And Vomiting Oxycodone/Acetaminophen (Percocet 5/325) 1 tab PO Q6H PRN PRN Reason: Pain, Moderate (4-6) Polyethylene Glycol (Miralax 3350) 17 gm PO BID [facility] Last Admin: 09/12/19 13:32 Dose: 17 gm Documented by: Pravastatin Sodium (Pravachol) 20 mg PO QHS [facility] Last Admin: 09/11/19 22:30 Dose: 20 mg Documented by: Sodium Chloride (Sodium Chloride Flush Syringe 10 Ml) 10 ml IV BID [facility] Last Admin: 09/12/19 13:34 Dose: 10 ml Documented by: Sodium Chloride (Sodium Chloride Flush Syringe 10 Ml) 10 ml IV PRN PRN PRN Reason: LINE FLUSH medications reviewed/updated as required Review of Systems - Review of Systems All systems: negative Cardiovascular: chest pain (atypical) Gastrointestinal: abdominal pain (epigastric), nausea, vomiting Exam - Constitutional Vital Signs: Temp Pulse Resp BP Pulse Ox 98.3 F 78 18 160/81 100 09/12/19 12:40 09/12/19 12:40 09/12/19 14:00 09/12/19 12:40 09/12/19 14:00 General appearance: no acute distress, obese - EENT Eyes: PERRL, EOM intact ENT: hearing intact - Respiratory Respiratory effort: normal - Cardiovascular Rhythm: regular - Gastrointestinal General gastrointestinal: Present: soft, tender (slight TTP in epigastric area), non-distended, normal bowel sounds - Neurologic Neurological: alert and oriented x3 - Labs CBC & Chem 7: 09/11/19 03:41 09/12/19 05:42 Lab Results: Laboratory Results - last 24 hr 09/11/19 09/11/19 09/11/19 15:57 19:53 21:44 Sodium Potassium Chloride Carbon Dioxide Anion Gap BUN Creatinine Estimated GFR BUN/Creatinine Ratio Glucose POC Glucose 238 H 141 H Calcium Phosphorus Urine Color Urine Turbidity Urine pH Ur Specific [place] Urine Protein Urine Glucose (UA) Urine Ketones Urine Blood Urine Nitrite Urine Bilirubin Urine Urobilinogen Ur Leukocyte Esterase Urine WBC (Auto) Urine RBC (Auto) U Epithel Cells (Auto) Urine Bacteria (Auto) Urine Mucus Hepatitis A IgM Ab Non-reactive Hep Bs Antigen Non-reactive Hep B Core IgM Ab Non-reactive Hepatitis C Antibody Non-reactive 09/11/19 09/12/19 09/12/19 22:00 05:42 08:45 Sodium 140 Potassium 3.8 Chloride 90.8 L Carbon Dioxide 34 H Anion Gap 19 BUN 36 H Creatinine 4.6 H Estimated GFR 12 BUN/Creatinine Ratio 8 Glucose 203 H POC Glucose 210 H Calcium 9.4 Phosphorus 4.40 Urine Color Yellow Urine Turbidity Slightly-cloudy Urine pH 5.0 Ur Specific [place] 1.017 Urine Protein >500 Urine Glucose (UA) Neg Urine Ketones Neg Urine Blood Neg Urine Nitrite Neg Urine Bilirubin Neg Urine Urobilinogen 2.0 Ur Leukocyte Esterase Neg Urine WBC (Auto) 5.0 Urine RBC (Auto) 4.0 U Epithel Cells (Auto) 6.0 Urine Bacteria (Auto) 1+ Urine Mucus Few Hepatitis A IgM Ab Hep Bs Antigen Hep B Core IgM Ab Hepatitis C Antibody 09/12/19 13:21 Sodium Potassium Chloride Carbon Dioxide Anion Gap BUN Creatinine Estimated GFR BUN/Creatinine Ratio Glucose POC Glucose 206 H Calcium Phosphorus Urine Color Urine Turbidity Urine pH Ur Specific [place] Urine Protein Urine Glucose (UA) Urine Ketones Urine Blood Urine Nitrite Urine Bilirubin Urine Urobilinogen Ur Leukocyte Esterase Urine WBC (Auto) Urine RBC (Auto) U Epithel Cells (Auto) Urine Bacteria (Auto) Urine Mucus Hepatitis A IgM Ab Hep Bs Antigen Hep B Core IgM Ab Hepatitis C Antibody Assessment and Plan 1.atypical CP (substernal/epigastric) 2.N/V -afebrile -WBC WNL -LFTs WNL -s/p CCY 2017 -abd CT and GES pending -etiology unclear- possibly related to recent initiation of dialysis vs uncontrolled DM (gastroparesis?) vs PUD vs other -will schedule for diagnostic EGD (on Plavix) tomorrow for further evaluation to r/o GI pathology- spoke with cardiology with clearance given -NPO after MN -start on PPI -continue antiemetics -optimize glycemic control -avoid narcotics for this may exacerbate symptoms -continue supportive care -will follow 3.HTN 4.CAD (s/p CABG) 5.DM (uncontrolled) 6.ESRD on HD (started dialysis last week) 7.CHF (s/p AICD) 8.obesity 9.GERD 10.hypothyroidism
[2019-09-12] MEDS: PANTOPRAZOLE 40 MG TAB PO SCH (17:45)
[2019-09-12] MEDS: PRAVASTATIN 20 MG TAB PO SCH (21:22)
[2019-09-13] MEDS: LEVOTHYROXINE 150 MCG TAB PO SCH (06:16)
[2019-09-13] MEDS: INSULIN LISPRO 100 UNIT/ML SUB-Q SCH ×4 (07:52→23:12)
[2019-09-13] MEDS ORDERED: SODIUM CHLORIDE 0.9% 1000 ML 1,000 ML IV SCH ×2 (09:00→15:00)
--- NOTE | 2019-09-13 09:02 | Progress Note ---
Assessment and Plan Epigastric pain Chest pain, atypical ESRD recently initiated on dialysis History of CAD with 3v CABG in 2017 History of Ischemic CMP, EF 20-25% by echo 08/30/19 Presence of AICD Type 2 DM Obesity HTN Recommendations: Dialysis for fluid management. Continue medical therapy for ischemic cardiomyopathy and coronary artery disease. Ok for non-cardiac workup. Subjective Date of service: 09/13/19 Interval history: No interval changes. For planned GI workup today. Objective Vital Signs Temp Pulse Pulse Pulse Pulse Resp BP 09/13/19 08:32 09/13/19 08:30 80 80 80 18 09/13/19 08:22 98.5 F 20 153/86 09/13/19 04:44 98.5 F 09/13/19 04:42 77 18 162/78 09/13/19 02:04 74 09/13/19 00:12 97.8 F 09/13/19 00:11 81 18 115/59 09/12/19 20:07 98.2 F 09/12/19 20:06 75 18 122/58 09/12/19 17:45 84 156/83 09/12/19 16:59 98.6 F 84 20 156/83 09/12/19 14:00 18 09/12/19 13:15 98.6 F 83 20 117/64 09/12/19 12:40 98.3 F 78 18 160/81 09/12/19 12:30 62 118/42 09/12/19 12:15 62 118/48 09/12/19 12:00 77 144/46 09/12/19 11:45 81 150/71 09/12/19 11:30 76 150/70 09/12/19 11:15 75 142/78 09/12/19 11:00 76 121/62 09/12/19 10:45 75 124/71 09/12/19 10:35 78 140/70 09/12/19 10:30 81 108/58 09/12/19 10:15 79 123/53 09/12/19 10:00 81 112/52 09/12/19 09:45 79 139/68 09/12/19 09:30 98.9 F 74 18 171/96 Pulse Ox 09/13/19 08:32 95 09/13/19 08:30 09/13/19 08:22 09/13/19 04:44 10/18/19 04:42 100 09/13/19 02:04 09/13/19 00:12 09/13/19 00:11 98 09/12/19 20:07 09/12/19 20:06 93 09/12/19 17:45 09/12/19 16:59 100 09/12/19 14:00 100 09/12/19 13:15 100 09/12/19 12:40 09/12/19 12:30 09/12/19 12:15 09/12/19 12:00 09/12/19 11:45 09/12/19 11:30 09/12/19 11:15 09/12/19 11:00 09/12/19 10:45 09/12/19 10:35 09/12/19 10:30 09/12/19 10:15 09/12/19 10:00 09/12/19 09:45 09/12/19 09:30 - Physical Examination General: No Apparent Distress HEENT: Positive: PERRL Neck: Positive: trachea midline Cardiac: Positive: Reg Rate and Rhythm Lungs: Positive: Decreased Breath Sounds Neuro: Positive: Grossly Intact Extremities: Absent: edema
[2019-09-13] MEDS: hydrALAZINE 25 MG TAB PO SCH ×3 (10:02→18:33)
--- NOTE | 2019-09-13 11:08 | Nuclear Medicine Report ---
NUCLEAR MEDICINE GASTRIC EMPTYING SCAN HISTORY: Intractable abdominal pain, nausea and vomiting. TECHNIQUE: Anterior abdominal imaging was obtained for 90 minutes following ingestion of 1.1 mCi tech netium 99m sulfur colloid in oatmeal. FINDINGS: Half-life for gastric emptying measures 31 minutes. There is no nuclear medicine evidence for reflux disease. IMPRESSION: Normal gastric emptying. Signer Name: Elmo Shi Jr, MD Signed: 09/13/2019 11:04 AM Workstation Name: [id number]
--- NOTE | 2019-09-13 12:04 | Progress Note ---
Assessment and Plan Assessment and plan: 54-year-old woman who presented to the hospital with chest discomfort after having dialysis. She states that she's been having spontaneous nausea and vomiting for over 3 months, she is able to eat and tolerate food most of the time was at times she just becomes nauseous and vomits and she has no explanation to why happens she denies any exacerbating factors or relieving factors. She does spontaneously vomits and usually feels fine afterwards. This time she states that she has not been tolerating by mouth the past day and has been vomiting continuously. Chest x-ray; no acute findings VQ scan low probability for PE Chest pain Cardiology input appreciated Dialysis for fluid management, stress test was canceled by hand salter as patient has just had a VQ scan, her hand salter she is compensated from a cardiac standpoint. The agree with GI workup. History of CAD with 3v CABG in 2017 Chronic systolic CHF, EF of 25%, status post ICD Optimize medications per cardiology, fluid management per dialysis History of Ischemic CMP, Epigastric pain/nausea vomiting gastric emptying study was negative, , PPI -GI consult appreciated, plan for EGD End-stage renal disease Continue dialysis per managed care director DVT prophylaxis; Lovenox renal dose History Interval history: Review of systems Constitutional: No fevers, no malaise, no joint pains CVS: Admits to atypical constant chest pain, no orthopnea, no dyspnea on exertion, no pedal edema GI: Admits to abdominal pain, she is now able to tolerate by mouth but has spontaneous episodes of vomiting. Respiratory: no wheezing, no coughing Hospitalist Physical - Physical exam Narrative exam: General.: Appears well, no distress, nontoxic HEENT: Moist mucous membranes, extraocular muscles intact, no lymphadenopathy Neck: supple Cardiac: S1-S2 heard Lungs: clear to auscultation bilaterally Abdomen: soft , mild epigastric tenderness Extremities: no edema clubbing or cyanosis Skin: no rash or lesions Neurologic: no gross focal deficits Psych: calm, and cooperative - Constitutional Vitals: Temp Pulse Resp BP Pulse Ox 98.5 F 80 18 153/86 95 09/13/19 08:22 09/13/19 08:30 09/13/19 08:30 09/13/19 08:22 09/13/19 08:32 Results - Labs CBC & Chem 7: 09/11/19 03:41 09/12/19 05:42 Labs: Laboratory Last Values WBC 7.5 K/mm3 (4.5-11.0) 09/11/19 03:41 RBC 3.70 M/mm3 (3.65-5.03) 09/11/19 03:41 Hgb 9.3 gm/dl (10.1-14.3) L 09/11/19 03:41 Hct 29.5 % (30.3-42.9) L 09/11/19 03:41 MCV 80 fl (79-97) 09/11/19 03:41 MCH 25 pg (28-32) L 09/11/19 03:41 MCHC 32 % (30-34) 09/11/19 03:41 RDW 14.3 % (13.2-15.2) 09/11/19 03:41 Plt Count 230 K/mm3 (140-440) 09/11/19 03:41 Lymph % (Auto) 30.3 % (13.4-35.0) 09/11/19 03:41 [place] % (Auto) 13.2 % (0.0-7.3) H 09/11/19 03:41 Eos % (Auto) 5.6 % (0.0-4.3) H 09/11/19 03:41 Baso % (Auto) 0.7 % (0.0-1.8) 09/11/19 03:41 Lymph # 2.3 K/mm3 (1.2-5.4) 09/11/19 03:41 [place] # 1.0 K/mm3 (0.0-0.8) H 09/11/19 03:41 Eos # 0.4 K/mm3 (0.0-0.4) 09/11/19 03:41 Baso # 0.0 K/mm3 (0.0-0.1) 09/11/19 03:41 Seg Neutrophils % 50.2 % (40.0-70.0) 09/11/19 03:41 Seg Neutrophils # 3.8 K/mm3 (1.8-7.7) 09/11/19 03:41 PT 12.9 Sec. (12.2-14.9) 09/10/19 20:40 INR 1.00 (0.87-1.13) 09/10/19 20:40 D-Dimer > 95188 ng/mlDDU (0-234) H 09/10/19 20:17 Sodium 140 mmol/L (137-145) 09/12/19 05:42 Potassium 3.8 mmol/L (3.6-5.0) 09/12/19 05:42 Chloride 90.8 mmol/L (98-107) L 09/12/19 05:42 Carbon Dioxide 34 mmol/L (22-30) H 09/12/19 05:42 Anion Gap 19 mmol/L 09/12/19 05:42 BUN 36 mg/dL (7-17) H 09/12/19 05:42 Creatinine 4.6 mg/dL (0.7-1.2) H 09/12/19 05:42 Estimated GFR 12 ml/min 09/12/19 05:42 BUN/Creatinine Ratio 8 % 09/12/19 05:42 Glucose 203 mg/dL (65-100) H 09/12/19 05:42 POC Glucose 145 (70-105) H 09/13/19 08:34 Calcium 9.4 mg/dL (8.4-10.2) 09/12/19 05:42 Phosphorus 4.40 mg/dL (2.5-4.5) 09/12/19 05:42 Total Bilirubin 0.40 mg/dL (0.1-1.2) 09/10/19 20:19 AST 11 units/L (5-40) 09/10/19 20:19 ALT 8 units/L (7-56) 09/10/19 20:19 Alkaline Phosphatase 66 units/L (35-129) 09/10/19 20:19 Total Creatine Kinase 66 units/L (30-135) 09/11/19 07:42 CK-MB (CK-2) 1.3 ng/mL (0.0-4.0) 09/11/19 07:42 CK-MB (CK-2) Rel Index 1.9 (0-4) 09/11/19 07:42 Troponin T 0.071 ng/mL (0.00-0.029) H 09/11/19 07:42 NT-Pro-B Natriuret Pep 2743 pg/mL (0-900) H 09/10/19 20:40 Total Protein 8.3 g/dL (6.3-8.2) H 09/10/19 20:19 Albumin 4.2 g/dL (3.9-5) 09/10/19 20:19 Albumin/Globulin Ratio 1.0 % 09/10/19 20:19 Triglycerides 180 mg/dL (2-149) H 09/10/19 20:40 Cholesterol 223 mg/dL (50-199) H 09/10/19 20:40 LDL Cholesterol Direct 138 mg/dL (50-130) H 09/10/19 20:40 HDL Cholesterol 55 mg/dL (40-59) 09/10/19 20:40 Cholesterol/HDL Ratio 4.05 % 09/10/19 20:40 Urine Color Yellow (Yellow) 09/11/19 22:00 Urine Turbidity Slightly-cloudy (Clear) 09/11/19 22:00 Urine pH 5.0 (5.0-7.0) 09/11/19 22:00 Ur Specific [place] 1.017 (1.003-1.030) 09/11/19 22:00 Urine Protein >500 mg/dL (Negative) 09/11/19 22:00 Urine Glucose (UA) Neg mg/dL (Negative) 09/11/19 22:00 Urine Ketones Neg mg/dL (Negative) 09/11/19 22:00 Urine Blood Neg (Negative) 09/11/19 22:00 Urine Nitrite Neg (Negative) 09/11/19 22:00 Urine Bilirubin Neg (Negative) 09/11/19 22:00 Urine Urobilinogen 2.0 mg/dL (<2.0) 09/11/19 22:00 Ur Leukocyte Esterase Neg (Negative) 09/11/19 22:00 Urine WBC (Auto) 5.0 /HPF (0.0-6.0) 09/11/19 22:00 Urine RBC (Auto) 4.0 /HPF (0.0-6.0) 09/11/19 22:00 U Epithel Cells (Auto) 6.0 /HPF (0-13.0) 09/11/19 22:00 Urine Bacteria (Auto) 1+ /HPF (Negative) 09/11/19 22:00 Urine Mucus Few /HPF 09/11/19 22:00 Hepatitis A IgM Ab Non-reactive (NonReactive) 09/11/19 19:53 Hep Bs Antigen Non-reactive (Negative) 09/11/19 19:53 Hep B Core IgM Ab Non-reactive (NonReactive) 09/11/19 19:53 Hepatitis C Antibody Non-reactive (NonReactive) 09/11/19 19:53 Active Medications - Current Medications Current Medications: Generic Name Dose Route Start Last Admin Trade Name Freq PRN Reason Stop Dose Admin Acetaminophen 650 mg 09/11/19 01:25 Tylenol PO Q4H PRN Pain MILD(1-3)/Fever >100.5/VIGIL Aspirin 325 mg 09/12/19 10:00 09/12/19 13:33 Aspirin PO 325 mg QDAY [facility] Administration Carvedilol 25 mg 09/11/19 22:00 09/12/19 21:22 Coreg PO 25 mg BID [facility] Administration Clopidogrel Bisulfate 75 mg 09/12/19 10:00 09/12/19 13:33 Plavix PO 75 mg DAILY [facility] Administration Dextrose 50 ml 09/11/19 01:25 D50w (25gm) Syringe IV PRN PRN Hypoglycemia Enoxaparin Sodium 30 mg 09/11/19 10:00 09/12/19 13:31 Lovenox SUB-Q 30 mg QDAY [facility] Administration Ferrous Gluconate 324 mg 09/12/19 10:00 09/12/19 13:33 Fergon PO 324 mg DAILY [facility] Administration Furosemide 80 mg 09/12/19 10:00 09/12/19 13:32 Lasix PO 80 mg QDAY [facility] Administration Hydralazine HCl 10 mg 09/11/19 09:00 09/11/19 08:51 Apresoline IV 10 mg Q4H PRN Administration BP >160/100 Hydralazine HCl 50 mg 09/11/19 22:00 09/13/19 10:02 Apresoline PO Not Given QID [facility] Sodium Chloride 100 mls @ 999 mls/hr 09/11/19 17:45 Nacl 0.9% IV [place] PRN Hypotension Sodium Chloride 1,000 mls @ 50 mls/hr 09/13/19 09:00 Nacl 0.9% 1000 Ml IV DIRECT [facility] Insulin Human Lispro 0 unit 09/11/19 22:00 09/13/19 12:02 Humalog SUB-Q Not Given ACHS [facility] Protocol Levothyroxine Sodium 300 mcg 09/12/19 06:00 09/13/19 06:16 Synthroid PO 300 mcg [id number]@0600 [facility] Administration Metoclopramide HCl 10 mg 09/12/19 14:30 Reglan IV Q6H PRN Nausea And Vomiting Morphine Sulfate 2 mg 09/11/19 01:25 09/12/19 21:23 Morphine IV 2 mg Q4H PRN Administration Pain, Moderate (4-6) Ondansetron HCl 4 mg 09/12/19 14:30 Zofran IV Q4H PRN Nausea And Vomiting Oxycodone/Acetaminophen 1 tab 09/11/19 22:00 Percocet 5/325 PO Q6H PRN Pain, Moderate (4-6) Pantoprazole Sodium 40 mg 09/12/19 18:00 09/12/19 17:45 Protonix PO 40 mg QDAY [facility] Administration Polyethylene Glycol 17 gm 09/11/19 22:00 09/12/19 21:22 Miralax 3350 PO 17 gm BID [facility] Administration Pravastatin Sodium 20 mg 09/11/19 22:00 09/12/19 21:22 Pravachol PO 20 mg QHS [facility] Administration Sodium Chloride 10 ml 09/11/19 10:00 09/12/19 21:23 Sodium Chloride Flush Syringe 10 Ml IV 10 ml BID [facility] Administration Sodium Chloride 10 ml 09/11/19 01:25 Sodium Chloride Flush Syringe 10 Ml IV PRN PRN LINE FLUSH
[2019-09-13] MEDS: carvediloL 25 MG TAB PO SCH ×2 (12:28→22:57)
--- NOTE | 2019-09-13 14:09 | Anesthesia Consultation ---
Anesthesia Consult and Med Hx Date of service: 09/13/19 - Airway Anesthetic Teeth Evaluation: Good ROM Head & Neck: Adequate Mental/Hyoid Distance: Adequate Mallampati Class: Class III Intubation Access Assessment: Possibly Difficult - Pulmonary Exam CTA: Yes - Cardiac Exam Cardiac Exam: RRR - Pre-Operative Health Status ASA Pre-Surgery Classification: ASA4 Proposed Anesthetic Plan: MAC - Pulmonary Hx Smoking: No Hx Respiratory Symptoms: No - Cardiovascular System Hx Hypertension: Yes Hx Coronary Artery Disease: Yes (CABG 2016; EF 20-25%) Hx Heart Attack/AMI: Yes (2007) Hx Angina: Yes (presented with atypical chest pain; cleared by cardiology) Hx Percutaneous Transluminal Coronary Angioplasty (PTCA): No Hx Pacemaker: Yes Hx Internal Defibrillator: Yes Hx Peripheral Vascular Disease: Yes - Central Nervous System CVA: Yes (2007; mild left residual weakness) - Gastrointestinal Hx Gastroesophageal Reflux Disease: No (no evidence of reflux on gastric emptying study) - Endocrine Hx End Stage Renal Disease: Yes (last HD 09/12/19) Hx Liver Disease: No Hx Insulin Dependent Diabetes: Yes Hx Hypothyroidism: Yes - Hematic Hx Anemia: Yes - Other Systems Hx Obesity: Yes - Additional Comments Anesthesia Medical History Comments: No hx anesthetic complications.
--- NOTE | 2019-09-13 14:10 | Anesthesia Day of Surgery ---
Anesthesia Day of Surgery - Day of Surgery Patient Examined: Yes Patient H&P Reviewed: Yes Patient is NPO: Yes Cardiac Clearance: Yes
[2019-09-13] MEDS ORDERED: MIDAZOLAM 2 MG/2 ML INJ ONE (14:13)
[2019-09-13] MEDS ORDERED: SODIUM CHLORIDE 0.9% 1000 ML 1,000 ML ONE (14:16)
[2019-09-13] MEDS ORDERED: PROPOFOL 200 MG/20 ML VIAL IV ONE (14:21)
[2019-09-13] MEDS ORDERED: LIDOCAINE MPF (2%) 20 MG/1 ML VIAL 5 ML ONE (14:30)
--- NOTE | 2019-09-13 14:51 | Post Operative Note ---
Pre-op diagnosis: nausea Post-op diagnosis: same Findings: EGD: small hiatal hernia - mild gastritis stomach body/antrum (bx's) - negative other Procedure: EGD Anesthesia: MAC Surgeon: EVELINE GRIER Estimated blood loss: none Pathology: none Condition: stable Disposition: floor
--- NOTE | 2019-09-13 16:16 | Progress Note ---
Assessment and Plan Assessment: End Stage Renal Disease on hemodialysis Acute on chronic systolic CHF (EF 20%) Chest Pain DM Type 2 on insulin Essential Hypertension Abdominal Pain/Nausea Plan -Hemodialysis tomorrow for UF and clearance -Right IJ perm-catheter functional -Fluid restriction of 1 liter per day -Chest Pain- Cardiology onboard -Abdominal Pain/Nausea-EGD done today-small hiatal hernia, mild gastritis stomach body/antrum biopsied per GI -Obtain daily weights -Monitor I/O's -Renal diet -Assess dialysis needs daily Subjective Date of service: 09/13/19 Principal diagnosis: ESRD Interval history: Patient seen lying in bed about to undergo lab draw for BMP. Daughter at bedside. Objective - Vital Signs Vital signs: Vital Signs - 12hr 09/13/19 09/13/19 09/13/19 04:42 04:44 07:40 Temperature 98.5 F Pulse Rate 77 80 Pulse Rate [ From Monitor] Pulse Rate [ Left Radial] Pulse Rate [ Right Radial] Respiratory 18 Rate Blood Pressure 162/78 O2 Sat by Pulse 100 Oximetry 09/13/19 09/13/19 09/13/19 08:22 08:30 08:32 Temperature 98.5 F Pulse Rate Pulse Rate [ 80 From Monitor] Pulse Rate [ 80 Left Radial] Pulse Rate [ 80 Right Radial] Respiratory 20 18 Rate Blood Pressure 153/86 O2 Sat by Pulse 95 Oximetry 09/13/19 09/13/19 09/13/19 12:00 14:19 14:49 Temperature 32.1 F L 98.8 F 98.8 F Pulse Rate 75 80 76 Pulse Rate [ From Monitor] Pulse Rate [ Left Radial] Pulse Rate [ Right Radial] Respiratory 18 14 17 Rate Blood Pressure 159/65 165/89 114/70 O2 Sat by Pulse 100 98 100 Oximetry 09/13/19 09/13/19 15:00 15:15 Temperature Pulse Rate 75 75 Pulse Rate [ From Monitor] Pulse Rate [ Left Radial] Pulse Rate [ Right Radial] Respiratory 16 17 Rate Blood Pressure 107/77 151/83 O2 Sat by Pulse 100 100 Oximetry - General Appearance General appearance: well-developed, appears stated age, fatigue EENT: ATNC, PERRL, hearing intact, vision intact Neck: no JVD, supple Respiratory: Present: Decreased Breath Sounds Cardiology: regular, S1S2 Gastrointestinal: normoactive bowel sounds Integumentary: warm and dry Neurologic: alert and oriented x3 Musculoskeletal: joint swelling - Lab 09/11/19 03:41 09/12/19 05:42 Most recent lab results Calcium 9.4 mg/dL (8.4-10.2) 09/12/19 05:42 Phosphorus 4.40 mg/dL (2.5-4.5) 09/12/19 05:42 Medications & Allergies - Medications Allergies/Adverse Reactions: Allergies glyburide [From Micronase] Allergy (Severe, Verified 10/10/17 13:17) Swelling of tongue,face VEGA Inhibitors Allergy (Verified 12/28/17 08:24) Shortness of Breath nifedipine Allergy (Verified 12/28/17 08:23) Vomiting Home Medications: Home Medications Medication Instructions Recorded Confirmed Last Taken Type Clopidogrel Bisulfate [Plavix] 75 mg PO DAILY 08/15/15 09/10/19 3 Days Ago History ~08/29/19 Carvedilol [Coreg] 25 mg PO BID #60 tablet 08/20/15 09/10/19 3 Days Ago Rx ~08/29/19 Hydralazine HCl [Apresoline TAB] 50 mg PO QID 08/30/17 09/10/19 3 Days Ago His tory ~08/29/19 Ferrous Gluconate [Ferrous 324 mg PO DAILY 10/05/17 09/10/19 3 Days Ago History Gluconate 324 MG] ~08/29/19 Furosemide [Lasix TAB] 80 mg PO QDAY 10/05/17 09/10/19 3 Days Ago History ~08/29/19 Levothyroxine Sodium [Synthroid] 300 mcg PO 5XW 10/10/17 09/10/19 3 Days Ago History ~08/29/19 Simvastatin [Zocor] 10 mg PO HS 10/10/17 09/10/19 3 Days Ago History ~08/29/19 Lispro Insulin [HumaLOG] 1.1 units SQ Q60MIN 12/28/17 09/10/19 3 Days Ago Histor y ~08/29/19 Vit D3-Vit K/Berberine/Hops 1 tab PO QWEEK 12/28/17 09/10/19 3 Days Ago History [Ostera Tablet] ~08/29/19 Aspirin 325 mg PO QDAY #30 tablet 09/06/19 09/10/19 Unknown Rx Polyethylene Glycol 3350 [Miralax 17 gm PO BID #30 packet 09/06/19 09/10/19 Unknown Rx 3350] oxyCODONE /ACETAMINOPHEN [Percocet 1 tab PO Q6H PRN #10 09/06/19 09/10/19 Unknown Rx 5/325 mg] Active Medications: Generic Name Dose Route Start Last Admin Trade Name Freq PRN Reason Stop Dose Admin Acetaminophen 650 mg 09/11/19 01:25 Tylenol PO Q4H PRN Pain MILD(1-3)/Fever >100.5/VIGIL Aspirin 325 mg 09/12/19 10:00 09/12/19 13:33 Aspirin PO 325 mg QDAY PARISH Administration Carvedilol 25 mg 09/11/19 22:00 09/12/19 21:22 Coreg PO 25 mg BID PARISH Administration Clopidogrel Bisulfate 75 mg 09/12/19 10:00 09/12/19 13:33 Plavix PO 75 mg DAILY PARISH Administration Dextrose 50 ml 09/11/19 01:25 D50w (25gm) Syringe IV PRN PRN Hypoglycemia Enoxaparin Sodium 30 mg 09/11/19 10:00 09/12/19 13:31 Lovenox SUB-Q 30 mg QDAY PARISH Administration Ferrous Gluconate 324 mg 09/12/19 10:00 09/12/19 13:33 Fergon PO 324 mg DAILY PARISH Administration Furosemide 80 mg 09/12/19 10:00 09/12/19 13:32 Lasix PO 80 mg QDAY PARISH Administration Hydralazine HCl 10 mg 09/11/19 09:00 09/11/19 08:51 Apresoline IV 10 mg Q4H PRN Administration BP >160/100 Hydralazine HCl 50 mg 09/11/19 22:00 09/13/19 10:02 Apresoline PO Not Given QID PARISH Sodium Chloride 100 mls @ 999 mls/hr 09/11/19 17:45 Nacl 0.9% IV [place] PRN Hypotension Sodium Chloride 1,000 mls @ 50 mls/hr 09/13/19 15:00 Nacl 0.9% 1000 Ml IV DIRECT PARISH Insulin Human Lispro 0 unit 09/11/19 22:00 09/13/19 12:02 Humalog SUB-Q Not Given ACHS [facility] Protocol Levothyroxine Sodium 300 mcg 09/12/19 06:00 09/13/19 06:16 Synthroid PO 300 mcg [id number] PARISH Administration Metoclopramide HCl 10 mg 09/12/19 14:30 Reglan IV Q6H PRN Nausea And Vomiting Morphine Sulfate 2 mg 09/11/19 01:25 09/12/19 21:23 Morphine IV 2 mg Q4H PRN Administration Pain, Moderate (4-6) Ondansetron HCl 4 mg 09/12/19 14:30 Zofran IV Q4H PRN Nausea And Vomiting Oxycodone/Acetaminophen 1 tab 09/11/19 22:00 Percocet 5/325 PO Q6H PRN Pain, Moderate (4-6) Pantoprazole Sodium 40 mg 09/12/19 18:00 09/12/19 17:45 Protonix PO 40 mg QDAY PARISH Administration Polyethylene Glycol 17 gm 09/11/19 22:00 09/12/19 21:22 Miralax 3350 PO 17 gm BID PARISH Administration Pravastatin Sodium 20 mg 09/11/19 22:00 09/12/19 21:22 Pravachol PO 20 mg QHS PARISH Administration Sodium Chloride 10 ml 09/11/19 10:00 09/13/19 12:51 Sodium Chloride Flush Syringe 10 Ml IV 10 ml BID PARISH Administration Sodium Chloride 10 ml 09/11/19 01:25 Sodium Chloride Flush Syringe 10 Ml IV PRN PRN LINE FLUSH
[2019-09-13] MEDS: POLYETHYLENE GLYCOL 3350 17 GM POWDER PO SCH ×2 (16:38→22:57)
--- NOTE | 2019-09-13 17:15 | Cat Scan Report ---
CT ABDOMEN AND PELVIS WITH IV CONTRAST INDICATION: intractable abdo pain, n/v. COMPARISON: CT 10/10/2017. TECHNIQUE: All CT scans at this facility use dose modulation, automated exposure control, iterative reconstructi on or weight based dosing, when appropriate, to reduce radiation dose to as low as reasonably achieva ble. FINDINGS: Lung Bases: No significant abnormality. Skeletal System: No acute abnormality. ABDOMEN: Liver: No significant abnormality. Gallbladder: There has been interval cholecystectomy. Bile Ducts: Mild common duct dilatation and minimal intrahepatic biliary dilatation may be related to prior cholecystectomy. Pancreas: No significant abnormality. Spleen: No significant abnormality. Adrenals: No significant abnormality. Right Kidney: No significant abnormality. Left Kidney: No significant abnormality. Upper GI tract: No significant abnormality. Lymph Nodes: No significant adenopathy. Aorta: There is moderate to advanced atherosclerotic calcification. There is advanced atherosclerotic calcification within the mid to distal superior mesenteric artery, unchanged. Additional Findings: No significant abnormality. PELVIS: Colon: No acute abnormality. Urinary Bladder and Distal Ureters: No significant abnormality. Appendix: No significant abnormality. Lymph Nodes: No significant adenopathy. Additional Findings: None. IMPRESSION: 1. There has been interval cholecystectomy. Mild biliary dilatation may be related to prior cholecys tectomy, correlate clinically. 2. Incidental findings, as above. Signer Name: Satish Barnes MD Signed: 09/13/2019 5:11 PM Workstation Name: [id number]
[2019-09-13] MEDS: PANTOPRAZOLE 40 MG TAB PO SCH (18:24)
[2019-09-13] MEDS: FUROSEMIDE 40 MG TAB PO SCH (18:25)
[2019-09-13] MEDS: ASPIRIN 325 MG TAB PO SCH (18:25)
[2019-09-13] MEDS: CLOPIDOGREL 75 MG TAB PO SCH (18:26)
[2019-09-13] MEDS: ENOXAPARIN 30 MG/0.3 ML INJ SUB-Q SCH (18:26)
[2019-09-13] MEDS: FERROUS GLUCONATE 324 MG TAB PO SCH (18:37)
--- NOTE | 2019-09-13 18:52 | Operative Report ---
PROCEDURE: EGD with cold biopsy. INDICATIONS: 1. Nausea, vomiting. 2. Abdominal pain. MEDICATIONS: Propofol per ORNAMENT MAKER HAND. COMPLICATIONS: None. DESCRIPTION OF PROCEDURE: The patient brought to the procedure suite. The patient had the procedure discussed with her at length. All risks, complications, and benefits discussed after which the patient signed for the procedure to be performed. The patient was placed in left lateral decubitus position. Mouth block was placed in the patient's oral cavity. After adequate sedation medication as above, endoscope placed in mouth and brought to the level of the second portion of duodenum. Retroflexion view performed. The patient's vital signs remained stable throughout the procedure. FINDINGS: There was a small hiatal hernia at GE junction at 37 cm from the gums. Esophagus otherwise appeared to be grossly normal. There was mild antral gastritis noted. Biopsies were taken and sent to pathology. Remaining stomach otherwise appeared to be normal. Duodenum appeared to be normal. Retroflexion view performed in the stomach showed no other pathology other than noted above. The patient tolerated the procedure well. No complications during the procedure. IMPRESSION: 1. Hiatal hernia. 2. Otherwise, normal esophagus. 3. Gastritis, biopsies performed. 4. Otherwise, normal EGD. RECOMMENDATIONS: 1. Followup biopsy results. 2. If H. pylori positive, treat. 3. Anti-reflux diet. 4. Advance diet. 5. Okay to discharge from GI standpoint if tolerating p.o., we will sign off, call if needed. JOB# [id number] CAB/NTS
[2019-09-13] MEDS: PRAVASTATIN 20 MG TAB PO SCH (22:57)
[2019-09-14] MEDS: hydrALAZINE 25 MG TAB PO SCH ×4 (00:53→19:00)
--- NOTE | 2019-09-14 08:16 | Discharge Summary ---
Providers - Providers Date of Admission: 09/11/19 03:03 Attending physician: BASILIO MCGUIRE MD 09/11/19 01:25 Consult to Physician [CONS] Routine Comment: Consulting Provider: FELIPE CRUZ Physician Instructions: Reason For Exam: cp 09/11/19 01:28 Consult to Physician [CONS] Routine Comment: Consulting Provider: RETA GORDILLO Physician Instructions: Reason For Exam: hd 09/12/19 14:29 Consult to Physician [CONS] Routine Comment: Consulting Provider: AIDA CARLTON Physician Instructions: Reason For Exam: n/v x3 months Hospitalization Condition: Stable Hospital course: 54-year-old woman who presented to the hospital with chest discomfort after having dialysis. She states that she's been having spontaneous nausea and vomiting for over 3 months, she is able to eat and tolerate food most of the time was at times she just becomes nauseous and vomits and she has no explanation to why happens she denies any exacerbating factors or relieving factors. She does spontaneously vomits and usually feels fine afterwards. This time she states that she has not been tolerating by mouth the past day and has been vomiting continuously. Chest x-ray; no acute findings VQ scan low probability for PE Chest pain Cardiology input appreciated Dialysis for fluid management, stress test was canceled by elementary school counselor as patient has just had a VQ scan, her elementary school counselor she is compensated from a cardiac standpoint. The agree with GI workup. History of CAD with 3v CABG in 2017 Chronic systolic CHF, EF of 25%, status post ICD Optimize medications per cardiology, fluid management per dialysis History of Ischemic CMP, Epigastric pain/nausea vomiting gastric emptying study was negative, , PPI -GI consult appreciated, EGD showed hiatal hernia and gastritis. Recommended continuing PPI at the time of discharge End-stage renal disease Continue dialysis per iphone developer DVT prophylaxis; Lovenox renal dose Disposition: - TO HOME OR SELFCARE Time spent for discharge: 33 mins Core Measure Documentation - Palliative Care Palliative Care/ Comfort Measures: Not Applicable - Core Measures Any of the following diagnoses?: none Exam - Constitutional Vitals: Temp Pulse Resp BP Pulse Ox 98.1 F 71 18 156/76 100 09/14/19 05:38 09/14/19 05:38 09/14/19 05:38 09/14/19 05:38 09/14/19 08:12 General appearance: Present: no acute distress, well-nourished - EENT Eyes: Present: PERRL ENT: hearing intact, clear oral mucosa - Neck Neck: Present: supple, normal ROM - Respiratory Respiratory effort: normal Respiratory: bilateral: CTA - Cardiovascular Heart Sounds: Present: S1 & S2. Absent: rub, click - Extremities Extremities: pulses symmetrical, No edema Peripheral Pulses: within normal limits - Abdominal General gastrointestinal: Present: soft, non-tender, non-distended, normal bowel sounds Female genitourinary: Present: normal - Integumentary Integumentary: Present: clear, warm, dry - Musculoskeletal Musculoskeletal: gait normal, strength equal bilaterally - Psychiatric Psychiatric: appropriate mood/affect, intact judgment & insight - Neurologic Neurologic: CNII-XII intact, moves all extremities Plan Follow up with: SVEN MONTOYA [Other] - 7 Days Prescriptions: Pantoprazole [Protonix TAB] 40 mg PO QDAY #30 tablet
[2019-09-14] MEDS: INSULIN LISPRO 100 UNIT/ML SUB-Q SCH ×3 (08:47→18:55)
--- NOTE | 2019-09-14 09:37 | Progress Note ---
Assessment and Plan 1. Abdominal pain with nausea 2. Coronary artery disease status post CABG in 2017 3. Ischemic cardiomyopathy left ventricular ejection fraction 20-25% stable 4. Presence of AICD 5. Essential hypertension 6. Type 2 diabetes mellitus Plan. Cardiac-terrazas stable management plan for abdominal pain as per gastroenterology note. Continue present cardiac medication. Subjective Date of service: 09/21/19 Principal diagnosis: ESRD Interval history: Still has some abdominal discomfort with nausea no vomiting. No cardiac symptoms. Objective Vital Signs Temp Pulse Resp BP Pulse Ox 09/14/19 08:12 100 09/14/19 05:38 98.1 F 71 18 156/76 97 09/14/19 00:51 99.4 F 80 18 128/74 100 09/13/19 22:54 98.8 F 78 18 133/63 100 09/13/19 20:07 96 09/13/19 18:33 169/61 09/13/19 18:10 98.3 F 72 18 161/69 99 09/13/19 16:18 98.9 F 74 18 152/78 100 09/13/19 15:15 75 17 151/83 100 09/13/19 15:00 75 16 107/77 100 09/13/19 14:49 98.8 F 76 17 114/70 100 09/13/19 14:19 98.8 F 80 14 165/89 98 09/13/19 12:00 32.1 F L 75 18 159/65 100 - Physical Examination General: No Apparent Distress HEENT: Positive: PERRL Neck: Positive: trachea midline Cardiac: Positive: Regular Rate, Regular Rhythm, S1/S2, PMI, Laterally Displaced. Negative: S3, S4 Lungs: Positive: clear to auscultation, No Wheeze, Rales, Rhonchi Neuro: Positive: Grossly Intact Abdomen: Positive: Active Bowel Sounds. Negative: Ascites, Tender, Distended Extremities: Absent: edema
[2019-09-14] MEDS: FUROSEMIDE 40 MG TAB PO SCH (10:28)
[2019-09-14] MEDS: ENOXAPARIN 30 MG/0.3 ML INJ SUB-Q SCH (10:28)
[2019-09-14] MEDS: CLOPIDOGREL 75 MG TAB PO SCH (10:29)
[2019-09-14] MEDS: ASPIRIN 325 MG TAB PO SCH (10:29)
[2019-09-14] MEDS: PANTOPRAZOLE 40 MG TAB PO SCH (10:30)
[2019-09-14] MEDS: carvediloL 25 MG TAB PO SCH (10:32)
[2019-09-14] MEDS: POLYETHYLENE GLYCOL 3350 17 GM POWDER PO SCH ×2 (10:35→18:56)
[2019-09-14] MEDS: FERROUS GLUCONATE 324 MG TAB PO SCH (10:35)
--- NOTE | 2019-09-14 16:32 | Progress Note ---
Assessment and Plan Assessment: End Stage Renal Disease on hemodialysis Acute on chronic systolic CHF (EF 20%) Chest Pain DM Type 2 on insulin Essential Hypertension Abdominal Pain/Nausea Plan -Hemodialysis today for UF and clearance -Right IJ perm-catheter functional -Fluid restriction of 1 liter per day -Chest Pain- Cardiology onboard -Abdominal Pain/Nausea-EGD done today-small hiatal hernia, mild gastritis stomach body/antrum biopsied per GI -Obtain daily weights -Monitor I/O's -Renal diet -Assess dialysis needs daily -Can be discharged from nephrology standpoint Subjective Date of service: 09/14/19 Principal diagnosis: ESRD Interval history: Patient off floor Objective - Vital Signs Vital signs: Vital Signs - 12hr 09/14/19 09/14/19 09/14/19 05:38 08:12 10:29 Temperature 98.1 F Pulse Rate 71 72 Respiratory 18 Rate Blood Pressure 156/76 148/73 O2 Sat by Pulse 97 100 Oximetry 09/14/19 09/14/19 09/14/19 10:32 11:18 11:24 Temperature 98.7 F Pulse Rate 72 70 68 Respiratory 18 Rate Blood Pressure 148/73 146/78 155/85 O2 Sat by Pulse Oximetry 09/14/19 09/14/19 09/14/19 11:30 11:45 12:00 Temperature Pulse Rate 67 66 66 Respiratory Rate Blood Pressure 155/83 151/76 146/73 O2 Sat by Pulse Oximetry 09/14/19 09/14/19 09/14/19 12:30 12:45 13:00 Temperature Pulse Rate 67 67 67 Respiratory Rate Blood Pressure 141/57 141/52 139/74 O2 Sat by Pulse Oximetry 09/14/19 09/14/19 09/14/19 13:15 13:30 13:45 Temperature Pulse Rate 66 67 67 Respiratory Rate Blood Pressure 146/77 152/79 140/76 O2 Sat by Pulse Oximetry 09/14/19 09/14/19 09/14/19 14:00 14:15 14:18 Temperature Pulse Rate 67 69 70 Respiratory Rate Blood Pressure 146/75 132/77 150/78 O2 Sat by Pulse Oximetry 09/14/19 09/14/19 16:07 16:18 Temperature Pulse Rate 68 68 Respiratory Rate Blood Pressure 172/82 172/82 O2 Sat by Pulse Oximetry - Lab 09/11/19 03:41 09/12/19 05:42 Most recent lab results Calcium 9.4 mg/dL (8.4-10.2) 09/12/19 05:42 Phosphorus 4.40 mg/dL (2.5-4.5) 09/12/19 05:42 Medications & Allergies - Medications Allergies/Adverse Reactions: Allergies glyburide [From Micronase] Allergy (Severe, Verified 10/10/17 13:17) Swelling of tongue,face VEGA Inhibitors Allergy (Verified 12/28/17 08:24) Shortness of Breath nifedipine Allergy (Verified 12/28/17 08:23) Vomiting Home Medications: Home Medications Medication Instructions Recorded Confirmed Last Taken Type Clopidogrel Bisulfate [Plavix] 75 mg PO DAILY 08/15/15 09/10/19 3 Days Ago History ~08/29/19 Carvedilol [Coreg] 25 mg PO BID #60 tablet 08/20/15 09/10/19 3 Days Ago Rx ~08/29/19 Hydralazine HCl [Apresoline TAB] 50 mg PO QID 08/30/17 09/10/19 3 Days Ago Hist ory ~08/29/19 Ferrous Gluconate [Ferrous 324 mg PO DAILY 10/05/17 09/10/19 3 Days Ago History Gluconate 324 MG] ~08/29/19 Furosemide [Lasix TAB] 80 mg PO QDAY 10/05/17 09/10/19 3 Days Ago History ~08/29/19 Levothyroxine Sodium [Synthroid] 300 mcg PO 5XW 10/10/17 09/10/19 3 Days Ago History ~08/29/19 Simvastatin [Zocor] 10 mg PO HS 10/10/17 09/10/19 3 Days Ago History ~08/29/19 Lispro Insulin [HumaLOG] 1.1 units SQ Q60MIN 12/28/17 09/10/19 3 Days Ago History ~08/29/19 Vit D3-Vit K/Berberine/Hops 1 tab PO QWEEK 12/28/17 09/10/19 3 Days Ago History [Ostera Tablet] ~08/29/19 Aspirin 325 mg PO QDAY #30 tablet 09/06/19 09/10/19 Unknown Rx Polyethylene Glycol 3350 [Miralax 17 gm PO BID #30 packet 09/06/19 09/10/19 Unknown Rx 3350] oxyCODONE /ACETAMINOPHEN [Percocet 1 tab PO Q6H PRN #10 09/06/19 09/10/19 Unknown Rx 5/325 mg] Pantoprazole [Protonix TAB] 40 mg PO QDAY #30 tablet 09/14/19 Unknown Rx Active Medications: Generic Name Dose Route Start Last Admin Trade Name Freq PRN Reason Stop Dose Admin Acetaminophen 650 mg 09/11/19 01:25 Tylenol PO Q4H PRN Pain MILD(1-3)/Fever >100.5/VIGIL Aspirin 325 mg 09/12/19 10:00 09/14/19 10:29 Aspirin PO 325 mg QDAY PARISH Administration Carvedilol 25 mg 09/11/19 22:00 09/14/19 10:32 Coreg PO 25 mg BID PARISH Administration Clopidogrel Bisulfate 75 mg 09/12/19 10:00 09/14/19 10:29 Plavix PO 75 mg DAILY PARISH Administration Dextrose 50 ml 09/11/19 01:25 D50w (25gm) Syringe IV PRN PRN Hypoglycemia Enoxaparin Sodium 30 mg 09/11/19 10:00 09/14/19 10:28 Lovenox SUB-Q 30 mg QDAY PARISH Administration Ferrous Gluconate 324 mg 09/12/19 10:00 09/14/19 10:35 Fergon PO 324 mg DAILY PARISH Administration Furosemide 80 mg 09/12/19 10:00 09/14/19 10:28 Lasix PO 80 mg QDAY PARISH Administration Hydralazine HCl 10 mg 09/11/19 09:00 09/11/19 08:51 Apresoline IV 10 mg Q4H PRN Administration BP >160/100 Hydralazine HCl 50 mg 09/11/19 22:00 09/14/19 16:07 Apresoline PO 50 mg QID PARISH Administration Sodium Chloride 100 mls @ 999 mls/hr 09/11/19 17:45 Nacl 0.9% IV [place] PRN Hypotension Sodium Chloride 1,000 mls @ 50 mls/hr 09/13/19 15:00 Nacl 0.9% 1000 Ml IV DIRECT PARISH Insulin Human Lispro 0 unit 09/11/19 22:00 09/14/19 16:01 Humalog SUB-Q Not Given ACHS [facility] Protocol Levothyroxine Sodium 300 mcg 09/12/19 06:00 09/13/19 06:16 Synthroid PO 300 mcg [id number] PARISH Administration Metoclopramide HCl 10 mg 09/12/19 14:30 Reglan IV Q6H PRN Nausea And Vomiting Morphine Sulfate 2 mg 09/11/19 01:25 09/12/19 21:23 Morphine IV 2 mg Q4H PRN Administration Pain, Moderate (4-6) Ondansetron HCl 4 mg 09/12/19 14:30 09/13/19 20:31 Zofran IV 4 mg Q4H PRN Administration Nausea And Vomiting Oxycodone/Acetaminophen 1 tab 09/11/19 22:00 09/13/19 22:57 Percocet 5/325 PO 1 tab Q6H PRN Administration Pain, Moderate (4-6) Pantoprazole Sodium 40 mg 09/12/19 18:00 09/14/19 10:30 Protonix PO 40 mg QDAY PARISH Administration Polyethylene Glycol 17 gm 09/11/19 22:00 09/14/19 10:35 Miralax 3350 PO Not Given BID PARISH Pravastatin Sodium 20 mg 09/11/19 22:00 09/13/19 22:57 Pravachol PO 20 mg QHS PARISH Administration Sodium Chloride 10 ml 09/11/19 10:00 09/13/19 22:59 Sodium Chloride Flush Syringe 10 Ml IV 10 ml BID PARISH Administration Sodium Chloride 10 ml 09/11/19 01:25 09/13/19 20:31 Sodium Chloride Flush Syringe 10 Ml IV 10 ml PRN PRN Administration LINE FLUSH
[2019-09-14 18:22] VITALS: BP 97/46
[2019-09-18] MEDS ORDERED: HOPS PO SCH (10:00)
[2019-09-18] MEDS ORDERED: BERBERINE PO SCH (10:00)
[2019-09-18] MEDS ORDERED: VIT D3 VIT K PO SCH (10:00)
== END 2019-09-14 20:00 | disposition home or self-care (01) ==
LOC: ED 19:12 → 4A 09-11 03:03 → 3A 09-13 17:09
PROVIDERS: ADMIT Internal Medicine; ATTEND Internal Medicine
DX: K44.9 Diaphragmatic hernia without obstruction or gangrene (principal); K29.70 Gastritis, unspecified, without bleeding; Z23 Encounter for immunization
CPT/HCPCS: 36415; 43239; 71045; 74177; 78264; 78582; 80048; 80053; 80061; 80074; 81001; 82550; 82553; 82962; 83880; 84100; 84484; 85025; 85379; 85610; 87116; 88305; 88342; 90686; 90732; 93005; 93010; 94760; 96372; 96374; 96375; 96376; A9270; A9540; A9541; A9558; G0008; G0257; G0378; J0360; J1650; J2250; J2270; J2405; J2704; J7030; Q9967; 90471; 99285; J1815

== ENCOUNTER 2021-02-04 06:00 | Day surgery (SDC) | payer MEDICARE ==
[~2021-02-04 06:00] MED LIST changes: -ANCEF/STERILE WATER 2 GM/20 ML 2 GM/20 ML SYRINGE IV NR; -NACL 0.9% 1000 ML 1,000 ML IV SCH; +SODIUM CHLORIDE 0.9% 1000 ML 1,000 ML IV SCH
[2021-02-04] MEDS ORDERED: ONDANSETRON 4 MG/2 ML INJ ONE ×2 (07:00→11:07)
[2021-02-04] MEDS ORDERED: ALBUTEROL 8.5 GM MDI INHALATION IH ONE (07:05)
[2021-02-04] MEDS ORDERED: LIDOCAINE PF 100 MG/5 ML (CARDIAC SYRINGE) IV ONE (07:05)
[2021-02-04 07:08] LABS: Hematocrit 37.4 % (30.3-42.9); Hemoglobin 11.7 gm/dl (10.1-14.3); Mean Corpuscular HGB Conc 31 % (30-34); Mean Corpuscular Volume 86 fl (79-97); Platelet Count 299 K/mm3 (140-440); Red Blood Count 4.36 M/mm3 (3.65-5.03)
[2021-02-04] MEDS ORDERED: propofoL 200 MG/20 ML VIAL IV ONE ×2 (07:08→08:48)
[2021-02-04 07:09] LABS: Red Cell Distribution Width 20.3 % (13.2-15.2)
[2021-02-04] MEDS ORDERED: PROTAMINE SULFATE 50 MG/5 ML INJ ONE (07:32)
[2021-02-04] MEDS ORDERED: HEPARIN 10,000 UNITS/10 ML VIAL ONE (07:33)
[2021-02-04] MEDS ORDERED: THROMBIN (RECOMBINANT) 5,000 UNIT VIAL TP ONE ×2 (07:33→09:20)
[2021-02-04] MEDS ORDERED: GELATIN SPONGE SIZE 100 TP ONE ×2 (07:33→09:21)
--- NOTE | 2021-02-04 07:34 | Anesthesia Consultation ---
Anesthesia Consult and Med Hx Date of service: 02/04/21 - Airway Anesthetic Teeth Evaluation: Good ROM Head & Neck: Adequate Mental/Hyoid Distance: Adequate Mallampati Class: Class II Intubation Access Assessment: Probably Good - Pulmonary Exam CTA: Yes - Cardiac Exam Cardiac Exam: RRR - Pre-Operative Health Status ASA Pre-Surgery Classification: ASA4 Proposed Anesthetic Plan: General - Pulmonary Hx Smoking: No Hx Respiratory Symptoms: No - Cardiovascular System Hx Hypertension: Yes (took hydralazine, coreg this morning) Hx Coronary Artery Disease: Yes (CABG 2016; EF 30% in 2019, currently well compensated) Hx Heart Attack/AMI: Yes Hx Cardia Arrhythmia: No Hx Pacemaker: Yes Hx Internal Defibrillator: Yes Hx Peripheral Vascular Disease: Yes (last dose plavix 02/03/21) - Central Nervous System CVA: Yes (2007; mild left residual weakness) - Endocrine Hx End Stage Renal Disease: Yes (last HD 02/01/21) Hx Insulin Dependent Diabetes: Yes (stopped insulin pump at home this morning) Hx Hypothyroidism: Yes - Hematic Hx Anemia: Yes - Other Systems Hx Obesity: No - Additional Comments Anesthesia Medical History Comments: No hx anesthetic complications. Cardiology eval on chart.
--- NOTE | 2021-02-04 07:34 | Anesthesia Day of Surgery ---
Anesthesia Day of Surgery - Day of Surgery Patient Examined: Yes Patient H&P Reviewed: Yes Patient is NPO: Yes Beta Blockers: Yes Cardiac Clearance: Yes
[2021-02-04] MEDS ORDERED: SODIUM CHLORIDE 0.9% 250ML 250 ML ONE (07:39)
[2021-02-04 07:52] LABS: Calcium 9.3 mg/dL (8.4-10.2)
[2021-02-04] MEDS ORDERED: MIDAZOLAM 2 MG/2 ML INJ IV NR (08:00)
[2021-02-04] MEDS ORDERED: ceFAZolin/STERILE WATER 2 GM/20 ML SYRINGE IV NR (08:00)
[2021-02-04] MEDS ORDERED: MIDAZOLAM 2 MG/2 ML INJ ONE (08:11)
[2021-02-04] MEDS ORDERED: PHENYLEPHRINE 10 MG/1 ML INJ SDV ONE ×2 (08:20→09:21)
[2021-02-04] MEDS ORDERED: PHENYLEPHRINE/NS 1,000 MCG/10 ML SYRINGE (OR USE) IV ONE ×2 (08:20→08:49)
[2021-02-04] MEDS ORDERED: EPINEPHrine 30 MG/30 ML INJ IV ONE (08:56)
[2021-02-04] MEDS ORDERED: EPINEPHrine 1 MG/10 ML SYRINGE ONE ×2 (08:57)
[2021-02-04] MEDS ORDERED: ePHEDrine SULFATE 50 MG/1 ML INJ ONE ×2 (08:58→08:59)
[2021-02-04] MEDS ORDERED: HEPARIN 10,000 UNITS/10 ML VIAL IR ONE (09:20)
[2021-02-04] MEDS ORDERED: SODIUM CHLORIDE 0.9% 250 ML IVPB IR ONE (09:22)
[2021-02-04] MEDS ORDERED: SODIUM CHLORIDE 0.9% IRR 1,500 ML BOTTLE IR ONE (09:22)
[2021-02-04] MEDS ORDERED: BUPIVACAINE/PF (0.25%) 2.5 MG/ML 30 ML VIAL INFILTRATI ONE ×3 (09:26→09:28)
[2021-02-04] MEDS ORDERED: LIDOCAINE (1%) 10 MG/1 ML VIAL 20 ML MDV ONE (09:26)
[2021-02-04] MEDS ORDERED: LIDOCAINE (1%) 10 MG/1 ML VIAL 20 ML MDV INFILTRATI ONE ×2 (09:29)
--- NOTE | 2021-02-04 10:29 | Post Operative Note ---
Date of procedure: 02/04/21 Pre-op diagnosis: ESRD Post-op diagnosis: same Procedure: Right Arm Cephalic Vein Transposition Anesthesia: GETA Surgeon: MARICARMEN WALTON Estimated blood loss: other (25 ml) Pathology: none Condition: stable Disposition: PACU
[2021-02-04] MEDS ORDERED: oxyCODONE /ACETAMINOPHEN 5-325MG TAB PO PRN (10:32)
--- NOTE | 2021-02-04 10:32 | Short Stay Summary ---
Short Stay Documentation Date of service: 02/04/21 - History H&P: dictated Past Medical History: ESRD, hypertension - Allergies and Medications Current Medications: Allergies glyburide [From Micronase] Allergy (Severe, Verified 10/10/17 13:17) Swelling of tongue,face VEGA Inhibitors Allergy (Verified 12/28/17 08:24) Shortness of Breath nifedipine Allergy (Verified 12/28/17 08:23) Vomiting Home Medications Medication Instructions Recorded Confirmed Last Taken Type Clopidogrel Bisulfate [Plavix] 75 mg PO DAILY 08/15/15 02/04/21 02/03/21 22:00 History carvediloL [Coreg] 25 mg PO BID #60 tablet 08/20/15 02/04/21 02/04/21 05:00 Rx Hydralazine HCl [Apresoline TAB] 50 mg PO TID 08/30/17 02/04/21 02/04/21 05:00 History Ferrous Gluconate [Ferrous 324 mg PO PRN 10/05/17 02/04/21 3 Days Ago History Gluconate 324 MG] ~08/29/19 Levothyroxine Sodium [Synthroid] 300 mcg PO 5XW 10/10/17 02/04/21 02/04/21 05:00 History Simvastatin [Zocor] 10 mg PO HS 10/10/17 02/04/21 3 Days Ago History ~08/29/19 Lispro Insulin [HumaLOG] 1.1 units SQ Q60MIN 12/28/17 02/04/21 3 Days Ago History ~08/29/19 Vit D3-Vit K/Berberine/Hops 1 tab PO QWEEK 12/28/17 02/04/21 02/01/21 09:00 History [Ostera Tablet] Aspirin 325 mg PO QDAY #30 tablet 09/06/19 02/04/21 02/03/21 09:00 Rx oxyCODONE /ACETAMINOPHEN [Percocet 1 tab PO Q6H PRN #10 09/06/19 02/04/21 Unknown Rx 5/325 mg] Nifedipine ER 90 mg PO DAILY 02/04/21 02/04/21 02/03/21 22:00 History Active Medications Cefazolin Sodium (Cefazolin/Sterile Water 2 Gm/20 Ml Syringe) 2 gm IV PREOP NR Stop: 02/04/21 17:00 Fentanyl (Fentanyl 100 Mcg/2 Ml Inj) 50 mcg IV Q5MIN PRN PRN Reason: Pain , Severe (7-10) Stop: 02/04/21 17:00 Sodium Chloride (Nacl 0.9% 1000 Ml) 1,000 mls @ 42 mls/hr IV DIRECT PARISH Stop: 02/04/21 23:59 Last Admin: 02/04/21 08:00 Dose: 42 mls/hr Documented by: Midazolam HCl (Midazolam 2 Mg/2 Ml Inj) 2 mg IV PREOP NR Stop: 02/04/21 23:59 - Physical exam General appearance: no acute distress Lungs: Normal air movement Heart: Regular rate Extremities: no ischemia - Hospital course Hospital course: the patient was taken to the operating room and had a right arm av fistula revision performed. please refer to the operative note concerning details of the procedure. the patient tolerated the procedure well and was discharged home in stable condition. - Disposition Condition at discharge: Stable Disposition: [id number] TO HOME OR SELFCARE Short Stay Discharge Plan Follow up with: SVEN MONTOYA MD [Primary Care Provider] - 7 Days
[2021-02-04] MEDS: fentaNYL 100 MCG/2 ML INJ IV PRN ×2 (10:54→11:15)
--- NOTE | 2021-02-04 11:13 | Operative Report ---
STAFF SURGEON: Dr. Mac Gillespie. PREOPERATIVE DIAGNOSIS: End-stage renal disease. POSTOPERATIVE DIAGNOSIS: End-stage renal disease. PROCEDURE PERFORMED: Right arm cephalic vein transposition. COMPLICATIONS: None. ESTIMATED BLOOD LOSS: 25 mL. ANESTHESIA: General. INDICATIONS FOR PROCEDURE: This is a 55-year-old female with end-stage renal disease, on hemodialysis via right IJ PermCath who has a right arm brachiocephalic AV fistula that had ongoing cannulation issues. The patient had diagnostic imaging that demonstrated a widely patent AV fistula, but it was felt that the fistula might be too deep for cannulation. Therefore, it was felt that the patient would benefit from revision of her access to assist with cannulation for dialysis. The patient was explained all the risks, benefits and alternatives of procedure, expressed understanding and wished to proceed. DESCRIPTION OF PROCEDURE: After appropriate consent was obtained, the patient was brought back to the operating room and placed on the operating table in supine position with the right arm extended. The patient was given appropriate medication for general anesthesia and had LMA placed without difficulty. The right arm was prepped and draped in a sterile fashion with ChloraPrep. Appropriate preoperative antibiotics were administered and appropriate time-out performed indicating correct patient, procedure, and site of procedure. We then began the operation by making a longitudinal incision overlying the AV fistula near the antecubital fossa. This was carried through the subcutaneous tissue with a combination of blunt dissection and electrocautery. The cephalic vein was identified. We then extended our incision to the proximal arm, again carried out dissection through subcutaneous tissue with a combination of blunt dissection and electrocautery. The cephalic vein was exposed in its entirety. The branches of the fistula were ligated with silk suture and transected. Once the cephalic vein was completely mobilized, the anterior surface was marked. Vascular clamps were placed, both proximally and distally. The fistula was transected in the distal aspect of the incision and this was flushed with heparinized saline. We then proceeded to create a subcutaneous tunnel bringing through the cephalic vein with care to avoid any twisting or kinking. Both ends were appropriately spatulated and then end-to-end anastomosis was performed with a running 6-0 Prolene suture. Once complete, flow was reestablished through the fistula, which had a nice palpable thrill. We then looked to obtain hemostasis along our suture line, which was obtained with hemostatic agents. Of note, once the fistula was clamped, the patient was given 3000 units of unfractionated heparin. Once we were satisfied with hemostasis, we then proceeded to close the wound by deep subcutaneous layer with interrupted 3-0 PDS and skin was approximated with elliott. Appropriate dressing was placed. The patient tolerated the procedure well, emerged from the general anesthesia, had LMA removed, and was sent to recovery in stable condition. All sponges, instrument and needle counts were correct at completion of the operation. JOB# [id number] TIAN/TRINITY
[2021-02-04] MEDS ORDERED: ONDANSETRON 4 MG/2 ML INJ IV ONE (12:19)
[2021-02-04 12:56] VITALS: BP 149/57
--- NOTE | 2021-02-04 14:37 | Post Anesthesia Evaluation ---
- Post Anesthesia Evaluation Patient Participated: Yes Airway Patent: Yes Stable Respiratory Function: Yes Nausea/Vomiting: No Temp > 96.8F: Yes Pain Manageable: Yes Adequeate Hydration: Yes Anesthesia Complications: No
== END 2021-02-04 06:01 | disposition home or self-care (01) ==
LOC: OR 06:00
PROVIDERS: ATTEND Surgery Vascular Surgery
DX: I13.2 Hypertensive heart and chronic kidney disease with heart failure and with stage 5 chronic kidney disease, or end stage renal disease (principal); E11.22 Type 2 diabetes mellitus with diabetic chronic kidney disease; N18.6 End stage renal disease; I50.9 Heart failure, unspecified; E03.9 Hypothyroidism, unspecified; I25.10 Atherosclerotic heart disease of native coronary artery without angina pectoris; I25.5 Ischemic cardiomyopathy; E78.00 Pure hypercholesterolemia, unspecified; D64.9 Anemia, unspecified; Z87.440 Personal history of urinary (tract) infections; Z88.8 Allergy status to other drugs, medicaments and biological substances; Z79.82 Long term (current) use of aspirin; Z79.899 Other long term (current) drug therapy; Z95.1 Presence of aortocoronary bypass graft; Z95.0 Presence of cardiac pacemaker; Z87.01 Personal history of pneumonia (recurrent); Z98.890 Other specified postprocedural states; Z80.1 Family history of malignant neoplasm of trachea, bronchus and lung; Z80.8 Family history of malignant neoplasm of other organs or systems; Z98.891 History of uterine scar from previous surgery; Z86.73 Personal history of transient ischemic attack (TIA), and cerebral infarction without residual deficits; Z82.49 Family history of ischemic heart disease and other diseases of the circulatory system
CPT/HCPCS: 36415; 36818; 80048; 82962; 85027; A4649; J0690; J1644; J2001; J2250; J2370; J2405; J2704; J2720; J3010; J7030; J7050; J0171